=== PATIENT | male | born 1955 | race Caucasian/White ===

== ENCOUNTER 2019-06-16 05:52 | Outpatient (CLI) | payer MEDICAID, SELFPAY ==
[2019-06-16 07:20] LABS: Basophils % 0.8 %; Eosinophils # 0.2 10^3/uL (0.0-0.8); Eosinophils % 2.9 %; Hematocrit 40.1 % (42.0-52.0); Lymphocytes % 37.6 %; Mean Corpuscular HGB Conc 32.4 g/dL (30.0-36.0); Mean Corpuscular Hemoglobin 30.6 pg (28.0-34.0); Mean Corpuscular Volume 94.4 fL (80-94); Mean Platelet Volume 10.1 fL (7.4-10.4); Monocytes # 0.5 10^3/uL (0.2-0.9); Monocytes % 9.2 %; Neutrophils # 2.6 10^3/uL (1.8-7.7); Neutrophils % 49.3 %; Nucleated Red Blood Cells % 0 %; Platelet Count 234 10^3/cmm (130-400); Red Blood Count 4.25 10^6/uL (4.1-5.3); White Blood Count 5.2 10^3/uL (4.0-10.0)
[2019-06-16 07:23] LABS: Alanine Aminotransferase 11 U/L (0-41); Albumin Level 4.4 g/dL (3.5-5.2); Alkaline Phosphatase 75 IU/L (40-130); Anion Gap 14.9 (5-19); Aspartate Amino Transferase 13 U/L (0-40); Blood Urea Nitrogen 11 mg/dL (8-23); Calcium 9.8 mg/Dl (8.8-10.2); Carbon Dioxide 22 mmol/L (22-29); Chloride 108 mmol/L (98-107); Globulin 2.5 g/dL (1.3-4.6); Glomerular Filtration Rate 85.5 mL/min (90-130); Glucose 91 mg/dL (74-106); Potassium 3.9 mmol/L (3.5-5.1); Sodium 141 mmol/L (136-145); Total Bilirubin 0.2 mg/dL (0.15-1.2); Total Protein 6.9 g/dL (6.6-8.7)
[2019-06-16 07:39] LABS: Vitamin B12 384 pg/mL (232-1245)
== END 2019-06-16 05:53 | disposition home or self-care (01) ==
LOC: GILAB 05:56
PROVIDERS: Family Provider Nurse Practitioner Family; PCP Nurse Practitioner Family; Visit Provider Nurse Practitioner Family
DX: Z45.2 Encounter for adjustment and management of vascular access device (principal)
CPT/HCPCS: 36591; 80053; 82607; 85025; 96368; J1642

== ENCOUNTER 2019-07-21 06:42 | Outpatient (CLI) | payer MEDICAID, SELFPAY ==
[2019-07-21 06:50] VITALS: BP 123/79; PULSE 71; RESP 18; TEMP 37.1; O2SAT 99; BMI 21.7
[2019-07-21 07:17] LABS: Basophils % 0.7 %; Eosinophils # 0.2 10^3/uL (0.0-0.8); Hematocrit 39.5 % (42.0-52.0); Hemoglobin 13.1 g/dL (11.7-16.6); Mean Corpuscular HGB Conc 33.2 g/dL (30.0-36.0); Mean Corpuscular Hemoglobin 31.5 pg (28.0-34.0); Mean Platelet Volume 9.7 fL (7.4-10.4); Monocytes # 0.5 10^3/uL (0.2-0.9); Monocytes % 8.3 %; Neutrophils # 2.8 10^3/uL (1.8-7.7); Neutrophils % 50.8 %; Nucleated Red Blood Cells % 0 %; Platelet Count 218 10^3/cmm (130-400); Red Blood Count 4.16 10^6/uL (4.1-5.3); Red Cell Distribution Width 13.7 % (12.1-15.1); White Blood Count 5.4 10^3/uL (4.0-10.0)
[2019-07-21 07:34] LABS: Alanine Aminotransferase 11 U/L (0-41); Albumin Level 3.9 g/dL (3.5-5.2); Alkaline Phosphatase 64 IU/L (40-130); Anion Gap 15.4 (5-19); Aspartate Amino Transferase 13 U/L (0-40); Blood Urea Nitrogen 12 mg/dL (8-23); Calcium 9.8 mg/dL (8.5-10.5); Carbon Dioxide 21 mmol/L (22-29); Chloride 107 mmol/L (98-107); Globulin 3.7 g/dL (1.3-4.6); Glucose 108 mg/dL (65-115); Potassium 3.4 mmol/L (3.5-5.1); Sodium 140 mmol/L (136-145); Total Bilirubin 0.3 mg/dL (0.15-1.2); Total Protein 7.6 g/dL (6.6-8.7)
== END 2019-07-21 06:43 | disposition home or self-care (01) ==
PROVIDERS: Family Provider Nurse Practitioner Family; PCP Nurse Practitioner Family; Visit Provider Nurse Practitioner Family
DX: Z45.2 Encounter for adjustment and management of vascular access device (principal); Z79.899 Other long term (current) drug therapy; D64.9 Anemia, unspecified; F41.9 Anxiety disorder, unspecified; G40.909 Epilepsy, unspecified, not intractable, without status epilepticus
CPT/HCPCS: 36591; 80053; 85025

== ENCOUNTER 2019-11-17 06:54 | Outpatient (CLI) | payer MEDICAID, SELFPAY ==
--- NOTE | 2019-11-17 07:05 | MR_ITS ---
WS: [id number] MRI LUMBAR SPINE NONCONTRAST TECHNIQUE: Sagittal T1, T2 and STIR imaging. Axial T1 and T2 imaging. CLINICAL INFORMATION: LOW BACK PAIN COMPARISON: MRI FINDINGS: Mild lumbar curve. No acute compression. Multilevel disc bulging worse at L2-L3, L3-L4 and L4-L5. Dis c space narrowing has progressed at these levels since the prior examination . Spinal canal stenosis has progressed. Small disc protrusion lower thoracic spine at T10-11. Mild bilateral foramin al narrowing at this level. L1-L2: Mild annular bulging. Narrowing of subarticular recess bilaterally. Mild facet arthropathy. Mi ld bilateral foraminal narrowing. L2-L3: Mild disc bulging in combination with facet arthropathy results in moderate central canal sten osis. Impingement on the left subarticular recess. Mild right foraminal narrowing. L3-L4: Disc osteophyte complex with moderate central canal stenosis. Impingement on the left subartic ular recess and traversing left L4 nerve root. Moderate facet arthropathy. Moderate to severe left fo raminal narrowing. Right foramen is patent. L4-L5: Mild disc bulging with mild central canal stenosis. Slight impingement traversing L5 nerve ricci ts. Moderate facet arthropathy. Moderate bilateral foraminal narrowing right greater than left. L5-S1: Mild annular bulging. Spinal canal is patent. Mild facet arthropathy. Mild right greater than left foraminal narrowing. Slight encroachment traversing right greater than left S1 nerve roots in th e subarticular recess. Small disc protrusions at C5-C6 and C6-C7 cervical spine seen on the mechanical engineering specialist imaging. Small bilateral renal cysts. MR/MR lumbar spine wo con* [id number] IMPRESSION: 1. Mild lumbar curve with progressed degenerative disc disease L2-L3, L3-L4, L 4-L5 with progressed central canal stenosis. 2. Moderate central canal stenosis L2-L3 and L3-4 worse at L3-4. 3. Impingement on the subarticular recess L2-3, bilateral L3-4 worse the left, and right L4-5. 4. Moderate foraminal narrowing left L3-4 and right L4-5. 5. Moderate facet arthropathy L3-L5. 6. Small disc protrusions in the cervical spine seen on the mechanical engineering specialist imaging at C 5-C6 and C6-C7.
== END 2019-11-17 06:55 | disposition home or self-care (01) ==
LOC: RADSHAW 06:58
PROVIDERS: PCP Family Medicine; Visit Provider Family Medicine
DX: M54.5 Low back pain (principal); M51.36 Other intervertebral disc degeneration, lumbar region; M48.061 Spinal stenosis, lumbar region without neurogenic claudication; M25.80 Other specified joint disorders, unspecified joint; M47.816 Spondylosis without myelopathy or radiculopathy, lumbar region; M50.220 Other cervical disc displacement, mid-cervical region, unspecified level
CPT/HCPCS: 72148

== ENCOUNTER → 2020-05-30 11:35 | Outpatient (BNVA) | payer MEDICAID, SELFPAY | PROVIDERS: PCP Family Medicine; Visit Provider Internal Medicine | DX: Z20.828 Contact with and (suspected) exposure to other viral communicable diseases (principal) | CPT/HCPCS: 87635 ==

== ENCOUNTER 2020-06-05 08:13 | Day surgery (SDC) | payer MEDICAID, SELFPAY ==
[2020-05-31 13:10] VITALS: BMI 22.6
[2020-06-05 09:00] VITALS: BP 127/82; PULSE 83; RESP 18; TEMP 36.3; O2SAT 99
--- NOTE | 2020-06-05 09:24 | ANES.PREANE2 ---
Pre-Anesthetic Assessment Pre-Anesthetic Assessment: Height/Weight: Height 1.83 m Weight 75.75 kg Temp Pulse Resp BP Pulse Ox 97.4 F L 83 18 127/82 99 06/05/20 09:00 06/05/20 09:00 06/05/20 09:00 06/05/20 09:00 06/05/20 09:00 Preop Diagnosis: Hx colon polyps Proposed Procedure: Operation Date: 06/05/20 09:45 Proposed Procedures p EGD [id number] Z86.010 R10.11(Not Applicable) - Nura Diaz MD s Colonoscopy(Not Applicable) - Nura Diaz MD Familial anesthetic complications: None Was Beta Emani taken within 24 hours: N/A Last intake: Intake Last Liquid Date 06/04/19 Last Liquid Time 23:55 Last Solid Date 06/04/19 Last Solid Time 12:00 Social: Social History: Tobacco Exam: Pre-Anes Outpt Exam: alert, oriented x 3, clear to auscultation bilaterally and regular rate & rhythm Airway: Cervical ROM: WNL MP: 3 Dentition: Other (no teeth) Pulmonary: Pulmonary: COPD and Sleep apnea GI: GI: GERD Comments: pancreatic stent s/p cholecystectomy Metabolic: Comments: Lyme's disease - receives antibiotics throught port Neuropsych: Neuropsych: Seizure Anesthetic Plan: ASA status: 3 Anesthesia: MAC Risk of > 500 ml blood loss (7ml/kg in children): No PFSH Anesthesia PFSH: Social History (Updated 05/18/20 @ 14:03 by JACKIE Oreilly) Smoking and tobacco status: current every day smoker Adopted: Yes Marital status: Number of children: 2 service: No History of recent travel: No Data Anesthesia Cardiac Studies: No Data to Display
[2020-06-05] MEDS: sodium chloride 0.9% 1,000 ML 30 ML IV (09:29)
--- NOTE | 2020-06-05 09:35 | W.PM.OPSUD ---
Surgery/Procedure H&P Update DATE OF PROCEDURE: June 05, 2020 DATE H&P PERFORMED: 05/18/20 PREOP DIAGNOSIS: Hx colon polyps PLANNED PROCEDURE: Operation Date: 06/05/20 09:45 Proposed Procedures p EGD [id number] Z86.010 R10.11(Not Applicable) - Nura Diaz MD s Colonoscopy(Not Applicable) - Nura Diaz MD
[2020-06-05 11:02] VITALS: BP 113/81; PULSE 84; RESP 16; TEMP 36.1; O2SAT 95
[2020-06-05 11:16] VITALS: BP 123/89; PULSE 70; RESP 18; TEMP 36.3; O2SAT 100
--- NOTE | 2020-06-05 18:38 | ANE.PACU2 ---
Inpatient post-anesthesia follow up: Airway intact: Yes Vital signs: Temperature 97.4 F Pulse Rate 70 Respiratory Rate 18 Blood Pressure 123/89 Pulse Oximetry 100 Oxygen Delivery Me thod Room Air Oxygen Flow Rate 4 Fraction of Inspir ed Oxygen Hydration adequate: Yes Nausea and vomiting: No Pain level: 1 Mental status: Baseline
[2020-06-06 07:33] LABS: H. Pylori / CLO Test Negative
== END 2020-06-05 11:55 | disposition home or self-care (01) ==
PROVIDERS: PCP Family Medicine; Visit Provider Internal Medicine
PROC: 0DJ08ZZ Inspection of Upper Intestinal Tract, Via Natural or Artificial Opening Endoscopic (ICD-10-PCS; CPT 43235; principal; 2020-06-05 09:45)
PROC: 0DJD8ZZ Inspection of Lower Intestinal Tract, Via Natural or Artificial Opening Endoscopic (ICD-10-PCS; CPT 45378; 2020-06-05 09:45)
DX: K29.70 Gastritis, unspecified, without bleeding (principal); Z86.010 Personal history of colon polyps; R10.11 Right upper quadrant pain; F17.210 Nicotine dependence, cigarettes, uncomplicated; J44.9 Chronic obstructive pulmonary disease, unspecified; G47.30 Sleep apnea, unspecified; K21.9 Gastro-esophageal reflux disease without esophagitis; Z90.49 Acquired absence of other specified parts of digestive tract
CPT/HCPCS: 12345; 43239; 45378; 87077; J7030; T1015-U1

== ENCOUNTER → 2021-05-18 08:08 | Outpatient (BNVA) | payer MEDICAID, SELFPAY | PROVIDERS: PCP Family Medicine; Referring Provider Family Medicine; Visit Provider Urology | DX: N41.1 Chronic prostatitis (principal); N40.1 Benign prostatic hyperplasia with lower urinary tract symptoms; R10.31 Right lower quadrant pain | CPT/HCPCS: 81003 ==

== ENCOUNTER → 2021-09-19 09:34 | Outpatient (BNVA) | payer MEDICARE, MEDICAID, SELFPAY | PROVIDERS: PCP Family Medicine; Referring Provider Family Medicine; Visit Provider Specialist | DX: R10.31 Right lower quadrant pain (principal); R10.32 Left lower quadrant pain; Z87.891 Personal history of nicotine dependence | CPT/HCPCS: 73502; 99203; 99204 ==

== ENCOUNTER → 2021-09-27 08:06 | Outpatient (BNVA) | payer MEDICARE, MEDICAID, SELFPAY | PROVIDERS: PCP Family Medicine; Visit Provider Physician Assistant | DX: M51.36 Other intervertebral disc degeneration, lumbar region (principal); R10.31 Right lower quadrant pain; R10.32 Left lower quadrant pain; M48.062 Spinal stenosis, lumbar region with neurogenic claudication; M41.80 Other forms of scoliosis, site unspecified; M14.80 Arthropathies in other specified diseases classified elsewhere, unspecified site; M16.0 Bilateral primary osteoarthritis of hip | CPT/HCPCS: 72110; 73523; 99204; 99999 ==

== ENCOUNTER → 2021-10-18 07:52 | Outpatient (BNVA) | payer MEDICARE, MEDICAID, SELFPAY | PROVIDERS: PCP Family Medicine; Visit Provider Orthopaedic Surgery | DX: M48.062 Spinal stenosis, lumbar region with neurogenic claudication (principal) | CPT/HCPCS: 99024; 99213 ==

== ENCOUNTER 2021-11-07 21:05 | Inpatient (IN) | payer MEDICARE, MEDICAID, SELFPAY ==
[2021-11-05 08:16] VITALS: BMI 20.9
--- NOTE | 2021-11-05 08:23 | ECG_ITS ---
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 Measurements Intervals [place] Rate: 76 P: 79 [place]: 164 QRS: 75 QRSD: 85 T: 64 QT: 349 QTc: 393 Interpretive Statements SINUS RHYTHM Compared to ECG 10/03/2016 20:42:55 No significant changes Electronically Signed On 11-05-2021 16:33:38 CDT by Mirza Cruz M.D. [email or web address] [email or web address] general [email or web address] Amigothe [email or web address].[employer]/store/OM/[id number]
--- NOTE | 2021-11-05 08:43 | P.ANESASSM_ITS ---
Pre-Anesthetic Assessment Height/Weight: Height 1.83 m Weight 70.307 kg Preop Diagnosis: Hx colon polyps Operation Date: 11/07/21 07:00 Proposed Procedures p Posterior Lumbar Interbody FusionL4/5 [id number] /[id number]/[id number]/71740/49480/M48.062/M51.36/M41.80(Not Applicable) - Bernabe Carbajal, DO Familial anesthetic complications: none Social Tobacco and No alcohol Exam alert, oriented x 3, clear to auscultation bilaterally and regular rate & rhythm Airway Mallampati: Class II Dentition: other (no teeth) Pulmonary Chronic Obstructive Pulmonary Disease and Sleep Apnea CV/HEM None reported None reported Hepatic None reported GI Gastroesophageal Reflux Disease Metabolic lyme's disease on doxy Musc/skel Lower Back Pain Neuropsych Seizure (last one 2-3 years ago, unknown etiology (hx of multiple concussions though)) Anesthetic Plan ASA status: 3 Anesthesia: General Risk of > 500 ml blood loss (7ml/kg in children): No Medications/Allergies Home Medications Medication Instructions Recorded Confirmed Last Taken Type gabapentin 600 mg tablet 600 mg PO QID 06/16/19 11/05/21 06/05/20 History topiramate 200 mg tablet (Topamax) 200 mg PO QID 06/16/19 11/05/21 06/05/20 History albuterol sulfate 90 mcg/actuation 2 puff INHALATION QID 05/08/20 11/05/21 1 Week Ago History aerosol inhaler (ProAir HFA) ~05/29/20 naloxone 4 mg/actuation nasal 1 spray INTRANASAL Q2M 05/08/20 11/05/21 Unknown History spray (Narcan) pantoprazole 20 mg tablet,delayed 40 mg PO DAILY tab 05/08/20 11/05/21 06/05/20 History release (Protonix) sucralfate 1 gram tablet (Carafate) 1 g PO Q6H tab 05/08/20 11/05/21 06/05/20 History doxycycline hyclate 100 mg capsule 100 mg PO BID 05/18/21 11/05/21 Unknown History tamsulosin 0.4 mg capsule 0.4 mg PO .at bedtime #30 cap 05/18/21 11/05/21 Unknown Rx cholecalciferol (vitamin D3) 1,250 1,250 unit PO DAILY 09/19/21 11/05/21 Unknown History mcg (50,000 unit) capsule ibuprofen 800 mg tablet 800 mg PO Q8H 09/19/21 11/05/21 Unknown History oxycodone-acetaminophen 10 mg-325 1 tab PO TID PRN 09/19/21 11/05/21 Unknown History mg tablet (Percocet) chlorzoxazone 500 mg tablet 500 mg PO TID 11/05/21 11/05/21 Unknown History Allergies Allergy/AdvReac Type Severity Reaction Status Date / Time ketorolac [From Toradol] Allergy Mild unknown Verified 10/18/21 08:03 carbamazepine [From Tegretol] Allergy Unknown Verified 10/18/21 08:03 Penicillins Allergy ALGY-Hives Verified 10/18/21 08:03 phenobarbital Allergy Unknown Verified 10/18/21 08:03 phenytoin [From Dilantin] Allergy Unknown Verified 10/18/21 08:03 prochlorperazine Allergy Unknown Verified 10/18/21 08:03 [From Compazine] ciprofloxacin AdvReac increase Verified 10/18/21 08:03 blood pressure with headache PFSH Anesthesia Medical History BPH loc w urin obs/LUTS History of broken leg Surgical History H/O shoulder surgery History of ankle surgery History of elbow surgery History of hernia surgery Family History Father , AT AGE 73 Murder Mother , AT AGE 42 Cancer COLON Social History Smoking and tobacco status: former smoker Alcohol intake: never Adopted: Yes Marital status: Number of children: 2 History of recent travel: No Data Anesthesia Cardiac Studies: No Data to Display
[2021-11-07] VITALS (33 sets, daily range): BP systolic 79–118; BP diastolic 53–81; PULSE 87–119; RESP 15–28; TEMP 36.4–36.6; O2SAT 74–100
--- NOTE | 2021-11-07 | SCC_ITS ---
Procedure done: 1. L5/S1 Interbody fusion with posterolateral fusion 2. Instrumentation T10-S1 3. Lumbopelvic fixation 4. Posterolateral fusion T10 pelvis 5. Cage at L5/S1 6. Laminectomy L1/2 with partial facetectomies 7. Laminectomy L2/3 with partial facetectomies 8. Laminectomy L3/4 with partial facetectomies 9. Laminectomy L4/5 with partial facetectomies 10. Laminectomy L5/S1 with partial facetectomies purpose of nerve decompression 11. use of autograft from same incision 12. allograft 13. Bone marrow aspirate from right iliac crest 14. computer navigation / stereotactic for spine 11 seconds of fluoroscopic guidance, for a cumulative dose of 28.2 mGy, was provided to Dr. Carbajal by the radiology department. C-arm images of the lumbar spine were saved for the patient's permanent record. [facility]
[2021-11-07] MEDS: sodium chloride 0.9% 1,000 ML 30 ML IV (09:26)
[2021-11-07] MEDS: fentaNYL 50 mcg/mL INJ 2mL IVP ×2 (10:00→10:20)
--- NOTE | 2021-11-07 10:01 | ANES.PREANE2 ---
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 Operation Date: 11/07/21 11:20 Proposed Procedures p Posterior Lumbar Interbody FusionL4/5 [id number]/15425/M48.062/M51.36/M41.80(Not Applicable) - Bernabe Carbajal DO Last intake: Intake Last Liquid Date 11/06/21 Last Liquid Time 22:00 Last Solid Date 11/06/21 Last Solid Time 22:00 Social Tobacco Airway Submandibular: within normal limits Mallampati: Class I Pulmonary Chronic Obstructive Pulmonary Disease GI GERD well controlled Musc/skel Lower Back Pain and Osteoarthritis/DJD Neuropsych Seizure Traumatic brain injury Anesthetic Plan ASA status: 3 Anesthesia: General Other: Avoid Propofol Medications/Allergies Home Medications Medication Instructions Recorded Confirmed Last Taken Type gabapentin 600 mg tablet 600 mg PO QID 06/16/19 11/07/21 11/07/21 07:00 History topiramate 200 mg tablet (Topamax) 200 mg PO QID 06/16/19 11/07/21 11/06/21 History albuterol sulfate 90 mcg/actuation 2 puff INHALATION QID 05/08/20 11/07/21 11/06/21 History aerosol inhaler (ProAir HFA) naloxone 4 mg/actuation nasal 1 spray INTRANASAL Q2M 05/08/20 11/07/21 Unknown History spray (Narcan) pantoprazole 20 mg tablet,delayed 40 mg PO DAILY tab 05/08/20 11/07/21 11/06/21 History release (Protonix) sucralfate 1 gram tablet (Carafate) 1 g PO Q6H tab 05/08/20 11/07/21 11/06/21 History doxycycline hyclate 100 mg capsule 100 mg PO BID 05/18/21 11/07/21 11/06/21 History tamsulosin 0.4 mg capsule 0.4 mg PO .at bedtime #30 cap 05/18/21 11/07/21 11/06/21 Rx cholecalciferol (vitamin D3) 1,250 1,250 unit PO DAILY 09/19/21 11/07/21 10/23/21 History mcg (50,000 unit) capsule ibuprofen 800 mg tablet 800 mg PO Q8H 09/19/21 11/07/21 11/06/21 History oxycodone-acetaminophen 10 mg-325 1 tab PO TID PRN 09/19/21 11/07/21 11/06/21 History mg tablet (Percocet) chlorzoxazone 500 mg tablet 500 mg PO TID 11/05/21 11/07/21 11/06/21 History Allergies Allergy/AdvReac Type Severity Reaction Status Date / Time ketorolac [From Toradol] Allergy Mild unknown Verified 10/18/21 08:03 carbamazepine [From Tegretol] Allergy Unknown Verified 10/18/21 08:03 morphine Allergy ALGY-Swell Verified 11/07/21 09:14 Lip/Tongue/Throat Penicillins Allergy ALGY-Hives Verified 10/18/21 08:03 phenobarbital Allergy Unknown Verified 10/18/21 08:03 phenytoin [From Dilantin] Allergy Unknown Verified 10/18/21 08:03 prochlorperazine Allergy Unknown Verified 10/18/21 08:03 [From Compazine] propofol Allergy ADR-Headach Verified 11/07/21 09:13 e ciprofloxacin AdvReac increase Verified 10/18/21 08:03 blood pressure with headache Current Medications Generic Name Dose Route Start Last Admin Trade Name Freq PRN Reason Stop Dose Admin Sodium Chloride 1,000 mls @ 30 mls/hr 11/07/21 08:15 11/07/21 09:26 Sodium Chloride 0.9% IV 11/08/21 08:14 30 mls/hr .Q24H SABAS Administration PFSH Anesthesia Medical History BPH loc w urin obs/LUTS History of broken leg Surgical History H/O shoulder surgery History of ankle surgery History of elbow surgery History of hernia surgery Family History Father , AT AGE 73 Murder Mother , AT AGE 42 Cancer COLON Social History Smoking and tobacco status: former smoker Alcohol intake: never Adopted: Yes Marital status: Number of children: 2 History of recent travel: No Data Anesthesia Cardiac Studies: No Data to Display
[2021-11-07] MEDS: HYDROmorphone 1 mg/mL INJ 1 mL 0.5 MG IVP ×3 (11:15→13:35)
--- NOTE | 2021-11-07 13:28 | W.PM.OPSUD ---
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
[2021-11-07 13:44] LABS: Hematocrit 36.7 % (42.0-52.0); Hemoglobin 12.1 g/dL (11.7-16.6)
[2021-11-07] MEDS: clindamycin 900 MG/50 ML PREMIX 100 MG IV (14:12)
[2021-11-07 14:44] LABS: Alanine Aminotransferase < 5 U/L (0-41); Albumin Level 4.2 g/dL (3.5-5.2); Alkaline Phosphatase 52 IU/L (40-130); Aspartate Amino Transferase 17 U/L (0-40); Blood Urea Nitrogen 22 mg/dL (8-23); Calcium 9.3 mg/dL (8.5-10.5); Carbon Dioxide 26 mmol/L (22-29); Chloride 105 mmol/L (98-107); Globulin 3.1 g/dL (1.3-4.6); Glomerular Filtration Rate 135.2 mL/min (90-130); Glucose 83 mg/dL (65-115); Osmolality Calculated 290 mOsm/kg (285-295); Sodium 139 mmol/L (136-145); Total Bilirubin 0.2 mg/dL (0.15-1.2); Total Protein 7.3 g/dL (6.6-8.7)
[2021-11-07 14:46] LABS: Anion Gap 12.3 (5-19); Creatinine Clr Calc Pharmacy 97.2432; Potassium 4.3 mmol/L (3.5-5.1)
[2021-11-07] MEDS: heparin, porcine 1,000 unit/mL INJ 10 mL 10000 UNIT IRRIGATION (17:04)
[2021-11-07] MEDS: vancomycin 1,000 MG SDV 1000 MG XX (17:04)
[2021-11-07 18:09] LABS: ABG PCO2 46.7 mmHg (35-45); ABG PH Result 7.23 (7.35-7.45); Arterial Blood Gas Hematocrit 27.7 % (42-52); Base Excess ABG -7.8 mmol/L (-2.0-2.0); Blood Gas Sample Type Arterial; HCO3 ABG 19.4 mmol/L (22-26); HGB O2 Sat 97.3 % (95-100); Ionized Calcium Level - ABG 1.2 mmol/L (1.1-1.4); Methemoglobin 0.6 % (0.4-1.5); Oxygen Saturation ABG 99.9; Potassium Level - ABG 3.6 mmol/L (3.5-5.0)
[2021-11-07 18:10] LABS: Hemoglobin 9.5 g/dL (11.7-16.6)
[2021-11-07 18:11] LABS: Blood Gas Operator Identificat ED; Blood Gas Sample Site Not specified
[2021-11-07 19:19] LABS: ABG PCO2 41.1 mmHg (35-45); ABG PH Result 7.25 (7.35-7.45); Arterial Blood Gas Hematocrit 26.8 % (42-52); Base Excess ABG -8.7 mmol/L (-2.0-2.0); Blood Gas Allen Test Pos; Blood Gas Operator Identificat ED; Blood Gas Sample Type Arterial; Carboxyhemoglobin 1.6 %THgb (0.4-20.1); HGB O2 Sat 97.3 % (95-100); Ionized Calcium Level - ABG 1.2 mmol/L (1.1-1.4); Methemoglobin 1.1 % (0.4-1.5); Potassium Level - ABG 3.7 mmol/L (3.5-5.0); Total Hemoglobin 8.8 g/dL (14-18)
--- NOTE | 2021-11-07 19:32 | XR_ITS ---
WS: [id number] Exam: XR lumbar spine 1V port [id number] Date/Time of Exam: 11/07/2021 7:32 PM Reason For Exam: OR PICS Intraoperative limited AP and lateral images of the lower lumbar and upper sacral spine are submitted for evaluation. Pedicle screws are positioned in L4, L5 and S1. Screws bridge the bilateral sacroiliac joints. A disc spacer is noted at L5-S1. No other significant finding on this limited series.
--- NOTE | 2021-11-07 19:44 | P.OP_ITS ---
Operative Report Date of procedure: November 07, 2021 Pre-op diagnosis: Preop Diagnosis DDD L spine with Stenosis and Neurogenic Claudication Post-op diagnosis: same Procedure done: 1. L5/S1 Interbody fusion with posterolateral fusion 2. Instrumentation T10-S1 3. Lumbopelvic fixation 4. Posterolateral fusion T10 pelvis 5. Cage at L5/S1 6. Laminectomy L1/2 with partial facetectomies 7. Laminectomy L2/3 with partial facetectomies 8. Laminectomy L3/4 with partial facetectomies 9. Laminectomy L4/5 with partial facetectomies 10. Laminectomy L5/S1 with partial facetectomies purpose of nerve decompression 11. use of autograft from same incision 12. allograft 13. Bone marrow aspirate from right iliac crest 14. computer navigation / stereotactic for spine Surgeon: Bernabe Carbajal Almond Blancher Operator: Cas Reardon Almond Blancher Operator: The rn neurosurgical, Cas Reardon, PAC was needed for his expertise under the microscope. He was important and necessary throughout the procedure to complete in a safe and timely manner. He assisted with patient positioning prepping and draping tissue retraction suctioning of the operative field protection of the dural sac and tissue closure Estimated blood loss (mL): 2,000 Procedure: 1. L5/S1 Interbody fusion with posterolateral fusion 2. Instrumentation T10-S1 3. Lumbopelvic fixation 4. Posterolateral fusion T10 pelvis 5. Cage at L5/S1 6. Laminectomy L1/2 with partial facetectomies 7. Laminectomy L2/3 with partial facetectomies 8. Laminectomy L3/4 with partial facetectomies 9. Laminectomy L4/5 with partial facetectomies 10. Laminectomy L5/S1 with partial facetectomies purpose of nerve decompression 11. use of autograft from same incision 12. allograft 13. Bone marrow aspirate from right iliac crest 14. computer navigation / stereotactic for spine Patient is brought to the operative suite. After undergoing anesthesia, the patient had neuro monitoring attached. Patient was then placed in the prone position on the Scotty table. All areas of impingement were well-padded. Patient was then prepped and draped in the normal sterile fashion. Skin incision was then made over the T10 down to the pelvis. Subperiosteal dissection was made out to the transverse processes of T 10 down to L5. The sacral ala was exposed as well as part of the sacrum where the iliac screws are going to be inserted. Once the exposure was complete attention was then brought to obtaining bone marrow aspirate. The [employer] bone marrow aspirate kit was used to aspirate bone marrow aspirate. This was done by using the sharp probe to open up the bone. Aspiration was performed and then the blunt probe was then used to dissect down to through the bone tunnel. An aspirating well drawn back a millimeter approximately 20 cc of bone marrow aspirate was used. Admixed with the allograft and autograft bone that will be used. Attention was brought to placing the 2 pins into the right iliac crest. These pins will be removed. These pins were placed for purposes of attaching the fiducial for computer navigation. The fiducial was attached and then the C-arm was brought in and spun around the patient. The information from the C-arm was then used in the computer and will later be used for placing the pedicle screws. 2 screws were required to get all screws. The first pin was from L3 to the pelvis. The second spin was from T10 down to L2. The technique for placing the pedicle screws was to use a drill followed by the gearshift probe using computer navigation. Followed by the ball probe to feel the superior inferior medial lateral hollis of the pedicles. Then placement of the screws with computer navigation Was done at each pedicle. Screws were placed at T10 bilaterally, T11 bilaterally, T12 bilaterally, L1 bilaterally, L2 bilaterally, L3 bilaterally, L4 bilaterally, L5 bilaterally and S 1. Is brought to placing the iliac screws. This was done again using computer navigation. Starting point was stable in all the awl was then placed through the sacral ala through the SI joint into the iliac crest. After this was completed a pedicle feeler was used to ensure that there was no breach. This was done using computer navigation as well. And then a tap was used followed by placing 100 mm 8.5 millimeter screws. this was done bilaterally. Next attention was brought to performing the laminectomy ofL1. This was done using the high-speed bur Kerrisons and curettes. Once the lamina was removed and then attention was brought to performing a partial facetectomy on the contralateral side. This was done again using the high-speed bur curettes and Kerrisons. The ligamentum flavum was taken down bilaterally from L1 to L2. Attention was then brought to the facet on the ipsilateral side. The facet was taken down. The L2 nerve was decompressed as it passed around the L2 pedicle bilaterally The laminectomy was done for purposes of decompressing the nerves. The L1-2 foramen were also opened up bilaterally in order to facilitate decompressing the L1 nerve bilaterally Next attention was brought to performing the laminectomy ofL2. This was done using the high-speed bur Kerrisons and curettes. Once the lamina was removed and then attention was brought to performing a partial facetectomy on the contralateral side. This was done again using the high-speed bur curettes and Kerrisons. The ligamentum flavum was taken down bilaterally from L2 to L3. Attention was then brought to the facet on the ipsilateral side. The facet was taken down. The L3 nerve was decompressed as it passed around the L3 pedicle bilaterally The laminectomy was done for purposes of decompressing the nerves. The L2-3 foramen were open bilaterally in order to facilitate decompressing the L2 nerves bilaterally as well. Next attention was brought to performing the laminectomy ofL3. This was done using the high-speed bur Kerrisons and curettes. Once the lamina was removed and then attention was brought to performing a partial facetectomy on the contralateral side. This was done again using the high-speed bur curettes and Kerrisons. The ligamentum flavum was taken down bilaterally from L3 to L4. Attention was then brought to the facet on the ipsilateral side. The facet was taken down. The L4 nerve was decompressed as it passed around the L4 pedicle bilaterally. The laminectomy was done for purposes of decompressing the nerves. The L3-4 was opened up bilaterally to facilitate decompressing the L3 nerve bilaterally. Next attention was brought to performing the laminectomy ofL4. This was done using the high-speed bur Kerrisons and curettes. Once the lamina was removed and then attention was brought to performing a partial facetectomy on the contralateral side. This was done again using the high-speed bur curettes and Kerrisons. The ligamentum flavum was taken down bilaterally from L4 to L5. Attention was then brought to the facet on the ipsilateral side. The facet was taken down. The L5 nerve was decompressed as it passed around the L5 pedicle bilaterally The laminectomy was done for purposes of decompressing the nerves. The L4-5 foramen were opened bilaterally in order to facilitate decompressing the L4 nerve bilaterally Next attention was brought to performing the laminectomy ofL5. This was done using the high-speed bur Kerrisons and curettes. Once the lamina was removed and then attention was brought to performing a partial facetectomy on the contralateral side. This was done again using the high-speed bur curettes and Kerrisons. The ligamentum flavum was taken down bilaterally from L5 to S1. Attention was then brought to the facet on the ipsilateral side. The facet was taken down. The S1 nerve was decompressed as it passed around the S1 pedicle. The laminectomy was done for purposes of decompressing the nerves. as well as placement of the cage. The L5 nerve was identified as it traversed through the L5/S1 foramen. The thecal sac was identified and retracted. The L5/S1 disc base was identified. Using a knife the disc base was opened. And then sequential joseph were placed. The first shaver was a 6 and the last shaver was a 12. Using a pituitary and down going curette the endplates were scraped and disc material was removed from the space. Once adequate decompression of the disc base was felt to be had. Osteoamp sponge was packed into the anterior aspect of the disc base. Then a size 12 cage from [employer] was placed after packing osteoamp into the cage. While placing the cage the thecal sac and S1 nerve was protected. C arm was used to ensure that the cages placed in the appropriate position. Attention was then brought to attaching the rods to the screws placed in the [id number], T11 bilaterally, T12 bilaterally, L1 bilaterally, L2 bilaterally, L3 bilaterally, L4 bilaterally, L5 bilaterally, and S1. This is also all attached to the iliac screws were Placed. caps were torqued into position. Locking the construct in place. Wound was copiously irrigated and then attention was brought to decorticating the facets and transverse processes laterally. Bone that was taken down from the lamina was used along with osteoamp fibers and sponges were packed into the lateral gutters along the facet joints. This was done bilaterally. Wound was then closed in a layered fashion starting with the thoracolumbar fascia. 0-vicryl was used the sub cutaneous tissue was closed with 2-0 vicryl and skin with 4-0 monocryl. Glue was then used to seal the skin and a steril dressing was applied. Patient was then placed in the supine position. The endotracheal tube was removed and patient was transferred to the PACU in stable condition.
--- NOTE | 2021-11-07 20:39 | PM.CONSULT ---
Providers/Reason For Consult Consulting Physician/Specialty*: Elías Messina Reason for Consult*: Medical management Requesting Physician: Bernabe Carbajal DO Attending Physician: Bernabe Carbajal DO Primary Care Provider: Hannah Ross MD History of Present Illness History of Present Illness Geoffrey Mcleod is a 66 year old male with PMH of severe back pain. 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 Medicine was consulted for co management of the patient. His vitals and labs have been reviewed. Review of Systems General: Reports: ROS unobtainable due to endotracheal tube Medications/Allergies Home Medications Medication Instructions Recorded Confirmed Last Taken Type gabapentin 600 mg tablet 600 mg PO QID 06/16/19 11/07/21 11/07/21 07:00 History topiramate 200 mg tablet (Topamax) 200 mg PO QID 06/16/19 11/07/21 11/06/21 History albuterol sulfate 90 mcg/actuation 2 puff INHALATION QID 05/08/20 11/07/21 11/06/21 History aerosol inhaler (ProAir HFA) naloxone 4 mg/actuation nasal 1 spray INTRANASAL Q2M 05/08/20 11/07/21 Unknown History spray (Narcan) pantoprazole 20 mg tablet,delayed 40 mg PO DAILY tab 05/08/20 11/07/21 11/06/21 History release (Protonix) sucralfate 1 gram tablet (Carafate) 1 g PO Q6H tab 05/08/20 11/07/21 11/06/21 History doxycycline hyclate 100 mg capsule 100 mg PO BID 05/18/21 11/07/21 11/06/21 History tamsulosin 0.4 mg capsule 0.4 mg PO .at bedtime #30 cap 05/18/21 11/07/21 11/06/21 Rx cholecalciferol (vitamin D3) 1,250 1,250 unit PO DAILY 09/19/21 11/07/21 10/23/21 History mcg (50,000 unit) capsule ibuprofen 800 mg tablet 800 mg PO Q8H 09/19/21 11/07/21 11/06/21 History oxycodone-acetaminophen 10 mg-325 1 tab PO TID PRN 09/19/21 11/07/21 11/06/21 History mg tablet (Percocet) chlorzoxazone 500 mg tablet 500 mg PO TID 11/05/21 11/07/21 11/06/21 History Allergies Allergy/AdvReac Type Severity Reaction Status Date / Time ketorolac [From Toradol] Allergy Mild unknown Verified 10/18/21 08:03 carbamazepine [From Tegretol] Allergy Unknown Verified 10/18/21 08:03 morphine Allergy ALGY-Swell Verified 11/07/21 09:14 Lip/Tongue/Throat Penicillins Allergy ALGY-Hives Verified 10/18/21 08:03 phenobarbital Allergy Unknown Verified 10/18/21 08:03 phenytoin [From Dilantin] Allergy Unknown Verified 10/18/21 08:03 prochlorperazine Allergy Unknown Verified 10/18/21 08:03 [From Compazine] propofol Allergy ADR-Headach Verified 11/07/21 09:13 e ciprofloxacin AdvReac increase Verified 10/18/21 08:03 blood pressure with headache Current Medications Generic Name Dose Route Start Last Admin Trade Name Freq PRN Reason Stop Dose Admin Fentanyl 50 mcg 11/07/21 08:06 11/07/21 10:20 Fentanyl 50 Mcg/Ml Inj 2ml IVP 50 mcg Q10M PRN Administration Preop Pain PFSH Acute PFSH: Medical History BPH loc w urin obs/LUTS History of broken leg Surgical History H/O shoulder surgery History of ankle surgery History of elbow surgery History of hernia surgery Family History Father , AT AGE 73 Murder Mother , AT AGE 42 Cancer COLON Social History Smoking and tobacco status: former smoker Alcohol intake: never Adopted: Yes Marital status: Number of children: 2 History of recent travel: No Vitals/I&O/Wt Last Vital Signs Temp 97.5 F L 11/07/21 20:05 Pulse 107 H 11/07/21 20:30 Resp 15 11/07/21 20:30 BP 93/72 11/07/21 20:30 Pulse Ox 100 11/07/21 20:30 11/07/21 11/07/21 11/07/21 06:59 14:59 22:59 Intake Total 50 / 50 3700 / 3750 Output Total 3175 / 3175 Balance 50 / 50 525 / 575 Physical Exam HENMT: COMMON NORMALS: normocephalic and atraumatic HEAD & SCALP: normocephalic and atraumatic Eye: GENERAL EYE: appearance normal, both eyes and all related structures Chest: COMMONS NORMALS: normal inspection of the chest and normal palpation of entire chest wall CHEST: Yes Symmetrical chest wall rise Resp: COMMON NORMALS: normal respiratory effort, No retractions, No use of accessory muscles and clear to auscultation bilaterally EFFORT & INSPECTION: Yes symmetric chest movement AUSCULTATION: clear to auscultation bilaterally Cardio: COMMON NORMALS: regular rate, regular rhythm, S1 normal heart sound present, S2 normal heart sound present, No gallops present (Cardio), No murmurs present (Cardio), No rub (Cardio) and Peripheral pulses 2+ throughout RATE: regular rate RHYTHM: regular rhythm HEART SOUNDS: S1 normal heart sound present and S2 normal heart sound present PERIPHERAL PULSES: Peripheral pulses 2+ throughout GI: COMMON NORMALS: Normal to inspection, nondistended, normoactive bowel sounds present, Soft to palpation, non-tender, No hepatosplenomegaly present and no masses AUSCULTATION: Yes normoactive bowel sounds PALPATION: Yes Soft to palpation and Yes No hepatosplenomegaly present RECTAL EXAM: Yes deferred Extremity: COMMON NORMALS: no clubbing, cyanosis or edema and no pedal edema Urinary Catheter Management: Young: Cath Placed During This Visit: yes Urinary Catheter Date of Insertion: 11/07/21 Urinary Catheter Time of Insertion: 14:35 Data : 11/08/21 08:31 11/08/21 08:31 A&P Assessment and plan (1) Degenerative scoliosis in adult patient: Status: Acute (2) BPH loc w urin obs/LUTS: Status: Acute (3) Anemia: Status: Acute Plan 66 year old male with PMH of severe back pain. 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 Anemia: Secondary to postop blood loss Shock: Likely hypovolemic shock secondary to acute blood loss Plan: Currently patient is intubated and on mechanical ventilation. Status post 2 unit PRBC Continue Levophed Current plan is to continue with LR increased to 125 cc an hour 1 L normal saline bolus Monitor H&H Consult Attestations Medical Necessity Statement: Per primary team. Time Spent in Patient Care: Greater than 35 minutes (>than 50% of time spent in counselling and/or direct pt care on unit). Critical Care Time: The high probability of a clinically significant, sudden or life threatening deterioration of the patient's [] system(s) required my full and direct attention, intervention and personal management. The critical care time is as shown. 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
[2021-11-07] MEDS: dexmedeTOMIDine 0.9 % NaCL 400 MCG/100 ML PREMIX IV (21:27)
[2021-11-07] MEDS: ipratropium-albuterol 3 mL Neb INHALATION (21:45)
[2021-11-07] MEDS: lactated ringers 1,000 ML 90 ML IV (21:47)
--- NOTE | 2021-11-07 22:00 | PC.NURSE ---
Versed Patient restless and agitated, banging wrists against the bed and trying to pull at ET tube. Precedex running per JUL. Dr. Ghosh contacted and order received for a versed drip. Medication administered per JUL.
[2021-11-07] MEDS: ondansetron 2 mg/ML SDV 2 mL 4 MG IVP (22:06)
--- NOTE | 2021-11-07 22:10 | XRR_ITS ---
PROCEDURE INFORMATION: Exam: XR Chest Exam date and time: 11/07/2021 10:44 PM Age: 66 years old Clinical indication: Device placement; Ett placement (vent status); Prior surgery; Surgery date: Post-operative (0-2 days); Surgery type: Lumbar; Additional info: Tube placement TECHNIQUE: Imaging protocol: XR of the chest. Views: 1 view. COMPARISON: CR Chest 1 [place] [id number] 10/03/2016 8:57 PM FINDINGS: Tubes, catheters and devices: Endotracheal tube tip in place 4.3 cm above the monae. Right-sided Port-A-Cath. Lungs: Right hilar to lower lobe atelectasis versus minimal infiltrate. Pleural spaces: Unremarkable. No pleural effusion. No pneumothorax. Heart/Mediastinum: Unremarkable. No cardiomegaly. Bones/joints: Unremarkable. XR/XR chest 1V portable [id number] IMPRESSION: 1. Endotracheal tube tip in place 4.3 cm above the monae. 2. Right-sided Port-A-Cath. 3. Right hilar to lower lobe atelectasis versus minimal infiltrate.
[2021-11-07 22:41] LABS: ABG PCO2 30.3 mmHg (35-45); ABG PH Result 7.32 (7.35-7.45); Base Excess ABG -9.7 mmol/L (-2.0-2.0); Blood Gas Allen Test Pos; Blood Gas Sample Type Arterial; Carboxyhemoglobin 0.3 %THgb (0.4-20.1); HCO3 ABG 15.5 mmol/L (22-26); HGB O2 Sat 98.6 % (95-100); Ionized Calcium Level - ABG 1.1 mmol/L (1.1-1.4); Methemoglobin 1.2 % (0.4-1.5); Oxygen Saturation ABG > 100.0; Potassium Level - ABG 3.4 mmol/L (3.5-5.0); Total Hemoglobin 9.1 g/dL (14-18)
[2021-11-07 22:42] LABS: Blood Gas Operator Identificat MONRO; Blood Gas Sample Site ART LINE; Oxygen Device VENT
[2021-11-07] MEDS: ceFAZolin 2,000 MG in sodium chloride 0.9% (plus) 50 ML 100 MG IV (22:55)
[2021-11-08] VITALS (100 sets, daily range): BP systolic 82–137; BP diastolic 45–84; PULSE 61–130; RESP 4–26; TEMP 36.7–37.3; O2SAT 75–100; BMI 22.0
--- NOTE | 2021-11-08 00:50 | PC.NURSE ---
NS/PO meds Patient's blood pressures still soft, Levophed running per MAR. Dr. Ghosh contacted and order received for a 1 L bolus of NS. Additionally, PO medications ordered for patient with no OG/NG tube present; verbal order received to not administer PO medications.
[2021-11-08] MEDS: sodium chloride 0.9% 1,000 ML 999 ML IV (01:06)
[2021-11-08] MEDS: ipratropium-albuterol 3 mL Neb INHALATION ×4 (03:40→21:41)
[2021-11-08] MEDS: dexmedeTOMIDine 0.9 % NaCL 400 MCG/100 ML PREMIX 14.06 MCG IV (03:53)
[2021-11-08] MEDS: ceFAZolin 2,000 MG in sodium chloride 0.9% (plus) 50 ML 100 MG IV (06:08)
[2021-11-08] MEDS: ondansetron 2 mg/ML SDV 2 mL 4 MG IVP ×2 (06:26→19:57)
--- NOTE | 2021-11-08 07:15 | P.PN_ITS ---
Subjective Subjective: Patient is extremely agitated this morning he is intubated we will plan to take the tube out this morning. Vitals/I&O/Wt Last Vital Signs Temp 98.1 F 11/08/21 00:00 Pulse 100 11/08/21 03:40 Resp 24 H 11/08/21 03:44 BP 103/68 11/08/21 00:15 Pulse Ox 100 11/08/21 03:44 11/07/21 11/08/21 11/08/21 22:59 06:59 14:59 Intake Total 3953.160 / 4003.160 682.154 / 4685.314 Output Total 3175 / 3175 Balance 778.160 / 828.160 682.154 / 1510.314 Physical Exam Narrative: Moving all extremities Urinary Catheter Management: Young: Cath Placed During This Visit: yes Urinary Catheter Date of Insertion: 11/07/21 Urinary Catheter Time of Insertion: 14:35 Data : 11/07/21 17:47 11/07/21 13:19 A&P Assessment and plan (1) Encounter for postoperative care: Patient is status post T10 to pelvis spinal fusion postop day 1 Plan to extubate this morning. 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
--- NOTE | 2021-11-08 07:45 | PC.NURSE ---
Addendum entered by Tiff Wheat RN 11/08/21 07:48: Admission around 2114 on 11/07/21. Original Note: Admission Upon assessment of patient when transferrred from PACU, patient intubated with 6 mcg/min of Levophed administering. Patient agitated and restless, precedex turned on at this time. See MAR for administration.
[2021-11-08] MEDS: meperidine 50 mg/mL INJ IVP (08:00)
--- NOTE | 2021-11-08 08:11 | P.PN_ITS ---
Subjective Subjective: Patient seen this morning intubated. He is starting to get agitated and is awake. Requiring minimal vent settings. He is indicating to us with his hands that he would like for us to take the tube out. He is still on Levophed 6. Blood pressure is stable, saturating well on ventilator. Vitals/I&O/Wt Last Vital Signs Temp 98.1 F 11/08/21 04:00 Pulse 100 11/08/21 14:06 Resp 18 11/08/21 15:03 BP 82/58 11/08/21 12:00 Pulse Ox 98 11/08/21 15:03 11/08/21 11/08/21 11/08/21 06:59 14:59 22:59 Intake Total 1435.154 / 5438.314 624.101 / 624.101 793.75 / 1417.851 Output Total 900 / 4075 Balance 535.154 / 1363.314 624.101 / 624.101 793.75 / 1417.851 Weight last 48 hrs Weight 73.709 kg Physical Exam Narrative: General: Alert , intubated and indicating for us to take the tube out. HEENT: Normocephalic, atraumatic, EOMI, breathing on vent Cardio: Regular rate rhythm, normal S1-S2, no murmurs rubs gallops Respiratory: Good bilateral air entry, no wheezes no rhonchi appreciated, transmitted breath sounds on the ventilator heard, mainly clear to auscultation. GI: Abdomen soft, nontender, nondistended, bowel sounds + Extremities: no edema, no cyanosis, scd present Urinary Catheter Management: Young: Cath Placed During This Visit: yes Reason for Continuing Indwelling Catheter: Accurate Measurement of Urinary Output in Critically Ill Patients Urinary Catheter Date of Insertion: 11/07/21 Urinary Catheter Time of Insertion: 14:35 Data : 11/08/21 08:31 11/08/21 08:31 Micro: Microbiology 11/07/21 21:52 Gram Stain - Final Sputum - Endotracheal Tube Aspirate A&P Assessment and plan (1) Encounter for postoperative care: Status: Acute (2) Anemia: Status: Acute (3) Degenerative scoliosis in adult patient: Status: Acute (4) Spinal stenosis, lumbar region, with neurogenic claudication: Status: Acute (5) DDD (degenerative disc disease), lumbar: Status: Acute Plan #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 #Anemia: Secondary to postop blood loss #Shock: Likely hypovolemic shock secondary to acute blood loss - resolved Plan: Plan to do weaning trial and extubate patient today. Continue to wean off Levophed Remove art line after Levophed is off Patient is status post 2 unit packed RBC. Repeat hemoglobin 7.4. Continue IV fluids Continue pain control after patient is extubated Work with physical therapy today after extubation If continues to stay stable will transfer out of ICU to the floor. I will continue to monitor H&H every 12 hours for now. RN updated at bedside Attestations Medical Necessity Statement*: Patient currently intubated. Plan for extubation today. Will need physical therapy and continued monitoring of his hemoglobin hematocrit for his blood loss anemia. Will require to be in the hospital at least 48 hours for continued monitoring and management. 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
[2021-11-08 09:12] LABS: Basophils % 0.1 %; Hematocrit 21.3 % (42.0-52.0); Hemoglobin 7.4 g/dL (11.7-16.6); Lymphocytes # 0.8 10^3/uL (0.8-4.8); Lymphocytes % 8.8 %; Mean Corpuscular HGB Conc 34.7 g/dL (30.0-36.0); Mean Corpuscular Volume 89.1 fl (80-94); Mean Platelet Volume 10.2 fL (7.4-10.4); Monocytes # 0.8 10^3/uL (0.2-0.9); Monocytes % 8.4 %; Neutrophils # 7.53 10^3/uL (1.8-7.7); Neutrophils % 82.3 %; Nucleated Red Blood Cells % 0 %; Platelet Count 157 10^3/cmm (130-400); Red Blood Count 2.39 10^6/uL (4.1-5.3); Red Cell Distribution Width 15.1 % (12.1-15.1); White Blood Count 9.2 10^3/uL (4.0-10.0)
[2021-11-08 09:35] LABS: Anion Gap 12.9 (5-19); Blood Urea Nitrogen 14 mg/dL (8-23); Calcium 7.2 mg/dL (8.5-10.5); Carbon Dioxide 16 mmol/L (22-29); Chloride 116 mmol/L (98-107); Glomerular Filtration Rate 135.2 mL/min (90-130); Glucose 147 mg/dL (65-115); Osmolality Calculated 295 mOsm/kg (285-295); Potassium 3.9 mmol/L (3.5-5.1); Sodium 141 mmol/L (136-145)
[2021-11-08] MEDS: pantoprazole DR 40 mg Tablet PO (10:17)
[2021-11-08] MEDS: topiramate 100 mg Tablet 200 MG PO ×4 (10:18→20:01)
[2021-11-08] MEDS: HYDROcodone-acetaminophen 5-325 mg Tablet PO ×2 (10:18→20:26)
[2021-11-08] MEDS: cholecalciferol (vitamin D3) 1,000 unit Tablet 1000 UNIT PO (10:18)
[2021-11-08] MEDS: sucralfate 1 gm Tablet PO ×3 (10:19→20:01)
[2021-11-08] MEDS: gabapentin 300 mg Capsule 600 MG PO ×4 (10:19→20:01)
[2021-11-08] MEDS: doxycycline 100 mg Tablet PO ×2 (10:19→17:13)
[2021-11-08] MEDS: lactated ringers 1,000 ML 125 ML IV ×3 (10:22→22:23)
--- NOTE | 2021-11-08 10:53 | PC.NURSE ---
Entered patients room for rounding. Patient visibly and verbally upset. Sat with patient and listened to his concerns. Patient reports extreme pain that has not been controlled since his surgery. Patient states That mikey doctor knows what I take at home and now I can't have it. This is bullshit. After spending approx 20 minutes speaking with patient and utilizing therapeutic communication, patient appeared more calm and his breathing slowed. Portable phone brought in per patients request and dialed Tanesha . Tanesha answered and patient requested Tanesha to bring his home medications to him when she arrives. I have informed the primary nurse Sandrine of this to ensure that home medications are checked in. Patient is frustrated with his pain control but after a back rub, multiple repositions, fresh ice water, a warm blanket, and holding his hand he states he is still pissed off but better I guess. Primary nurse Sandrine contacted physician and obtained an order for additional pain medication. Physician also gave an order for ativan. Primary nurse Sandrine is in with patient now. I left my card at bedside should patient have any further needs.
[2021-11-08] MEDS: oxyCODONE-APAP 10-325 mg Tablet PO ×4 (10:55→23:04)
[2021-11-08] MEDS: LORazepam 2 mg/mL INJ 1 mL 0.5 MG IVP (10:56)
[2021-11-08] MEDS: docusate sodium 100 mg Capsule PO (17:13)
--- NOTE | 2021-11-08 18:45 | PC.NURSE ---
[Patient had run of 8 beat run V-Tach, Dr. Vargas notified. No response at this time
--- NOTE | 2021-11-08 18:47 | PC.NURSE ---
Patient refused evening lab draw. This nurse educated the importance of getting is labs draw. Dr. Vargas notified, will attempt again later.
[2021-11-08] MEDS: tamsulosin 0.4 mg Capsule PO (20:01)
[2021-11-08] MEDS: ibuprofen 800 mg tablet PO (21:14)
--- NOTE | 2021-11-08 21:58 | PC.NURSE ---
Transfer Patient transferred to [facility] bed 272 via bed. All belongings with patient upon transfer. Receiving nurse aware and in room.
[2021-11-09] VITALS (26 sets, daily range): BP systolic 100–138; BP diastolic 53–94; PULSE 75–110; RESP 14–20; TEMP 36.5–37.3; O2SAT 91–100; BMI 20.5
[2021-11-09] MEDS: HYDROcodone-acetaminophen 5-325 mg Tablet PO ×2 (00:41→04:40)
--- NOTE | 2021-11-09 01:30 | PC.NURSE ---
Versed Waste 72 ml of versed wasted with witness XIAO Best.
[2021-11-09] MEDS: sucralfate 1 gm Tablet PO ×5 (03:05→20:26)
[2021-11-09] MEDS: oxyCODONE-APAP 10-325 mg Tablet PO ×4 (03:05→20:26)
[2021-11-09 03:43] LABS: Basophils % 0.1 %; Eosinophils % 0.1 %; Lymphocytes % 13.5 %; Mean Corpuscular HGB Conc 33.5 g/dL (30.0-36.0); Mean Corpuscular Volume 92.5 fl (80-94); Mean Platelet Volume 10.4 fL (7.4-10.4); Monocytes # 0.8 10^3/uL (0.2-0.9); Monocytes % 10.2 %; Neutrophils # 5.79 10^3/uL (1.8-7.7); Neutrophils % 75.8 %; Nucleated Red Blood Cells % 0 %; Platelet Count 124 10^3/cmm (130-400); Red Blood Count 1.87 10^6/uL (4.1-5.3); Red Cell Distribution Width 15.7 % (12.1-15.1); White Blood Count 7.6 10^3/uL (4.0-10.0)
[2021-11-09 03:54] LABS: Anion Gap 10.1 (5-19); Blood Urea Nitrogen 12 mg/dL (8-23); Carbon Dioxide 22 mmol/L (22-29); Chloride 111 mmol/L (98-107); Glomerular Filtration Rate 113.2 mL/min (90-130); Glucose 107 mg/dL (65-115); Osmolality Calculated 288 mOsm/kg (285-295); Potassium 4.1 mmol/L (3.5-5.1); Sodium 139 mmol/L (136-145)
[2021-11-09 04:16] LABS: Hemoglobin 5.8 g/dL (11.7-16.6)
[2021-11-09 04:17] LABS: Hematocrit 17.3 % (42.0-52.0)
[2021-11-09] MEDS: ibuprofen 800 mg tablet PO ×3 (04:40→20:25)
[2021-11-09] MEDS: lactated ringers 1,000 ML 125 ML IV ×2 (04:40→20:25)
[2021-11-09] MEDS: sodium chloride 0.9% (100 ml) 100 ML 50 ML (06:14)
--- NOTE | 2021-11-09 06:46 | P.PN_ITS ---
Subjective Subjective: Cannot pain is controlled at this time. Plan on transfusing blood this morning his hemoglobin was 5.8. Otherwise patient is sitting in bed comfortably. Vitals/I&O/Wt Last Vital Signs Temp 98.4 F 11/09/21 06:20 Pulse 98 11/09/21 06:20 Resp 18 11/09/21 06:20 BP 100/60 11/09/21 06:20 Pulse Ox 98 11/09/21 06:20 11/08/21 11/08/21 11/09/21 14:59 22:59 06:59 Intake Total 624.101 / 638.230 5188.083 / 3136.184 785.417 / 3921.601 Output Total 780 / 780 2620 / 3400 Balance 624.101 / 014.724 7165.083 / 2356.184 -1834.583 / 521.601 Weight last 48 hrs Weight 164 lb 11.2 oz Weight 162 lb 8 oz Physical Exam Narrative: Patient has 5 out of strength in bilateral lower extremities sensation is intact. Urinary Catheter Management: Young: Cath Placed During This Visit: yes Reason for Continuing Indwelling Catheter: Required Immobilization for Trauma or Surgery or Anesthesia Urinary Catheter Date of Insertion: 11/07/21 Urinary Catheter Time of Insertion: 14:35 Data : 11/09/21 03:08 11/09/21 03:08 Micro: Microbiology 11/07/21 21:52 Gram Stain - Final Sputum - Endotracheal Tube Aspirate A&P Assessment and plan (1) Encounter for postoperative care: Postop day #2 for spinal fusion. Transfused blood. Up with therapy. Consults Case services for home health. 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
[2021-11-09] MEDS: oxyCODONE 10 mg ER (12 HR) Tablet PO ×2 (08:12→17:36)
[2021-11-09] MEDS: cholecalciferol (vitamin D3) 1,000 unit Tablet 1000 UNIT PO (08:13)
[2021-11-09] MEDS: topiramate 100 mg Tablet 200 MG PO ×2 (08:13→20:26)
[2021-11-09] MEDS: gabapentin 300 mg Capsule 600 MG PO ×4 (08:14→20:35)
[2021-11-09] MEDS: pantoprazole DR 40 mg Tablet PO (08:14)
[2021-11-09] MEDS: doxycycline 100 mg Tablet PO ×2 (08:14→17:36)
[2021-11-09] MEDS: docusate sodium 100 mg Capsule PO ×2 (08:14→17:36)
--- NOTE | 2021-11-09 11:59 | PM.PN ---
Subjective Subjective: Seen this AM. States pain is uncontrolled on current regimen. I will switch to OxyContin long-acting and hydrocodone for breakthrough pain. I discussed with patient that pain will be managed to get him to a comfortable point but we cannot take away the pain completely as he had recent surgery so some pain is expected at this point. Patient demonstrates understanding. He also states that he has not refused any blood draws and he has a port and they have been drawing blood off of it. Hemoglobin 5.8 this AM. 1 unit transfused. Vitals/I&O/Wt Last Vital Signs Temp 98.2 F 11/09/21 11:30 Pulse 93 11/09/21 11:30 Resp 16 11/09/21 11:30 BP 115/71 11/09/21 11:30 Pulse Ox 100 11/09/21 11:30 11/08/21 11/09/21 11/09/21 22:59 06:59 14:59 Intake Total 2512.083 / 3136.184 785.417 / 3921.601 350 / 350 Output Total 780 / 780 2620 / 3400 1400 / 1400 Balance 1732.083 / 2356.184 -1834.583 / 521.601 -1050 / -1050 Weight last 48 hrs Weight 74.707 kg Weight 73.709 kg Physical Exam Narrative: General: Alert oriented x3. Off of nasal cannula now on room air. Appears comfortable at this time. Resting in bed comfortably. HEENT: Normocephalic, atraumatic, EOMI, Cardio: Regular rate rhythm, normal S1-S2, no murmurs rubs gallops Respiratory: Good bilateral air entry, no wheezes no rhonchi appreciated, clear to auscultation bilaterally. GI: Abdomen soft, nontender, nondistended, bowel sounds + Extremities: no edema, no cyanosis, scd present Urinary Catheter Management: Young: Cath Placed During This Visit: yes Reason for Continuing Indwelling Catheter: Required Immobilization for Trauma or Surgery or Anesthesia Urinary Catheter Date of Insertion: 11/07/21 Urinary Catheter Time of Insertion: 14:35 Data : 11/09/21 03:08 11/09/21 03:08 Micro: Microbiology 11/07/21 21:52 Gram Stain - Final Sputum - Endotracheal Tube Aspirate A&P Assessment and plan (1) Encounter for postoperative care: Status: Acute (2) Anemia: Status: Acute (3) Degenerative scoliosis in adult patient: Status: Acute (4) Spinal stenosis, lumbar region, with neurogenic claudication: Status: Acute (5) DDD (degenerative disc disease), lumbar: Status: Acute Plan #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 #Anemia: Secondary to postop blood loss #Shock: Likely hypovolemic shock secondary to acute blood loss - resolved Plan: Patient is extubated already. Off nasal cannula and on room air. OxyContin 10 twice daily, hydrocodone 5 every 4 hours as needed. Discussed with patient it is will take a little bit of time for pain medication to work. Continue ibuprofen 3 times daily. Status post 2 units packed RBC repeat hemoglobin 7.4. Yesterday evening patient refused to have blood drawn. Later on another CBC was ordered. That was apparently canceled somehow. Not sure what happened there. Morning CBC showed hemoglobin 5.8. 1 more unit ordered this AM. I have added an additional unit to equal 2 units in total to be transfused today. We will recheck posttransfusion CBC 2 hours after second transfusion today. Continue IV fluids Continue to work with physical therapy Continue to monitor H&H every 12 hours for now. RN updated at bedside Attestations Medical Necessity Statement*: From medicine standpoint patient requires inpatient stay for management of acute blood loss anemia secondary to postop blood loss. Hemoglobin is not stable and patient will need to stay in the hospital for 24 to 48 hours. From surgical standpoint patient is undergoing physical therapy. Defer to surgical team regarding discharge planning from that aspect. 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
[2021-11-09] MEDS: ipratropium-albuterol 3 mL Neb INHALATION (14:11)
[2021-11-09 18:34] LABS: Hematocrit 22.6 % (42.0-52.0); Hemoglobin 7.9 g/dL (11.7-16.6)
[2021-11-09] MEDS: tamsulosin 0.4 mg Capsule PO (20:35)
[2021-11-10] VITALS (21 sets, daily range): BP systolic 111–153; BP diastolic 66–87; PULSE 83–101; RESP 16–18; TEMP 36.4–37.1; O2SAT 95–100
[2021-11-10] MEDS: oxyCODONE-APAP 10-325 mg Tablet PO ×5 (00:23→20:11)
[2021-11-10] MEDS: ibuprofen 800 mg tablet PO ×3 (04:24→20:01)
[2021-11-10] MEDS: lactated ringers 1,000 ML 125 ML IV ×2 (04:25→20:00)
[2021-11-10 07:01] LABS: Basophils % 0.3 %; Eosinophils # 0.2 10^3/uL (0.0-0.8); Eosinophils % 2.4 %; Hemoglobin 6.8 g/dL (11.7-16.6); Lymphocytes # 1.4 10^3/uL (0.8-4.8); Lymphocytes % 19.2 %; Mean Corpuscular HGB Conc 34.9 g/dL (30.0-36.0); Mean Corpuscular Hemoglobin 31.3 pg (28.0-34.0); Mean Corpuscular Volume 89.9 fl (80-94); Mean Platelet Volume 10.4 fL (7.4-10.4); Monocytes # 0.6 10^3/uL (0.2-0.9); Monocytes % 8.3 %; Neutrophils # 5.18 10^3/uL (1.8-7.7); Neutrophils % 69.5 %; Nucleated Red Blood Cells % 0 %; Platelet Count 129 10^3/cmm (130-400); Red Blood Count 2.17 10^6/uL (4.1-5.3); Red Cell Distribution Width 15.5 % (12.1-15.1); White Blood Count 7.5 10^3/uL (4.0-10.0)
[2021-11-10 07:20] LABS: Anion Gap 12.7 (5-19); Blood Urea Nitrogen 12 mg/dL (8-23); Calcium 8.1 mg/dL (8.5-10.5); Carbon Dioxide 20 mmol/L (22-29); Chloride 111 mmol/L (98-107); Glomerular Filtration Rate 113.2 mL/min (90-130); Glucose 98 mg/dL (65-115); Magnesium 1.9 mg/dL (1.7-2.3); Osmolality Calculated 290 mOsm/kg (285-295); Potassium 3.7 mmol/L (3.5-5.1); Sodium 140 mmol/L (136-145)
[2021-11-10 07:30] LABS: Hematocrit 19.5 % (42.0-52.0)
[2021-11-10] MEDS: oxyCODONE 10 mg ER (12 HR) Tablet PO ×2 (08:52→17:46)
[2021-11-10] MEDS: topiramate 100 mg Tablet 200 MG PO (08:53)
[2021-11-10] MEDS: gabapentin 300 mg Capsule 600 MG PO ×4 (08:53→20:01)
[2021-11-10] MEDS: doxycycline 100 mg Tablet PO ×2 (08:54→17:47)
[2021-11-10] MEDS: docusate sodium 100 mg Capsule PO ×2 (08:54→17:47)
[2021-11-10] MEDS: pantoprazole DR 40 mg Tablet PO (08:55)
[2021-11-10] MEDS: sucralfate 1 gm Tablet PO ×4 (08:58→20:01)
[2021-11-10] MEDS: cholecalciferol (vitamin D3) 1,000 unit Tablet 1000 UNIT PO (09:00)
--- NOTE | 2021-11-10 09:00 | PC.SOCIAL ---
IMM update IMM updated with patient. Verbalized an understanding. Copy Pg 2 provided. Initialled, dated, timed and placed in chart.
[2021-11-10] MEDS: ipratropium-albuterol 3 mL Neb INHALATION (09:04)
--- NOTE | 2021-11-10 12:03 | P.PN_ITS ---
Subjective Subjective: Patient pain regimen with OxyContin and oxycodone seems to be working better. At this point patient is frustrated because he was not getting his pain meds he stated. I took his binder off from he does not need to wear this. We will also plan on taking out his drain and Young. Continue to get him up walking. Vitals/I&O/Wt Last Vital Signs Temp 97.9 F 11/10/21 11:40 Pulse 98 11/10/21 11:40 Resp 16 11/10/21 11:40 BP 126/77 11/10/21 11:40 Pulse Ox 100 11/10/21 11:40 11/09/21 11/10/21 11/10/21 22:59 06:59 14:59 Intake Total 948.333 / 2340.000 2440 / 4780.000 240 / 240 Output Total 1925 / 3325 1200 / 4525 1100 / 1100 Balance -976.667 / -219.436 4840 / 255.000 -860 / -860 Weight last 48 hrs Weight 164 lb 11.2 oz Physical Exam Narrative: Patient is 5 5 strength bilateral lower extremities dressing is clean dry and intact. No evidence of any drainage. No is of any swelling. Urinary Catheter Management: Young: Cath Placed During This Visit: yes Reason for Continuing Indwelling Catheter: Required Immobilization for Trauma or Surgery or Anesthesia Urinary Catheter Date of Insertion: 11/07/21 Urinary Catheter Time of Insertion: 14:35 Data : 11/10/21 06:08 11/10/21 06:08 Micro: Microbiology 11/07/21 21:52 Gram Stain - Final Sputum - Endotracheal Tube Aspirate Sputum Culture - Preliminary A&P Assessment and plan (1) Encounter for postoperative care: Plan this point patient is getting 1 unit of blood and possibly some platelets. Continue pain meds with OxyContin and oxycodone. He can take Ativan for sleep. Continue to get up with physical therapy. DC drain DC Young today. 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
[2021-11-10] MEDS: sodium chloride 0.9% (100 ml) 100 ML 300 ML (12:35)
--- NOTE | 2021-11-10 13:35 | PM.PN ---
Subjective Subjective: Seen this AM. Hemoglobin 6.8 today. Platelets 129. Pain is better controlled however still complaining of pain. Discussed with nursing staff and adjusted medications. Has a drain in place. I believe orthopedics is planning to remove drain today. Continue to work with physical therapy Vitals/I&O/Wt Last Vital Signs Temp 97.9 F 11/10/21 12:35 Pulse 101 H 11/10/21 12:35 Resp 18 11/10/21 12:35 BP 116/66 11/10/21 12:35 Pulse Ox 100 11/10/21 12:35 11/09/21 11/10/21 11/10/21 22:59 06:59 14:59 Intake Total 948.333 / 2340.000 2440 / 4780.000 240 / 240 Output Total 1925 / 3325 1200 / 4525 1100 / 1100 Balance -976.667 / -053.353 2274 / 255.000 -860 / -860 Weight last 48 hrs Weight 74.707 kg Physical Exam Narrative: General: Alert oriented x3.? Appears comfortable HEENT: Normocephalic, atraumatic, EOMI, Cardio: Regular rate rhythm, normal S1-S2, no murmurs rubs gallops Respiratory: Good bilateral air entry, no wheezes no rhonchi appreciated, clear to auscultation bilaterally. GI: Abdomen soft, nontender, nondistended, bowel sounds + Extremities: no edema, no cyanosis, scd present, strength 5 out of 5 in bilateral lower extremities Urinary Catheter Management: Young: Cath Placed During This Visit: yes, but has since been removed by the nurse Reason for Continuing Indwelling Catheter: Decision to DC Catheter Urinary Catheter Date of Insertion: 11/07/21 Urinary Catheter Time of Insertion: 14:35 Date Urinary Catheter Removed: 11/10/21 Time Urinary Catheter Discontinued: 12:30 Data : 11/10/21 06:08 11/10/21 06:08 Micro: Microbiology 11/07/21 21:52 Gram Stain - Final Sputum - Endotracheal Tube Aspirate Sputum Culture - Preliminary A&P Assessment and plan (1) Encounter for postoperative care: Status: Acute (2) Anemia: Status: Acute (3) Degenerative scoliosis in adult patient: Status: Acute (4) Spinal stenosis, lumbar region, with neurogenic claudication: Status: Acute (5) DDD (degenerative disc disease), lumbar: Status: Acute Plan #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 #Anemia: Secondary to postop blood loss #Shock: Likely hypovolemic shock secondary to acute blood loss - resolved Plan: Patient is extubated already.? Off nasal cannula and on room air. continue current pain regimen. It seems to working better for the patient. Status post 3 units packed RBC hemoglobin 6.8 today. Order 1 more unit packed RBC, 1 unit platelet, 1 unit FFP. Continue IV fluids Continue to work with physical therapy Continue to monitor H&H every 12 hours for now. Continue pain managed RN updated at bedside Attestations Medical Necessity Statement*: From medicine standpoint patient requires inpatient stay for management of acute blood loss anemia secondary to postop blood loss.? Hemoglobin is not stable and patient will need to stay in the hospital for 24 to 48 hours.? From surgical standpoint patient is undergoing physical therapy.? Defer to surgical team regarding discharge planning from that aspect. Coding Level of Care Code Acute Community Health Education Coordinator for [place] [facility] Diagnoses Encounter for postoperative care Z48.89 Anemia D64.9 Degenerative scoliosis in adult patient M41.80 Spinal stenosis, lumbar region, with neurogenic claudication M48.062 DDD (degenerative disc disease), lumbar M51.36
--- NOTE | 2021-11-10 16:00 | PC.NURSE ---
Pulled hemavac drain at 1600 had 400ml in drain when d/c. when inspected the drain tubing all was intact. pt tolerated well, covered with coverderm.
[2021-11-10 18:08] LABS: Hematocrit 22.1 % (42.0-52.0); Hemoglobin 7.9 g/dL (11.7-16.6)
[2021-11-10] MEDS: tamsulosin 0.4 mg Capsule PO (20:01)
[2021-11-10] MEDS: sodium chloride 0.9% (100 ml) 100 ML (22:55)
[2021-11-11] VITALS (12 sets, daily range): BP systolic 103–138; BP diastolic 57–83; PULSE 89–101; RESP 15–19; TEMP 36.3–37.2; O2SAT 97–100
[2021-11-11] MEDS: oxyCODONE-APAP 10-325 mg Tablet PO ×5 (01:20→20:15)
[2021-11-11] MEDS: ibuprofen 800 mg tablet PO ×3 (05:34→20:14)
[2021-11-11] MEDS: sucralfate 1 gm Tablet PO ×4 (05:34→20:15)
[2021-11-11] MEDS: lactated ringers 1,000 ML 125 ML IV (05:43)
[2021-11-11] MEDS: oxyCODONE 10 mg ER (12 HR) Tablet PO ×2 (08:02→17:31)
[2021-11-11] MEDS: docusate sodium 100 mg Capsule PO ×2 (08:02→17:31)
[2021-11-11] MEDS: pantoprazole DR 40 mg Tablet PO (08:02)
[2021-11-11] MEDS: cholecalciferol (vitamin D3) 1,000 unit Tablet 1000 UNIT PO (08:02)
[2021-11-11] MEDS: gabapentin 300 mg Capsule 600 MG PO ×4 (08:02→20:14)
[2021-11-11] MEDS: doxycycline 100 mg Tablet PO ×2 (08:02→17:31)
[2021-11-11 08:07] LABS: Basophils % 0.3 %; Eosinophils # 0.2 10^3/uL (0.0-0.8); Eosinophils % 3.5 %; Hematocrit 22.4 % (42.0-52.0); Hemoglobin 7.7 g/dL (11.7-16.6); Lymphocytes # 1.2 10^3/uL (0.8-4.8); Lymphocytes % 16.7 %; Mean Corpuscular HGB Conc 34.4 g/dL (30.0-36.0); Mean Corpuscular Hemoglobin 30.9 pg (28.0-34.0); Mean Platelet Volume 9.5 fL (7.4-10.4); Monocytes # 0.6 10^3/uL (0.2-0.9); Monocytes % 8.1 %; Neutrophils % 71.1 %; Nucleated Red Blood Cells % 0 %; Platelet Count 180 10^3/cmm (130-400); Red Blood Count 2.49 10^6/uL (4.1-5.3); Red Cell Distribution Width 15.9 % (12.1-15.1); White Blood Count 6.9 10^3/uL (4.0-10.0)
[2021-11-11 08:29] LABS: Anion Gap 11.5 (5-19); Blood Urea Nitrogen 11 mg/dL (8-23); Calcium 8.3 mg/dL (8.5-10.5); Carbon Dioxide 22 mmol/L (22-29); Chloride 109 mmol/L (98-107); Glomerular Filtration Rate 113.2 mL/min (90-130); Glucose 83 mg/dL (65-115); Magnesium 1.8 mg/dL (1.7-2.3); Osmolality Calculated 287 mOsm/kg (285-295); Potassium 3.5 mmol/L (3.5-5.1); Sodium 139 mmol/L (136-145)
[2021-11-11] MEDS: ipratropium-albuterol 3 mL Neb INHALATION (08:49)
--- NOTE | 2021-11-11 12:05 | XRR_ITS ---
PROCEDURE INFORMATION: Exam: XR Lumbosacral Spine Exam date and time: 11/11/2021 9:10 AM Age: 66 years old Clinical indication: Low back pain; Prior surgery; Surgery date: Post-operative (0-2 days); Additional info: Post surgery, ap and lateral x-ray to get above t10 (2 views) TECHNIQUE: Imaging protocol: XR of the lumbosacral spine. Views: 2 or 3 views. COMPARISON: CR XR lumbar spine min 4V [id number] 09/27/2021 8:41 AM FINDINGS: Bones/joints: Posterior spinal fixation hardware extending from T10 to the sacrum. Trans sacroiliac screws noted. Fixation hardware appears intact. Intervertebral disc spacer at L5-S1. The lumbar spine demonstrates a mildly straightened lordotic curvature. Correction of the previously noted lateral spondylolisthesis/rightward curvature of the lumbar spine. No spondylolisthesis identified. The vertebral bodies maintain normal height. Multilevel loss of intervertebral disc height with endplate degenerative changes in the lumbar spine. Soft tissues: Unremarkable. Surgical clips in the right upper quadrant. XR/XR lumbar spine 2-3V* [id number] IMPRESSION: 1. Posterior spinal fixation hardware appears intact. 2. No vertebral body height loss or traumatic malalignment identified. 3. Multilevel degenerative disc disease.
--- NOTE | 2021-11-11 14:50 | PM.PN ---
Subjective Subjective: pain controlled patient walking better than pre surgery Vitals/I&O/Wt Last Vital Signs Temp 97.3 F L 11/11/21 13:00 Pulse 101 H 11/11/21 13:00 Resp 19 H 11/11/21 13:00 BP 133/79 11/11/21 13:00 Pulse Ox 100 11/11/21 13:00 11/10/21 11/11/21 11/11/21 22:59 06:59 14:59 Intake Total 2256 / 2496 1338 / 3834 1461 / 1461 Output Total 800 / 800 Balance 2256 / 1396 1338 / 2734 661 / 661 Physical Exam Narrative: drainage from hemovac site rest of incision CDI Urinary Catheter Management: Young: Cath Placed During This Visit: yes, but has since been removed by the nurse Reason for Continuing Indwelling Catheter: Other Urinary Catheter Date of Insertion: 11/07/21 Urinary Catheter Time of Insertion: 14:35 Date Urinary Catheter Removed: 11/10/21 Time Urinary Catheter Discontinued: 12:30 Data : 11/11/21 07:58 11/11/21 07:58 Micro: Microbiology 11/07/21 21:52 Gram Stain - Final Sputum - Endotracheal Tube Aspirate Sputum Culture - Final A&P Assessment and plan (1) Encounter for postoperative care: d/c planning for tomorrow make sure hb stabalizes and drainage decreases Status: Acute Attestations Medical Necessity Statement*: anticipate tomorrow if hb stabalizes and drainage decrease Coding Level of Care Code Acute Practice Consultant for [place] [facility] Diagnoses Encounter for postoperative care Z48.89
--- NOTE | 2021-11-11 15:07 | P.PN_ITS ---
Subjective Subjective: Seen this morning. Platelets better. Hemoglobin better. 7.7. Has a lot of drainage at surgical site. Pain well controlled today. Happy with pain regimen at this time. Drain was removed yesterday. Vitals/I&O/Wt Last Vital Signs Temp 97.3 F L 11/11/21 13:00 Pulse 91 11/11/21 14:59 Resp 16 11/11/21 14:59 BP 133/79 11/11/21 13:00 Pulse Ox 100 11/11/21 14:59 11/11/21 11/11/21 11/11/21 06:59 14:59 22:59 Intake Total 1338 / 3834 1461 / 1461 Output Total 800 / 800 Balance 1338 / 2734 661 / 661 Physical Exam Narrative: General: Alert oriented x3.? Appears comfortable HEENT: Normocephalic, atraumatic, EOMI, Cardio: Regular rate rhythm, normal S1-S2, no murmurs rubs gallops Respiratory: Good bilateral air entry, no wheezes no rhonchi appreciated, clear to auscultation bilaterally. GI: Abdomen soft, nontender, nondistended, bowel sounds + Extremities: no edema, no cyanosis, scd present, strength 5 out of 5 in bilateral lower extremities Back: At surgical site. Significant drainage present. Dressing soaked, serosanguineous fluid draining. Urinary Catheter Management: Young: Cath Placed During This Visit: yes, but has since been removed by the nurse Reason for Continuing Indwelling Catheter: Other Urinary Catheter Date of Insertion: 11/07/21 Urinary Catheter Time of Insertion: 14:35 Date Urinary Catheter Removed: 11/10/21 Time Urinary Catheter Discontinued: 12:30 Data : 11/11/21 07:58 11/11/21 07:58 Micro: Microbiology 11/07/21 21:52 Gram Stain - Final Sputum - Endotracheal Tube Aspirate Sputum Culture - Final A&P Assessment and plan (1) Encounter for postoperative care: Status: Acute (2) Anemia: Status: Acute (3) Degenerative scoliosis in adult patient: Status: Acute (4) Spinal stenosis, lumbar region, with neurogenic claudication: Status: Acute (5) DDD (degenerative disc disease), lumbar: Status: Acute Plan #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 #Anemia: Secondary to postop blood loss #Shock: Likely hypovolemic shock secondary to acute blood loss - resolved Plan: Patient is extubated already.? Off nasal cannula and on room air. continue current pain regimen.? It seems to working better for the patient. Status post 4 units packed RBC, 1 unit platelet, 1 unit FFP. Continue IV fluids Continue to work with physical therapy Continue to monitor H&H every 12 hours for now. Continue pain managed Having significant drainage from surgical site will start abx empirically for potential site infection: james + camilla RN updated at bedside Attestations Medical Necessity Statement*: Has drainage from surgical site. needs continued monitoring . Coding Level of Care Code Acute Senior Software Engineering Manager for [place] [facility] Diagnoses Encounter for postoperative care Z48.89 Anemia D64.9 Degenerative scoliosis in adult patient M41.80 Spinal stenosis, lumbar region, with neurogenic claudication M48.062 DDD (degenerative disc disease), lumbar M51.36
[2021-11-11] MEDS: vancomycin 1,000 MG in sodium chloride 0.9% 250 ML 250 MG IV ×2 (16:10→23:29)
[2021-11-11] MEDS: aztreonam 1,000 MG in sodium chloride 0.9% (plus) 50 ML 100 MG IV (17:30)
[2021-11-11] MEDS: tamsulosin 0.4 mg Capsule PO (20:14)
[2021-11-12] VITALS (7 sets, daily range): BP systolic 122–138; BP diastolic 73–78; PULSE 78–100; RESP 16–19; TEMP 36.4–36.8; O2SAT 96–100
[2021-11-12] MEDS: oxyCODONE-APAP 10-325 mg Tablet PO ×3 (00:26→09:28)
[2021-11-12] MEDS: ibuprofen 800 mg tablet PO (04:20)
[2021-11-12] MEDS: aztreonam 1,000 MG in sodium chloride 0.9% (plus) 50 ML 100 MG IV (04:20)
[2021-11-12 04:31] LABS: Basophils % 0.3 %; Eosinophils # 0.3 10^3/uL (0.0-0.8); Eosinophils % 4.4 %; Hematocrit 22.3 % (42.0-52.0); Hemoglobin 7.7 g/dL (11.7-16.6); Lymphocytes # 1.2 10^3/uL (0.8-4.8); Lymphocytes % 17.3 %; Mean Corpuscular HGB Conc 34.5 g/dL (30.0-36.0); Mean Corpuscular Hemoglobin 31.6 pg (28.0-34.0); Mean Corpuscular Volume 91.4 fl (80-94); Mean Platelet Volume 9.4 fL (7.4-10.4); Monocytes # 0.8 10^3/uL (0.2-0.9); Monocytes % 11.3 %; Neutrophils # 4.63 10^3/uL (1.8-7.7); Neutrophils % 66.3 %; Nucleated Red Blood Cells % 0.3 %; Platelet Count 216 10^3/cmm (130-400); Red Blood Count 2.44 10^6/uL (4.1-5.3); Red Cell Distribution Width 15.5 % (12.1-15.1)
[2021-11-12 04:49] LABS: Anion Gap 12.5 (5-19); Blood Urea Nitrogen 11 mg/dL (8-23); Calcium 8.2 mg/dL (8.5-10.5); Carbon Dioxide 22 mmol/L (22-29); Chloride 112 mmol/L (98-107); Glomerular Filtration Rate 135.2 mL/min (90-130); Glucose 95 mg/dL (65-115); Magnesium 1.8 mg/dL (1.7-2.3); Osmolality Calculated 295 mOsm/kg (285-295); Potassium 3.5 mmol/L (3.5-5.1); Sodium 143 mmol/L (136-145)
--- NOTE | 2021-11-12 06:52 | P.PN_ITS ---
Subjective Subjective: POD 5 Patient resting comfortably. Reports his leg pain has completely resolved. He has back pain. He has been walking the halls. Denies any lightheadedness dizziness. He states he is finished smoking. Denies any shortness of breath or chest pain. Patient states he is ready to go home. Vitals/I&O/Wt Last Vital Signs Temp 97.8 F 11/12/21 04:00 Pulse 100 11/12/21 04:00 Resp 18 11/12/21 04:21 BP 138/73 11/12/21 04:00 Pulse Ox 98 11/12/21 04:00 11/11/21 11/11/21 11/12/21 14:59 22:59 06:59 Intake Total 1461 / 1461 540 / 2001 1740 / 3741 Output Total 800 / 800 Balance 661 / 661 540 / 1201 1740 / 2941 Physical Exam Narrative: Patient presents alert and oriented x3 with a good general appearance normal mood and affect. Normal coordination normal stability. Mild tenderness around the incisional site with the incision appear to be healing yamile abner. No signs of erythema or drainage. No signs of infection. Patient denies any fevers or chills. 5/5 motor strength both lower extremities with negative straight leg raise bilaterally. Calves are supple no medial thigh tenderness. Pulses are 2+ at the dorsalis pedis and posterior tibial region. Good capillary refill throughout normal sensation light touch both lower extremities. Urinary Catheter Management: Young: Cath Placed During This Visit: yes, but has since been removed by the nurse Reason for Continuing Indwelling Catheter: Other Urinary Catheter Date of Insertion: 11/07/21 Urinary Catheter Time of Insertion: 14:35 Date Urinary Catheter Removed: 11/10/21 Time Urinary Catheter Discontinued: 12:30 Data : 11/12/21 04:13 11/12/21 04:13 A&P Assessment and plan (1) Anemia: Dressing was changed Silverlon applied. Dressing was clean and dry. Appears to be healing nicely. Encouraged him to continue smoking cessation. Begin a walking program with no bending lifting or twisting activities. We will see him back in the office in 1 week's time. Status: Acute (2) Encounter for postoperative care: Status: Acute Attestations Medical Necessity Statement*: Discharge home today Coding Level of Care Code Acute Motion Picture Set Worker for [place] [facility] Diagnoses Anemia D64.9 Encounter for postoperative care Z48.89
--- NOTE | 2021-11-12 07:01 | P.DS_ITS ---
Discharge Providers Date of Admission: 11/07/21 21:05 Date of Discharge: November 12, 2021 Attending Provider at Admission: Bernabe Carbajal DO Attending Provider at Discharge: Bernabe Carbajal DO Primary Care Provider: Hannah Ross MD Diagnoses at Discharge Discharge Diagnosis (1) Anemia: Status: Acute (2) Encounter for postoperative care: Status: Acute Reason for Visit Reason for Visit: PLIF L4/5 [id number] Hospital Course Hospital Course Patient had to get blood he had postoperative anemia. Physical Exam Urinary Catheter Management: Young: Cath Placed During This Visit: yes, but has since been removed by the nurse Reason for Continuing Indwelling Catheter: Other Urinary Catheter Date of Insertion: 11/07/21 Urinary Catheter Time of Insertion: 14:35 Date Urinary Catheter Removed: 11/10/21 Time Urinary Catheter Discontinued: 12:30 Discharge Data Studies Completed and Pending Completed Studies During Hospitalization Category Date Time Status XR chest 1V portable [id number] NOW Exams 11/07/21 22:10 Completed XR lumbar spine 1V port [id number] Routine Exams 11/07/21 19:32 Completed XR lumbar spine 2-3V* [id number] Routine Exams 11/11/21 12:05 Completed Pending at discharge Category Date Time Status Fecal Occult Blood [Immunochemical Fecal OCB] Stat Lab 11/10/21 07:51 Uncollected Radiology Impressions Chest X-Ray 11/07/21 22:10 IMPRESSION: 1. Endotracheal tube tip in place 4.3 cm above the monae. 2. Right-sided Port-A-Cath. 3. Right hilar to lower lobe atelectasis versus minimal infiltrate. Lumbar Spine X-Ray 11/11/21 12:05 IMPRESSION: 1. Posterior spinal fixation hardware appears intact. 2. No vertebral body height loss or traumatic malalignment identified. 3. Multilevel degenerative disc disease. Laboratory Results WBC 7.0 10^3/uL (4.0-10.0) 11/12/21 04:13 Corrected WBC Cancelled 11/08/21 22:08 RBC 2.44 10^6/uL (4.1-5.3) L 11/12/21 04:13 Hgb 7.7 g/dL (11.7-16.6) L 11/12/21 04:13 Hct 22.3 % (42.0-52.0) L 11/12/21 04:13 MCV 91.4 fl (80-94) 11/12/21 04:13 MCH 31.6 pg (28.0-34.0) 11/12/21 04:13 MCHC 34.5 g/dL (30.0-36.0) 11/12/21 04:13 RDW 15.5 % (12.1-15.1) H 11/12/21 04:13 Plt Count 216 10^3/cmm (130-400) 11/12/21 04:13 MPV 9.4 fL (7.4-10.4) 11/12/21 04:13 Gran % Cancelled 11/08/21 22:08 Neut % (Auto) 66.3 % 11/12/21 04:13 Lymph % (Auto) 17.3 % 11/12/21 04:13 [place] % (Auto) 11.3 % 11/12/21 04:13 Eos % (Auto) 4.4 % 11/12/21 04:13 Baso % (Auto) 0.3 % 11/12/21 04:13 Neut # (Auto) 4.63 10^3/uL (1.8-7.7) 11/12/21 04:13 Lymph # (Auto) 1.2 10^3/uL (0.8-4.8) 11/12/21 04:13 [place] # (Auto) 0.8 10^3/uL (0.2-0.9) 11/12/21 04:13 Eos # (Auto) 0.3 10^3/uL (0.0-0.8) 11/12/21 04:13 Baso # (Auto) 0.0 10^3/uL (0.0-0.1) 11/12/21 04:13 Absolute Gran (auto) Cancelled 11/08/21 22:08 Nucleated RBC % (auto) 0.3 % 11/12/21 04:13 Nucleated RBCs # 0.0 /100WBC 11/12/21 04:13 Specimen Type Arterial 11/07/21 22:31 Sample Site Art line 11/07/21 22:31 ABG pH 7.32 (7.35-7.45) L 11/07/21 22:31 ABG pCO2 30.3 mmHg (35-45) L 11/07/21 22:31 ABG pO2 468.0 mmHg (80.0-100.0) H 11/07/21 22: ABG HCO3 15.5 mmol/L (22-26) L 11/07/21 22: ABG O2 Saturation > 100.0 11/07/21 22: ABG Base Excess -9.7 mmol/L (-2.0-2.0) L 11/07/21 22: Andre Test Pos 11/07/21 22: A-a O2 Gradient 25.0 mmHg (5-10) H 11/07/21 22:31 Hematocrit 28.0 % (42-52) L 11/07/21: Hgb O2 Saturation 98.6 % (95-100) 11/07/21 22: Carboxyhemoglobin 0.3 %THgb (0.4-20.1) L 11/07/21 22: Methemoglobin 1.2 % (0.4-1.5) 11/07/21 22: Total Hemoglobin 9.1 g/dL (14-18) L 11/07/21 22:31 Sodium 143.0 mmol/L (131-143) 11/07/21 22: Potassium 3.4 mmol/L (3.5-5.0) L 11/07/21 22: Glucose 227.0 mg/dL (70-115) H 11/07/21 22:31 Ionized Calcium 1.1 mmol/L (1.1-1.4) 11/07/21 22: O2 Delivery Device Vent 11/07/21 22:31 FiO2 100.0 % 11/07/21 22:31 Tidal Volume 0.50 11/07/21 22:31 PEEP 5.0 cmH20 11/07/21 22:31 Cover Cutter Machine ID [place] 11/07/21 22:31 Sodium 143 mmol/L (136-145) 11/12/21 04:13 Potassium 3.5 mmol/L (3.5-5.1) 11/12/21 04:13 Chloride 112 mmol/L (98-107) H 11/12/21 04:13 Carbon Dioxide 22 mmol/L (22-29) 11/12/21 04:13 Anion Gap 12.5 (5-19) 11/12/21 04:13 BUN 11 mg/dL (8-23) 11/12/21 04:13 Creatinine 0.6 mg/dL (0.7-1.2) L 11/12/21 04:13 GFR Calculation 135.2 mL/min (90-130) H 11/12/21 04:13 Glucose 95 mg/dL (65-115) 11/12/21 04:13 Calculated Osmolality 295 mOsm/kg (285-295) 11/12/21 04:13 Calcium 8.2 mg/dL (8.5-10.5) L 11/12/21 04:13 Magnesium 1.8 mg/dL (1.7-2.3) 11/12/21 04:13 Total Bilirubin 0.2 mg/dL (0.15-1.2) 11/07/21 13:19 AST 17 U/L (0-40) 11/07/21 13:19 ALT < 5 U/L (0-41) 11/07/21 13:19 Alkaline Phosphatase 52 IU/L (40-130) 11/07/21 13:19 Total Protein 7.3 g/dL (6.6-8.7) 11/07/21 13:19 Albumin 4.2 g/dL (3.5-5.2) 11/07/21 13:19 Globulin 3.1 g/dL (1.3-4.6) 11/07/21 13:19 Blood Type O Positive 11/07/21 13:19 Rho(D) Type Positive 11/07/21 13:19 Antibody Screen Negative 11/07/21 13:19 Crossmatch See Detail 11/07/21 13:19 Vitals Last Vital Signs Temp 97.8 F 11/12/21 04:00 Pulse 100 11/12/21 04:00 Resp 18 11/12/21 04:21 BP 138/73 11/12/21 04:00 Pulse Ox 98 11/12/21 04:00 Discharge Plan Discharge Patient Disposition: Home Condition: Stable Prescriptions: New OxyContin 10 mg tablet,oral only,ext.rel.12 hr 10 mg PO BID 7 Days Qty: 14 0RF oxycodone-acetaminophen 10-325 mg tablet 1 tab PO Q6H PRN (Reason: pain) 7 Days Qty: 30 0RF Continued doxycycline hyclate 100 mg capsule 100 mg PO BID 0RF tamsulosin 0.4 mg capsule 0.4 mg PO .at bedtime Qty: 30 6RF Narcan 4 mg/actuation spray,non-aerosol 1 spray intranasal Q2M 0RF Rx Instructions: spray 1 dose into ONE nostril; alternate nostrils w each dose until help arrives albuterol sulfate [ProAir HFA] 90 mcg/actuation HFA aerosol inhaler 2 puff inhalation QID 0RF cholecalciferol (vitamin D3) 1,250 mcg (50,000 unit) capsule 1,250 unit PO DAILY 0RF ibuprofen 800 mg tablet 800 mg PO Q8H 0RF gabapentin 600 mg Tablet 600 mg PO QID 0RF topiramate [Topamax] 200 mg Tablet 200 mg PO QID 0RF Protonix 20 mg tablet,delayed release (DR/EC) 40 mg PO DAILY 0RF Carafate 1 gram tablet 1 g PO Q6H 0RF chlorzoxazone 500 mg tablet 500 mg PO TID 0RF Discontinued oxycodone-acetaminophen [Percocet] 10-325 mg tablet 1 tab PO TID PRN (Reason: Pain) 0RF Discharge Orders: Discharge Order (Routine); Ordered 11/12/21 Ordered By: Cas Reardon Other Ambulatory Orders: DME: Walker (Order) Location: None Selected Ordered By: Bernabe Carbajal Discharge Diet: Advance as tolerated Discharge Activity: Resume usual activity Patient Instructions: Opioid Safety Activity Restrictions/Additional Instructions: Thank you for choosing [facility] for your care! The following is a list of instructions, from your provider, to follow upon your discharge to ensure you have the optimal recovery from your recent injury or surgery. Follow-up care is a caraballo part of your treatment and safety. Be sure to make and go to all appointments and call your doctor if you are having problems. If you do not already have a follow-up appointment made, call Dr. Carbajal's] office in the next 1-3 days to make follow up appointment for 1 weeks at [phone]. It is also a good idea to know your test results and keep a list of the medicines you take. Medications will be prescribed for you at your provider's discretion. These medications are to be used as instructed; if they are taken more often that prescribed they will not be refilled early and in most cases will not be refilled at all. > When a refill is needed, you should contact misty garcia 2-3 business days before your prescription runs out. Medications will NOT be refilled by independent marketing consultant providers after hours! > Many pain medications contain Tylenol (Acetaminophen). Do not consume more than 4,000 mg of Tylenol per day in total with any combination of medications. > Pain medications can cause constipation. Please use an over the counter stool softener as directed, while taking pain medications. Consult your local pharmacist with questions or recommendations on stool softeners. If constipation persists, contact our office or your primary care provider. > While under our care, you are not to receive pain medications or other controlled substances from any other provider unless our office is notified and approves. Any attempts to do so will result in refusal to prescribe any further pain medications and possible dismissal from our practice. ? Walking is essential for the healing process after surgery. We would like you to slowly advance your walking. This should be done on relatively flat clear ground (inside or out) or can be done on a treadmill. Remember this goal does not have to happen all at once, slowly increase your distance and duration. This can be broken into more more than one walk per day as tolerated. Patients who walk as directed after surgery rarely require Physical Therapy. In the unlikely event this issue arises your provider will direct hospital staff to make the appropriate arrangements. ? No lifting over 5 pounds {a gallon of milk) or bending/twisting until further notice. Each of these activities places an unnecessary amount of stress onto the body and can impede the delicate healing process. > Instead of bending at the waist, keep your back straight and bend at the knees. > Instead of twisting your torso, keep your back straight and turn your entire body with your feet. ? You may sleep in any position which makes you comfortable. Many patients find comfort sleeping in a reclining chair. It is not abnormal to have difficulty sleeping for the first several weeks following your surgery. We recommend trying Benadry! or Tylenol PM as directed to help with your sleeping difficulties. Both medications are over the counter and available without presc ription. ? NO SMOKING!!! Smoking dramatically increases the probability of developing postoperative wound infections. ? Common complaints after lumbar and/or thoracic spine surgery include, but are not limited to: numbness and/or tingling in the legs, pain around the incision and surrounding tissues, muscle spasms, or stiffness of the middle to low back. Contact our office if these symptoms persist or if an acute change occurs. ? No driving for the first 3-5days, and not while taking narcotics until seen at your follow-up appointment and cleared. There are no restrictions for riding on short trips, however if you take a longer trip, arrangements should be made to make regular stops to get out of the vehicle and stretch . ? Swelling is an unfortunate event that will take place with any surgery and is the primary source of your postoperative discomfort. While walking and regular approved activities helps control inflammation, there are additional steps you can take to minimize swelling. > Place ice over the surgical site and surrounding tissue for twenty minutes, followed by applying a low/medium heat (heating pad) for an additional twenty minutes every 1-2 hours as needed for painrelief. > You may use of over the counter anti-inflammatory medications (Ibuprofen, Motrin, Aleve, Advil, etc) as directed on the package label. These types of medicines will significantly reduce the amount of discomfort you experience after surgery from swelling. It should be noted that if you have and allergy to any of these medications, or a history of ulcers or kidney disease you should consult you primary care provider prior to starting these medications. Discharge Attestations Time Spent in Discharge Care*: less than 30 min Quality Metrics Clinical Quality Measures [ No reported AMI, CVA or VTE this stay] Coding Level of Care Code Acute Chg FW DC note Diagnoses Anemia D64.9 Encounter for postoperative care Z48.89
[2021-11-12] MEDS: docusate sodium 100 mg Capsule PO (08:08)
[2021-11-12] MEDS: oxyCODONE 10 mg ER (12 HR) Tablet PO (08:08)
[2021-11-12] MEDS: cholecalciferol (vitamin D3) 1,000 unit Tablet 1000 UNIT PO (08:08)
[2021-11-12] MEDS: sucralfate 1 gm Tablet PO (08:08)
[2021-11-12] MEDS: gabapentin 300 mg Capsule 600 MG PO (08:08)
[2021-11-12] MEDS: doxycycline 100 mg Tablet PO (08:08)
[2021-11-12] MEDS: pantoprazole DR 40 mg Tablet PO (08:08)
[2021-11-12] MEDS: vancomycin 1,000 MG in sodium chloride 0.9% 250 ML 250 MG IV (08:11)
--- NOTE | 2021-11-12 09:11 | PC.SOCIAL ---
IMM update IMM updated with patient. Copy Pg 2 provided. Verbalized an understanding. Initialled, dated, timed, and placed in chart.
--- NOTE | 2021-11-12 10:48 | PC.NURSE ---
patient verbalized understanding of discharge instructions, home medications, and follow up appointments. port needle removed and transparent dressing applied. walker delivered to patient yesterday from HOME.
== END 2021-11-12 11:17 | disposition home or self-care (01) | DRG 453 ==
LOC: ICU 21:10 → MEDSURG 11-08 21:53
PROVIDERS: Anesthesiology; Internal Medicine; Admitting Provider Orthopaedic Surgery; PCP Family Medicine; Visit Provider Orthopaedic Surgery
PROC: 0SG30AJ Fusion of Lumbosacral Joint with Interbody Fusion Device, Posterior Approach, Anterior Column, Open Approach (ICD-10-PCS; CPT 22612; principal; 2021-11-07 11:20)
DX: M48.062 Spinal stenosis, lumbar region with neurogenic claudication (principal); R57.1 Hypovolemic shock; N13.8 Other obstructive and reflux uropathy; D62 Acute posthemorrhagic anemia; N40.1 Benign prostatic hyperplasia with lower urinary tract symptoms; M51.36 Other intervertebral disc degeneration, lumbar region; Z87.891 Personal history of nicotine dependence
CPT/HCPCS: 36415; 36430; 36591; 36600; 51702; 71045; 72020; 72100; 76000; 80048; 80051; 80053; 82330; 82805; 83735; 85014; 85018; 85025; 86850; 86900; 86920; 86927; 87070; 87205; 93005; 94002; 94003; 94640; 94799; 97161; 97530; C1713; J0171; J0690; J1100; J1170; J1644; J1885; J2060; J2175; J2250; J2370; J2405; J2704; J3010; J3370; J3490; J7030; J7050; P9016; P9017; P9035; P9041

== ENCOUNTER → 2021-11-27 09:50 | Outpatient (BNVA) | payer MEDICARE, MEDICAID, SELFPAY | PROVIDERS: PCP Family Medicine; Visit Provider Orthopaedic Surgery | DX: Z48.89 Encounter for other specified surgical aftercare (principal) | CPT/HCPCS: 72100 ==

== ENCOUNTER → 2021-12-06 14:41 | Outpatient (BNVA) | payer MEDICARE, MEDICAID, SELFPAY | PROVIDERS: PCP Family Medicine; Visit Provider Orthopaedic Surgery | DX: Z47.89 Encounter for other orthopedic aftercare (principal); Z98.890 Other specified postprocedural states; Z98.1 Arthrodesis status | CPT/HCPCS: 72100; 99024 ==

== ENCOUNTER → 2022-01-03 08:41 | Outpatient (BNVA) | payer MEDICARE, MEDICAID, SELFPAY | PROVIDERS: PCP Family Medicine; Visit Provider Orthopaedic Surgery | DX: Z47.89 Encounter for other orthopedic aftercare (principal); Z98.1 Arthrodesis status | CPT/HCPCS: 72100; 99024 ==

== ENCOUNTER → 2022-01-22 08:42 | Outpatient (BNVA) | payer MEDICARE, MEDICAID, SELFPAY | PROVIDERS: PCP Family Medicine; Visit Provider Orthopaedic Surgery | DX: Z47.89 Encounter for other orthopedic aftercare (principal); Z98.1 Arthrodesis status | CPT/HCPCS: 72100; 99024 ==

== ENCOUNTER 2022-01-29 09:43 | Outpatient (CLI) | payer MEDICARE, MEDICAID, SELFPAY ==
--- NOTE | 2022-01-29 10:00 | CT_ITS ---
WS: [id number] CT LUMBAR SPINE TECHNIQUE: Noncontrast CT of the lumbar spine with coronal and sagittal reformatted images. CLINICAL INFORMATION: increased post op pain COMPARISON: MRI August 21, 2021 DLP: 1806.[address] scans at [facility] use at least one of these dose optimization techniques: automated e xposure control; mA and/or kV adjustment per patient size (includes targeted exams where dose is matc hed to clinical indication); or iterative reconstruction. FINDINGS: Mild thoracolumbar curve. Postoperative changes pedicle screw fixation T10-S1. Bilateral sacroiliac f ixation screws. Immature interbody fusion L5-S1. No evidence of bony bridging beyond the confines of the graft. Dorsal interconnecting rods appear intact. Pedicle screws appear intact. Mild lucency michael g the bilateral S1 and sacroiliac fixation screws. Diffuse osteopenia. Lung bases are well aerated. Small noncalcified nodule RIGHT lower lobe measuring 3 mm. Wide decompressive laminectomy defects at L1-L5. Disc space narrowing with vacuum disc phenome non L2-L3, L3-L4, and L4-L5 with endplate degenerative changes. Postoperative changes are new since t he MRI August 21, 2021 L1-L2: Decompressive laminectomy defects. Pedicle screw fixation. Spinal canal and foramen are patent . L2-L3: Disc space narrowing with vacuum disc phenomenon. Spinal canal and foramen are patent. Decompr essive laminectomy defects with pedicle screw fixation. L3-L4: Disc space narrowing with vacuum disc phenomenon. Laminectomy defects. Pedicle screw fixation. Mild bilateral foraminal narrowing. Spinal canal is patent. L4-L5: Pedicle screw fixation with laminectomy defects. Shallow central disc bulging. Slight effaceme nt of ventral thecal sac. Eccentric disc bulging with mild LEFT greater than RIGHT foraminal narrowin g. L5-S1: Laminectomy defects. Spinal canal and foramen are patent. Pedicle screw fixation. Adrenal glands are normal. Cholecystectomy clips. Small amount of partially visualized pneumobilia un changed since CT abdomen pelvis May 04, 2021. Visualized pelvic bony structures: Normal. Paravertebral soft tissues: Normal. CT/CT lumbar spine wo con* [id number] IMPRESSION: 1. Pedicle screw fixation with interconnecting rods T10-S1. Bilateral sacroili ac fixation screws. Hardware appears intact. Mild lucency along the S1 and sacr oiliac fixation screws. 2. Advanced osteopenia. 3. Dorsal interconnecting rods are intact. Immature interbody fusion graft L5- S1. 4. Advanced disc space narrowing L2-L3, L3-L4, L4-L5 with vacuum disc phenomen on and endplate degenerative changes. 5. No high-grade central canal stenosis. 6. Central disc protrusion L4-L5 with slight effacement of ventral thecal sac. 7. Mild bony foraminal narrowing bilateral L3-L4 and bilateral L4-L5 LEFT grea ter than RIGHT.
== END 2022-01-29 09:44 | disposition home or self-care (01) ==
PROVIDERS: PCP Family Medicine; Visit Provider Orthopaedic Surgery
DX: M51.36 Other intervertebral disc degeneration, lumbar region (principal); Z48.89 Encounter for other specified surgical aftercare; M85.88 Other specified disorders of bone density and structure, other site; M51.26 Other intervertebral disc displacement, lumbar region
CPT/HCPCS: 72131

== ENCOUNTER 2022-02-06 09:11 | Day surgery (SDC) | payer MEDICARE, MEDICAID, SELFPAY ==
[2022-02-05 12:46] VITALS: BMI 21.1
[2022-02-06] VITALS (18 sets, daily range): BP systolic 99–152; BP diastolic 56–91; PULSE 75–102; RESP 16–18; TEMP 36.8–37.3; O2SAT 93–100
--- NOTE | 2022-02-06 | SCC_ITS ---
Procedure done: Re position cage 30.5 seconds of fluoroscopic guidance, for a cumulative dose of 16.22 mGy, was provided to Dr. Carbajal by the radiology department. C-arm images of the lumbar spine were saved for the patient's permanent record. ALEJANDRO
--- NOTE | 2022-02-06 | XR_ITS ---
WS: [id number] Lumbar spine, C-arm fluoroscopy, 02/06/2022 Clinical Data: failed hardware lumbar spine Comparison: Lumbar spine, 01/22/2022. Findings: Dr. Carbajal adjusted an artificial disc at L5-S1. XR/XR lumbar spine 2-3V* [id number] Impression: Adjustment of artificial disc at L5-S1.
[2022-02-06] MEDS: sodium chloride 0.9% 1,000 ML 30 ML IV (09:35)
--- NOTE | 2022-02-06 10:41 | W.PM.OPSUD ---
Surgery/Procedure H&P Update DATE OF PROCEDURE: February 06, 2022 DATE H&P PERFORMED: 01/22/22 H&P UPDATE INFORMATION: I have reviewed H&P completed within last 30 days, I have examined patient prior to procedure and No changes to prior documentation PREOP DIAGNOSIS: Failed hardware lumbar spine PLANNED PROCEDURE: Operation Date: 02/06/22 11:10 Proposed Procedures p HARDWARE REVISION OF LUMBAR L5/S1 53160/53973/99199/M41.80(Not Applicable) - Bernabe Carbajal DO
[2022-02-06] MEDS: HYDROmorphone 1 mg/mL INJ 1 mL 0.5 MG IVP ×4 (10:56→13:54)
[2022-02-06] MEDS: clindamycin 900 MG/50 ML PREMIX 100 MG IV (11:21)
--- NOTE | 2022-02-06 12:20 | ANES.PREANE2 ---
Pre-Anesthetic Assessment Height/Weight: Height 1.85 m Weight 72.575 kg Temp Pulse Resp BP Pulse Ox O2 Del Method 98.2 F 75 17 152/88 97 02/06/22 09:21 02/06/22 09:21 02/06/22 10:56 02/06/22 09:21 02/06/22 10:56 02/06/22 09:25 Preop Diagnosis: Failed hardware lumbar spine Operation Date: 02/06/22 11:10 Proposed Procedures p HARDWARE REVISION OF LUMBAR L5/S1 07436/27067/31759/M41.80(Not Applicable) - Bernabe Carbajal DO Familial anesthetic complications: none Was Beta Emani taken within 24 hours: N/A Was Clonidine taken within 24 hours: N/A Last intake: Intake Last Liquid Date 02/05/22 Last Liquid Time 23:00 Last Solid Date 02/05/22 Last Solid Time 21:00 Social Tobacco and No alcohol Exam alert, oriented x 3 and regular rate & rhythm Airway Submandibular: within normal limits Cervical ROM: within normal limits Mallampati: Class I Dentition: false Pulmonary Chronic Obstructive Pulmonary Disease CV/HEM Anemia GI Gastroesophageal Reflux [place] [facility] [place] Lower Back Pain and Osteoarthritis/DJD Anesthetic Plan ASA status: 3 Anesthesia: General Medications/Allergies Home Medications Medication Instructions Recorded Confirmed Last Taken Type gabapentin 600 mg tablet 600 mg PO QID 06/16/19 02/06/22 02/06/22 07:00 History albuterol sulfate 90 mcg/actuation 2 puff inhalation QID 05/08/20 02/06/22 02/06/22 07:00 History aerosol inhaler (ProAir HFA) naloxone 4 mg/actuation nasal 1 spray intranasal Q2M PRN Opioid 05/08/20 02/05/22 Unknown History spray (Narcan) Reversal pantoprazole 20 mg tablet,delayed 40 mg PO DAILY 05/08/20 02/06/22 02/06/22 07:00 History release (Protonix) sucralfate 1 gram tablet (Carafate) 1 g PO Q6H 05/08/20 02/06/22 02/06/22 07:00 History doxycycline hyclate 100 mg capsule 100 mg PO BID 05/18/21 02/06/22 02/06/22 07:00 History tamsulosin 0.4 mg capsule 0.4 mg PO .at bedtime #30 caps 05/18/21 02/06/22 02/05/22 19:30 Rx cholecalciferol (vitamin D3) 1,250 1,250 unit PO DAILY 09/19/21 02/06/22 02/05/22 19:30 History mcg (50,000 unit) capsule ibuprofen 800 mg tablet 800 mg PO Q8H 09/19/21 02/06/22 01/23/22 History chlorzoxazone 500 mg tablet 500 mg PO TID 11/05/21 02/06/22 02/05/22 22:00 History cyclobenzaprine 5 mg tablet 5 mg PO TID PRN muscle spasm #90 12/06/21 02/06/22 01/31/22 Rx tabs hydrocodone 10 mg-acetaminophen 1 tab PO Q4H PRN pain 5 days #30 02/05/22 02/06/22 02/06/22 07:00 Rx 325 mg tablet tabs ferrous sulfate 325 mg (65 mg 325 mg PO BID 02/06/22 02/06/22 02/05/22 19:30 History iron) tablet (FeroSul) Allergies Allergy/AdvReac Type Severity Reaction Status Date / Time ketorolac [From Toradol] Allergy Mild unknown Verified 02/06/22 09:31 carbamazepine [From Tegretol] Allergy Unknown Verified 02/06/22 09:31 morphine Allergy ALGY-Swell Verified 02/06/22 09:31 Lip/Tongue/Throat Penicillins Allergy ALGY-Hives Verified 02/06/22 09:31 phenobarbital Allergy Unknown Verified 02/06/22 09:31 phenytoin [From Dilantin] Allergy Unknown Verified 02/06/22 09:31 prochlorperazine Allergy Unknown Verified 02/06/22 09:31 [From Compazine] propofol Allergy ADR-Headach Verified 02/06/22 09:31 e ciprofloxacin AdvReac increase Verified 02/06/22 09:31 blood pressure with headache Current Medications Generic Name Dose Route Start Last Admin Trade Name Freq PRN Reason Stop Dose Admin Hydromorphone HCl 0.5 mg 02/06/22 10:49 02/06/22 10:56 Hydromorphone 1 Mg/Ml Inj 1 Ml IVP 0.5 mg Q4H PRN Administration PAIN Sodium Chloride 1,000 mls @ 30 mls/hr 02/06/22 09:30 02/06/22 09:35 Sodium Chloride 0.9% IV 02/07/22 09:29 30 mls/hr .Q24H SABAS Administration PFSH Anesthesia Medical History BPH loc w urin obs/LUTS History of broken leg Surgical History H/O shoulder surgery History of ankle surgery History of elbow surgery History of hernia surgery Family History Father , AT AGE 73 Murder Mother , AT AGE 42 Cancer COLON Social History Smoking and tobacco status: former smoker Alcohol intake: never Adopted: Yes Marital status: Number of children: 2 History of recent travel: No Data Anesthesia Cardiac Studies: No Data to Display
[2022-02-06] MEDS: vancomycin 1,000 MG SDV 1000 MG XX (12:32)
--- NOTE | 2022-02-06 13:11 | PM.OP ---
Operative Report Date of procedure: February 06, 2022 Pre-op diagnosis: Preop Diagnosis Failed hardware lumbar spine Post-op diagnosis: same Procedure done: Re position cage Surgeon: Bernabe Carbajal Cast Shell Grinder: Cas Reardon Cast Shell Grinder: The surgical services director, Cas Reardon, CELSO was needed for his expertise under the microscope. He was important and necessary throughout the procedure to complete in a safe and timely manner. He assisted with patient positioning prepping and draping tissue retraction suctioning of the operative field protection of the dural sac and tissue closure Estimated blood loss (mL): 10 Procedure: Re position cage Patient was brought to operative suite after undergoing anesthesia was placed in the prone position all areas impingement well-padded. Patient was then prepped and draped no sterile fashion. Skin incision was made using the bottom half of the previous incision. Blunt dissection was made out to the screws. Retractors were placed. The microscope was then brought in in order to facilitate dissecting around the nerve roots. And. The edge of the pedicle was identified and with a curved curette the scar tissue was elevated medially until the cage was found. There was a small rent in the lateral aspect of the dura which produced a small dural leak. Retractors were placed the cage was felt to be better to insert packing rather than the plate out because of the size the cage and the metal scar tissue was concerned that we would tear the dura further and possibly cause damage to nerve root. Once the tape was brought and C-arm was brought in and the cage was tamped anteriorly. Next attention was brought to the screws on the left side. The 2 distal screws the S1 and iliac screws were loosened and then the L5 and S1 screws were compressed together in order to decrease the risk of the cage backing up. Once this was completed then these were torqued down wounds were irrigated DuraGen and DuraSeal were used to seal off the dural leak and the wound was closed in layered fashion with 0 Vicryl 2-0 Vicryl and an nylon suture. Sterile dressings were applied patient was transferred to the PACU in stable condition.
--- NOTE | 2022-02-06 13:41 | SUR.PHASEI ---
1307 PT TO PACU AWAKE ALERT ON BED HOB AT 30 DEGREES, IV TO RT SUBCLAVIAN PORT , PATENT AT KVO RATE PER GRAVITY PT ORIENTED X 3 C/O OF BURNING PAIN OF 9-10 TO LOWER BACK, SEE MEDS GIVEN EARLIER. LOW BACK DRESSING D/I WITH ABD BINDER IN PLACE, ID BAND TO RT WRIST PT ID'D WITH 2 IDENTIFIERS, PT GIVEN WARM BLANKETS X 4 BILAT SCDS ON , PT MOVE BILAT FEET STRONGLY AND EQUAL TO COMMAND DORSAL FLEX AND EXTENSIONS. 1319 PT AWAKE ALERT RATES PAIN AT 9 SEE MED GIVEN PT REPOSTITIONED TO COMFORT, DRESSING TO BACK D/I 1338 PT C/O OF PAIN OF 9 STILL SEE PAIN MED GIVEN PT ROLLED TO RT SIDE, DRESSING STILL D/I
--- NOTE | 2022-02-06 13:59 | SUR.PHASEI ---
PT REPOSITIONED SELF BACK ON HIS BACK, PT MOVES LOWER EXTREMITY EQUALLY AND STRONGLY, MONITOR SR NO ECTOPY NOTED DRESSING TO BACK SILVALON D/I ABD BINDER IN PLACE. SEE PAIN MED GIVEN
--- NOTE | 2022-02-06 14:24 | SUR.PHASEI ---
1409 PT TO OPS ROOM 1 PER BED PT AWAKE ALERT PT ROLLED TO LT SIDE, SOME DRAINAGE NOTED TO DRESSING, APPROX QUARTER SIZE PINK, BUT DRESSING REMAINS D/I ABD BINDER IN PLACE. HANDOFF AT BEDSIDE TO NANO HAGEN. NURSE INFORMED OF PATIENTS PAIN MEDS GIVEN IN PACU
[2022-02-06] MEDS: HYDROcodone-acetaminophen 10-325 mg Tablet 1 TAB PO (14:52)
--- NOTE | 2022-02-06 15:02 | SUR.PHASEII ---
1503-Discharge information was discussed with patient, packet was given to him and all questions answered. Port access was discontinued.
--- NOTE | 2022-02-06 15:56 | ANE.PACU2 ---
Inpatient post-anesthesia follow up: Airway intact: Yes Vital signs: Temperature 99.1 F Pulse Rate 95 Respiratory Rate 18 Blood Pressure 131/91 Pulse Oximetry 94 Oxygen Delivery Me thod Room Air Oxygen Flow Rate Fraction of Inspir ed Oxygen Hydration adequate: Yes Nausea and vomiting: No Pain level: 3 Mental status: Baseline
== END 2022-02-06 15:06 | disposition home or self-care (01) ==
PROVIDERS: PCP Family Medicine; Visit Provider Orthopaedic Surgery
PROC: (CPT 22612; principal; 2022-02-06 11:00)
DX: T85.698A Other mechanical complication of other specified internal prosthetic devices, implants and grafts, initial encounter (principal); T84.498A Other mechanical complication of other internal orthopedic devices, implants and grafts, initial encounter; J44.9 Chronic obstructive pulmonary disease, unspecified; D64.9 Anemia, unspecified; Z87.891 Personal history of nicotine dependence; Z88.0 Allergy status to penicillin; Z88.5 Allergy status to narcotic agent; Z88.1 Allergy status to other antibiotic agents; Y83.8 Other surgical procedures as the cause of abnormal reaction of the patient, or of later complication, without mention of misadventure at the time of the procedure
CPT/HCPCS: 22849; 61783; 51702; 72100; 76000; J1100; J1170; J2250; J2370; J2405; J2704; J2710; J3010; J3370; J3490; J7030; P9047

== ENCOUNTER → 2022-02-14 08:20 | Outpatient (BNVA) | payer MEDICARE, MEDICAID, SELFPAY | PROVIDERS: PCP Family Medicine; Visit Provider Orthopaedic Surgery | DX: Z47.89 Encounter for other orthopedic aftercare (principal); Z98.1 Arthrodesis status | CPT/HCPCS: 99024 ==

== ENCOUNTER → 2022-02-19 08:05 | Outpatient (BNVA) | payer MEDICARE, MEDICAID, SELFPAY | PROVIDERS: PCP Family Medicine; Visit Provider Physician Assistant | DX: Z47.89 Encounter for other orthopedic aftercare (principal); Z98.1 Arthrodesis status | CPT/HCPCS: 72100; 99024 ==

== ENCOUNTER → 2022-02-28 08:15 | Outpatient (BNVA) | payer MEDICARE, MEDICAID, SELFPAY | PROVIDERS: PCP Family Medicine; Visit Provider Physician Assistant | DX: T84.296A Other mechanical complication of internal fixation device of vertebrae, initial encounter (principal); Z47.89 Encounter for other orthopedic aftercare; Z98.1 Arthrodesis status | CPT/HCPCS: 72100; 99024; 99213 ==

== ENCOUNTER → 2022-03-14 09:41 | Outpatient (BNVA) | payer MEDICARE, MEDICAID, SELFPAY | PROVIDERS: PCP Family Medicine; Visit Provider Orthopaedic Surgery | DX: Z47.89 Encounter for other orthopedic aftercare (principal); Z98.1 Arthrodesis status; T84.296A Other mechanical complication of internal fixation device of vertebrae, initial encounter | CPT/HCPCS: 72100; 99024 ==

== ENCOUNTER → 2022-03-26 07:51 | Outpatient (BNVA) | payer MEDICARE, MEDICAID, SELFPAY | PROVIDERS: PCP Family Medicine; Visit Provider Surgery | DX: R20.2 Paresthesia of skin (principal); Z98.1 Arthrodesis status; K40.91 Unilateral inguinal hernia, without obstruction or gangrene, recurrent; Z47.89 Encounter for other orthopedic aftercare | CPT/HCPCS: 72100; 99024; 99203 ==

== ENCOUNTER → 2022-04-09 08:28 | Outpatient (BNVA) | payer MEDICARE, MEDICAID, SELFPAY | PROVIDERS: PCP Family Medicine; Visit Provider Orthopaedic Surgery | DX: Z47.89 Encounter for other orthopedic aftercare (principal); Z98.1 Arthrodesis status | CPT/HCPCS: 72100; 99024 ==

== ENCOUNTER → 2022-04-15 09:47 | Outpatient (BNVA) | payer MEDICARE, MEDICAID, SELFPAY | PROVIDERS: PCP Family Medicine; Referring Provider Orthopaedic Surgery; Visit Provider Podiatrist Foot & Ankle Surgery | DX: M21.722 Unequal limb length (acquired), left humerus (principal); T84.84XA Pain due to internal orthopedic prosthetic devices, implants and grafts, initial encounter; Y79.2 Prosthetic and other implants, materials and accessory orthopedic devices associated with adverse incidents; M19.172 Post-traumatic osteoarthritis, left ankle and foot | CPT/HCPCS: 73630; 99204 ==

== ENCOUNTER → 2022-04-16 09:57 | Outpatient (BNVA) | payer MEDICARE, MEDICAID, SELFPAY | PROVIDERS: PCP Family Medicine; Visit Provider Orthopaedic Surgery | DX: Z47.89 Encounter for other orthopedic aftercare (principal); Z98.1 Arthrodesis status | CPT/HCPCS: 72100; 99024 ==

== ENCOUNTER → 2022-05-02 09:54 | Outpatient (BNVA) | payer MEDICARE, MEDICAID, SELFPAY | PROVIDERS: PCP Family Medicine; Visit Provider Orthopaedic Surgery | DX: Z47.89 Encounter for other orthopedic aftercare (principal); Z98.1 Arthrodesis status | CPT/HCPCS: 72100; 99024 ==

== ENCOUNTER → 2022-05-09 12:45 | Outpatient (BNVA) | payer MEDICARE, MEDICAID, SELFPAY | PROVIDERS: PCP Family Medicine; Visit Provider Orthopaedic Surgery | DX: Z47.89 Encounter for other orthopedic aftercare (principal); Z98.1 Arthrodesis status | CPT/HCPCS: 72100; 99214 ==

== ENCOUNTER → 2022-05-16 10:36 | Outpatient (BNVA) | payer MEDICARE, MEDICAID, SELFPAY | PROVIDERS: PCP Family Medicine; Visit Provider Orthopaedic Surgery | DX: Z47.89 Encounter for other orthopedic aftercare (principal); Z98.1 Arthrodesis status | CPT/HCPCS: 99024 ==

== ENCOUNTER → 2022-05-20 07:54 | Outpatient (BNVA) | payer MEDICARE, MEDICAID, SELFPAY | PROVIDERS: PCP Family Medicine; Visit Provider Podiatrist Foot & Ankle Surgery | DX: M21.722 Unequal limb length (acquired), left humerus (principal); Y79.2 Prosthetic and other implants, materials and accessory orthopedic devices associated with adverse incidents; T84.84XA Pain due to internal orthopedic prosthetic devices, implants and grafts, initial encounter; M19.172 Post-traumatic osteoarthritis, left ankle and foot | CPT/HCPCS: 99214 ==

== ENCOUNTER → 2022-05-21 09:25 | Outpatient (BNVA) | payer MEDICARE, MEDICAID, SELFPAY | PROVIDERS: PCP Family Medicine; Visit Provider Orthopaedic Surgery | DX: Z98.1 Arthrodesis status (principal); Z47.89 Encounter for other orthopedic aftercare | CPT/HCPCS: 99024 ==

== ENCOUNTER 2022-05-23 07:27 | Outpatient (CLI) | payer MEDICARE, MEDICAID, SELFPAY ==
--- NOTE | 2022-05-23 07:31 | CT_ITS ---
WS: [id number] CT LUMBAR SPINE TECHNIQUE: Noncontrast CT of the lumbar spine with coronal and sagittal reformatted images. CLINICAL INFORMATION: M54.9 - Dorsalgia, unspecified COMPARISON: MRI August 21, [address] January 29, 2022 DLP: 1609.[address] scans at [facility] use at least one of these dose optimization techniques: automated e xposure control; mA and/or kV adjustment per patient size (includes targeted exams where dose is matc hed to clinical indication); or iterative reconstruction. FINDINGS: Mild thoracolumbar curve. Postoperative changes are new since the MRI August 21, 2021 and appears stab le since January 29, 2022 CT. Postoperative changes pedicle screw fixation T10-S1 unchanged. Stable bi lateral sacroiliac fixation screws. Immature interbody fusion L5-S1 with mild subsidence. No evidence of bony bridging beyond the confines of the graft. Dorsal interconnecting rods appear intact. Pedicle screws appear intact. Similar-appearing lucency al claudia the bilateral S1 and sacroiliac fixation screws. Diffuse osteopenia. Wide decompressive laminectomy defects at L1-L5. No recurrent central canal stenosis. Disc space narr owing with vacuum disc phenomenon throughout the lumbar spine with endplate degenerative changes. L1-L2: Decompressive laminectomy defects. Pedicle screw fixation. Spinal canal and foramen are patent . L2-L3: Disc space narrowing with vacuum disc phenomenon. Spinal canal and foramen are patent. Decompr essive laminectomy defects with pedicle screw fixation. L3-L4: Disc space narrowing with vacuum disc phenomenon. Laminectomy defects. Pedicle screw fixation. Mild bilateral foraminal narrowing. Spinal canal is patent. L4-L5: Pedicle screw fixation with laminectomy defects. Shallow central disc bulging. Slight effaceme nt of ventral thecal sac. Eccentric disc bulging with mild LEFT greater than RIGHT foraminal narrowin g unchanged. L5-S1: Laminectomy defects. Spinal canal and foramen are patent. Pedicle screw fixation. Adrenal glands are normal. Cholecystectomy clips. Stable pneumobilia. Lung bases are well aerated. Ti ny noncalcified pulmonary nodule RIGHT lower lobe measuring 3.[address]/CT lumbar spine wo con* [id number] IMPRESSION: 1. Overall no significant changes compared to the prior CT January 29, 2022 2. Thoracolumbar curve with pedicle screw fixation T10-S1. Bilateral sacroilia c fixation screws. 3. Stable immature interbody fusion L5-S1 with mild subsidence. No evidence of bony bridging beyond the confines of the graft. 4. Similar-appearing lucency along the bilateral S1 and sacroiliac fixation sc rews. Diffuse osteopenia. 5. Dorsal interconnecting rods and hardware appears intact. 6. No significant central canal stenosis with a wide decompressive laminectomy defects L1-L5.
== END 2022-05-23 07:28 | disposition home or self-care (01) ==
LOC: RAD 07:28
PROVIDERS: PCP Family Medicine; Visit Provider Orthopaedic Surgery
DX: M54.50 Low back pain, unspecified (principal); Z98.1 Arthrodesis status; M96.1 Postlaminectomy syndrome, not elsewhere classified
CPT/HCPCS: 72131; 99024

== ENCOUNTER 2022-06-13 12:15 | Outpatient (CLI) | payer MEDICARE, MEDICAID, SELFPAY | END 2022-06-13 12:16 | disposition home or self-care (01) | LOC: RT 06-17 12:16 | PROVIDERS: PCP Family Medicine; Visit Provider Orthopaedic Surgery | DX: Z13.6 Encounter for screening for cardiovascular disorders (principal) | CPT/HCPCS: 93005 ==

== ENCOUNTER → 2022-06-19 08:06 | Day surgery (SDC) | payer MEDICARE, MEDICAID, SELFPAY ==
[2022-06-13 08:15] VITALS: BMI 21.9
--- NOTE | 2022-06-13 08:21 | ECG_ITS ---
[facility] Test Date: 2022-06-13 Pat Name: Geoffrey Mcleod Department: Room: Gender: Male [employer] M[employer] Installer: : [id number] Requested By: Laurie Barr Order Number: [id number] Deanne MD: Ross Brush M.D. Measurements Intervals [place] Rate: 75 P: 79 MI: 172 QRS: 77 QRSD: 90 T: 69 QT: 380 QTc: 426 Interpretive Statements SINUS RHYTHM Compared to ECG 11/05/2021 08:35:52 No significant changes Electronically Signed On 06-13-2022 20:48:07 [employer] by Ross Brush M.D. [id number]
--- NOTE | 2022-06-13 08:43 | P.ANESASSM_ITS ---
Pre-Anesthetic Assessment Height/Weight: Height 1.83 m Weight 73.482 kg Preop Diagnosis: Failed hardware lumbar spine Operation Date: 06/19/22 12:15 Proposed Procedures p Hardware Removal Lumbar 06494/T84.84XA(Not Applicable) - Bernabe Carbajal, DO Familial anesthetic complications: NOne Social Tobacco and No alcohol Exam alert, oriented x 3, clear to auscultation bilaterally and regular rate & rhythm Airway Mallampati: Class I Dentition: full Pulmonary Chronic Obstructive Pulmonary Disease CV/HEM None reported None reported Hepatic None reported GI Gastroesophageal Reflux Disease gastritis Metabolic None reported Musc/skel Lower Back Pain Neuropsych Seizure (last one greater than 1 year ago) Anesthetic Plan ASA status: 3 Anesthesia: General Risk of > 500 ml blood loss (7ml/kg in children): No Medications/Allergies Home Medications Medication Instructions Recorded Confirmed Last Taken Type albuterol sulfate 90 mcg/actuation 2 puff inhalation PRN PRN Wheezing 05/08/20 06/13/22 06/11/22 History aerosol inhaler (ProAir HFA) naloxone 4 mg/actuation nasal 1 spray intranasal Q2M PRN Opioid 05/08/20 06/13/22 Unknown History spray (Narcan) Reversal pantoprazole 20 mg tablet,delayed 40 mg PO DAILY 05/08/20 06/13/22 06/13/22 History release (Protonix) tamsulosin 0.4 mg capsule 0.4 mg PO .at bedtime #30 caps 05/18/21 06/13/22 06/12/22 Rx ibuprofen 800 mg tablet 800 mg PO Q8H 09/19/21 06/13/22 06/12/22 History Accommodative orthotics #1 ea 04/15/22 05/23/22 Unknown Rx gauntlet AFO to the left #1 ea 05/20/22 05/23/22 Unknown Rx doxepin 10 mg capsule 20 mg PO .qhs PRN sleep #60 caps 05/31/22 06/13/22 06/12/22 Rx gabapentin 800 mg tablet 800 mg PO QID 05/31/22 06/13/22 06/12/22 History sucralfate 1 gram tablet (Carafate) 1 g PO Q6H #120 tabs 05/31/22 06/13/22 06/13/22 Rx carisoprodol 350 mg tablet (Soma) 350 mg PO TID PRN muscle spasm 7 06/10/22 06/13/22 06/12/22 Rx days #14 tabs oxycodone-acetaminophen 10 mg-325 1 tab PO Q4H PRN pain 7 days #40 06/10/22 06/13/22 06/13/22 Rx mg tablet (Percocet) tabs B12 1 tab PO DAILY 06/13/22 06/13/22 06/13/22 History Allergies Allergy/AdvReac Type Severity Reaction Status Date / Time ketorolac [From Toradol] Allergy Mild unknown Verified 06/13/22 08:09 carbamazepine [From Tegretol] Allergy Unknown Verified 06/13/22 08:09 morphine Allergy ALGY-Swell Verified 06/13/22 08:09 Lip/Tongue/Throat Penicillins Allergy ALGY-Hives Verified 06/13/22 08:09 phenobarbital Allergy Unknown Verified 06/13/22 08:09 phenytoin [From Dilantin] Allergy Unknown Verified 06/13/22 08:09 prochlorperazine Allergy Unknown Verified 06/13/22 08:09 [From Compazine] propofol Allergy ADR-Headach Verified 06/13/22 08:09 e ciprofloxacin AdvReac increase Verified 06/13/22 08:09 blood pressure with headache PFSH Anesthesia Medical History BPH loc w urin obs/LUTS Chronic prostatitis History of broken leg Surgical History H/O shoulder surgery History of ankle surgery History of bilateral inguinal hernia repair History of cholecystectomy History of elbow surgery History of hernia surgery Family History Father , AT AGE 73 Murder Mother , AT AGE 42 Cancer COLON Social History (Updated 05/31/22 @ 09:48 by Nancy Weaver LPN, RT) Smoking and tobacco status: current every day smoker cigarettes Packs smoked per day: 0.25 Years cigarettes smoked: 35 Second hand smoke exposure: No Alcohol intake: never Adopted: Yes Lives independently: Yes Household members: none Marital status: Number of children: 2 service: No Current occupational status: retired History of recent travel: No Current gender identity: Male Special alejandro needs: No Agree to transfusion: Yes Data Anesthesia Cardiac Studies: 2 No Data to Display
[2022-06-13 08:56] LABS: Basophils % 0.6 %; Eosinophils # 0.2 10^3/uL (0.0-0.8); Eosinophils % 4.6 %; Hematocrit 38.2 % (42.0-52.0); Hemoglobin 12.3 g/dL (11.7-16.6); Lymphocytes # 1.4 10^3/uL (0.8-4.8); Lymphocytes % 29.2 %; Mean Corpuscular HGB Conc 32.2 g/dL (30.0-36.0); Mean Corpuscular Hemoglobin 30.6 pg (28.0-34.0); Mean Platelet Volume 9.1 fL (7.4-10.4); Monocytes # 0.5 10^3/uL (0.2-0.9); Monocytes % 10.5 %; Neutrophils # 2.61 10^3/uL (1.8-7.7); Neutrophils % 54.9 %; Nucleated Red Blood Cells % 0 %; Platelet Count 267 10^3/cmm (130-400); Red Blood Count 4.02 10^6/uL (4.1-5.3); Red Cell Distribution Width 14.5 % (12.1-15.1); White Blood Count 4.8 10^3/uL (4.0-10.0)
[2022-06-13 09:10] LABS: Anion Gap 14.1 (5-19); Blood Urea Nitrogen 9 mg/dL (8-23); Calcium 8.9 mg/dL (8.5-10.5); Carbon Dioxide 25 mmol/L (22-29); Chloride 105 mmol/L (98-107); Glomerular Filtration Rate 135.2 mL/min (90-130); Glucose 75 mg/dL (65-115); Osmolality Calculated 287 mOsm/kg (285-295); Potassium 4.1 mmol/L (3.5-5.1); Sodium 140 mmol/L (136-145)
[2022-06-19] VITALS (10 sets, daily range): BP systolic 103–167; BP diastolic 60–94; PULSE 78–123; RESP 16–24; TEMP 36.2–37.2; O2SAT 95–98
[2022-06-19] MEDS: sodium chloride 0.9% 1,000 ML 30 ML IV (08:49)
--- NOTE | 2022-06-19 09:52 | W.PM.OPSUD ---
Surgery/Procedure H&P Update DATE OF PROCEDURE: June 19, 2022 DATE H&P PERFORMED: 05/23/22 H&P UPDATE INFORMATION: I have reviewed H&P completed within last 30 days, I have examined patient prior to procedure and No changes to prior documentation PREOP DIAGNOSIS: Painful Hardware Lumbar spine PLANNED PROCEDURE: Operation Date: 06/19/22 09:55 Proposed Procedures p Hardware Removal Lumbar 18171/T84.84XA(Not Applicable) - Bernabe Carbajal DO
--- NOTE | 2022-06-19 09:53 | W.PM.OPSUD ---
Surgery/Procedure H&P Update DATE OF PROCEDURE: June 19, 2022 DATE H&P PERFORMED: 05/23/22 H&P UPDATE INFORMATION: I have reviewed H&P completed within last 30 days, I have examined patient prior to procedure and No changes to prior documentation PREOP DIAGNOSIS: Painful Hardware Lumbar spine PLANNED PROCEDURE: Operation Date: 06/19/22 09:55 Proposed Procedures p Hardware Removal Lumbar 25410/T84.84XA(Not Applicable) - Bernabe Carbajal DO
--- NOTE | 2022-06-19 10:03 | P.ANESUD_ITS ---
Pre-Anesthetic Update Pre-Anesthetic Assessment: Date of Surgery/Procedure: 06/19/22 Preop Jenni gnosis: Painful Hardware Lumbar spine Proposed Procedure: Operation Date: 06/19/22 09:55 Proposed Procedures p Hardware Removal Lumbar 20512/T84.84XA(Not Applicable) - Bernabe Carbajal, DO Any changes to Pre-Anesthetic Assessment?: No Last Intake: Intake Last Liquid Date 06/18/22 Last Liquid Time 22:00 Last Solid Date 06/18/22 Last Solid Time 19:30 Vitals: Temperature 98.9 F 06/19/22 08:47 Temperature Source Temporal Artery S can 06/19/22 08:47 Pulse Rate 78 06/19/22 08:47 Respiratory Rate 18 06/19/22 08:47 Blood Pressure 167/94 06/19/22 08:47 Blood Pressure Mildred n 118 06/19/22 08:47 Pulse Oximetry 98 06/19/22 08:47 Oxygen Delivery Me thod 06/19/22 08:47 Exam: Pre-Anes Outpt Exam: alert, oriented x 3, clear to auscultation bilaterally and regular rate & rhythm Cardiac Studies: No Data to Display
[2022-06-19] MEDS: fentaNYL 50 mcg/mL INJ 2mL IVP ×2 (10:22→11:53)
[2022-06-19] MEDS: clindamycin 900 MG/50 ML PREMIX 100 MG IV (10:41)
--- NOTE | 2022-06-19 12:02 | P.OP_ITS ---
Operative Report Date of procedure: June 19, 2022 Pre-op diagnosis: Preop Diagnosis Painful Hardware Lumbar spine Post-op diagnosis: same Procedure done: 1. Removal of hardware deep from spine ( Left Iliac screw) Surgeon: Bernabe Carbajal Clinical Psychologist Private Practice: Cas Reardon Clinical Psychologist Private Practice: The acute care assistant, Cas Reardon, CELSO was needed for his expertise with spine. He was important and necessary throughout the procedure to complete in a safe and timely manner. He assisted with patient positioning prepping and draping tissue retraction suctioning of the operative field protection of the dural sac and tissue closure Estimated blood loss (mL): 25 Procedure: 1. Removal of hardware deep from spine ( Left Iliac screw) Patient is brought to the operative suite after undergoing his use was in the prone position was in his well-padded. Patient was prepped and draped in usual fashion. Skin incision made over the previous incision at the distal end of the exposure. The scar tissue was identified and subperiosteal dissection was made out to the vincent distally in the iliac screw. The iliac screw was identified. Retractors were placed the vincent from S1 down to the iliac screw and distally was identified. The vincent was then cut with a metal cutting bur. Once the vincent was cut then the end cap was removed and the vincent was removed. The screw was then backed out from the iliac crest on the left side. Wounds were then irrigated and closed with Vicryl and Monocryl suture. Sterile dressings were applied patient was transferred to the PACU in stable condition.
[2022-06-19] MEDS: oxyCODONE-APAP 10-325 mg Tablet 1 TAB PO (12:24)
--- NOTE | 2022-06-19 13:51 | ANE.PACU2 ---
Inpatient post-anesthesia follow up: Airway intact: Yes Vital signs: Temperature 97.3 F Pulse Rate 92 Respiratory Rate 18 Blood Pressure 144/85 Pulse Oximetry 97 Oxygen Delivery Me thod Room Air Oxygen Flow Rate 6 Fraction of Inspir ed Oxygen Hydration adequate: Yes Nausea and vomiting: No Pain level: 4 Mental status: Baseline
== END | disposition home or self-care (01) ==
PROVIDERS: Anesthesiology; PCP Family Medicine; Visit Provider Orthopaedic Surgery
PROC: (CPT 22850; principal; 2022-06-19 09:55)
DX: T84.84XA Pain due to internal orthopedic prosthetic devices, implants and grafts, initial encounter (principal); J44.9 Chronic obstructive pulmonary disease, unspecified; K21.9 Gastro-esophageal reflux disease without esophagitis; N40.1 Benign prostatic hyperplasia with lower urinary tract symptoms; N13.8 Other obstructive and reflux uropathy; Y83.8 Other surgical procedures as the cause of abnormal reaction of the patient, or of later complication, without mention of misadventure at the time of the procedure
CPT/HCPCS: 22850; 80048; 85025; J1100; J2250; J2405; J2704; J2710; J3010; J3490; J7030

== ENCOUNTER → 2022-06-25 08:05 | Outpatient (BNVA) | payer MEDICARE, MEDICAID, SELFPAY | PROVIDERS: PCP Family Medicine; Visit Provider Orthopaedic Surgery | DX: Z47.89 Encounter for other orthopedic aftercare (principal) | CPT/HCPCS: 99024 ==

== ENCOUNTER → 2022-07-09 08:10 | Outpatient (BNVA) | payer MEDICARE, MEDICAID, SELFPAY | PROVIDERS: PCP Family Medicine; Visit Provider Orthopaedic Surgery | DX: Z47.89 Encounter for other orthopedic aftercare (principal); Z98.1 Arthrodesis status; M54.6 Pain in thoracic spine; W19.XXXA Unspecified fall, initial encounter | CPT/HCPCS: 72100; 99024 ==

== ENCOUNTER → 2022-07-18 08:01 | Outpatient (BNVA) | payer MEDICARE, MEDICAID, SELFPAY | PROVIDERS: PCP Family Medicine; Visit Provider Physician Assistant | DX: Z48.89 Encounter for other specified surgical aftercare (principal) | CPT/HCPCS: 72100 ==

== ENCOUNTER → 2022-07-18 08:20 | Day surgery (SDC) | payer MEDICARE, MEDICAID, SELFPAY ==
[2022-07-18 08:30] VITALS: BP 157/94; PULSE 92; RESP 18; TEMP 37.2; O2SAT 95
== END ==
PROVIDERS: PCP Family Medicine; Visit Provider Family Medicine
DX: Z98.890 Other specified postprocedural states (principal)
CPT/HCPCS: 96523; 99024

== ENCOUNTER → 2022-07-23 08:33 | Outpatient (BNVA) | payer MEDICARE, MEDICAID, SELFPAY | PROVIDERS: PCP Family Medicine; Visit Provider Orthopaedic Surgery | DX: M53.3 Sacrococcygeal disorders, not elsewhere classified (principal); Z98.1 Arthrodesis status | CPT/HCPCS: 72100; 72220; 99024; 99213 ==

== ENCOUNTER 2022-08-04 21:21 | Inpatient (IN) | payer MEDICARE, MEDICAID, SELFPAY ==
--- NOTE | 2022-08-04 21:39 | CTR_ITS ---
PROCEDURE INFORMATION: Exam: CT Head Without Contrast Exam date and time: 08/04/2022 10:21 PM Age: 66 years old Clinical indication: Condition or disease; Other: AMS TECHNIQUE: Imaging protocol: Computed tomography of the head without contrast. Radiation optimization: All CT scans at this facility use at least one of these dose optimization techniques: automated exposure control; mA and/or kV adjustment per patient size (includes targeted exams where dose is matched to clinical indication); or iterative reconstruction. REPORTING DATA: Count of CT and Cardiac NM exams in prior 12 months: This patient has received 2 known CTs and 0 known cardiac nuclear medicine studies in the 12 months prior to the current study. COMPARISON: CT head wo con* [id number] 10/03/2016 10:01 PM RADIATION DOSE METRICS: Total DLP (mGy-cm): 1219.88 FINDINGS: Brain: [id number] diffuse white matter disease likely reflecting chronic microvascular ischemic changes. Cerebral ventricles: No ventriculomegaly. Paranasal sinuses: Visualized sinuses are unremarkable. No fluid levels. Mastoid air cells: Visualized mastoid air cells are well aerated. Bones/joints: Unremarkable. No acute fracture. Soft tissues: Unremarkable. CT/CT head wo con* [id number] IMPRESSION: 1. Negative for intracranial hemorrhage or mass effect 2. [id number]-[id number] diffuse white matter disease likely reflecting chronic microvascular ischemic changes.
--- NOTE | 2022-08-04 21:39 | XRR_ITS ---
PROCEDURE INFORMATION: Exam: XR Chest Exam date and time: 08/04/2022 9:52 PM Age: 66 years old Clinical indication: Other: AMS TECHNIQUE: Imaging protocol: Radiologic exam of the chest. Views: 1 view. COMPARISON: CR XR chest 1V portable [id number] 11/07/2021 10:44 PM FINDINGS: Tubes, catheters and devices: Right-sided Port-A-Cath. Lungs: Bibasilar atelectasis versus minimal infiltrate. Pleural spaces: Unremarkable. No pleural effusion. No pneumothorax. Heart/Mediastinum: Unremarkable. No cardiomegaly. Bones/joints: Unremarkable. XR/XR chest 1V portable [id number] IMPRESSION: Bibasilar atelectasis versus minimal infiltrate.
[2022-08-04 21:40] VITALS: BP 126/95; PULSE 113; RESP 12; TEMP 37.2; O2SAT 95; BMI 23.7
--- NOTE | 2022-08-04 21:58 | ECG_ITS ---
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 Measurements Intervals [place] Rate: 114 P: 73 IN: 136 QRS: 64 QRSD: 86 T: 48 QT: 301 QTc: 415 Interpretive Statements SINUS TACHYCARDIA Compared to ECG 06/13/2022 08:34:47 Sinus rhythm no longer present Electronically Signed On 08-05-2022 11:19:11 CASINO ENFORCEMENT AGENT by Shon Ny M.D. [id number]
[2022-08-04 21:59] LABS: Basophils % 0.1 %; Hematocrit 44.2 % (42.0-52.0); Hemoglobin 14.1 g/dL (11.7-16.6); Lymphocytes # 0.4 10^3/uL (0.8-4.8); Lymphocytes % 3.9 %; Mean Corpuscular HGB Conc 31.9 g/dL (30.0-36.0); Mean Corpuscular Hemoglobin 30.4 pg (28.0-34.0); Mean Corpuscular Volume 95.3 fl (80-94); Mean Platelet Volume 9.4 fL (7.4-10.4); Monocytes # 0.9 10^3/uL (0.2-0.9); Monocytes % 7.9 %; Neutrophils # 9.62 10^3/uL (1.8-7.7); Neutrophils % 87.7 %; Nucleated Red Blood Cells % 0 %; Platelet Count 255 10^3/cmm (130-400); Red Blood Count 4.64 10^6/uL (4.1-5.3); Red Cell Distribution Width 14.6 % (12.1-15.1)
[2022-08-04] MEDS: sodium chloride 0.9% 1,000 ML 999 ML IV (21:59)
[2022-08-04 22:00] VITALS: BP 140/90; PULSE 112; RESP 12; O2SAT 100
[2022-08-04 22:09] LABS: ABG PH Result 7.37 (7.35-7.45); Base Excess ABG 0.4 mmol/L (-2.0-2.0); Blood Gas Sample Site Brachial, right; Blood Gas Sample Type Arterial; HCO3 ABG 26.3 mmol/L (22-26); Oxygen Device NC; PO2 ABG 80.7 mmHg (80.0-100.0)
[2022-08-04 22:16] LABS: Alanine Aminotransferase 128 U/L (0-41); Albumin Level 3.6 g/dL (3.5-5.2); Alkaline Phosphatase 93 U/L (40-130); Anion Gap 19.9 (5-19); Aspartate Amino Transferase 284 U/L (0-40); Blood Urea Nitrogen 34 mg/dL (8-23); Calcium 8.7 mg/dL (8.5-10.5); Carbon Dioxide 24 mmol/L (22-29); Chloride 101 mmol/L (98-107); Globulin 3.4 g/dL (1.3-4.6); Glomerular Filtration Rate 28.7 mL/min (90-130); Glucose 108 mg/dL (65-115); Osmolality Calculated 298 mOsm/kg (285-295); Potassium 4.9 mmol/L (3.5-5.1); Sodium 140 mmol/L (136-145); Total Bilirubin 0.2 mg/dL (0.15-1.2)
[2022-08-04 22:22] LABS: INR 0.99 (0.8-1.2)
[2022-08-04 22:26] LABS: Amphetamines Screen Urine Negative (Negative); Barbiturates Screen Urine Negative (Negative); Benzodiazepines Screen Urine Positive (Negative); Cocaine Screen Urine Negative (Negative); Opiate Screen Urine Negative (Negative); PCP Screen Urine Negative (Negative); THC Screen Urine Positive (Negative)
[2022-08-04 22:30] LABS: Add Urine Microscopic? YES; Bilirubin Urine Neg (Negative); Blood Urine 3+ (Negative); Glucose Urine UA Norm (Normal); Ketones Urine Negative (Negative); Leukocyte Esterase Urine Negative (Negative); Nitrate Urine Negative (Negative); Protein Urine 1+ (Negative); Specific Gravity, Urine 1.015 (1.005-1.030); Urine Appearance SL Hazy (CLEAR); Urine Color Yellow (Yellow); Urobilinogen Urine Neg (Negative); pH Urine 5 (5-7)
[2022-08-04 22:32] LABS: Add Urine Culture? No; Amorphous Sediment Urine 2+ /hpf; Bacteria Urine 1+ /hpf; Mucus Urine TRACE /hpf; Squamous Epithelial Cell Urine 0-4 /hpf (0-5); WBC Urine 0-4 /hpf (0-5)
[2022-08-04 22:36] LABS: Acetaminophen < 5.0 ug/mL (10-30); Alcohol Level < 10 mg/dL (0-10); Salicylate < 0.3 mg/dL (3-10)
[2022-08-04 22:39] LABS: Troponin(5th) Baseline 771 ng/L (0-15)
[2022-08-04 22:45] VITALS: BP 120/80; PULSE 114; RESP 18; O2SAT 99
--- NOTE | 2022-08-04 22:50 | W.ED.AMS ---
HPI - Altered Mental Status General: Chief Complaint: Altered Mental Status Stated Complaint: AMS Time Seen by Provider: 08/04/22 21:24 Source: patient History of Present Illness: [id number] male by EMS from home. Law enforcement was evidently on scene, due to a at the household. They had found this gentleman in the floor at home, barely responding. On EMS arrival, he would respond to noxious stimuli. He walked out of the home evidently. He has decreased responsiveness here with sounds to verbal stimuli, and attempting to open eyes by verbal stimuli. Evidently he has a known substance abuser. MD complaint: altered mental status and decreased responsiveness Timing confirmed by: other Severity: moderate Consistency of symptoms: Waxing and Waning Context: drug abuse Associated symptoms: Reports other Treatments prior to arrival: oxygen Review of Systems General: Reports: ROS unobtainable due to mental status PFS ED PFSH: Medical History BPH loc w urin obs/LUTS Chronic prostatitis History of broken leg Surgical History H/O shoulder surgery History of ankle surgery History of bilateral inguinal hernia repair History of cholecystectomy History of elbow surgery History of hernia surgery Family History Father , AT AGE 73 Murder Mother , AT AGE 42 Cancer COLON Social History Smoking and tobacco status: current every day smoker cigarettes Packs smoked per day: 0.25 Years cigarettes smoked: 35 Second hand smoke exposure: No Alcohol intake: never Adopted: Yes Lives independently: Yes Household members: none Marital status: Number of children: 2 service: No Current occupational status: retired Current gender identity: Male Special alejandro needs: No Agree to transfusion: Yes Physical Exam Const: GENERAL APPEARANCE: disheveled, lethargic and ill appearing ORIENTATION/CONSCIOUSNESS: Yes lethargic OTHER: soiled pants HENMT: COMMON NORMALS: normocephalic, atraumatic and Normal external nose present HEAD & SCALP: normocephalic and atraumatic FACE & SINUS: normal facial exam and face symmetric NOSE: Normal external nose present and Normal nares present Eye: COMMON NORMALS: Equal, round and reactive pupils present and EOMs intact bilaterally PUPIL: Yes Equal, round and reactive pupils present and Yes Pinpoint pupils Neck/C-Spine: GENERAL: Yes trachea midline Chest: CHEST: Yes Symmetrical chest wall rise Resp: COMMON NORMALS: normal respiratory effort, No use of accessory muscles and clear to auscultation bilaterally AUSCULTATION: clear to auscultation bilaterally Cardio: COMMON NORMALS: regular rhythm RATE: tachycardic RHYTHM: regular rhythm GI: COMMON NORMALS: Normal to inspection, nondistended, normoactive bowel sounds present and Soft to palpation PALPATION: Yes Soft to palpation OTHER: Large stool present in rectum unrolling the patient. Removed Extremity: COMMON NORMALS: no pedal edema Neuro: ANABELLE COMA SCALE: document GCS findings [place] coma scale eye opening: To sound [place] coma scale verbal response: Words [place] coma scale motor response: Localising Anabelle coma scale total score: 11 SENSORIUM/ORIENTATION: Yes lethargic Skin: NARRATIVE SKIN EXAM: Multiple bilateral scars to forearms Course Vital Signs: Vital signs: Vital Signs Temperature 98.2 F 08/05/22 21:45 Pulse Rate 92 08/05/22 21:45 Respiratory Rate 20 H 08/05/22 19:44 Blood Pressure 126/79 08/05/22 21:45 Pulse Oximetry 96 08/05/22 21:45 Oxygen Delivery Me thod 08/05/22 19:44 Oxygen Flow Rate 4 08/05/22 19:44 MDM - Altered Mental Status Medical Decision Making 66 year old male with likely substance related mental status changes. Head CT is negative for acute change. chest X-ray shows bibasilar atelectasis versus infiltrate. Troponin is elevated significantly. He has an acute kidney injury that is significant as well. He'll be admitted. Lab Data 08/04/22 21:35 08/04/22 21:35 Radiology Impressions Chest X-Ray 08/04/22 21:39 IMPRESSION: Bibasilar atelectasis versus minimal infiltrate. Head CT 08/04/22 21:39 IMPRESSION: 1. Negative for intracranial hemorrhage or mass effect 2. Lxhi-qa-tyqiwrmt diffuse white matter disease likely reflecting chronic microvascular ischemic changes. Chest/Abdomen/Pelvis CT 08/04/22 23:03 IMPRESSION: 1. Cardiomegaly. 2. Coronary artery atherosclerotic calcifications. 3. Patchy bilateral atelectasis versus minimal infiltrate in the basilar lung garcia. 4. Surgical hardware in the spine. 5. Right-sided Port-A-Cath. IMPRESSION: 1. Diffuse portal venous air along the periphery of the liver and is also suspected in the main portal vein which can be a finding of bowel ischemia, however, no pneumatosis intestinalis or bowel wall thickening is seen to support this, please correlate clinically. 2. Cholecystectomy. 3. Mildly prominent fluid in the small bowel without dilation or wall thickening, may reflect an enteritis, please correlate clinically. 4. Surgical hardware in the spine and bridging the right sacroiliac joint. 5. Constipation. 6. Diverticulosis without diverticulitis. Laboratory Results WBC 11.0 10^3/uL (4.0-10.0) H 08/04/22 21:35 RBC 4.64 10^6/uL (4.1-5.3) 08/04/22 21:35 Hgb 14.1 g/dL (11.7-16.6) 08/04/22 21:35 Hct 44.2 % (42.0-52.0) 08/04/22 21:35 MCV 95.3 fl (80-94) H 08/04/22 21:35 MCH 30.4 pg (28.0-34.0) 08/04/22 21:35 MCHC 31.9 g/dL (30.0-36.0) 08/04/22 21:35 RDW 14.6 % (12.1-15.1) 08/04/22 21:35 Plt Count 255 10^3/cmm (130-400) 08/04/22 21:35 MPV 9.4 fL (7.4-10.4) 08/04/22 21:35 Neut % (Auto) 87.7 % 08/04/22 21:35 Lymph % (Auto) 3.9 % 08/04/22 21:35 [place] % (Auto) 7.9 % 08/04/22 21:35 Eos % (Auto) 0.0 % 08/04/22 21:35 Baso % (Auto) 0.1 % 08/04/22 21:35 Neut # (Auto) 9.62 10^3/uL (1.8-7.7) H 08/04/22 21:35 Lymph # (Auto) 0.4 10^3/uL (0.8-4.8) L 08/04/22 21:35 [place] # (Auto) 0.9 10^3/uL (0.2-0.9) 08/04/22 21:35 Eos # (Auto) 0.0 10^3/uL (0.0-0.8) 08/04/22 21:35 Baso # (Auto) 0.0 10^3/uL (0.0-0.1) 08/04/22 21:35 Nucleated RBC % (auto) 0 % 08/04/22 21: Nucleated RBCs # 0.0 /100WBC 08/04/22 21: PT 13.40 SECONDS (12.1-14.9) 08/04/22 21:35 INR 0.99 (0.8-1.2) 08/04/22 21:35 Specimen Type Arterial 08/04/22 22:03 Sample Site Brachial, right 08/04/22 22:03 ABG pH 7.37 (7.35-7.45) 08/04/22 22:03 ABG pCO2 46.0 mmHg (35-45) H 08/04/22 22:03 ABG pO2 80.7 mmHg (80.0-100.0) 08/04/22 22:03 ABG HCO3 26.3 mmol/L (22-26) H 08/04/22 22:03 ABG Base Excess 0.4 mmol/L (-2.0-2.0) 08/04/22 22:03 Andre Test N/a 08/04/22 22:03 Hematocrit 45.0 % (42-52) 08/04/22 22:03 O2 Delivery Device Nc 08/04/22 22:03 O2 Liters/Min 4.0 % 08/04/22 22:03 FiO2 36.0 % 08/04/22 22:03 Cytopathologist ID Jolenechristian 08/04/22 22:03 Sodium 140 mmol/L (136-145) 08/04/22 21: Potassium 4.9 mmol/L (3.5-5.1) 08/04/22 21: Chloride 101 mmol/L (98-107) 08/04/22 21:35 Carbon Dioxide 24 mmol/L (22-29) 08/04/22 21:35 Anion Gap 19.9 (5-19) H 08/04/22 21:35 BUN 34 mg/dL (8-23) H 08/04/22 21:35 Creatinine 2.3 mg/dL (0.7-1.2) H 08/04/22 21:35 GFR Calculation 28.7 mL/min (90-130) L 08/04/22 21:35 Glucose 108 mg/dL (65-115) 08/04/22 21:35 Calculated Osmolality 298 mOsm/kg (285-295) H 08/04/22 21:35 Calcium 8.7 mg/dL (8.5-10.5) 08/04/22 21:35 Total Bilirubin 0.2 mg/dL (0.15-1.2) 08/04/22 21:35 AST 284 U/L (0-40) H 08/04/22 21:35 ALT 128 U/L (0-41) H 08/04/22 21:35 Alkaline Phosphatase 93 U/L (40-130) 08/04/22 21:35 Creatine Kinase 3348 U/L (39-308) H* 08/04/22 21:35 Troponin T Baseline 771 ng/L (0-15) H* 08/04/22 21:35 Total Protein 7.0 g/dL (6.6-8.7) 08/04/22 21:35 Albumin 3.6 g/dL (3.5-5.2) 08/04/22 21:35 Globulin 3.4 g/dL (1.3-4.6) 08/04/22 21:35 Folate 4.9 ng/mL (4.5-32.2) 08/04/22 21:35 Urine Color Yellow (Yellow) 08/04/22 22:10 Urine Appearance Sl hazy (CLEAR) A 08/04/22 22:10 Urine pH 5 (5-7) 08/04/22 22:10 Ur Specific [place] 1.015 (1.005-1.030) 08/04/22 22:10 Urine Protein 1+ (Negative) H 08/04/22 22:10 Urine Glucose (UA) Norm (Normal) 08/04/22 22:10 Urine Ketones Negative (Negative) 08/04/22 22:10 Urine Blood 3+ (Negative) H 08/04/22 22:10 Urine Nitrate Negative (Negative) 08/04/22 22:10 Urine Bilirubin Neg (Negative) 08/04/22 22:10 Urine Urobilinogen Neg mg/dL (Negative) 08/04/22 22:10 Ur Leukocyte Esterase Negative (Negative) 08/04/22 22:10 Urine RBC 5-10 /hpf (0-2) H 08/04/22 22:10 Urine WBC 0-4 /hpf (0-5) H 08/04/22 22:10 Ur Eosinophil Smear 0 (0-0) 08/04/22 22:10 Ur Squamous Epith Cells 0-4 /hpf (0-5) H 08/04/22 22:10 Amorphous Sediment 2+ /hpf 08/04/22 22:10 Urine Bacteria 1+ /hpf (NONE) H 08/04/22 22:10 Urine Mucus Trace /hpf 08/04/22 22:10 Urine Eosinophils No eosinophils seen 08/04/22 22:10 Ur Random Sodium 50 mmol/L 08/04/22 22:10 Ur Random Potassium 51 mmol/L 08/04/22 22:10 Ur Random Chloride 48 mmol/L 08/04/22 22:10 Urine Creatinine 88 mg/dL (39-259) 08/04/22 22:10 Salicylates < 0.3 mg/dL (3-10) L 08/04/22 21:35 Urine Opiates Screen Negative ng/mL (Negative) 08/04/22 22:10 Acetaminophen < 5.0 ug/mL (10-30) L 08/04/22 21:35 Ur Barbiturates Screen Negative ng/mL (Negative) 08/04/22 22:10 Ur Phencyclidine Scrn Negative ng/mL (Negative) 08/04/22 22:10 Ur Amphetamines Screen Negative ng/mL (Negative) 08/04/22 22:10 U Benzodiazepines Scrn Positive ng/mL (Negative) H 08/04/22 22:10 Urine Cocaine Screen Negative ng/mL (Negative) 08/04/22 22:10 U Marijuana (THC) Screen Positive ng/mL (Negative) H 08/04/22 22:10 Ethyl Alcohol < 10 mg/dL (0-10) 08/04/22 21:35 Discharge Plan Discharge Patient Disposition: Admitted As Inpatient Admit Provider: Norman Julio Clinical Impression: Elevated troponin, ALFIE (acute kidney injury), Pneumonia Condition: Stable Coding Level of Care Code ED [employer]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
--- NOTE | 2022-08-04 23:03 | CTR_ITS ---
PROCEDURE INFORMATION: Exam: CT Chest Without Contrast; Diagnostic Exam date and time: 08/04/2022 11:15 PM Age: 66 years old Clinical indication: Other: Unresponsiveness; Other: Hypoxia; Patient HX: PT has port and hardware in his R shoulder and spine. Unable to answer questions and no HX in pt's chart; Additional info: Decreased responsiveness, hypoxia, hospitalist request TECHNIQUE: Imaging protocol: Diagnostic computed tomography of the chest without contrast. Radiation optimization: All CT scans at this facility use at least one of these dose optimization techniques: automated exposure control; mA and/or kV adjustment per patient size (includes targeted exams where dose is matched to clinical indication); or iterative reconstruction. REPORTING DATA: Count of CT and Cardiac NM exams in prior 12 months: This patient has received 3 known CTs and 0 known cardiac nuclear medicine studies in the 12 months prior to the current study. COMPARISON: CR (CHEST, ) 08/04/2022 9:52 PM RADIATION DOSE METRICS: Total DLP (mGy-cm): 525.7 FINDINGS: Tubes, catheters and devices: Right-sided Port-A-Cath. Lungs: Patchy bilateral atelectasis versus minimal infiltrate in the basilar lung garcia. Pleural spaces: Unremarkable. No pneumothorax. No pleural effusion. Heart: Cardiomegaly. Coronary arteries: Coronary artery atherosclerotic calcifications. Lymph nodes: Unremarkable. No enlarged lymph nodes. Vasculature: Unremarkable. No aortic aneurysm. Bones/joints: Surgical hardware in the spine. Soft tissues: Unremarkable. PROCEDURE INFORMATION: Exam: CT Abdomen And Pelvis Without Contrast Exam date and time: 08/04/2022 11:15 PM Age: 66 years old Clinical indication: Other: Unresponsiveness; Other: Hypoxia; Patient HX: PT has port and hardware in his R shoulder and spine. Unable to answer questions and no HX in pt's chart; Additional info: Decreased responsiveness, hypoxia, hospitalist request TECHNIQUE: Imaging protocol: Computed tomography of the abdomen and pelvis without contrast. Radiation optimization: All CT scans at this facility use at least one of these dose optimization techniques: automated exposure control; mA and/or kV adjustment per patient size (includes targeted exams where dose is matched to clinical indication); or iterative reconstruction. REPORTING DATA: Count of CT and Cardiac NM exams in prior 12 months: This patient has received 3 known CTs and 0 known cardiac nuclear medicine studies in the 12 months prior to the current study. COMPARISON: MR pelvis wo con* [id number] 08/21/2021 9:38 AM RADIATION DOSE METRICS: Total DLP (mGy-cm): 638.3 FINDINGS: Liver: Normal. No mass. Gallbladder and bile ducts: Cholecystectomy. Pancreas: Normal. No ductal dilation. Spleen: Normal. No splenomegaly. Adrenal glands: Normal. No mass. Kidneys and ureters: Normal. No hydronephrosis. Stomach and bowel: Mildly prominent fluid in the small bowel without dilation or wall thickening, may reflect an enteritis, please correlate clinically. Constipation. Diverticulosis without diverticulitis. Appendix: No evidence of appendicitis. Intraperitoneal space: Unremarkable. No free air. No significant fluid collection. Vasculature: Diffuse portal venous air along the periphery of the liver and is also suspected in the main portal vein which can be a finding of bowel ischemia, however, no pneumatosis intestinalis or bowel wall thickening is seen to support this, please correlate clinically. Lymph nodes: Unremarkable. No enlarged lymph nodes. Urinary bladder: Unremarkable as visualized. Reproductive: Unremarkable as visualized. Bones/joints: Surgical hardware in the spine and bridging the right sacroiliac joint. Soft tissues: Unremarkable. CT/[place] [id number] IMPRESSION: 1. Cardiomegaly. 2. Coronary artery atherosclerotic calcifications. 3. Patchy bilateral atelectasis versus minimal infiltrate in the basilar lung garcia. 4. Surgical hardware in the spine. 5. Right-sided Port-A-Cath. IMPRESSION: 1. Diffuse portal venous air along the periphery of the liver and is also suspected in the main portal vein which can be a finding of bowel ischemia, however, no pneumatosis intestinalis or bowel wall thickening is seen to support this, please correlate clinically. 2. Cholecystectomy. 3. Mildly prominent fluid in the small bowel without dilation or wall thickening, may reflect an enteritis, please correlate clinically. 4. Surgical hardware in the spine and bridging the right sacroiliac joint. 5. Constipation. 6. Diverticulosis without diverticulitis.
[2022-08-04 23:12] VITALS: BP 124/82; PULSE 116; RESP 18; O2SAT 100
[2022-08-04 23:30] VITALS: BP 144/94; PULSE 113; RESP 18; O2SAT 98
[2022-08-04 23:58] LABS: Creatine Phosphokinase 3348 U/L (39-308)
[2022-08-05] VITALS (160 sets, daily range): BP systolic 97–176; BP diastolic 59–135; PULSE 87–120; RESP 9–29; TEMP 36.7–36.8; O2SAT 80–100; BMI 20.9
--- NOTE | 2022-08-05 | PM.HP ---
Providers/Chief Complaint Admitting Physician: Norman Julio MD Primary Care Provider: Talita Winn MD Chief Complaint: AMS History of Present Illness History gathered through chart review and communication with ER physician. Geoffrey Mcleod is a 66 year old male with past medical history of BPH, seizure disorder, substance abuse with multiple elbow and back and ankle surgeries who was brought into the ER via EMS as he was found down for unknown amount of time at his home where reliant for cement were allegedly responding to at the household. Apparently on arrival EMS to the scene patient was responding to noxious stimuli and he evidently walked out of the house. On presentation to the ER patient was barely responsive to verbal stimulus and attempting to open his eyes and was maintaining his airways. Blood work in the ER showed a white count of 11,000, hemoglobin of 14, platelet of 255, INR 0.99, ABG showing pH of 7.37, PCO2 46, PO2 of 80.7 on 4 L oxygen supplementation with chemistry showing sodium 140, potassium of 4.9, creatinine of 2.3 with BUN of 34, baseline troponin of 771, CPK of 3348, AST/ALT of 284/128 with UA negative for nitrite and drug screen positive for benzos and marijuana. In the ER patient was given 1 L bolus of IV fluids and hospitalist service was consulted for further management and admission. CTA chest abdomen pelvis without contrast was requested which was concerning for possible bowel ischemia with further results as below. Lactate was ordered and patient was started on heparin drip with normal saline at 75 cc/h. Patient during this has remained hemodynamically stable with tachycardia up to 115 bpm, blood pressure of 144 over 90 mmHg saturating well over 95% on 4 L nasal cannula and continues to have decreased responsiveness. Review of Systems General: Reports: ROS unobtainable due to mental status Medications/Allergies Home Medications Medication Instructions Recorded Confirmed Last Taken Type albuterol sulfate 90 mcg/actuation 2 puff inhalation PRN PRN Wheezing 05/08/20 08/05/22 07/18/22 History aerosol inhaler (ProAir HFA) naloxone 4 mg/actuation nasal 1 spray intranasal Q2M PRN Opioid 05/08/20 08/05/22 07/18/22 History spray (Narcan) Reversal ibuprofen 800 mg tablet 800 mg PO Q8H 09/19/21 08/05/22 07/18/22 History Accommodative orthotics #1 ea 11/14/22 03/06/23 02/16/23 Rx gauntlet AFO to the left #1 ea 05/20/22 08/05/22 07/18/22 Rx gabapentin 800 mg tablet 800 mg PO QID 05/31/22 08/05/22 07/18/22 History TENS unit #1 ea 07/09/22 08/05/22 07/18/22 Rx pantoprazole 40 mg tablet,delayed 40 mg PO DAILY 30 days #30 tabs 07/26/22 08/05/22 Unknown Rx release (Protonix) sucralfate 1 gram tablet (Carafate) 1 g PO Q6H #120 tabs 07/26/22 08/05/22 Unknown Rx temazepam 30 mg capsule (Restoril) 30 mg PO .qhs #30 caps 07/26/22 08/05/22 Unknown Rx carisoprodol 350 mg tablet (Soma) 350 mg PO TID PRN muscle spasm 7 07/30/22 08/05/22 Unknown Rx days #14 tabs oxycodone-acetaminophen 10 mg-325 1 tab PO Q4H PRN pain 7 days #40 07/30/22 08/05/22 Unknown Rx mg tablet (Percocet) tabs Allergies Allergy/AdvReac Type Severity Reaction Status Date / Time ketorolac [From Toradol] Allergy Mild unknown Verified 07/26/22 09:35 carbamazepine [From Tegretol] Allergy Unknown Verified 07/26/22 09:35 morphine Allergy ALGY-Swell Verified 07/26/22 09:35 Lip/Tongue/Throat Penicillins Allergy ALGY-Hives Verified 07/26/22 09:35 phenobarbital Allergy Unknown Verified 07/26/22 09:35 phenytoin [From Dilantin] Allergy Unknown Verified 07/26/22 09:35 prochlorperazine Allergy Unknown Verified 07/26/22 09:35 [From Compazine] propofol Allergy ADR-Headach Verified 07/26/22 09:35 e ciprofloxacin AdvReac increase Verified 07/26/22 09:35 blood pressure with headache PFSH Acute PFSH: Medical History BPH loc w urin obs/LUTS Chronic prostatitis History of broken leg Surgical History H/O shoulder surgery History of ankle surgery History of bilateral inguinal hernia repair History of cholecystectomy History of elbow surgery History of hernia surgery Family History Father , AT AGE 73 Murder Mother , AT AGE 42 Cancer COLON Social History Smoking and tobacco status: current every day smoker cigarettes Packs smoked per day: 0.25 Years cigarettes smoked: 35 Second hand smoke exposure: No Alcohol intake: never Adopted: Yes Lives independently: Yes Household members: none Marital status: Number of children: 2 service: No Current occupational status: retired Current gender identity: Male Special alejandro needs: No Agree to transfusion: Yes Vitals/I&O/Wt Last Vital Signs Temp 98.9 F 08/04/22 21:40 Pulse 113 H 08/04/22 23:30 Resp 18 08/04/22 23:30 BP 144/94 08/04/22 23:30 Pulse Ox 98 08/04/22 23:30 O2 Del Method 08/04/22 23:12 O2 Flow Rate 4 08/04/22 23:12 Weight last 48 hrs Weight 79.379 kg Physical Exam Narrative: General: No acute distress, arousable to verbal stimulus, not following commands HEENT: PERRLA, pupils bilaterally equal and reactive Chest: Bilateral bronchial breath sounds with conductive airway sounds all over the lung garcia with rhonchi in right mid and lower zone CVS: S1-S2 regular, no murmurs, tachycardia, no gallops, no rubs Abdomen: Soft, nontender, no organomegaly, bowel sounds present Neuro: Moving all limbs incoherently, no facial deformity noted Data 08/04/22 21:35 08/04/22 21:35 Other Labs: Radiology Impressions Chest X-Ray 08/04/22 21:39 IMPRESSION: Bibasilar atelectasis versus minimal infiltrate. Head CT 08/04/22 21:39 IMPRESSION: 1. Negative for intracranial hemorrhage or mass effect 2. Gdhf-[id number] diffuse white matter disease likely reflecting chronic microvascular ischemic changes. Chest/Abdomen/Pelvis CT 08/04/22 23:03 IMPRESSION: 1. Cardiomegaly. 2. Coronary artery atherosclerotic calcifications. 3. Patchy bilateral atelectasis versus minimal infiltrate in the basilar lung garcia. 4. Surgical hardware in the spine. 5. Right-sided Port-A-Cath. IMPRESSION: 1. Diffuse portal venous air along the periphery of the liver and is also suspected in the main portal vein which can be a finding of bowel ischemia, however, no pneumatosis intestinalis or bowel wall thickening is seen to support this, please correlate clinically. 2. Cholecystectomy. 3. Mildly prominent fluid in the small bowel without dilation or wall thickening, may reflect an enteritis, please correlate clinically. 4. Surgical hardware in the spine and bridging the right sacroiliac joint. 5. Constipation. 6. Diverticulosis without diverticulitis. A&P Assessment and plan (1) Unresponsiveness: (2) AMS (altered mental status): (3) ALFIE (acute kidney injury): (4) Elevated troponin: (5) Positive urine drug screen: (6) Pneumonia: (7) Ischemia, bowel: (8) NSTEMI (non-ST elevated myocardial infarction): Plan 66-year-old gentleman with past medical history of drug abuse found down at home in questionable circumstances found to have positive urine drug screen for benzos and elevated troponin more than [address] abdomen pelvis concerning for possible bowel ischemia. Altered mental status/unresponsiveness: Most likely in setting of drug abuse. Cannot rule out seizure as patient does have a remote history of seizures in the past. CT head without any acute abnormality. Urine drug screen appreciated. Telemetry, fall precaution, aspiration precaution, frequent reorientation. N.p.o. for now. CT chest abdomen pelvis concerning for possible bilateral pneumonia along with possibility of bowel ischemia secondary to portal venous air along the periphery of the liver, possible enteritis and constipation. Normal saline at 75 cc/h. Hold off on any sedating medications including pain medications for now. Acute kidney injury: Baseline creatinine normal. Currently creatinine more than 2. Most likely in setting of dehydration from poor oral intake versus secondary to drug abuse. CT abdomen pelvis negative for obstructive nephropathy. Young catheter. Check urine lites, urine creatinine, urine lites. Strict input output charting. Fluid as above. Elevated troponin: Most likely secondary to non-ST elevation [place]. Cannot rule out bowel ischemia given the CT abdomen pelvis. Check lactate. If lactate is positive will try for CT abdomen pelvis with angio. Avoiding for now given ALFIE. Start on heparin drip. If lactate is negative will plan for stress test once patient is more awake. Hypoxia: Most likely secondary to pneumonia. Cannot rule aspiration pneumonia. Check urine Legionella, bacterial antigen, sputum culture, MRSA swab, respiratory viral panel. Start on vancomycin and meropenem for now. Patient allergic to penicillin. Oxygen supplementation keeping saturation over 90%. Maintain mean over pressure 65, saturation over 92%. Analgesia: Tylenol as needed Glycemic control: Not needed. Hypoglycemia protocol. Nutrition: NPO. CODE STATUS: Full code PUD prophylaxis: Protonix twice daily DVT prophylaxis: Heparin drip will suffice for DVT prophylaxis Discharge planning: Home versus SNF as per clinical picture going forward. Admit to ICU for evaluation and monitoring. This documentation was created by [employer] quality coordinator software. Every effort was made to ensure accuracy of quality coordinator. Any obvious errors or omissions should be clarified with the author of the document. Attestations Medical Necessity Statement*: Admit for more than 2 midnights drug abuse, acute kidney injury with elevated troponin most likely non-ST elevation [place] and High Time for a total of 90 minutes, includes reviewing past or interval history, examining/interviewing patient, placing orders, counseling patient/family/other support, updating patient/family/other support, discussing plan of care with staff, communicating with other healthcare providers, documenting encounter and coordinating care Diagnoses Unresponsiveness R41.89 AMS (altered mental status) R41.82 ALFIE (acute kidney injury) N17.9 Elevated troponin R77.8 Positive urine drug screen R82.5 Pneumonia J18.9 Ischemia, bowel K55.9 NSTEMI (non-ST elevated myocardial infarction) I21.4
[2022-08-05] MEDS: pantoprazole 40 mg SDV IVP ×3 (01:32→23:28)
[2022-08-05] MEDS: heparin drip 25,000 UNIT/500 ML PREMIX 20 UNIT IV (01:36)
[2022-08-05] MEDS: heparin 5,000 unit/mL INJ 1 mL IV ×2 (01:40→16:50)
[2022-08-05] MEDS: sodium chloride 0.9% 1,000 ML 75 ML IV ×2 (01:58→13:59)
[2022-08-05 02:20] LABS: Potassium, Radom Urine 51 mmol/L; Urine Creatinine 88 mg/dL (39-259); Urine Random Chloride 48 mmol/L; Urine Random Sodium 50 mmol/L
[2022-08-05 02:25] LABS: Basophils % 0.1 %; Hematocrit 40.9 % (42.0-52.0); Hemoglobin 13.4 g/dL (11.7-16.6); Lymphocytes # 0.5 10^3/uL (0.8-4.8); Lymphocytes % 4.3 %; Mean Corpuscular HGB Conc 32.8 g/dL (30.0-36.0); Mean Corpuscular Hemoglobin 31.1 pg (28.0-34.0); Mean Corpuscular Volume 94.9 fl (80-94); Mean Platelet Volume 9.6 fL (7.4-10.4); Monocytes # 0.8 10^3/uL (0.2-0.9); Monocytes % 7.5 %; Neutrophils # 9.22 10^3/uL (1.8-7.7); Neutrophils % 87.9 %; Nucleated Red Blood Cells % 0 %; Platelet Count 236 10^3/cmm (130-400); Red Blood Count 4.31 10^6/uL (4.1-5.3); Red Cell Distribution Width 14.7 % (12.1-15.1); White Blood Count 10.5 10^3/uL (4.0-10.0)
[2022-08-05 02:44] LABS: Eosinophil Urine No Eosinophils Seen; Urine Eosinophil Count 0 (0-0)
[2022-08-05 02:52] LABS: Lactate (Lactic Acid level) 1.2 mmol/L (0.5-2.2)
[2022-08-05 02:58] LABS: Estmated Average Glucose 103; Hemoglobin A1C 5.2 % (4.0-6.0)
[2022-08-05 03:02] LABS: Alanine Aminotransferase 125 U/L (0-41); Albumin Level 3.4 g/dL (3.5-5.2); Alkaline Phosphatase 96 U/L (40-130); Anion Gap 18.4 (5-19); Aspartate Amino Transferase 282 U/L (0-40); Blood Urea Nitrogen 38 mg/dL (8-23); Calcium 8.6 mg/dL (8.5-10.5); Carbon Dioxide 25 mmol/L (22-29); Chloride 104 mmol/L (98-107); Chol HDL Ratio 1.88 mg/dL (1.0-5.00); Cholesterol 175 mg/dL (0-200); Globulin 3.3 g/dL (1.3-4.6); Glucose 113 mg/dL (65-115); HDL Cholesterol 93 mg/dL (60-100); LDL Cholesterol Calculated 67 mg/dL (50-129); Osmolality Calculated 304 mOsm/kg (285-295); Potassium 5.4 mmol/L (3.5-5.1); Sodium 142 mmol/L (136-145); Total Bilirubin 0.2 mg/dL (0.15-1.2); Total Protein 6.7 g/dL (6.6-8.7); Triglycerides 76 mg/dL (0-150); VLDL Cholestrol Calculation 15 mg/dL (0-30)
[2022-08-05 03:06] LABS: Troponin 5 2HR 767.5 ng/L (0-15); Troponin 5 2HR Delta -3.5 ABS# (0-10)
[2022-08-05] MEDS: meropenem 1,000 MG in sodium chloride 0.9% (plus) 50 ML 100 MG IV ×3 (03:43→21:27)
[2022-08-05 04:00] LABS: D Dimer 4.44 ug/mIFEU (0-0.59)
[2022-08-05 04:59] LABS: Folate Level 4.9 ng/mL (4.5-32.2)
--- NOTE | 2022-08-05 05:07 | PC.NURSE ---
Dr Rivera notified of critical troponin level, no new orders. Per MD orders, CT placed on hold due to lack of power port access, vanc placed on hold due to lack of access and incompatibilty with heparin gtt.
[2022-08-05 05:44] LABS: Troponin 5 6HR 703.2 ng/L (0-15)
[2022-08-05] MEDS: linezolid premix 600 MG/300 ML PREMIX 300 MG IV (06:24)
[2022-08-05 08:13] LABS: Partial Thromboplastin Time 76.5 SECONDS (23.9-36.7)
[2022-08-05 10:24] LABS: Procalcitonin 2.65 ng/mL (0-0.5)
[2022-08-05] MEDS: magnesium hydroxide 30 mL UDC PO (10:37)
[2022-08-05 10:58] LABS: Lactic Sepsis W/Reflex 1.3 mmol/L (0.5-2.2)
[2022-08-05] MEDS: sennosides-docusate Tablet 1 TAB PO ×2 (11:32→17:09)
[2022-08-05] MEDS: sucralfate 1 gm Tablet PO ×3 (11:33→23:27)
[2022-08-05] MEDS: metoprolol tartrate 25 mg Tablet PO ×2 (11:38→21:06)
[2022-08-05] MEDS: gabapentin 100 mg Capsule 200 MG PO ×2 (11:38→21:06)
[2022-08-05 11:56] LABS: Adenovirus Not Detected (NOT DETECT); Chlamydia Pneumoniae Not Detected (NOT DETECT); Coronavirus 229E,HKU1,NL63,OC4 Not Detected (NOT DETECT); Human Metapneumovirus Not Detected (NOT DETECT); Human Rhinovirus/Enterovirus Not Detected (NOT DETECT); Influenza A Not Detected (NOT DETECT); Influenza A H1 Not Detected (NOT DETECT); Influenza A H1-2009 Not Detected (NOT DETECT); Influenza A H3 Not Detected (NOT DETECT); Influenza B Not Detected (NOT DETECT); Mycoplasma Pneumoniae Not Detected (NOT DETECT); Parainfluenza Virus Type 1 Not Detected (NOT DETECT); Parainfluenza Virus Type 2 Not Detected (NOT DETECT); Parainfluenza Virus Type 3 Not Detected (NOT DETECT); Parainfluenza Virus Type 4 Not Detected (NOT DETECT); Respiratory Syncytial Virus A Not Detected (NOT DETECT); Respiratory Syncytial Virus B Not Detected (NOT DETECT); SARS-COV-2 Not Detected (NOT DETECT)
--- NOTE | 2022-08-05 15:04 | ECG_ITS ---
[facility] Test Date: 2022-08-06 Pat Name: Geoffrey Mcleod Department: Room: ICU03 Gender: Male Communications Senior Associate: : 1955 Requested By: Norman Julio Order Number: [id number] Deanne MD: oRss Brush M.D. Interpretive Statements NAME OF STUDY: LEXISCAN SESTAMIBI STRESS TEST INDICATION: nstemi, PROCEDURE: At the baseline, the EKG revealed normal sinus rhythm with a poor R wave progression.. The baseline heart was 79 bpm with a blood pressue of 156/87 mm of Hg Lexiscan was infused over a period of 20 seconds. A total of 0.4 milligrams of Lexiscan was infused. The stress phase was continued for a total of 5 minutes. Heart rate at the end of the stress phase was 97 bpm with a blood pressure 161/85 mm of Hg. The EKG at the peak infusion revealed no significant changes. Sestamibi was injected 20 seconds after the Lexiscan infusion. Heart rate at the end of the recovery phase was 97 bpm with a blood pressure of 176/82 mm of Hg. CONCLUSION: 1. No significant EKG changes with the LexiScan infusion 2. No LexiScan induced chest pain or cardiac arrhythmia 3. Normal blood pressure and heart rate response 4. Sestamibi/sestamibi perfusion scan pending; see separate report. Electronically Signed On 08-07-2022 0:29:07 BOOT MAKER by Ross Brush M.D. [email or web address]
[2022-08-05] MEDS: isosorbide mononitrate ER 30 mg Tablet PO (15:29)
[2022-08-05 16:36] LABS: Partial Thromboplastin Time 49.4 SECONDS (23.9-36.7)
--- NOTE | 2022-08-05 18:12 | PC.NURSE ---
Patient resting in room. Orientated at times, with intermittent confusion. Heparin gtt running per protocol. Stress test in the morning, NPO after midnight.
[2022-08-05] MEDS: temazepam 15 mg Capsule PO (21:06)
[2022-08-05] MEDS: acetaminophen 325 mg Tablet 650 MG PO (21:31)
[2022-08-05 22:42] LABS: Partial Thromboplastin Time 61.7 SECONDS (23.9-36.7)
[2022-08-06] VITALS (88 sets, daily range): BP systolic 94–176; BP diastolic 58–114; PULSE 76–101; RESP 11–31; TEMP 36.8; O2SAT 85–98
[2022-08-06] MEDS: heparin drip 25,000 UNIT/500 ML PREMIX 20 UNIT IV (00:54)
[2022-08-06] MEDS: meropenem 1,000 MG in sodium chloride 0.9% (plus) 50 ML 100 MG IV ×2 (03:02→15:12)
[2022-08-06 05:11] LABS: Basophils % 0.2 %; Eosinophils % 0.4 %; Hematocrit 33.1 % (42.0-52.0); Hemoglobin 10.9 g/dL (11.7-16.6); Lymphocytes % 11.4 %; Mean Corpuscular HGB Conc 32.9 g/dL (30.0-36.0); Mean Platelet Volume 9.8 fL (7.4-10.4); Monocytes # 0.7 10^3/uL (0.2-0.9); Monocytes % 8.2 %; Neutrophils # 7.08 10^3/uL (1.8-7.7); Neutrophils % 79.2 %; Nucleated Red Blood Cells % 0 %; Platelet Count 173 10^3/cmm (130-400); Red Blood Count 3.52 10^6/uL (4.1-5.3); Red Cell Distribution Width 14.8 % (12.1-15.1); White Blood Count 8.9 10^3/uL (4.0-10.0)
[2022-08-06 05:25] LABS: Partial Thromboplastin Time 50.1 SECONDS (23.9-36.7)
[2022-08-06] MEDS: sucralfate 1 gm Tablet PO ×3 (05:31→17:01)
[2022-08-06] MEDS: heparin 5,000 unit/mL INJ 1 mL IV ×2 (05:31→23:45)
[2022-08-06 05:32] LABS: Alanine Aminotransferase 118 U/L (0-41); Albumin Level 2.9 g/dL (3.5-5.2); Alkaline Phosphatase 74 U/L (40-130); Anion Gap 18.1 (5-19); Aspartate Amino Transferase 245 U/L (0-40); Blood Urea Nitrogen 49 mg/dL (8-23); Calcium 8.2 mg/dL (8.5-10.5); Carbon Dioxide 22 mmol/L (22-29); Chloride 99 mmol/L (98-107); Globulin 2.7 g/dL (1.3-4.6); Glomerular Filtration Rate 14.7 mL/min (90-130); Glucose 82 mg/dL (65-115); Magnesium 2.2 mg/dL (1.7-2.3); Osmolality Calculated 290 mOsm/kg (285-295); Phosphorus 3.6 mg/dL (2.5-4.5); Potassium 5.1 mmol/L (3.5-5.1); Sodium 134 mmol/L (136-145); Total Bilirubin 0.4 mg/dL (0.15-1.2); Total Protein 5.6 g/dL (6.6-8.7)
[2022-08-06 05:45] LABS: Troponin T (5th) Once 735 ng/L (0-15)
--- NOTE | 2022-08-06 06:11 | PC.NURSE ---
Nuc Med notified nurse that they will be unable to complete Kirsten scan stress test w/out peripheral IV access. Pt has a R. Chest port. Other access has been attempted multiple times and was unsuccessful.
[2022-08-06 06:26] LABS: Creatine Phosphokinase 18013 U/L (39-308)
[2022-08-06] MEDS: sodium chloride 0.9% 1,000 ML 75 ML IV (07:26)
[2022-08-06] MEDS: sennosides-docusate Tablet 1 TAB PO ×2 (08:08→17:01)
[2022-08-06] MEDS: magnesium hydroxide 30 mL UDC PO (08:08)
[2022-08-06] MEDS: gabapentin 100 mg Capsule 200 MG PO ×3 (08:08→21:24)
[2022-08-06] MEDS: isosorbide mononitrate ER 30 mg Tablet PO (08:08)
[2022-08-06] MEDS: metoprolol tartrate 25 mg Tablet PO ×2 (08:08→21:24)
--- NOTE | 2022-08-06 09:56 | PC.PHAR ---
Addendum entered by Tala Villegas 08/06/22 10:19: TALKED TO PTS HOME HEALTH NURSE LUIS AND SHE STS PT DOES NOT ALLOW HER TO SEE ALL HIS MEDICATIONS ONLY IBUPROFEN, PRO AIR INHALER, DOXEPIN, AND SUCRALFATE- MEDICATIONS VERIFIED BY EXTERNAL MED LIST LAST FILLED AND HOME HEALTH NURSE FROM [facility] IN [place] Original Note: WAITING ON JUL FROM FACILITY
[2022-08-06] MEDS: regadenoson 0.4 Mg/5 ml Syringe IVP (11:58)
[2022-08-06] MEDS: pantoprazole 40 mg SDV IVP (13:11)
[2022-08-06 14:07] LABS: Partial Thromboplastin Time 56.3 SECONDS (23.9-36.7)
[2022-08-06] MEDS: dextrose 5%-sod chloride 0.9% 1,000 ML 150 ML IV ×2 (14:19→22:36)
--- NOTE | 2022-08-06 15:05 | NMCV_ITS ---
NM raymundo perf SPECT r/s* [id number] Geoffrey Mcleod Age: 66 Gender: M : 1955 Exam Date: 08/06/2022 10:57 Ordering Phys: Norman Julio MD Technologist: ELI Arthur Exam Location: [facility] Indications: CHEST PAIN STRESS TEST Please see separate stress test report in [facility] for full findings IMAGE PROTOCOL Rest/Stress 1 Lexiscan Day Radiopharmaceutical Dose (mCi) Administration Site Administered by Rest: Tc-99m 10.9 IV Deborah Moscoso, WATER CONSERVATION SPECIALIST Sestamibi Stress:Tc-99m 32.6 IV Deborah Moscoso, WATER CONSERVATION SPECIALIST Sestamibi Rest: 06-Aug-2022 60 Discovery 630 Stress: 06-Aug-2022 30 Discovery 630 0.4mg Lexiscan. Supine position only as patient was unable to lay prone. SPECT RESULTS Technical Quality: Excellent Raw Data Analysis: Normal Image Corrections: No attenuation or motion correction applied Summed Stress Score: 4 Summed Rest Score: 2 Summed Difference Score: 3 PERFUSION FINDINGS Has not area of minimal to moderately decreased tracer uptake was noted in the mid and apical inferior wall region with some reversibility FUNCTIONAL RESULTS (calculated via Gated SPECT) Stress Image LV EF (%): 65 Stress EDV (mL):107 TID: 1.1 Stress ESV (mL):37 FUNCTIONAL FINDINGS: Mental wall motion analysis revealing mild diffuse hypokinesia of the septum IMPRESSIONS 1. Myocardial perfusion imaging revealing small area of decreased eccentric in the mid and apical inferior region with some reversibility suggesting myocardial scarring with ischemia in the distribution of the right coronary artery. 2. Normal LV ejection fraction of 65%. 3. LV wall motion analysis revealing mild diffuse hypokinesia of the septum. 4. Normal LV volume No similar previous studies are available for comparison Dr Ross Bruhs MD [facility] (Electronically Signed) Final Date: 06 August 2022 18:39 S
[2022-08-06] MEDS: acetaminophen 325 mg Tablet 650 MG PO (15:55)
--- NOTE | 2022-08-06 15:58 | P.PN_ITS ---
Subjective Subjective: No acute events overnight. Patient seen in ICU. Today morning had difficulty in IV line placement hence stress test was delayed. Finally received a midline placement because of poor IV access. Documented urine output is improving. Patient has threatened to leave AMA and 2 times. But has agreed to stay every time and is agreeable for treatment for now. Denies any nausea, vomiting, headache. States no more chest pain. Complaining of feeling hungry. Vitals/I&O/Wt Last Vital Signs Temp 98.3 F 08/06/22 04:45 Pulse 89 08/06/22 14:15 Resp 20 H 08/06/22 14:15 BP 141/77 08/06/22 14:15 Pulse Ox 93 08/06/22 14:15 O2 Del Method 08/06/22 08:00 O2 Flow Rate 4 08/05/22 19:44 08/06/22 08/06/22 08/06/22 06:59 14:59 22:59 Intake Total 181.667 / 3380.417 3678.4 / 3678.4 Output Total 450 / 1650 Balance -268.333 / 3874.277 5498.4 / 3678.4 Weight last 48 hrs Weight 72.03 kg Weight 79.379 kg Physical Exam Narrative: General: No acute distress, arousable to verbal stimulus, not following commands HEENT: PERRLA, pupils bilaterally equal and reactive Chest: Bilateral bronchial breath sounds with conductive airway sounds all over the lung garcia with rhonchi in right mid and lower zone CVS: S1-S2 regular, no murmurs, tachycardia, no gallops, no rubs Abdomen: Soft, nontender, no organomegaly, bowel sounds present Neuro: Moving all limbs incoherently, no facial deformity noted Urinary Catheter Management: Young: Cath Placed During This Visit: yes Reason for Continuing Indwelling Catheter: Accurate Measurement of Urinary Output in Critically Ill Patients Urinary Catheter Date of Insertion: 08/05/22 Urinary Catheter Time of Insertion: 03:46 Data 08/06/22 04:46 08/06/22 04:46 Micro: Microbiology 08/05/22 09:45 Blood Culture - Preliminary Blood NEGATIVE TO DATE 08/05/22 15:40 Blood Culture - Preliminary Blood SPECIMEN COLLECTED 08/05/22 09:33 MRSA Culture - Final Nose A&P Assessment and plan (1) Unresponsiveness: (2) AMS (altered mental status): (3) ALFIE (acute kidney injury): (4) Elevated troponin: (5) Positive urine drug screen: (6) Pneumonia: (7) Ischemia, bowel: (8) NSTEMI (non-ST elevated myocardial infarction): Plan 66-year-old gentleman with past medical history of drug abuse found down at home in questionable circumstances found to have positive urine drug screen for benzos and elevated troponin more than [address] abdomen pelvis concerning for possible bowel ischemia. Altered mental status/unresponsiveness: Most likely in setting of drug abuse. Cannot rule out seizure as patient does have a remote history of seizures in the past. CT head without any acute abnormality. Urine drug screen appreciated. Telemetry, fall precaution, aspiration precaution, frequent reorientation. N.p.o. for now. CT chest abdomen pelvis concerning for possible bilateral pneumonia along with possibility of bowel ischemia secondary to portal venous air along the periphery of the liver, possible enteritis and constipation. Normal saline at 75 cc/h. Hold off on any sedating medications including pain medications for now. Acute kidney injury: Baseline creatinine normal. Currently creatinine more than 2. Most likely in setting of dehydration from poor oral intake versus secondary to drug abuse. CT abdomen pelvis negative for obstructive nephropathy. Young catheter. Check urine lites, urine creatinine, urine lites. Strict input output charting. Fluid as above. Elevated troponin: Most likely secondary to non-ST elevation [place]. Cannot rule out bowel ischemia given the CT abdomen pelvis. Check lactate. If lactate is positive will try for CT abdomen pelvis with angio. Avoiding for now given ALFIE. Start on heparin drip. If lactate is negative will plan for stress test once patient is more awake. Hypoxia: Most likely secondary to pneumonia. Cannot rule aspiration pneumonia. Check urine Legionella, bacterial antigen, sputum culture, MRSA swab, respiratory viral panel. Start on vancomycin and meropenem for now. Patient allergic to penicillin. Oxygen supplementation keeping saturation over 90%. Maintain mean over pressure 65, saturation over 92%. Analgesia: Tylenol as needed Glycemic control: Not needed. Hypoglycemia protocol. Nutrition: NPO. CODE STATUS: Full code PUD prophylaxis: Protonix twice daily DVT prophylaxis: Heparin drip will suffice for DVT prophylaxis Discharge planning: Home versus SNF as per clinical picture going forward. Can transfer to C[facility]. Plan for the day: Stress test. We will follow-up results. Continue with heparin drip. Rhabdomyolysis and kidney functions worsening. Strict input output charting. Fluid bolus within next 2 hours followed by D5 NS at 150 cc/h. Monitor CPK and renal functions daily for now. Stop IV antibiotics. Monitor for fevers, hemodynamic instability or leukocytosis. Restart home medications including restoral. Increase gabapentin to 200 mg 3 times daily. Goal blood pressure less than 140/90 mmHg. Continue with new dose of metoprolol and Imdur. Blood pressure is better controlled. This documentation was created by [employer] inspector packager software. Every effort was made to ensure accuracy of inspector packager. Any obvious errors or omissions should be clarified with the author of the document. Attestations Medical Necessity Statement*: Requires further hospitalization for further evaluation of elevated troponins, worsening ALFIE and rhabdomyolysis as patient requires high IV hydration to prevent renal failure Diagnoses Unresponsiveness R41.89 AMS (altered mental status) R41.82 ALFIE (acute kidney injury) N17.9 Elevated troponin R77.8 Positive urine drug screen R82.5 Pneumonia J18.9 Ischemia, bowel K55.9 NSTEMI (non-ST elevated myocardial infarction) I21.4
--- NOTE | 2022-08-06 16:04 | US_ITS ---
WS: [id number] RENAL ULTRASOUND HISTORY: Worsening efraín COMPARISON: 10/23/2018 RIGHT kidney. TECHNIQUE: 2-D and color Doppler imaging of the kidney submitted. Right kidney: 11.2 cm x 5.1 cm x 6.0 cm. Kidney is normal length. No hydronephrosis or mass. Increase in echogenicity since the prior study fr om 2019. Normal cortical thickening about 1.4 cm. Left kidney: 11.5 cm x 6.3 cm x 5.7 cm. Normal echogenicity with no hydronephrosis or mass. Normal cortical thickening at 1.5 cm. Aorta: Normal. Urinary Bladder: Nondistended. Patient has a Young catheter present. US/US renal BI* [id number] IMPRESSION: 1. Mild increased echogenicity in the RIGHT kidney since 10/23/2018. May repres ent early medical renal disease. 2. The overall length of the kidneys is stable. No renal atrophy or cortical t hinning.
[2022-08-06 17:34] LABS: Potassium, Radom Urine 34 mmol/L; Urine Random Sodium 24 mmol/L
[2022-08-06 17:42] LABS: Urine Random Chloride 18 mmol/L
[2022-08-06] MEDS: doxepin 10 mg Capsule 20 MG PO (21:24)
[2022-08-06] MEDS: temazepam 15 mg Capsule PO (21:24)
[2022-08-06] MEDS: oxyCODONE-APAP 10-325 mg Tablet 1 TAB PO (21:30)
[2022-08-06 21:47] LABS: Partial Thromboplastin Time 191.5 SECONDS (23.9-36.7)
[2022-08-06 22:19] LABS: Partial Thromboplastin Time 48.7 SECONDS (23.9-36.7)
[2022-08-07] VITALS (98 sets, daily range): BP systolic 103–162; BP diastolic 59–107; PULSE 64–92; RESP 7–26; TEMP 36.6–36.8; O2SAT 91–98
[2022-08-07] MEDS: pantoprazole 40 mg SDV IVP ×3 (00:01→23:36)
[2022-08-07] MEDS: sucralfate 1 gm Tablet PO ×5 (00:04→23:36)
[2022-08-07] MEDS: acetaminophen 325 mg Tablet 650 MG PO (01:43)
[2022-08-07] MEDS: heparin drip 25,000 UNIT/500 ML PREMIX 22 UNIT IV (01:49)
[2022-08-07] MEDS: oxyCODONE-APAP 10-325 mg Tablet 1 TAB PO ×3 (05:12→20:15)
[2022-08-07 06:03] LABS: Partial Thromboplastin Time 43.9 SECONDS (23.9-36.7)
[2022-08-07 06:10] LABS: Alanine Aminotransferase 102 U/L (0-41); Albumin Level 2.8 g/dL (3.5-5.2); Alkaline Phosphatase 98 U/L (40-130); Aspartate Amino Transferase 176 U/L (0-40); Blood Urea Nitrogen 49 mg/dL (8-23); Calcium 8.1 mg/dL (8.5-10.5); Carbon Dioxide 19 mmol/L (22-29); Chloride 106 mmol/L (98-107); Glomerular Filtration Rate 14.7 mL/min (90-130); Glucose 96 mg/dL (65-115); Osmolality Calculated 299 mOsm/kg (285-295); Sodium 138 mmol/L (136-145); Total Bilirubin 0.3 mg/dL (0.15-1.2); Total Protein 5.8 g/dL (6.6-8.7)
[2022-08-07 06:18] LABS: Anion Gap 17.6 (5-19); Potassium 4.6 mmol/L (3.5-5.1)
[2022-08-07 06:30] LABS: Creatine Phosphokinase 10138 U/L (39-308)
[2022-08-07] MEDS: heparin 5,000 unit/mL INJ 1 mL IV (06:51)
[2022-08-07] MEDS: dextrose 5%-sod chloride 0.9% 1,000 ML 150 ML IV ×2 (07:24→13:18)
[2022-08-07] MEDS: isosorbide mononitrate ER 30 mg Tablet PO (08:14)
[2022-08-07] MEDS: metoprolol tartrate 25 mg Tablet PO ×2 (08:14→20:06)
[2022-08-07] MEDS: gabapentin 100 mg Capsule 200 MG PO ×3 (08:14→20:06)
[2022-08-07] MEDS: sennosides-docusate Tablet 1 TAB PO ×2 (08:14→17:10)
[2022-08-07 12:40] LABS: Partial Thromboplastin Time 92.4 SECONDS (23.9-36.7)
--- NOTE | 2022-08-07 13:23 | P.PN_ITS ---
Subjective Subjective: No acute events overnight. Urine output seems to be improving. Overnight around 1200 cc of urine output. Patient is a lot more calm today. Agreeable to stay. Denies any nausea, vomiting, headache. Has been hemodynamically stable and afebrile. Vitals/I&O/Wt Last Vital Signs Temp 98.1 F 08/07/22 08:00 Pulse 82 08/07/22 13:15 Resp 24 H 08/07/22 13:15 BP 133/67 08/07/22 13:15 Pulse Ox 97 08/07/22 13:15 O2 Del Method 08/07/22 08:00 O2 Flow Rate 4 08/05/22 19:44 08/06/22 08/07/22 08/07/22 22:59 06:59 14:59 Intake Total 1527 / 5205.4 1778.166 / 6983.566 1265 / 1265 Output Total 550 / 550 1250 / 1250 Balance 977 / 4655.4 1778.166 / 6433.566 15 15 Physical Exam Narrative: General: No acute distress, arousable to verbal stimulus, not foll owing commands HEENT: PERRLA, pupils bilaterally equal and reactive Chest: Bilateral bronchial breath sounds with conductive airway sounds all over the lung garcia with rhonchi in right mid and lower zone CVS: S1-S2 regular, no murmurs, tachycardia, no gallops, no rubs Abdomen: Soft, nontender, no organomegaly, bowel sounds present Neuro: Moving all limbs incoherently, no facial deformity noted Urinary Catheter Management: Young: Cath Placed During This Visit: yes Reason for Continuing Indwelling Catheter: Accurate Measurement of Urinary Output in Critically Ill Patients Urinary Catheter Date of Insertion: 08/05/22 Urinary Catheter Time of Insertion: 03:46 Data 08/06/22 04:46 08/07/22 03:53 Micro: Microbiology 08/05/22 15:40 Blood Culture - Preliminary Blood NEGATIVE TO DATE 08/05/22 09:45 Blood Culture - Preliminary Blood NEGATIVE TO DATE A&P Assessment and plan (1) Unresponsiveness: (2) AMS (altered mental status): (3) ALFIE (acute kidney injury): (4) Elevated troponin: (5) Positive urine drug screen: (6) Pneumonia: (7) Ischemia, bowel: (8) NSTEMI (non-ST elevated myocardial infarction): Plan 66-year-old gentleman with past medical history of drug abuse found down at home in questionable circumstances found to have positive urine drug screen for benzos and elevated troponin more than [address] abdomen pelvis concerning for possible bowel ischemia. Altered mental status/unresponsiveness: Resolved. Most likely in setting of drug abuse. Cannot rule out seizure as patient does have a remote history of seizures in the past. CT head without any acute abnormality. Urine drug screen appreciated. Telemetry, fall precaution, aspiration precaution, frequent reorientation. CT chest abdomen pelvis concerning for possible bilateral pneumonia along with possibility of bowel ischemia secondary to portal venous air along the periphery of the liver, possible enteritis and constipation. Bowel ischemia ruled out with negative lactate. Continue with IV fluid at 150 cc/h. Acute kidney injury: Baseline creatinine normal. Worsening to stable. Urine output improving. Most likely in setting of dehydration along with drug abuse and severe rhabdomyolysis. CT abdomen pelvis negative for obstructive nephropathy. Young catheter. Repeat check of urine lites, urine creatinine, urine lites. Strict input output charting. Fluid as above. Check renal ultrasound. If does not improve can plan to consult nephrology for further recommendations. Elevated troponin: Mildly positive cardiac stress test. No active chest pain currently. Most likely patient will need to follow-up with cardiology as an outpatient for further evaluation with cardiac angiogram given ongoing ALFIE. Appreciate A1c and lipid panel results. Start on aspirin 81 mg daily. Hold off on statin given severe rhabdomyolysis. Hypoxia: Most likely secondary to pneumonia. Cannot rule aspiration pneumonia. Urine Legionella bacterial antigen, respiratory viral panel negative. MRSA positive. Infectious pneumonia less likely. Hold off on further antibiotics. Last dose on 08/06. Monitor for worsening respiratory status, fever or leukocytosis. Maintain mean over pressure 65, saturation over 92%. Analgesia: Tylenol as needed Glycemic control: Not needed. Hypoglycemia protocol. Nutrition: NPO. CODE STATUS: Full code PUD prophylaxis: Protonix twice daily DVT prophylaxis: Heparin drip will suffice for DVT prophylaxis Discharge planning: Home versus SNF as per clinical picture going forward. Can transfer to CSU. This documentation was created by [employer] hand candle dipper software. Every effort was made to ensure accuracy of hand candle dipper. Any obvious errors or omissions s hould be clarified with the author of the document. Attestations Medical Necessity Statement*: Requires further hospitalization for management of severe rhabdomyolysis leading to acute kidney injury and elevated troponins most likely in setting of non-ST elevation [place] in a patient who was found down and unresponsive secondary to possible benzos abuse Diagnoses Unresponsiveness R41.89 AMS (altered mental status) R41.82 ALFIE (acute kidney injury) N17.9 Elevated troponin R77.8 Positive urine drug screen R82.5 Pneumonia J18.9 Ischemia, bowel K55.9 NSTEMI (non-ST elevated myocardial infarction) I21.4
[2022-08-07] MEDS: aspirin 325 mg EC Tablet PO (13:37)
[2022-08-07] MEDS: FUROsemide 10 mg/mL SDV 4mL 40 MG IVP (14:50)
[2022-08-07] MEDS: doxepin 10 mg Capsule 20 MG PO (20:05)
[2022-08-07] MEDS: temazepam 15 mg Capsule PO (20:06)
[2022-08-07 22:36] LABS: Partial Thromboplastin Time > 250.0 SECONDS (23.9-36.7)
[2022-08-07] MEDS: dextrose 5%-sod chloride 0.9% 1,000 ML 125 ML IV (22:38)
[2022-08-07 23:16] LABS: Partial Thromboplastin Time 65.3 SECONDS (23.9-36.7)
[2022-08-08] VITALS (74 sets, daily range): BP systolic 103–176; BP diastolic 68–101; PULSE 68–84; RESP 10–24; TEMP 36.6–37.2; O2SAT 92–98; BMI 24.3
[2022-08-08] MEDS: heparin drip 25,000 UNIT/500 ML PREMIX 22 UNIT IV (00:36)
[2022-08-08] MEDS: oxyCODONE-APAP 10-325 mg Tablet 1 TAB PO ×3 (04:17→20:49)
[2022-08-08 05:21] LABS: Basophils % 0.3 %; Eosinophils # 0.1 10^3/uL (0.0-0.8); Eosinophils % 1.7 %; Hematocrit 30.3 % (42.0-52.0); Hemoglobin 9.7 g/dL (11.7-16.6); Lymphocytes # 1.1 10^3/uL (0.8-4.8); Lymphocytes % 16.7 %; Mean Corpuscular Hemoglobin 30.3 pg (28.0-34.0); Mean Corpuscular Volume 94.7 fl (80-94); Mean Platelet Volume 9.4 fL (7.4-10.4); Monocytes # 0.6 10^3/uL (0.2-0.9); Monocytes % 8.8 %; Neutrophils # 4.67 10^3/uL (1.8-7.7); Nucleated Red Blood Cells % 0 %; Platelet Count 175 10^3/cmm (130-400); Red Cell Distribution Width 14.5 % (12.1-15.1); White Blood Count 6.5 10^3/uL (4.0-10.0)
[2022-08-08] MEDS: sucralfate 1 gm Tablet PO ×4 (05:21→23:16)
[2022-08-08 05:47] LABS: Alanine Aminotransferase 73 U/L (0-41); Albumin Level 2.6 g/dL (3.5-5.2); Alkaline Phosphatase 66 U/L (40-130); Anion Gap 16.8 (5-19); Aspartate Amino Transferase 117 U/L (0-40); Blood Urea Nitrogen 43 mg/dL (8-23); Calcium 7.8 mg/dL (8.5-10.5); Carbon Dioxide 18 mmol/L (22-29); Chloride 109 mmol/L (98-107); Globulin 2.5 g/dL (1.3-4.6); Glomerular Filtration Rate 15.1 mL/min (90-130); Glucose 113 mg/dL (65-115); Osmolality Calculated 302 mOsm/kg (285-295); Potassium 3.8 mmol/L (3.5-5.1); Sodium 140 mmol/L (136-145); Total Bilirubin 0.2 mg/dL (0.15-1.2); Total Protein 5.1 g/dL (6.6-8.7)
[2022-08-08 06:31] LABS: Creatine Phosphokinase 6668 U/L (39-308)
[2022-08-08] MEDS: heparin 5,000 unit/mL INJ 1 mL IV (06:32)
[2022-08-08] MEDS: dextrose 5%-sod chloride 0.9% 1,000 ML 125 ML IV ×3 (07:06→17:50)
[2022-08-08] MEDS: sennosides-docusate Tablet 1 TAB PO ×2 (08:19→17:49)
[2022-08-08] MEDS: gabapentin 100 mg Capsule 200 MG PO ×3 (08:19→20:49)
[2022-08-08] MEDS: aspirin 81 mg EC Tablet PO (08:19)
[2022-08-08] MEDS: isosorbide mononitrate ER 30 mg Tablet PO ×2 (08:19→11:28)
[2022-08-08] MEDS: metoprolol tartrate 25 mg Tablet PO ×2 (08:22→21:08)
--- NOTE | 2022-08-08 08:44 | PC.SOCIAL ---
IMM Update Pg. 2 of IMM updated and reviewed with patient, who verbalized understanding. Copy provided to patient, and copy placed in chart.
--- NOTE | 2022-08-08 11:13 | PC.NURSE ---
Clarified with Dr. Julio to give 30mg Imdr. 30mg order given this morning and 60mg dose ordered after. Will start 60mg dose of Imdr tomorrow.
[2022-08-08] MEDS: pantoprazole 40 mg SDV IVP ×2 (11:28→23:16)
[2022-08-08 11:47] LABS: Partial Thromboplastin Time 71.6 SECONDS (23.9-36.7)
--- NOTE | 2022-08-08 13:46 | P.PN_ITS ---
Subjective Subjective: No acute events overnight. Patient denies any nausea, vomiting, headache. Laying comfortably in bed. Denies any chest pain. Documented urine output of over 2 L in last 24 hours. Vitals/I&O/Wt Last Vital Signs Temp 98.7 F 08/08/22 08:15 Pulse 73 08/08/22 13:00 Resp 17 08/08/22 13:13 BP 119/101 08/08/22 13:00 Pulse Ox 97 08/08/22 13:13 O2 Del Method 08/08/22 13:00 O2 Flow Rate 4 08/05/22 19:44 08/07/22 08/08/22 08/08/22 22:59 06:59 14:59 Intake Total 1285 / 2927.5 1475.667 / 4403.167 240 / 240 Output Total 850 / 2625 1100 / 3725 1000 / 1000 Balance 435 / 302.5 375.667 / 678.167 -760 / -760 Weight last 48 hrs Weight 83.659 kg Physical Exam Narrative: General: No acute distress, arousable to verbal stimulus, not following commands HEENT: PERRLA, pupils bilaterally equal and reactive Chest: Bilateral bronchial breath sounds with conductive airway sounds all over the lung garcia with rhonchi in right mid and lower zone CVS: S1-S2 regular, no murmurs, tachycardia, no gallops, no rubs Abdomen: Soft, nontender, no organomegaly, bowel sounds present Neuro: Moving all limbs incoherently, no facial deformity noted Urinary Catheter Management: Young: Cath Placed During This Visit: yes Reason for Continuing Indwelling Catheter: Accurate Measurement of Urinary Outpu t in Critically Ill Patients Urinary Catheter Date of Insertion: 08/05/22 Urinary Catheter Time of Insertion: 03:46 Data 08/08/22 05:08 08/08/22 05:08 A&P Assessment and plan (1) Unresponsiveness: (2) AMS (altered mental status): (3) ALFIE (acute kidney injury): (4) Elevated troponin: (5) Positive urine drug screen: (6) Pneumonia: (7) Ischemia, bowel: (8) NSTEMI (non-ST elevated myocardial infarction): Plan 66-year-old gentleman with past medical history of drug abuse found down at home in questionable circumstances found to have positive urine drug screen for be nzos and elevated troponin more than [address] abdomen pelvis concerning for possible bowel ischemia. Altered mental status/unresponsiveness: Resolved. Most likely in setting of drug abuse. Cannot rule out seizure as patient does have a remote history of seizures in the past. CT head without any acute abnormality. Urine drug screen appreciated. Telemetry, fall precaution, aspiration precaution, frequent reorientation. CT chest abdomen pelvis concerning for possible bilateral pneumonia along with possibility of bowel ischemia secondary to portal venous air along the periphery of the liver, possible enteritis and constipation. Bowel ischemia ruled out with negative lactate. Rhabdomyolysis: Resolving. CPK down to 6000 today. Continue with IV fluids at 125 cc/h. Monitor CPK daily. Acute kidney injury: Baseline creatinine normal. Creatinine stable. Around 4. Urine output improving. Most likely in setting of dehydration along with drug abuse, home use of ibuprofen and severe rhabdomyolysis. CT abdomen pelvis negative for obstructive nephropathy. Young catheter. Continue to monitor BMP daily. Continue with fluid as above. Elevated troponin: Mildly positive cardiac stress test. No active chest pain currently. Most likely patient will need to follow-up with cardiology as an outpatient for further evaluation with cardiac angiogram given ongoing ALFIE. Appreciate A1c and lipid panel results. Continue with aspirin. Holding off on statin given rhabdomyolysis. Continue on home dose of beta-lali. Stop heparin drip. Hypoxia: Resolved. Most likely secondary to pneumonitis from aspiration and altered mental status. Monitor off antibiotics. Patient has remained hemodynamically stable and afebrile. Urine Legionella bacterial antigen, respiratory viral panel negative. MRSA positive. Hold off on further antibiotics. Last dose on 08/06. Monitor for worsening respiratory status, fever or leukocytosis. Maintain mean over pressure 65, saturation over 92%. Hypertension: Goal blood pressure less than 140/90 mmHg. Continue with metoprolol 25 mg twice daily. Blood pressure is elevated today morning. Increase dose of Imdur to 60 mg oral daily. Uptitrate as for goal blood pressures. Continue to monitor. Analgesia: Tylenol as needed Glycemic control: Not needed. Hypoglycemia protocol. Nutrition: NPO. CODE STATUS: Full code PUD prophylaxis: Protonix twice daily DVT prophylaxis: Heparin drip will suffice for DVT prophylaxis Discharge planning: Home versus SNF as per clinical picture going forward. Transfer out of ICU to regular floor This documentation was created by [employer] media buyer software. Every effort was made to ensure accuracy of media buyer. Any obvious errors or omissions should be clarified with the author of the document. Attestations Medical Necessity Statement*: Requires further hospitalization for management of severe rhabdomyolysis leading to acute kidney injury/patient requires high amount of IV fluids, non-ST relation [place]. Diagnoses Unresponsiveness R41.89 AMS (altered mental status) R41.82 ALFIE (acute kidney injury) N17.9 Elevated troponin R77.8 Positive urine drug screen R82.5 Pneumonia J18.9 Ischemia, bowel K55.9 NSTEMI (non-ST elevated myocardial infarction) I21.4
[2022-08-08] MEDS: acetaminophen 325 mg Tablet 650 MG PO ×2 (15:30→19:36)
--- NOTE | 2022-08-08 16:05 | PC.NURSE ---
Transfer: 1557 Patient transferred to second floor room 273. Patient resting in bed with MACHINE INSTALLER at bedside. Patient had no complaints at time of transfer. Patients only question was, Do I get to go home tomorrow. Patient told, his provider would be the one to determine discharge, but he is not requiring ICU or CSU care at this time, however his needs are still requiring him to be in the hospital. Patient belongings at bedside which included his shoes and some papers. Patient chart and meds from [facility] were given to charge nurse at desk.
[2022-08-08 16:14] LABS: Partial Thromboplastin Time 38.2 SECONDS (23.9-36.7)
[2022-08-08] MEDS: temazepam 15 mg Capsule PO (20:49)
[2022-08-08] MEDS: heparin 5,000 unit/mL INJ 1 mL 5000 UNIT SUBCUT (20:51)
[2022-08-08] MEDS: doxepin 10 mg Capsule 20 MG PO (21:08)
[2022-08-09] VITALS (13 sets, daily range): BP systolic 125–154; BP diastolic 68–85; PULSE 68–73; RESP 15–20; TEMP 36.4–36.9; O2SAT 94–98
[2022-08-09] MEDS: dextrose 5%-sod chloride 0.9% 1,000 ML 125 ML IV ×3 (03:12→16:38)
[2022-08-09] MEDS: oxyCODONE-APAP 10-325 mg Tablet 1 TAB PO ×4 (04:37→21:22)
[2022-08-09] MEDS: sucralfate 1 gm Tablet PO ×4 (05:51→23:49)
[2022-08-09 06:11] LABS: Alanine Aminotransferase 49 U/L (0-41); Albumin Level 2.5 g/dL (3.5-5.2); Alkaline Phosphatase 61 U/L (40-130); Anion Gap 14.6 (5-19); Aspartate Amino Transferase 73 U/L (0-40); Blood Urea Nitrogen 34 mg/dL (8-23); Calcium 7.7 mg/dL (8.5-10.5); Carbon Dioxide 18 mmol/L (22-29); Chloride 112 mmol/L (98-107); Globulin 2.3 g/dL (1.3-4.6); Glomerular Filtration Rate 17.1 mL/min (90-130); Glucose 172 mg/dL (65-115); Osmolality Calculated 304 mOsm/kg (285-295); Potassium 3.6 mmol/L (3.5-5.1); Sodium 141 mmol/L (136-145); Total Bilirubin 0.2 mg/dL (0.15-1.2); Total Protein 4.8 g/dL (6.6-8.7)
[2022-08-09 06:40] LABS: Creatine Phosphokinase 4132 U/L (39-308)
[2022-08-09] MEDS: aspirin 81 mg EC Tablet PO (08:16)
[2022-08-09] MEDS: gabapentin 100 mg Capsule 200 MG PO ×3 (08:16→21:21)
[2022-08-09] MEDS: sennosides-docusate Tablet 1 TAB PO (08:16)
[2022-08-09] MEDS: isosorbide mononitrate ER 30 mg Tablet 60 MG PO (08:16)
[2022-08-09] MEDS: heparin 5,000 unit/mL INJ 1 mL 5000 UNIT SUBCUT ×2 (08:16→21:23)
[2022-08-09] MEDS: metoprolol tartrate 25 mg Tablet PO ×2 (08:22→21:21)
[2022-08-09] MEDS: acetaminophen 325 mg Tablet 650 MG PO ×2 (10:32→17:16)
[2022-08-09] MEDS: pantoprazole 40 mg SDV IVP ×2 (11:49→23:49)
--- NOTE | 2022-08-09 16:37 | PM.PN ---
Subjective Subjective: No acute events overnight. Patient has remained hemodynamically stable and afebrile. Urine output improving. Seen with family at bedside on [facility] floor today. Patient is jovial. Output of around 1800 cc in last 24 hours. Vitals/I&O/Wt Last Vital Signs Temp 98.1 F 08/09/22 15:54 Pulse 68 08/09/22 15:54 Resp 16 08/09/22 15:54 BP 136/77 08/09/22 15:54 Pulse Ox 96 08/09/22 15:54 O2 Del Method 08/09/22 15:54 O2 Flow Rate 4 08/05/22 19:44 08/09/22 08/09/22 08/09/22 06:59 14:59 22:59 Intake Total 1600 / 3841.234 1367.917 / 1367.917 Output Total 500 / 1500 1375 / 1375 Balance 1100 / 2341.234 -7.083 / -7.083 Weight last 48 hrs Weight 89.086 kg Weight 83.461 kg Weight 83.659 kg Physical Exam Narrative: General: No acute distress, arousable to verbal stimulus, not following commands HEENT: PERRLA, pupils bilaterally equal and reactive Chest: Bilateral bronchial breath sounds with conductive airway sounds all over the lung garcia with rhonchi in right mid and lower zone CVS: S1-S2 regular, no murmurs, tachycardia, no gallops, no rubs Abdomen: Soft, nontender, no organomegaly, bowel sounds present Neuro: Moving all limbs incoherently, no facial deformity noted Urinary Catheter Management: Young: Cath Placed During This Visit: yes Reason for Continuing Indwelling Catheter: Accurate Measurement of Urinary Output in Critically Ill Patients Urinary Catheter Date of Insertion: 08/05/22 Urinary Catheter Time of Insertion: 03:46 Data 08/08/22 05:08 08/09/22 04:58 A&P Assessment and plan (1) Unresponsiveness: (2) AMS (altered mental status): (3) ALFIE (acute kidney injury): (4) Elevated troponin: (5) Positive urine drug screen: (6) Pneumonia: (7) Ischemia, bowel: (8) NSTEMI (non-ST elevated myocardial infarction): Plan 66-year-old gentleman with past medical history of drug abuse found down at home in questionable circumstances found to have positive urine drug screen for benzos and elevated troponin more than [address] abdomen pelvis concerning for possible bowel ischemia. Altered mental status/unresponsiveness: Resolved. Most likely in setting of drug abuse. Cannot rule out seizure as patient does have a remote history of seizures in the past. CT head without any acute abnormality. Urine drug screen appreciated. Telemetry, fall precaution, aspiration precaution, frequent reorientation. CT chest abdomen pelvis concerning for possible bilateral pneumonia along with possibility of bowel ischemia secondary to portal venous air along the periphery of the liver, possible enteritis and constipation. Bowel ischemia ruled out with negative lactate. Rhabdomyolysis: Resolving. CPK down to 6000 today. Continue with IV fluids at 125 cc/h. Monitor CPK daily. Acute kidney injury: Baseline creatinine normal. Creatinine stable. Around 4. Urine output improving. Most likely in setting of dehydration along with drug abuse, home use of ibuprofen and severe rhabdomyolysis. CT abdomen pelvis negative for obstructive nephropathy. Young catheter. Continue to monitor BMP daily. Continue with fluid as above. Elevated troponin: Mildly positive cardiac stress test. No active chest pain currently. Most likely patient will need to follow-up with cardiology as an outpatient for further evaluation with cardiac angiogram given ongoing ALFIE. Appreciate A1c and lipid panel results. Continue with aspirin. Holding off on statin given rhabdomyolysis. Continue on home dose of beta-lali. Stop heparin drip. Hypoxia: Resolved. Most likely secondary to pneumonitis from aspiration and altered mental status. Monitor off antibiotics. Patient has remained hemodynamically stable and afebrile. Urine Legionella bacterial antigen, respiratory viral panel negative. MRSA positive. Hold off on further antibiotics. Last dose on 08/06. Monitor for worsening respiratory status, fever or leukocytosis. Maintain mean over pressure 65, saturation over 92%. Hypertension: Goal blood pressure less than 140/90 mmHg. Continue with metoprolol 25 mg twice daily. Blood pressure is elevated today morning. Increase dose of Imdur to 60 mg oral daily. Uptitrate as for goal blood pressures. Continue to monitor. Analgesia: Tylenol as needed Glycemic control: Not needed. Hypoglycemia protocol. Nutrition: NPO. CODE STATUS: Full code PUD prophylaxis: Protonix twice daily DVT prophylaxis: Heparin drip will suffice for DVT prophylaxis Discharge planning: Home versus SNF as per clinical picture going forward. Plan for the day: Urine output improving. Rhabdomyolysis resolving. Monitor BMP and CPK daily. Continue with current fluid at 125 cc/h. Plan for discharge in next 24 hours. Blood pressure is better controlled. Continue with Imdur 60 mg and metoprolol 25 mg twice daily. Continue care at [facility] floor. This documentation was created by [employer] podiatry professor software. Every effort was made to ensure accuracy of podiatry professor. Any obvious errors or omissions should be clarified with the author of the document. Attestations Medical Necessity Statement*: Requires further hospitalization for management of resolving rhabdomyolysis leading to acute kidney injury with mildly positive cardiac stress test Diagnoses Unresponsiveness R41.89 AMS (altered mental status) R41.82 ALFIE (acute kidney injury) N17.9 Elevated troponin R77.8 Positive urine drug screen R82.5 Pneumonia J18.9 Ischemia, bowel K55.9 NSTEMI (non-ST elevated myocardial infarction) I21.4
[2022-08-09] MEDS: doxepin 10 mg Capsule 20 MG PO (21:21)
[2022-08-09] MEDS: temazepam 15 mg Capsule PO (21:21)
[2022-08-10] VITALS: BP 135/68; PULSE 71; RESP 17; TEMP 36.7
[2022-08-10 03:28] VITALS: BP 153/89; PULSE 76; RESP 19; TEMP 36.9; O2SAT 95
[2022-08-10] MEDS: acetaminophen 325 mg Tablet 650 MG PO (03:36)
[2022-08-10 04:00] VITALS: RESP 16
[2022-08-10 05:16] VITALS: RESP 16
[2022-08-10] MEDS: sucralfate 1 gm Tablet PO (05:16)
[2022-08-10] MEDS: oxyCODONE-APAP 10-325 mg Tablet 1 TAB PO (05:16)
[2022-08-10 06:26] LABS: Alanine Aminotransferase 35 U/L (0-41); Albumin Level 2.5 g/dL (3.5-5.2); Alkaline Phosphatase 72 U/L (40-130); Anion Gap 15.9 (5-19); Aspartate Amino Transferase 53 U/L (0-40); Blood Urea Nitrogen 30 mg/dL (8-23); Calcium 8.1 mg/dL (8.5-10.5); Carbon Dioxide 18 mmol/L (22-29); Chloride 115 mmol/L (98-107); Globulin 2.5 g/dL (1.3-4.6); Glomerular Filtration Rate 21.9 mL/min (90-130); Glucose 86 mg/dL (65-115); Osmolality Calculated 305 mOsm/kg (285-295); Potassium 3.9 mmol/L (3.5-5.1); Sodium 145 mmol/L (136-145); Total Bilirubin 0.3 mg/dL (0.15-1.2)
[2022-08-10 06:46] LABS: Creatine Phosphokinase 2354 U/L (39-308)
[2022-08-10 08:03] VITALS: BP 144/88; PULSE 72; RESP 15; TEMP 36.8; O2SAT 96
[2022-08-10 08:45] VITALS: PULSE 77; RESP 16; O2SAT 96
--- NOTE | 2022-08-10 08:59 | PC.SOCIAL ---
IMM update IMM updated with patient. Verbalized an understanding. Copy pg 2 provided. Initialled, dated, timed, and placed in chart.
[2022-08-10] MEDS: gabapentin 100 mg Capsule 200 MG PO (09:43)
[2022-08-10] MEDS: magnesium hydroxide 30 mL UDC PO (09:44)
[2022-08-10] MEDS: isosorbide mononitrate ER 30 mg Tablet 60 MG PO (09:44)
[2022-08-10] MEDS: aspirin 81 mg EC Tablet PO (09:44)
[2022-08-10] MEDS: heparin 5,000 unit/mL INJ 1 mL 5000 UNIT SUBCUT (09:44)
[2022-08-10] MEDS: sennosides-docusate Tablet 1 TAB PO (09:44)
--- NOTE | 2022-08-10 10:13 | P.DS_ITS ---
Discharge Providers Date of Admission: 08/05/22 00:52 Date of Discharge: August 10, 2022 Attending Provider at Admission: Norman Julio MD Attending Provider at Discharge: Norman Julio MD Primary Care Provider: Talita Winn MD Diagnoses at Discharge Discharge Diagnosis (1) Unresponsiveness: Status: Acute (2) AMS (altered mental status): Status: Acute (3) ALFIE (acute kidney injury): Status: Acute (4) Elevated troponin: Status: Acute (5) Positive urine drug screen: Status: Acute (6) Pneumonia: Status: Acute (7) Ischemia, bowel: Status: Suspected (8) NSTEMI (non-ST elevated myocardial infarction): Status: Suspected Reason for Visit Reason for Visit: AMS Brief History: History gathered through chart review and communication with ER physician. Geoffrey Mcleod is a 66 year old male with past medical history of BPH, seizure disorder, substance abuse with multiple elbow and back and ankle surgeries who was brought into the ER via EMS as he was found down for unknown amount of time at his home where reliant for cement were allegedly responding to at the household.? Apparently on arrival EMS to the scene patient was responding to noxious stimuli and he evidently walked out of the house.? On presentation to the ER patient was barely responsive to verbal stimulus and attempting to open his eyes and was maintaining his airways. Blood work in the ER showed a white count of 11,000, hemoglobin of 14, platelet of 255, INR 0.99, ABG showing pH of 7.37, PCO2 46, PO2 of 80.7 on 4 L oxygen supplementation with chemistry showing sodium 140, potassium of 4.9, creatinine of 2.3 with BUN of 34, baseline troponin of 771, CPK of 3348, AST/ALT of 284/128 with UA negative for nitrite and drug screen positive for benzos and marijuana. In the ER patient was given 1 L bolus of IV fluids and hospitalist service was consulted for further management and admission. CTA chest abdomen pelvis without contrast was requested which was concerning for possible bowel ischemia with further results as below.? Lactate was ordered and patient was started on heparin drip with normal saline at 75 cc/h. Patient during this has remained hemodynamically stable with tachycardia up to 1 15 bpm, blood pressure of 144 over 90 mmHg saturating well over 95% on 4 L nasal cannula and continues to have decreased responsiveness. Hospital Course Hospital Course Patient was admitted to the hospital further evaluation and management of altered mental status which was thought to be secondary to drug abuse along with rhabdomyolysis and acute kidney injury, non-ST elevation IN in setting of elevated troponins. Patient was also hypoxic on admission. On admission CT head was done which was negative for any acute abnormality. Urine drug screen was positive for benzos. He was treated conservatively with IV hydration. Given the circumstances of his admission he underwent CT abdomen pelvis with chest on which there were concerns for possible bowel ischemia given portal venous air trapping along the periphery of the liver. Lactate was checked which was within normal limits. CTA could not be done given acute kidney injury on admission. He was started on anticoagulation with heparin drip for possible bowel ischemia versus non-ST ovation IN. He was also started on empiric antibiotics at start which were rapidly discontinued. During hospitalization his blood culture, urine culture remain negative and he remained hemodynamically stable and afebrile off antibiotics. Overall patient responded well to the treatment and with IV hydration and his mentation gradually improved and has been at his baseline mentation for last 2 to 3 days. At first even with aggressive IV hydration his rhabdomyolysis wor sened along with worsening of his acute kidney injury but with continued IV hydration his rhabdomyolysis is resolving and creatinine is trending down. Patient is making good amount of urine. Eventually patient underwent Lexiscan stress test on 08/05 which showed small area of decreased eccentric uptake in mid and apical inferior region with some reversibility suggesting myocardial scarring with ischemia in the distribution of RCA territory. Patient was continued on IV anticoagulation for overall 4 days. He remained chest pain-free during hospitalization. Eventually his kidney functions and rhabdomyolysis started improving and he started making good amount of urine. He has been discharged hemodynamically stable condition with advised to drink up to 3 L of liquid daily on daily aspirin. He is to start atorvastatin 20 mg daily in 2 weeks from now. He is to follow-up with his primary care provider within next 1 week for repeat BMP. Chlorzoxazone and Motrin has been discontinued. Dose of gabapentin has been changed to 200 mg 4 times daily for now until your kidney functions improved. Physical Exam Narrative: General: No acute distress, arousable to verbal stimulus, not following commands HEENT: PERRLA, pupils bilaterally equal and reactive Chest: Bilateral bronchial breath sounds with conductive airway sounds all over the lung garcia with rhonchi in right mid and lower zone CVS: S1-S2 regular, no murmurs, tachycardia, no gallops, no rubs Abdomen: Soft, nontender, no organomegaly, bowel sounds present Neuro: Moving all limbs incoherently, no facial deformity noted Urinary Catheter Management: Young: Cath Placed During This Visit: yes Reason for Continuing Indwelling Catheter: Accurate Measurement of Urinary Output in Critically Ill Patients Urinary Catheter Date of Insertion: 08/05/22 Urinary Catheter Time of Insertion: 03:46 Discharge Data Studies Completed and Pending Completed Studies During Hospitalization Category Date Time Status CT chest abdomen pelvis [[place] [id number] Cat Scan 08/04/22 23:03 Completed ] Stat CT head wo con* [id number] Stat Cat Scan 08/04/22 21:39 Completed Sestamibi Stress Test Request Routine Exams 08/05/22 15:04 Completed XR chest 1V portable [id number] Stat Exams 08/04/22 21:39 Completed NM raymundo perf SPECT r/s* [id number] Routine Nuc Med 08/06/22 15:05 Completed US renal BI* [id number] Routine Ultrasound 08/06/22 16:04 Completed Pending at discharge Category Date Time Status Blood Culture Stat Lab 08/05/22 09:45 Results Radiology Impressions Chest X-Ray 08/04/22 21:39 IMPRESSION: Bibasilar atelectasis versus minimal infiltrate. Head CT 08/04/22 21:39 IMPRESSION: 1. Negative for intracranial hemorrhage or mass effect 2. Mygm-oe-mqyxdioc diffuse white matter disease likely reflecting chronic microvascular ischemic changes. Chest/Abdomen/Pelvis CT 08/04/22 23:03 IMPRESSION: 1. Cardiomegaly. 2. Coronary artery atherosclerotic calcifications. 3. Patchy bilateral atelectasis versus minimal infiltrate in the basilar lung garcia. 4. Surgical hardware in the spine. 5. Right-sided Port-A-Cath. IMPRESSION: 1. Diffuse portal venous air along the periphery of the liver and is also suspected in the main portal vein which can be a finding of bowel ischemia, however, no pneumatosis intestinalis or bowel wall thickening is seen to support this, please correlate clinically. 2. Cholecystectomy. 3. Mildly prominent fluid in the small bowel without dilation or wall thickening, may reflect an enteritis, please correlate clinically. 4. Surgical hardware in the spine and bridging the right sacroiliac joint. 5. Constipation. 6. Diverticulosis without diverticulitis. Renal Ultrasound 08/06/22 16:04 IMPRESSION: 1. Mild increased echogenicity in the RIGHT kidney since 10/23/2018. May represent early medical renal disease. 2. The overall length of the kidneys is stable. No renal atrophy or cortical thinning. Echocardiogram: Laboratory Results WBC 6.5 10^3/uL (4.0-10.0) 08/08/22 05:08 RBC 3.20 10^6/uL (4.1-5.3) L 08/08/22 05:08 Hgb 9.7 g/dL (11.7-16.6) L 08/08/22 05:08 Hct 30.3 % (42.0-52.0) L 08/08/22 05:08 MCV 94.7 fl (80-94) H 08/08/22 05:08 MCH 30.3 pg (28.0-34.0) 08/08/22 05:08 MCHC 32.0 g/dL (30.0-36.0) 08/08/22 05:08 RDW 14.5 % (12.1-15.1) 08/08/22 05:08 Plt Count 175 10^3/cmm (130-400) 08/08/22 05:08 MPV 9.4 fL (7.4-10.4) 08/08/22 05:08 Neut % (Auto) 72.0 % 08/08/22 05:08 Lymph % (Auto) 16.7 % 08/08/22 05:08 [place] % (Auto) 8.8 % 08/08/22 05:08 Eos % (Auto) 1.7 % 08/08/22 05:08 Baso % (Auto) 0.3 % 08/08/22 05:08 Neut # (Auto) 4.67 10^3/uL (1.8-7.7) 08/08/22 05:08 Lymph # (Auto) 1.1 10^3/uL (0.8-4.8) 08/08/22 05:08 [place] # (Auto) 0.6 10^3/uL (0.2-0.9) 08/08/22 05:08 Eos # (Auto) 0.1 10^3/uL (0.0-0.8) 08/08/22 05:08 Baso # (Auto) 0.0 10^3/uL (0.0-0.1) 08/08/22 05:08 Nucleated RBC % (auto) 0 % 08/08/22 05:08 Nucleated RBCs # 0.0 /100WBC 08/08/22 05:08 PT 13.40 SECONDS (12.1-14.9) 08/04/22 21:35 INR 0.99 (0.8-1.2) 08/04/22 21:35 APTT 38.2 SECONDS (23.9-36.7) H 08/08/22 15:40 D-Dimer 4.44 ug/mIFEU (0-0.59) H 08/05/22 01:29 Specimen Type Arterial 08/04/22 22:03 Sample Site Brachial, right 08/04/22 22:03 ABG pH 7.37 (7.35-7.45) 08/04/22 22:03 ABG pCO2 46.0 mmHg (35-45) H 08/04/22 22:03 ABG pO2 80.7 mmHg (80.0-100.0) 08/04/22 22:03 ABG HCO3 26.3 mmol/L (22-26) H 08/04/22 22:03 ABG Base Excess 0.4 mmol/L (-2.0-2.0) 08/04/22 22:03 Andre Test N/a 08/04/22 22:03 Hematocrit 45.0 % (42-52) 08/04/22 22:03 O2 Delivery Device Nc 08/04/22 22:03 O2 Liters/Min 4.0 % 08/04/22 22:03 FiO2 36.0 % 08/04/22 22:03 Body Artist ID Wilberto 08/04/22 22:03 Sodium 145 mmol/L (136-145) 08/10/22 05:15 Potassium 3.9 mmol/L (3.5-5.1) 08/10/22 05:15 Chloride 115 mmol/L (98-107) H 08/10/22 05:15 Carbon Dioxide 18 mmol/L (22-29) L 08/10/22 05:15 Anion Gap 15.9 (5-19) 08/10/22 05:15 BUN 30 mg/dL (8-23) H 08/10/22 05:15 Creatinine 2.9 mg/dL (0.7-1.2) H 08/10/22 05:15 GFR Calculation 21.9 mL/min (90-130) L 08/10/22 05:15 Glucose 86 mg/dL (65-115) 08/10/22 05:15 Estimat Average Glucose 103 08/05/22 01:29 Hemoglobin A1c 5.2 % (4.0-6.0) 08/05/22 01:29 Calculated Osmolality 305 mOsm/kg (285-295) H 08/10/22 05:15 Lactic Acid 1.3 mmol/L (0.5-2.2) 08/05/22 10:19 Lactate 1.2 mmol/L (0.5-2.2) 08/05/22 01:29 Calcium 8.1 mg/dL (8.5-10.5) L 08/10/22 05:15 Phosphorus 3.6 mg/dL (2.5-4.5) 08/06/22 04:46 Magnesium 2.2 mg/dL (1.7-2.3) 08/06/22 04:46 Total Bilirubin 0.3 mg/dL (0.15-1.2) 08/10/22 05:15 AST 53 U/L (0-40) H 08/10/22 05:15 ALT 35 U/L (0-41) 08/10/22 05:15 Alkaline Phosphatase 72 U/L (40-130) 08/10/22 05:15 Creatine Kinase 2354 U/L (39-308) H* 08/10/22 05:15 Troponin T Gen 5 ng/L 735 ng/L (0-15) H* 08/06/22 04:46 Troponin T Baseline 771 ng/L (0-15) H* 08/04/22 21:35 Troponin T 120 Minute 767.5 ng/L (0-15) H 08/05/22 01:29 Delta Troponin T -3.5 ABS# (0-10) L 08/05/22 01:29 Troponin T Hi Sens 6Hr 703.2 ng/L (0-15) H 08/05/22 04:48 Troponin T Hi Sens 6Hr Delta -67.8 ng/L (0-12) L 08/05/22 04:48 Total Protein 5.0 g/dL (6.6-8.7) L 08/10/22 05:15 Albumin 2.5 g/dL (3.5-5.2) L 08/10/22 05:15 Globulin 2.5 g/dL (1.3-4.6) 08/10/22 05:15 Triglycerides 76 mg/dL (0-150) 08/05/22 01:29 Cholesterol 175 mg/dL (0-200) 08/05/22 01:29 LDL Cholesterol, Calc 67 mg/dL (50-129) 08/05/22 01:29 Total VLDL Cholesterol 15 mg/dL (0-30) 08/05/22 01:29 HDL Cholesterol 93 mg/dL (60-100) 08/05/22 01:29 Cholesterol/HDL Ratio 1.88 mg/dL (1.0-5.00) 08/05/22 01:29 Folate 4.9 ng/mL (4.5-32.2) 08/04/22 21:35 Procalcitonin 2.65 ng/mL (0-0.5) H 08/05/22 01:29 TSH 0.40 uIU/mL (0.27-4.20) 08/05/22 01:29 Urine Color Yellow (Yellow) 08/04/22 22:10 Urine Appearance Sl hazy (CLEAR) A 08/04/22 22:10 Urine pH 5 (5-7) 08/04/22 22:10 Ur Specific [place] 1.015 (1.005-1.030) 08/04/22 22:10 Urine Protein 1+ (Negative) H 08/04/22 22:10 Urine Glucose (UA) Norm (Normal) 08/04/22 22:10 Urine Ketones Negative (Negative) 08/04/22 22:10 Urine Blood 3+ (Negative) H 08/04/22 22:10 Urine Nitrate Negative (Negative) 08/04/22 22:10 Urine Bilirubin Neg (Negative) 08/04/22 22:10 Urine Urobilinogen Neg mg/dL (Negative) 08/04/22 22:10 Ur Leukocyte Esterase Negative (Negative) 08/04/22 22:10 Urine RBC 5-10 /hpf (0-2) H 08/04/22 22:10 Urine WBC 0-4 /hpf (0-5) H 08/04/22 22:10 Ur Eosinophil Smear 0 (0-0) 08/04/22 22:10 Ur Squamous Epith Cells 0-4 /hpf (0-5) H 08/04/22 22:10 Amorphous Sediment 2+ /hpf 08/04/22 22:10 Urine Bacteria 1+ /hpf (NONE) H 08/04/22 22:10 Urine Mucus Trace /hpf 08/04/22 22:10 Urine Eosinophils No eosinophils seen 08/04/22 22:10 Ur Random Sodium 24 mmol/L 08/06/22 16:37 Ur Random Potassium 34 mmol/L 08/06/22 16:37 Ur Random Chloride 18 mmol/L 08/06/22 16:37 Urine Creatinine 88 mg/dL (39-259) 08/04/22 22:10 Nasal Influ A H1 2008 PCR Not detected (NOT DETECT) 08/05/22 09:33 Salicylates < 0.3 mg/dL (3-10) L 08/04/22 21:35 Urine Opiates Screen Negative ng/mL (Negative) 08/04/22 22:10 Acetaminophen < 5.0 ug/mL (10-30) L 08/04/22 21:35 Ur Barbiturates Screen Negative ng/mL (Negative) 08/04/22 22:10 Ur Phencyclidine Scrn Negative ng/mL (Negative) 08/04/22 22:10 Ur Amphetamines Screen Negative ng/mL (Negative) 08/04/22 22:10 U Benzodiazepines Scrn Positive ng/mL (Negative) H 08/04/22 22:10 Urine Cocaine Screen Negative ng/mL (Negative) 08/04/22 22:10 U Marijuana (THC) Screen Positive ng/mL (Negative) H 08/04/22 22:10 Ethyl Alcohol < 10 mg/dL (0-10) 08/04/22 21:35 Adenovirus (PCR) Not detected (NOT DETECT) 08/05/22 09:33 C. pneumoniae DNA (PCR) Not detected (NOT DETECT) 08/05/22 09:33 Coronavirus 229E (PCR) Not detected (NOT DETECT) 08/05/22 09:33 Human Metapneumovir PCR Not detected (NOT DETECT) 08/05/22 09:33 Influenza A (H1) PCR Not detected (NOT DETECT) 08/05/22 09:33 Influenza A (H3) PCR Not detected (NOT DETECT) 08/05/22 09:33 Influenza Type A (PCR) Not detected (NOT DETECT) 08/05/22 09:33 Influenza Type B (PCR) Not detected (NOT DETECT) 08/05/22 09:33 M. pneumoniae (PCR) Not detected (NOT DETECT) 08/05/22 09:33 Parainfluenza 1 (PCR) Not detected (NOT DETECT) 08/05/22 09:33 Parainfluenza 2 (PCR) Not detected (NOT DETECT) 08/05/22 09:33 Parainfluenza 3 (PCR) Not detected (NOT DETECT) 08/05/22 09:33 Parainfluenza 4 (PCR) Not detected (NOT DETECT) 08/05/22 09:33 RSV Type A (PCR) Not detected (NOT DETECT) 08/05/22 09:33 RSV Type B (PCR) Not detected (NOT DETECT) 08/05/22 09:33 Entero/Rhino (PCR) Not detected (NOT DETECT) 08/05/22 09:33 SARS-CoV-2 (PCR) Not detected (NOT DETECT) 08/05/22 09:33 Procedures Performed Lexiscan stress test: PERFUSION FINDINGS ?Has not area of minimal to moderately decreased tracer uptake was noted in the ?mid and apical inferior wall region with some reversibility ?FUNCTIONAL RESULTS ? ? (calculated via Gated SPECT) ? Stress Image LV EF (%):? ? 65 ? Stress EDV (mL):107? TID:? 1.1 ? Stress ESV (mL):37 ?FUNCTIONAL FINDINGS: ?Mental wall motion analysis revealing mild diffuse hypokinesia of the septum ?IMPRESSIONS ?1.? Myocardial perfusion imaging revealing small area of decreased eccentric in ?the mid and apical inferior region with some reversibility suggesting ?myocardial scarring with ischemia in the distribution of the right coronary ?artery. ?2.? Normal LV ejection fraction of 65%. ?3.? LV wall motion analysis revealing mild diffuse hypokinesia of the septum. ?4.? Normal LV volume ?No similar previous studies are available for comparison ?Dr Ross Brush MD [facility] ?(Electronically Signed) ?Final Date:? ? ? 06 August 2022 ? 18:39 Vitals Last Vital Signs Temp 98.2 F 08/10/22 08:03 Pulse 77 08/10/22 08:45 Resp 16 08/10/22 08:45 BP 144/88 08/10/22 08:03 Pulse Ox 96 08/10/22 08:45 O2 Del Method 08/10/22 08:45 O2 Flow Rate 4 08/09/22 20:00 Discharge Plan Discharge Patient Disposition: Home Condition: Stable Prescriptions: New gabapentin 100 mg Capsule 200 mg PO QID 14 Days Qty: 112 0RF aspirin 81 mg capsule 81 mg PO DAILY Qty: 30 0RF atorvastatin 20 mg tablet 20 mg PO DAILY Qty: 30 0RF Rx Instructions: Start on 08/24. Continued Narcan 4 mg/actuation spray,non-aerosol 1 spray intranasal Q2M PRN (Reason: Opioid Reversal) Rx Instructions: spray 1 dose into ONE nostril; alternate nostrils w each dose until help arrives albuterol sulfate [ProAir HFA] 90 mcg/actuation HFA aerosol inhaler 2 puff inhalation PRN PRN (Reason: Wheezing) (DME) gauntlet AFO to the left See Rx Instructions .Route .MEDSUPPLY Qty: 1 0RF Rx Instructions: As directed by [facility] (DME) TENS unit See Rx Instructions .Route .MEDSUPPLY Qty: 1 0RF Rx Instructions: As directed temazepam [Restoril] 30 mg capsule 30 mg PO .qhs Qty: 30 2RF pantoprazole [Protonix] 40 mg tablet,delayed release (DR/EC) 40 mg PO DAILY 30 Days Qty: 30 5RF sucralfate [Carafate] 1 gram tablet 1 g PO Q6H Qty: 120 3RF (DME) Accommodative orthotics See Rx Instructions .Route .MEDSUPPLY Qty: 1 0RF Rx Instructions: As directed by [facility] oxycodone-acetaminophen [Percocet] 10-325 mg tablet 1 tab PO Q4H PRN (Reason: pain) 7 Days Qty: 40 0RF carisoprodol [Soma] 350 mg tablet 350 mg PO TID PRN (Reason: muscle spasm) 7 Days Qty: 14 0RF doxepin 10 mg capsule 20 mg PO BEDTIME Discontinued ibuprofen 800 mg tablet 800 mg PO BID gabapentin 800 mg tablet 800 mg PO QID chlorzoxazone 500 mg tablet 500 mg PO TID Discharge Orders: Discharge Order (Routine); Ordered 08/10/22 Ordered By: Norman Julio Referrals: Talita Winn MD [Primary Care Provider] - 7-10 days (Sent message to Clinic ) Discharge Diet: Cardiac Discharge Activity: Resume usual activity and Increase activity as tolerated Patient Instructions: Gabapentin (By mouth), Viral Pneumonia (DC), Acute Kidney Injury (DC), Methamphetamine Use Disorder (DC), Opioid Safety Activity Restrictions/Additional Instructions: Please follow-up with a primary care provider within next 1 week for repeat BMP. For now do not take Motrin, chlorzoxazone. Dose of gabapentin has been changed to 200 mg 4 times daily given your kidney dysfunction. Please drink up to 3 L of liquid daily. Discharge Attestations Time Spent in Discharge Care*: greater than 30 min Specific Discharge Activities: educating patient, educating and/or supporting family/caregiver, discussing with pcp/other providers, discussing with behavioral health case manager/social workers/dc planners, documenting/other paperwork and evaluating patient/reviewing data Status at Discharge: Cognitive status at discharge: cognitively intact , Behavioral status at discharge: cooperative , Functional status at discharge: independent ambulation , Overall status at discharge: patient is back to baseline Quality Metrics Clinical Quality Measures [ No reported AMI, CVA or VTE this stay] Coding Level of Care Code 46395 Total time (in minutes) for Discharge: 60 Diagnoses Unresponsiveness R41.89 AMS (altered mental status) R41.82 ALFIE (acute kidney injury) N17.9 Elevated troponin R77.8 Positive urine drug screen R82.5 Pneumonia J18.9 Ischemia, bowel K55.9 NSTEMI (non-ST elevated myocardial infarction) I21.4
== END 2022-08-10 11:35 | disposition home or self-care (01) | DRG 682 ==
LOC: ER 22:51 → ICU 23:30 → MEDSURG 08-08 16:05
PROVIDERS: Student in an Organized Health Care Education/Training Program; Admitting Provider Student in an Organized Health Care Education/Training Program; Emergency Provider Emergency Medicine; PCP Family Medicine; Visit Provider Student in an Organized Health Care Education/Training Program
DX: N17.9 Acute kidney failure, unspecified (principal); J69.0 Pneumonitis due to inhalation of food and vomit; M62.82 Rhabdomyolysis; F19.10 Other psychoactive substance abuse, uncomplicated; N40.1 Benign prostatic hyperplasia with lower urinary tract symptoms; R77.8 Other specified abnormalities of plasma proteins; E86.0 Dehydration; Z79.51 Long term (current) use of inhaled steroids; Z79.891 Long term (current) use of opiate analgesic; B95.62 Methicillin resistant Staphylococcus aureus infection as the cause of diseases classified elsewhere; F17.210 Nicotine dependence, cigarettes, uncomplicated; R94.39 Abnormal result of other cardiovascular function study
CPT/HCPCS: 36415; 36569; 36591; 36592; 36600; 51702; 70450; 71045; 71250; 74176; 76770; 78452; 80053; 80061; 80306; 80307; 81001; 82436; 82550; 82570; 82746; 82803; 83036; 83605; 83735; 84100; 84133; 84145; 84300; 84443; 84484; 85025; 85378; 85610; 85730; 85999; 86403; 87040; 87449; 87486; 87581; 87633; 87641; 93005; 93017; 94664; 96372; 96374; 96375; 97110; 97116; 97161; 97530; 99285; A9500; C1751; C9113; J1644; J1940; J2020; J2185; J2785; J7030; J7042

== ENCOUNTER → 2022-08-30 10:01 | Day surgery (SDC) | payer MEDICARE, MEDICAID, SELFPAY ==
[2022-08-30 10:05] VITALS: BP 160/86; PULSE 88; RESP 18; TEMP 36.6; O2SAT 97
--- NOTE | 2022-08-30 10:34 | PC.NURSE ---
Pt to GI infusions for lab draw via port. Dr. Winn notified that results are available for her review.
[2022-08-30 10:46] LABS: Anion Gap 13.8 (5-19); Blood Urea Nitrogen 7 mg/dL (8-23); Calcium 9.2 mg/dL (8.5-10.5); Carbon Dioxide 27 mmol/L (22-29); Chloride 104 mmol/L (98-107); Glomerular Filtration Rate 113.2 mL/min (90-130); Glucose 91 mg/dL (65-115); Osmolality Calculated 290 mOsm/kg (285-295); Potassium 3.8 mmol/L (3.5-5.1); Sodium 141 mmol/L (136-145)
== END ==
LOC: GILAB 10:02
PROVIDERS: PCP Family Medicine; Visit Provider Family Medicine
DX: M47.814 Spondylosis without myelopathy or radiculopathy, thoracic region (principal); Z98.1 Arthrodesis status; N17.9 Acute kidney failure, unspecified
CPT/HCPCS: 36591; 72072; 80048; 99213

== ENCOUNTER → 2022-09-12 08:46 | Day surgery (SDC) | payer MEDICARE, MEDICAID, SELFPAY ==
[2022-09-12 08:50] VITALS: BP 148/91; PULSE 80; RESP 18; TEMP 37.1; O2SAT 94
[2022-09-12 09:14] LABS: Basophils % 0.5 %; Eosinophils # 0.2 10^3/uL (0.0-0.8); Eosinophils % 3.2 %; Hemoglobin 10.9 g/dL (11.7-16.6); Lymphocytes # 1.4 10^3/uL (0.8-4.8); Lymphocytes % 22.7 %; Mean Corpuscular HGB Conc 32.1 g/dL (30.0-36.0); Mean Corpuscular Hemoglobin 29.9 pg (28.0-34.0); Mean Corpuscular Volume 93.2 fl (80-94); Mean Platelet Volume 9.2 fL (7.4-10.4); Monocytes # 0.5 10^3/uL (0.2-0.9); Monocytes % 8.4 %; Neutrophils # 4.11 10^3/uL (1.8-7.7); Nucleated Red Blood Cells % 0 %; Platelet Count 232 10^3/cmm (130-400); Red Blood Count 3.65 10^6/uL (4.1-5.3); Red Cell Distribution Width 13.3 % (12.1-15.1); White Blood Count 6.3 10^3/uL (4.0-10.0)
[2022-09-12 10:04] LABS: Iron 30 ug/dL (59-158)
== END ==
LOC: GILAB 08:47
PROVIDERS: PCP Family Medicine; Visit Provider Family Medicine
DX: D64.9 Anemia, unspecified (principal); Z47.89 Encounter for other orthopedic aftercare; Z98.1 Arthrodesis status
CPT/HCPCS: 36591; 72100; 72220; 83540; 85025; 99024; 99214

== ENCOUNTER → 2022-09-24 07:57 | Outpatient (BNVA) | payer MEDICARE, MEDICAID, SELFPAY | PROVIDERS: PCP Family Medicine; Visit Provider Orthopaedic Surgery | DX: Z47.89 Encounter for other orthopedic aftercare (principal); Z98.1 Arthrodesis status | CPT/HCPCS: 72100; 99213 ==

== ENCOUNTER 2022-10-12 21:16 | Emergency (ER) | payer MEDICARE, MEDICAID, SELFPAY ==
--- NOTE | 2022-10-12 21:18 | XRR_ITS ---
PROCEDURE INFORMATION: Exam: XR Chest Exam date and time: 10/12/2022 10:05 PM Age: 67 years old Clinical indication: Other: AMS; Additional info: Altered mental status TECHNIQUE: Imaging protocol: Radiologic exam of the chest. Views: 1 view. COMPARISON: [place] [id number] 08/04/2022 11:15 PM FINDINGS: Tubes, catheters and devices: Right-sided Port-A-Cath with tip at the atrial caval junction. Lungs: Emphysematous changes. Pleural spaces: Unremarkable. No pleural effusion. No pneumothorax. Heart/Mediastinum: Unremarkable. No cardiomegaly. Bones/joints: Right shoulder arthroplasty changes and spinal surgical hardware. XR/XR chest 1V portable [id number] IMPRESSION: 1. Negative for infiltrate. 2. Emphysematous changes.
[2022-10-12 21:19] VITALS: BP 106/74; PULSE 102; RESP 13; O2SAT 92; BMI 18.7
--- NOTE | 2022-10-12 21:27 | ECG_ITS ---
[facility] Test Date: 2022-10-12 Pat Name: Geoffrey Mcleod Department: Room: Gender: Male Composition [employer] Applier: : [id number] Requested By: Dakotah Mata Order Number: [id number] Deanne MD: Ross Brush M.D. Measurements Intervals [place] Rate: 93 P: 85 SC: 179 QRS: 80 QRSD: 80 T: 74 QT: 330 QTc: 411 Interpretive Statements SINUS RHYTHM Compared to ECG 08/04/2022 21:58:45 Sinus tachycardia no longer present Electronically Signed On 10-13-2022 21:05:39 CDT by Ross Brush M.D. [id number]
--- NOTE | 2022-10-12 21:48 | ED_ITS ---
Documented by User: Dakotah Mata 10/12/22 23:12 HPI - Chest Pain General: Chief Complaint: Chest Pain Stated Complaint: AMS/CP Time Seen by Provider: 10/12/22 21:17 History of Present Illness: 67-year-old male presents emergency department chief complaint of having chest pain. Patient apparently presented to the [facility] in which reported having intermittent chest pain. Upon EMS arrival to the ER was noted the patient and took a undisclosed amount of pain medications prior to arrival which she became progressively more unresponsive per EMS patient is guarding his airway patient does have a known history of cardiac issues he reports having no palpitations or shortness of breath however it is difficult for him to stay awake requiring painful stimuli to do so. Patient appears to be a very poor historian. Patient does not appear in any obvious acute distress at this time Associated symptoms: Deny abdominal pain, dyspnea, fever(s), nausea, palpitations or vomiting Review of Systems General: Reports: 10 or more systems reviewed and unremarkable except in HPI and below Const: Denies: fever(s), chills, fatigue or malaise Eyes: Denies: change in vision or blurry vision Card: Reports: chest pain; Denies: palpitations Resp: Denies: dyspnea or productive cough GI: Denies: abdominal pain, nausea or vomiting : Denies: flank pain Musc: Denies: extremity pain or extremity swelling Skin/Breast: Denies: rash or pruritus Neuro: Denies: headache(s) Psych: Denies: anxiety or depression Ranjit/Lymph: Denies: easy bleeding All/Imm: Denies: urticaria, throat swelling or facial swelling PFS ED PFSH: Medical History BPH loc w urin obs/LUTS Chronic prostatitis History of broken leg Surgical History H/O shoulder surgery History of ankle surgery History of bilateral inguinal hernia repair History of cholecystectomy History of elbow surgery History of hernia surgery Family History Father , AT AGE 73 Murder Mother , AT AGE 42 Cancer COLON Social History Smoking and tobacco status: current every day smoker cigarettes Packs smoked per day: 0.25 Years cigarettes smoked: 35 Second hand smoke exposure: No Alcohol intake: never Substance/Drug Use: never Adopted: Yes Lives independently: Yes Household members: none Marital status: Number of children: 2 service: No Current occupational status: retired Current gender identity: Male Special alejandro needs: No Agree to transfusion: Yes Physical Exam Narrative: EXAM NARRATIVE: Easily arousable to painful stimuli GCS is currently 9-10 no focal neurodeficit appreciated Const: COMMON NORMALS: no acute distress and healthy appearing HENMT: COMMON NORMALS: normocephalic and atraumatic HEAD & SCALP: normocephalic and atraumatic Eye: COMMON NORMALS: Equal, round and reactive pupils present and EOMs intact bilaterally PUPIL: Yes Equal, round and reactive pupils present Neck/C-Spine: COMMON NORMALS: full ROM, supple and no JVD Lymph: LYMPHATIC: no lymphadenopathy noted Chest: COMMONS NORMALS: normal inspection of the chest and normal palpation of entire chest wall Resp: COMMON NORMALS: normal respiratory effort, No retractions and clear to auscultation bilaterally EFFORT & INSPECTION: Yes able to speak in complete sentences and Yes symmetric chest movement AUSCULTATION: clear to au scultation bilaterally Cardio: COMMON NORMALS: no JVD, regular rate and regular rhythm RATE: regular rate RHYTHM: regular rhythm GI: COMMON NORMALS: Normal to inspection, nondistended, normoactive bowel sounds present, Soft to palpation and non-tender INSPECTION: Yes normal to inspection PALPATION: Yes Soft to palpation : COMMON NORMALS: Yes no CVA tenderness BLADDER/KIDNEY EXAM: Yes no CVA tenderness Back/Pelvis: COMMON NORMALS: no CVA tenderness Extremity: COMMON NORMALS: normal to inspection and full ROM Neuro: COMMON NORMALS: CN's II-XII intact bilaterally, moves all extremities and no focal motor deficits Psych: COMMON NORMALS: mental status grossly normal, Normal thought process present, cooperative and normal affect THOUGHT PROCESS: Normal thought process present Skin: COMMON NORMALS: no rashes or lesions noted GENERAL SKIN EXAM: no rashes or lesions noted Course Vital Signs: Vital signs: Vital Signs Pulse Rate 79 10/13/22 00:58 Respiratory Rate 13 10/13/22 00:58 Blood Pressure 121/70 10/13/22 00:58 Pulse Oximetry 100 10/13/22 00:58 Oxygen Delivery Me thod Nasal Cannula 10/12/22 21:19 Oxygen Flow Rate 2 10/12/22 21:19 MDM - Chest Pain Medical Decision Making Due to patient's symptoms and condition basic lab work and imaging will be obtained we will continue to follow. Still awaiting additional lab work to be obtained this patient was signed out to Dr. Parks at 2315 anticipate discharge home pending cardiac troponins and additional work-up. Lab Data 10/12/22 22:25 10/12/22 22: Radiology Impressions Chest X-Ray 10/12/22 21:18 IMPRESSION: 1. Negative for infiltrate. 2. Emphysematous changes. Laboratory Results WBC 7.8 10^3/uL (4.0-10.0) 10/12/22 22: RBC 4.37 10^6/uL (4.1-5.3) 10/12/22 22: Hgb 12.9 g/dL (11.7-16.6) 10/12/22: Hct 41.0 % (42.0-52.0) L 10/12/22 22: MCV 93.8 fl (80-94) 10/12/22 22: MCH 29.5 pg (28.0-34.0) 10/12/22: MCHC 31.5 g/dL (30.0-36.0) 10/12/22 22: RDW 14.0 % (12.1-15.1) 10/12/22: Plt Count 259 10^3/cmm (130-400) 10/12/22 22: MPV 9.1 fL (7.4-10.4) 10/12/22 22: Neut % (Auto) 66.1 % 10/12/22 22: Lymph % (Auto) 23.6 % 10/12/22: Glascock % (Auto) 6.4 % 10/12/22: Eos % (Auto) 3.1 % 10/12/22: Baso % (Auto) 0.5 % 10/12/22: Neut # (Auto) 5.14 10^3/uL (1.8-7.7) 10/12/22: Lymph # (Auto) 1.8 10^3/uL (0.8-4.8) 10/12/22 22:25 Glascock # (Auto) 0.5 10^3/uL (0.2-0.9) 10/12/22 22:25 Eos # (Auto) 0.2 10^3/uL (0.0-0.8) 10/12/22 22:25 Baso # (Auto) 0.0 10^3/uL (0.0-0.1) 10/12/22 22:25 Nucleated RBC % (auto) 0 % 10/12/22 22: Nucleated RBCs # 0.0 /100WBC 10/12/22 22: PT 13.80 SECONDS (12.1-14.9) 10/12/22 22: INR 1.03 (0.8-1.2) 10/12/22 22: APTT 32.3 SECONDS (23.9-36.7) 10/12/22 22:25 Sodium 141 mmol/L (136-145) 10/12/22 22:25 Potassium 3.7 mmol/L (3.5-5.1) 10/12/22 22:25 Chloride 102 mmol/L (98-107) 10/12/22 22: Carbon Dioxide 27 mmol/L (22-29) 10/12/22 22: Anion Gap 15.7 (5-19) 10/12/22 22:25 BUN 8 mg/dL (8-23) 10/12/22 22:25 Creatinine 0.8 mg/dL (0.7-1.2) 10/12/22 22:25 GFR Calculation 96.7 mL/min (90-130) 10/12/22 22:25 Glucose 79 mg/dL (65-115) 10/12/22 22:25 Calculated Osmolality 289 mOsm/kg (285-295) 10/12/22 22: Calcium 9.8 mg/dL (8.5-10.5) 10/12/22 22:25 Total Bilirubin 0.3 mg/dL (0.15-1.2) 10/12/22 22:25 AST 15 U/L (0-40) 10/12/22 22:25 ALT 8 U/L (0-41) 10/12/22 22:25 Alkaline Phosphatase 91 U/L (40-130) 10/12/22 22:25 Troponin T Baseline 21 ng/L (0-15) H 10/12/22 22:25 Troponin T 120 Minute 16.52 ng/L (0-15) H 10/12/22 23:45 Delta Troponin T -4.48 ABS# (0-10) L 10/12/22 23:45 NT-Pro-B Natriuret Pep 121 pg/mL (0-125) 10/12/22 22:25 Total Protein 8.4 g/dL (6.6-8.7) 10/12/22 22: Albumin 4.4 g/dL (3.5-5.2) 10/12/22 22: Globulin 4.0 g/dL (1.3-4.6) 10/12/22 22: Lipase 18 U/L (13-60) 10/12/22 22:25 Urine Color Dark yellow (Yellow) 10/12/22 22:44 Urine Appearance Clear (CLEAR) 10/12/22 22:44 Urine pH 5 (5-7) 10/12/22 22:44 Ur Specific Wren 1.010 (1.005-1.030) 10/12/22 22:44 Urine Protein Trace (Negative) 10/12/22 22:44 Urine Glucose (UA) Norm (Normal) 10/12/22 22:44 Urine Ketones Negative (Negative) 10/12/22 22:44 Urine Blood Neg (Negative) 10/12/22 22:44 Urine Nitrate Negative (Negative) 10/12/22 22:44 Urine Bilirubin Neg (Negative) 10/12/22 22:44 Urine Urobilinogen Norm mg/dL (Negative) 10/12/22 22:44 Ur Leukocyte Esterase Trace (Negative) H 10/12/22 22:44 Urine RBC 0-4 /hpf (0-2) H 10/12/22 22:44 Urine WBC 0-4 /hpf (0-5) H 10/12/22 22:44 Ur Squamous Epith Cells 0-4 /hpf (0-5) H 10/12/22 22:44 Amorphous Sediment Not Reportable 10/12/22 22:44 Urine Bacteria Trace /hpf (NONE) 10/12/22 22:44 Urine Mucus 1+ /hpf 10/12/22 22:44 Urine Opiates Screen Negative ng/mL (Negative) 10/12/22 22:44 Ur Barbiturates Screen Negative ng/mL (Negative) 10/12/22 22:44 Ur Phencyclidine Scrn Negative ng/mL (Negative) 10/12/22 22:44 Ur Amphetamines Screen Negative ng/mL (Negative) 10/12/22 22:44 U Benzodiazepines Scrn Positive ng/mL (Negative) H 10/12/22 22:44 Urine Cocaine Screen Negative ng/mL (Negative) 10/12/22 22:44 U Marijuana (THC) Screen Positive ng/mL (Negative) H 10/12/22 22:44 Ethyl Alcohol < 10 mg/dL (0-10) 10/12/22 22:25 Discharge Plan Discharge Patient Disposition: Home Clinical Impression: Chest pain Condition: Stable Prescriptions: No Action Narcan 4 mg/actuation spray,non-aerosol 1 spray intranasal Q2M PRN (Reason: Opioid Reversal) Rx Instructions: spray 1 dose into ONE nostril; alternate nostrils w each dose until help arrives (DME) gauntlet AFO to the left See Rx Instructions .Route .MEDSUPPLY Qty: 1 0RF Rx Instructions: As directed by [facility] (DME) TENS unit See Rx Instructions .Route .MEDSUPPLY Qty: 1 0RF Rx Instructions: As directed pantoprazole [Protonix] 40 mg tablet,delayed release (DR/EC) 40 mg PO DAILY 30 Days Qty: 30 5RF sucralfate [Carafate] 1 gram tablet 1 g PO Q6H Qty: 120 3RF (DME) Accommodative orthotics See Rx Instructions .Route .MEDSUPPLY Qty: 1 0RF Rx Instructions: As directed by [facility] oxycodone-acetaminophen 5-325 mg tablet 1 tab PO Q8H PRN (Reason: pain) 7 Days Qty: 21 0RF atorvastatin 20 mg tablet 20 mg PO DAILY Qty: 30 3RF tamsulosin [Flomax] 0.4 mg capsule 0.4 mg PO DAILY Qty: 30 4RF temazepam [Restoril] 30 mg capsule 30 mg PO .qhs Qty: 30 2RF albuterol sulfate [ProAir HFA] 90 mcg/actuation HFA aerosol inhaler 2 puff inhalation PRN PRN (Reason: Wheezing) Qty: 6.7 0RF aspirin 81 mg capsule 81 mg PO DAILY Qty: 30 0RF Discharge Orders: Discharge ED (Routine); Ordered 10/13/22 Ordered By: Mikey Parks Referrals: Talita Winn MD [Primary Care Provider] - 1-3 days Patient Instructions: Chest Pain (ED) Activity Restrictions/Additional Instructions: Return for repeated episodes of chest pain, shortness of breath, other conc erning symptoms. See your doctor early this week Coding Level of Care Code ED Subscription Crew Leader for Chg Fwd Documented by User: Mikey Parks, 10/13/22 01:16 HPI - Chest Pain General: Chief Complaint: Chest Pain Stated Complaint: AMS/CP Time Seen by Provider: 10/12/22 21:17 PFSH ED PFSH: Medical History BPH loc w urin obs/LUTS Chronic prostatitis History of broken leg Surgical History H/O shoulder surgery History of ankle surgery History of bilateral inguinal hernia repair History of cholecystectomy History of elbow surgery History of hernia surgery Family History Father , AT AGE 73 Murder Mother , AT AGE 42 Cancer COLON Social History Smoking and tobacco status: current every day smoker cigarettes Packs smoked per day: 0.25 Years cigarettes smoked: 35 Second hand smoke exposure: No Alcohol intake: never Substance/Drug Use: never Adopted: Yes Lives independently: Yes Household members: none Marital status: Number of children: 2 service: No Current occupational status: retired Current gender identity: Male Special alejandro needs: No Agree to transfusion: Yes Course Vital Signs: Vital signs: Vital Signs Pulse Rate 79 10/13/22 00:58 Respiratory Rate 13 10/13/22 00:58 Blood Pressure 121/70 10/13/22 00:58 Pulse Oximetry 100 10/13/22 00:58 Oxygen Delivery Ar thod Nasal Cannula 10/12/22 21:19 Oxygen Flow Rate 2 10/12/22 21:19 MDM - Chest Pain Medical Decision Making Due to patient's symptoms and condition basic lab work and imaging will be obtained we will continue to follow. Still awaiting additional lab work to be obtained this patient was signed out to Dr. Parks at 2315 anticipate discharge home pending cardiac troponins and additional work-up. 67-year-old male checked out to me at shift change by the previous physician. He is here with chest discomfort now resolved. CBC is normal. BMP is normal. Chest x-ray is negative. Troponin was slightly elevated, but did not elevated 2 hours. Urine drug screen is positive for benzodiazepines and marijuana. Alcohol is less than 10. Lab Data 10/12/22 22:25 10/12/22 22:25 Radiology Impressions Chest X-Ray 10/12/22 21:18 IMPRESSION: 1. Negative for infiltrate. 2. Emphysematous changes. Laboratory Results WBC 7.8 10^3/uL (4.0-10.0) 10/12/22 22: RBC 4.37 10^6/uL (4.1-5.3) 10/12/22 22:25 Hgb 12.9 g/dL (11.7-16.6) 10/12/22 22:25 Hct 41.0 % (42.0-52.0) L 10/12/22 22: MCV 93.8 fl (80-94) 10/12/22 22:25 MCH 29.5 pg (28.0-34.0) 10/12/22 22: MCHC 31.5 g/dL (30.0-36.0) 10/12/22 22: RDW 14.0 % (12.1-15.1) 10/12/22 22:25 Plt Count 259 10^3/cmm (130-400) 10/12/22 22:25 MPV 9.1 fL (7.4-10.4) 10/12/22 22:25 Neut % (Auto) 66.1 % 10/12/22 22:25 Lymph % (Auto) 23.6 % 10/12/22 22:25 Glascock % (Auto) 6.4 % 10/12/22 22:25 Eos % (Auto) 3.1 % 10/12/22 22: Baso % (Auto) 0.5 % 10/12/22 22: Neut # (Auto) 5.14 10^3/uL (1.8-7.7) 10/12/22 22: Lymph # (Auto) 1.8 10^3/uL (0.8-4.8) 10/12/22 22: Glascock # (Auto) 0.5 10^3/uL (0.2-0.9) 10/12/22 22: Eos # (Auto) 0.2 10^3/uL (0.0-0.8) 10/12/22: Baso # (Auto) 0.0 10^3/uL (0.0-0.1) 10/12/22 22: Nucleated RBC % (auto) 0 % 10/12/22: Nucleated RBCs # 0.0 /100WBC 10/12/22 22: PT 13.80 SECONDS (12.1-14.9) 10/12/22 22: INR 1.03 (0.8-1.2) 10/12/22: APTT 32.3 SECONDS (23.9-36.7) 10/12/22 22:25 Sodium 141 mmol/L (136-145) 10/12/22 22:25 Potassium 3.7 mmol/L (3.5-5.1) 10/12/22 22: Chloride 102 mmol/L (98-107) 10/12/22 22:25 Carbon Dioxide 27 mmol/L (22-29) 10/12/22 22:25 Anion Gap 15.7 (5-19) 10/12/22 22:25 BUN 8 mg/dL (8-23) 10/12/22 22: Creatinine 0.8 mg/dL (0.7-1.2) 10/12/22 22:25 GFR Calculation 96.7 mL/min (90-130) 10/12/22 22:25 Glucose 79 mg/dL (65-115) 10/12/22 22:25 Calculated Osmolality 289 mOsm/kg (285-295) 10/12/22 22:25 Calcium 9.8 mg/dL (8.5-10.5) 10/12/22 22:25 Total Bilirubin 0.3 mg/dL (0.15-1.2) 10/12/22 22:25 AST 15 U/L (0-40) 10/12/22 22:25 ALT 8 U/L (0-41) 10/12/22 22:25 Alkaline Phosphatase 91 U/L (40-130) 10/12/22 22:25 Troponin T Baseline 21 ng/L (0-15) H 10/12/22 22:25 Troponin T 120 Minute 16.52 ng/L (0-15) H 10/12/22 23:45 Delta Troponin T -4.48 ABS# (0-10) L 10/12/22 23:45 NT-Pro-B Natriuret Pep 121 pg/mL (0-125) 10/12/22 22:25 Total Protein 8.4 g/dL (6.6-8.7) 10/12/22 22:25 Albumin 4.4 g/dL (3.5-5.2) 10/12/22 22: Globulin 4.0 g/dL (1.3-4.6) 10/12/22 22: Lipase 18 U/L (13-60) 10/12/22 22:25 Urine Color Dark yellow (Yellow) 10/12/22 22:44 Urine Appearance Clear (CLEAR) 10/12/22 22:44 Urine pH 5 (5-7) 10/12/22 22:44 Ur Specific Wren 1.010 (1.005-1.030) 10/12/22 22:44 Urine Protein Trace (Negative) 10/12/22 22:44 Urine Glucose (UA) Norm (Normal) 10/12/22 22:44 Urine Ketones Negative (Negative) 10/12/22 22:44 Urine Blood Neg (Negative) 10/12/22 22:44 Urine Nitrate Negative (Negative) 10/12/22 22:44 Urine Bilirubin Neg (Negative) 10/12/22 22:44 Urine Urobilinogen Norm mg/dL (Negative) 10/12/22 22:44 Ur Leukocyte Esterase Trace (Negative) H 10/12/22 22:44 Urine RBC 0-4 /hpf (0-2) H 05/13/23 22:44 Urine WBC 0-4 /hpf (0-5) H 10/12/22 22:44 Ur Squamous Epith Cells 0-4 /hpf (0-5) H 10/12/22 22:44 Amorphous Sediment Not Reportable 10/12/22 22:44 Urine Bacteria Trace /hpf (NONE) 10/12/22 22:44 Urine Mucus 1+ /hpf 10/12/22 22:44 Urine Opiates Screen Negative ng/mL (Negative) 10/12/22 22:44 Ur Barbiturates Screen Negative ng/mL (Negative) 10/12/22 22:44 Ur Phencyclidine Scrn Negative ng/mL (Negative) 10/12/22 22:44 Ur Amphetamines Screen Negative ng/mL (Negative) 10/12/22 22:44 U Benzodiazepines Scrn Positive ng/mL (Negative) H 10/12/22 22:44 Urine Cocaine Screen Negative ng/mL (Negative) 10/12/22 22:44 U Marijuana (THC) Screen Positive ng/mL (Negative) H 10/12/22 22:44 Ethyl Alcohol < 10 mg/dL (0-10) 10/12/22 22:25 Discharge Plan Discharge Patient Disposition: Home Clinical Impression: Chest pain Condition: Stable Prescriptions: No Action Narcan 4 mg/actuation spray,non-aerosol 1 spray intranasal Q2M PRN (Reason: Opioid Reversal) Rx Instructions: spray 1 dose into ONE nostril; alternate nostrils w each dose until help arrives (DME) gauntlet AFO to the left See Rx Instructions .Route .MEDSUPPLY Qty: 1 0RF Rx Instructions: As directed by [facility] (DME) TENS unit See Rx Instructions .Route .MEDSUPPLY Qty: 1 0RF Rx Instructions: As directed pantoprazole [Protonix] 40 mg tablet,delayed release (DR/EC) 40 mg PO DAILY 30 Days Qty: 30 5RF sucralfate [Carafate] 1 gram tablet 1 g PO Q6H Qty: 120 3RF (DME) Accommodative orthotics See Rx Instructions .Route .MEDSUPPLY Qty: 1 0RF Rx Instructions: As directed by [facility] oxycodone-acetaminophen 5-325 mg tablet 1 tab PO Q8H PRN (Reason: pain) 7 Days Qty: 21 0RF atorvastatin 20 mg tablet 20 mg PO DAILY Qty: 30 3RF tamsulosin [Flomax] 0.4 mg capsule 0.4 mg PO DAILY Qty: 30 4RF temazepam [Restoril] 30 mg capsule 30 mg PO .qhs Qty: 30 2RF albuterol sulfate [ProAir HFA] 90 mcg/actuation HFA aerosol inhaler 2 puff inhalation PRN PRN (Reason: Wheezing) Qty: 6.7 0RF aspirin 81 mg capsule 81 mg PO DAILY Qty: 30 0RF Discharge Orders: Discharge ED (Routine); Ordered 10/13/22 Ordered By: Mikey Parks Referrals: Talita Winn MD [Primary Care Provider] - 1-3 days Patient Instructions: Chest Pain (ED) Activity Restrictions/Additional Instructions: Return for repeated episodes of chest pain, shortness of breath, other concerning symptoms. See your doctor early this week Coding Level of Care Code ED Subscription Crew Leader for [place] Wesley
[2022-10-12 22:15] VITALS: BP 114/73; PULSE 88; RESP 16; O2SAT 100
[2022-10-12] MEDS: sodium chloride 0.9% 1,000 ML 999 ML IV (22:30)
[2022-10-12] MEDS: ondansetron 2 mg/ML SDV 2 mL 4 MG IVP (22:31)
[2022-10-12 22:32] LABS: Basophils % 0.5 %; Eosinophils # 0.2 10^3/uL (0.0-0.8); Eosinophils % 3.1 %; Hemoglobin 12.9 g/dL (11.7-16.6); Lymphocytes # 1.8 10^3/uL (0.8-4.8); Lymphocytes % 23.6 %; Mean Corpuscular HGB Conc 31.5 g/dL (30.0-36.0); Mean Corpuscular Hemoglobin 29.5 pg (28.0-34.0); Mean Corpuscular Volume 93.8 fl (80-94); Mean Platelet Volume 9.1 fL (7.4-10.4); Monocytes # 0.5 10^3/uL (0.2-0.9); Monocytes % 6.4 %; Neutrophils # 5.14 10^3/uL (1.8-7.7); Neutrophils % 66.1 %; Nucleated Red Blood Cells % 0 %; Platelet Count 259 10^3/cmm (130-400); Red Blood Count 4.37 10^6/uL (4.1-5.3); White Blood Count 7.8 10^3/uL (4.0-10.0)
[2022-10-12 22:43] LABS: INR 1.03 (0.8-1.2)
[2022-10-12 22:44] LABS: Partial Thromboplastin Time 32.3 SECONDS (23.9-36.7)
[2022-10-12 22:50] LABS: Troponin(5th) Baseline 21 ng/L (0-15)
[2022-10-12 22:58] LABS: Alanine Aminotransferase 8 U/L (0-41); Albumin Level 4.4 g/dL (3.5-5.2); Alkaline Phosphatase 91 U/L (40-130); Anion Gap 15.7 (5-19); Aspartate Amino Transferase 15 U/L (0-40); Blood Urea Nitrogen 8 mg/dL (8-23); Calcium 9.8 mg/dL (8.5-10.5); Carbon Dioxide 27 mmol/L (22-29); Chloride 102 mmol/L (98-107); Glomerular Filtration Rate 96.7 mL/min (90-130); Glucose 79 mg/dL (65-115); Lipase 18 U/L (13-60); NT Pro B Type Natriuretic Pept 121 pg/mL (0-125); Osmolality Calculated 289 mOsm/kg (285-295); Potassium 3.7 mmol/L (3.5-5.1); Sodium 141 mmol/L (136-145); Total Bilirubin 0.3 mg/dL (0.15-1.2); Total Protein 8.4 g/dL (6.6-8.7)
[2022-10-12 23:01] LABS: Alcohol Level < 10 mg/dL (0-10)
[2022-10-12 23:05] LABS: Amphetamines Screen Urine Negative (Negative); Barbiturates Screen Urine Negative (Negative); Benzodiazepines Screen Urine Positive (Negative); Cocaine Screen Urine Negative (Negative); Opiate Screen Urine Negative (Negative); PCP Screen Urine Negative (Negative); THC Screen Urine Positive (Negative)
[2022-10-12 23:07] LABS: Bilirubin Urine Neg (Negative); Blood Urine Neg (Negative); Glucose Urine UA Norm (Normal); Ketones Urine Negative (Negative); Leukocyte Esterase Urine Trace (Negative); Nitrate Urine Negative (Negative); Protein Urine Trace (Negative); Urine Appearance Clear (CLEAR); Urine Color Dark yellow (Yellow); Urobilinogen Urine Norm (Negative); pH Urine 5 (5-7)
[2022-10-12 23:08] LABS: Add Urine Microscopic? YES
[2022-10-12 23:09] LABS: RBC Urine 0-4 /hpf (0-2); Squamous Epithelial Cell Urine 0-4 /hpf (0-5); WBC Urine 0-4 /hpf (0-5)
[2022-10-12 23:10] LABS: Bacteria Urine TRACE /hpf; Mucus Urine 1+ /hpf
--- NOTE | 2022-10-12 23:18 | ECG_ITS ---
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 Measurements Intervals Schuyler Rate: 80 P: 89 NC: 177 QRS: 86 QRSD: 94 T: 84 QT: 376 QTc: 434 Interpretive Statements SINUS RHYTHM WITH OCCASIONAL VENTRICULAR PREMATURE COMPLEXES MINIMAL VOLTAGE CRITERIA FOR LVH, CONSIDER NORMAL VARIANT [MEETS CRITERIA IN ONE OF: R(aVL), S(V1), R(V5), R(V5/V6)+S(V1)] Compared to ECG 10/12/2022 21:27:34 Ventricular premature complex(es) now present Electronically Signed On 10-13-2022 21:18:39 CDT by Ross Brush M.D. [id number]
[2022-10-12] MEDS: lidocaine 1% INJ 10 mL (per mL) INJECTION (23:20)
[2022-10-12 23:30] VITALS: BP 115/83; PULSE 82
[2022-10-13 00:19] LABS: Troponin 5 2HR 16.52 ng/L (0-15)
[2022-10-13 00:37] LABS: Troponin 5 2HR Delta -4.48 ABS# (0-10)
[2022-10-13 00:58] VITALS: BP 121/70; PULSE 79; RESP 13; O2SAT 100
== END 2022-10-13 01:16 | disposition home or self-care (01) ==
PROVIDERS: Emergency Medicine; Emergency Provider Emergency Medicine; PCP Family Medicine
DX: R07.9 Chest pain, unspecified (principal); Z79.82 Long term (current) use of aspirin; F17.210 Nicotine dependence, cigarettes, uncomplicated
CPT/HCPCS: 36415; 71045; 80053; 80306; 80307; 81001; 83690; 83880; 84484; 85025; 85610; 85730; 93005; 96374; 99285; J2310; J2405; J7030

== ENCOUNTER → 2022-10-16 07:59 | Day surgery (SDC) | payer MEDICARE, MEDICAID, SELFPAY ==
[2022-10-16 08:05] VITALS: BP 128/73; PULSE 84; RESP 18; TEMP 35.8; O2SAT 99
--- NOTE | 2022-10-16 08:18 | PC.NURSE ---
Pt to GI infusions for port flush. Right subclavian implanted port accessed without difficulty. Good blood return noted. Pt tolerated well.
== END ==
LOC: GILAB 08:00
PROVIDERS: PCP Family Medicine; Visit Provider Family Medicine
DX: Z45.2 Encounter for adjustment and management of vascular access device (principal)
CPT/HCPCS: 96523

== ENCOUNTER → 2022-11-06 08:05 | Day surgery (SDC) | payer MEDICARE, MEDICAID, SELFPAY ==
[2022-11-06 08:12] VITALS: BP 147/88; PULSE 81; RESP 18; TEMP 36.7; O2SAT 99
== END ==
LOC: GILAB 08:05
PROVIDERS: PCP Family Medicine; Visit Provider Family Medicine
DX: Z45.2 Encounter for adjustment and management of vascular access device (principal); Z98.890 Other specified postprocedural states
CPT/HCPCS: 96523

== ENCOUNTER 2023-01-01 06:32 | Outpatient (CLI) | payer MEDICARE, MEDICAID, SELFPAY ==
--- NOTE | 2023-01-01 06:38 | CT_ITS ---
WS: [id number] LDCT LUNG CANCER SCREENING HISTORY: SCREENING FOR MALIGNANT NEOPLASM OF RESPIRATORY TRACT TECHNIQUE: Axial imaging performed from the apices to 1 cm below the costophrenic angles. Coronal and sagittal reformats are submitted with axial MIP series. All CT scans at [facility] use at least one of these dose optimization techniques: automated exposure control; mA and/or kV adjustment per patient size (includes targeted exams where dose is matched to clinical indication); or iterativ e reconstruction. DLP: 52.68 mGy.cm DIvol: Mean CTDIvol: 0.70 (mGy) COMPARISON: 08/04/2022 Diagnostic quality: Satisfactory Lungs: Bilateral upper lobe pulmonary nodules are less than 3 mm. Additional less than 3 mm nodules L EFT lower lobe. No pneumonia. Chronic emphysema. Heart: Normal size heart with no pericardial effusion.. Moderate atherosclerosis coronary arteries. Other findings: Mild atherosclerosis aorta. Mildly prominent pulmonary artery. No adenopathy. RIGHT s ubclavian Mediport. Pneumobilia. Prior cholecystectomy. Prior thoracic lumbar fusion hardware. Remote bilateral rib fractures. CT/CT lung screening [id number] IMPRESSION: LUNG-RADS: 2-Benign Appearance or Behavior FOLLOW UP: 12 Month: Continue annual screening with LDCT OTHER FINDINGS (S MODIFIER): None.
== END 2023-01-01 06:33 | disposition home or self-care (01) ==
PROVIDERS: PCP Family Medicine; Visit Provider Nurse Practitioner Family
DX: Z12.2 Encounter for screening for malignant neoplasm of respiratory organs (principal); F17.210 Nicotine dependence, cigarettes, uncomplicated
CPT/HCPCS: 71271

== ENCOUNTER → 2023-01-14 08:25 | Outpatient (BNVA) | payer MEDICARE, MEDICAID, SELFPAY | PROVIDERS: PCP Family Medicine; Visit Provider Orthopaedic Surgery | DX: M54.50 Low back pain, unspecified (principal); M25.551 Pain in right hip; W17.2XXA Fall into hole, initial encounter; Z98.1 Arthrodesis status | CPT/HCPCS: 72100; 99214 ==

== ENCOUNTER → 2023-02-13 08:46 | Outpatient (BNVA) | payer MEDICARE, MEDICAID, SELFPAY | PROVIDERS: PCP Family Medicine; Visit Provider Orthopaedic Surgery | DX: Z98.1 Arthrodesis status (principal); T84.84XA Pain due to internal orthopedic prosthetic devices, implants and grafts, initial encounter; Y79.8 Miscellaneous orthopedic devices associated with adverse incidents, not elsewhere classified; M51.36 Other intervertebral disc degeneration, lumbar region; G89.29 Other chronic pain; Z79.891 Long term (current) use of opiate analgesic | CPT/HCPCS: 72100; 99214 ==

== ENCOUNTER 2023-02-24 06:47 | Outpatient (CLI) | payer MEDICARE, MEDICAID, SELFPAY ==
--- NOTE | 2023-02-24 07:30 | CT_ITS ---
WS: [id number] CT LUMBAR SPINE TECHNIQUE: Noncontrast CT of the lumbar spine with coronal and sagittal reformatted images. CLINICAL INFORMATION: Lumbar pain COMPARISON: CT 05/23/2022 DLP: 302.[address] scans at [facility] use at least one of these dose optimization techniques: automated e xposure control; mA and/or kV adjustment per patient size (includes targeted exams where dose is matc hed to clinical indication); or iterative reconstruction. FINDINGS: Mild thoracolumbar curve. Prior postoperative changes pedicle screw fixation T10-S1. Interval remova l of the LEFT sacroiliac fixation screw. Lucency involving the bilateral S1 and RIGHT sacroiliac fixa tion screws. Dorsal displacement of the L5-S1 interbody fusion graft appears progressed compared to previous. Mild subsidence at this level. No evidence of bony bridging beyond the confines of the graft. Fracture of the RIGHT fixation ivncent at the L5 level appears new from previous. Pedicle screws appear i ntact. Diffuse osteopenia. Wide decompressive laminectomy defects at L1-L5. Disc space narrowing with vacuum disc phenomenon throughout the lumbar spine similar to previous. L1-L2: Decompressive laminectomy defects. Pedicle screw fixation. Spinal canal and foramen are patent . L2-L3: Disc space narrowing with vacuum disc phenomenon. Spinal canal and foramen are patent. Decompr essive laminectomy defects with pedicle screw fixation. L3-L4: Disc space narrowing with vacuum disc phenomenon. Laminectomy defects. Pedicle screw fixation. Mild bilateral foraminal narrowing. Spinal canal is patent. L4-L5: Pedicle screw fixation with laminectomy defects. Minimal annular bulging. Slight effacement of ventral thecal sac. Eccentric disc bulging with mild LEFT greater than RIGHT foraminal narrowing unc hanged. L5-S1: Laminectomy defects. Dorsal displacement of the interbody fusion graft progressed compared to previous. Narrowing of the LEFT subarticular recess and encroachment on the LEFT S1 nerve root. Spina l canal has been decompressed. Moderate LEFT greater than RIGHT bony foraminal narrowing. Cholecystectomy clips. Stable pneumobilia. Lung bases are well aerated. IMPRESSION: 1. Fracture of the RIGHT fixation vincent at the L5 level appears new from previous. 2. Interval removal of the LEFT sacroiliac fixation screw. Lucency involving the bilateral S1 and RI GHT sacroiliac fixation screws 3. Dorsal displacement of the L5-S1 interbody fusion graft appears progressed compared to previous. Mild subsidence at this level. No evidence of bony bridging beyond the confines of the graft. 4. Narrowing of the LEFT L5-S1 subarticular recess with crowding of the LEFT S1 nerve root. Moderate bilateral bony foraminal narrowing at this level. 5. Mild LEFT greater than RIGHT L4-5 bony foraminal narrowing.
== END 2023-02-24 06:48 | disposition home or self-care (01) ==
LOC: RAD 06:48
PROVIDERS: PCP Family Medicine; Visit Provider Orthopaedic Surgery
DX: G89.29 Other chronic pain (principal); M51.36 Other intervertebral disc degeneration, lumbar region; M54.9 Dorsalgia, unspecified; S32.059A Unspecified fracture of fifth lumbar vertebra, initial encounter for closed fracture; X58.XXXA Exposure to other specified factors, initial encounter
CPT/HCPCS: 72131

== ENCOUNTER 2023-02-28 15:45 | Observation (INO) | payer MEDICARE, MEDICAID, SELFPAY ==
[2023-02-27 09:44] VITALS: BMI 19.6
[2023-02-28] VITALS (14 sets, daily range): BP systolic 91–147; BP diastolic 68–103; PULSE 77–102; RESP 16–18; TEMP 36.1–36.6; O2SAT 91–99
--- NOTE | 2023-02-28 | XR_ITS ---
WS: [id number] Lumbar spine, C ARM fluoroscopy views, 02/28/2023 Clinical Data: right sided hardware removal , or pic Comparison: Lumbar spine, 02/13/2023 Findings: Dr. Carbajal removed orthopedic hardware in the right lower lumbar spine. Impression: Removal of lumbar spine orthopedic hardware.
[2023-02-28] MEDS: vancomycin 1,000 MG in sodium chloride 0.9% 250 ML 250 MG IV (12:20)
[2023-02-28] MEDS: HYDROmorphone 1 mg/mL INJ 1 mL 0.5 MG IVP ×5 (12:20→14:55)
[2023-02-28] MEDS: sodium chloride 0.9% 1,000 ML 30 ML IV (12:22)
--- NOTE | 2023-02-28 12:48 | W.PM.OPSUD ---
Surgery/Procedure H&P Update DATE OF PROCEDURE: February 28, 2023 DATE H&P PERFORMED: 02/26/23 H&P UPDATE INFORMATION: I have reviewed H&P completed within last 30 days, I have examined patient prior to procedure and No changes to prior documentation PREOP DIAGNOSIS: Painful Hardware Lumbar spine PLANNED PROCEDURE: Operation Date: 02/28/23 13:10 Proposed Procedures p Hardware Removal Lumbar(Not Applicable) - Bernabe Carbajal, DO
--- NOTE | 2023-02-28 13:28 | ANES.PREANE2 ---
Pre-Anesthetic Assessment Height/Weight: Height 1.83 m Weight 65.771 kg Temp Pulse Resp BP Pulse Ox O2 Del Method 98 F 77 18 116/69 98 Room Air 02/28/23 11:39 02/28/23 11:39 02/28/23 11:39 02/28/23 11:39 02/28/23 11:39 02/28/23 11:57 Preop Diagnosis: Painful Hardware Lumbar spine Operation Date: 02/28/23 13:10 Proposed Procedures p Hardware Removal Lumbar(Not Applicable) - Bernabe Carbajal, DO Familial anesthetic complications: none Was Beta Emani taken within 24 hours: N/A Was Clonidine taken within 24 hours: N/A Last intake: Intake Last Liquid Date 02/28/23 Last Liquid Time 07:00 Last Solid Date 02/27/23 Last Solid Time 23:30 Social Tobacco and No alcohol Exam alert, oriented x 3 and regular rate & rhythm Airway Submandibular: within normal limits Cervical ROM: within normal limits Mallampati: Class II Dentition: full Pulmonary Chronic Obstructive Pulmonary Disease CV/HEM Anemia, Coronary Artery Disease and Myocardial Infarction GI Gastroesophageal Reflux Disease Metabolic Hyperlipidemia Musc/skel Lower Back Pain and Osteoarthritis/DJD Anesthetic Plan ASA status: 3 Anesthesia: General Medications/Allergies Home Medications Medication Instructions Recorded Confirmed Last Taken Type naloxone 4 mg/actuation nasal 1 spray intranasal Q2M PRN Opioid 05/08/20 02/27/23 11/06/22 History spray (Narcan) Reversal Accommodative orthotics #1 ea 04/15/22 02/13/23 11/06/22 Rx gauntlet AFO to the left #1 ea 05/20/22 02/13/23 11/06/22 Rx TENS unit #1 ea 07/09/22 02/13/23 11/06/22 Rx oxycodone-acetaminophen 5 mg-325 1 tab PO Q8H PRN pain 7 days #21 09/24/22 02/27/23 02/27/23 Rx mg tablet tabs tamsulosin 0.4 mg capsule (Flomax) 0.4 mg PO DAILY #30 caps 10/09/22 02/27/23 02/27/23 Rx albuterol sulfate 90 mcg/actuation 2 puff inhalation PRN PRN Wheezing 10/11/22 02/27/23 02/27/23 Rx aerosol inhaler (ProAir HFA) #6.7 grams atorvastatin 20 mg tablet 20 mg PO DAILY #30 tabs 02/20/23 02/27/23 02/28/23 Rx pantoprazole 40 mg tablet,delayed 40 mg PO DAILY 30 days #30 tabs 02/20/23 02/27/23 02/28/23 Rx release (Protonix) oxycodone-acetaminophen 10 mg-325 1 tab PO Q6H PRN pain 7 days #30 02/26/23 02/27/23 02/28/23 Rx mg tablet tabs sucralfate 1 gram tablet (Carafate) 1 g PO DAILY 02/27/23 02/27/23 02/28/23 History Allergies Allergy/AdvReac Type Severity Reaction Status Date / Time ketorolac [From Toradol] Allergy Mild unknown Verified 02/28/23 11:49 carbamazepine [From Tegretol] Allergy Unknown Verified 02/28/23 11:49 morphine Allergy ALGY-Swell Verified 02/28/23 11:49 Lip/Tongue/Throat Penicillins Allergy ALGY-Hives Verified 02/28/23 11:49 phenobarbital Allergy Unknown Verified 02/28/23 11:49 phenytoin [From Dilantin] Allergy Unknown Verified 02/28/23 11:49 prochlorperazine Allergy Unknown Verified 02/28/23 11:49 [From Compazine] propofol Allergy ADR-Headach Verified 02/28/23 11:49 e ciprofloxacin AdvReac increase Verified 02/28/23 11:49 blood pressure with headache Current Medications Generic Name Dose Route Start Last Admin Trade Name Freq PRN Reason Stop Dose Admin Hydromorphone HCl 0.5 mg 02/28/23 12:11 02/28/23 12:20 Hydromorphone 1 Mg/Ml Inj 1 Ml IVP 0.5 mg ONCE PRN Administration For preop pain/anxiety Sodium Chloride 1,000 mls @ 30 mls/hr 02/28/23 11:45 02/28/23 12:22 Sodium Chloride 0.9% IV 03/01/23 11:44 30 mls/hr .Q24H SABAS Administration PFSH Anesthesia Medical History BPH loc w urin obs/LUTS Chronic prostatitis History of broken leg Surgical History H/O shoulder surgery History of ankle surgery History of bilateral inguinal hernia repair History of cholecystectomy History of elbow surgery History of hernia surgery Family History Father , AT AGE 73 Murder Mother , AT AGE 42 Cancer COLON Social History Smoking and tobacco status: current every day smoker cigarettes Packs smoked per day: 0.25 Years cigarettes smoked: 35 Second hand smoke exposure: No Alcohol intake: never Substance/Drug Use: never Adopted: Yes Lives independently: Yes Household members: none Marital status: Number of children: 2 service: No Current occupational status: retired Current gender identity: Male Special alejandro needs: No Agree to transfusion: Yes Data Anesthesia Cardiac Studies: Sestamibi Stress Test (Cardiology) 08/05/22
[2023-02-28] MEDS: vancomycin 1,000 MG SDV 1000 MG XX (13:55)
[2023-02-28] MEDS: lidocaine-epi 1% 20 mL INJ INJECTION (13:56)
--- NOTE | 2023-02-28 14:27 | P.OP_ITS ---
Operative Report Date of procedure: February 28, 2023 Pre-op diagnosis: Painful hardware lumbar spine Post-op diagnosis: same Procedure done: Removal of deep hardware from spine Surgeon: Bernabe Carbajal DO Community Development Coordinator: Cas Reardon Community Development Coordinator: The therapeutic recreation assistant, Cas Reardon, CELSO was needed for his expertise with spine. He was important and necessary throughout the procedure to complete in a safe and timely manner. He assisted with patient positioning prepping and draping tissue retraction suctioning of the operative field protection of the dural sac and tissue closure Estimated blood loss (mL): 15 Procedure: Removal of deep hardware from spine Patient is brought to the OR suite after emergency was placed in the prone position. All areas appear well-padded. Patient's prepped draped also fashion. Skin incision made over the spine using previous skin incision the dissection was made down to the right side over the right sacral ala iliac screw in the right S1 screw. Screws were identified. The top caps were removed the vincent was removed was broken. And then the screw was removed from S1 and the iliac screw. Once this was removed wounds were irrigated and closed in layered fashion with Vicryl and nylon suture. Sterile dressings were applied and patient was transferred to the PACU in stable condition.
[2023-02-28] MEDS: meperidine 50 mg/mL INJ IVP (15:04)
--- NOTE | 2023-02-28 15:18 | ANE.PACU2 ---
Inpatient post-anesthesia follow up: Airway intact: Yes Vital signs: Temperature 97 F Pulse Rate 95 Respiratory Rate 16 Blood Pressure 112/76 Pulse Oximetry 98 Oxygen Delivery Me thod Simple Mask Oxygen Flow Rate 6 Fraction of Inspir ed Oxygen Hydration adequate: Yes Nausea and vomiting: No Pain level: 3 Mental status: Altered (sedated) Additional Comments: Difficult pain control--presume drug seeking behavior
[2023-02-28] MEDS: oxyCODONE-APAP 10-325 mg Tablet 2 TAB PO (15:59)
--- NOTE | 2023-02-28 16:38 | PC.NURSE ---
dc/d hemovac per dr vargas verbal request. no complications, no bleeding at site, dressing placed. abdominal binder replaced.
== END 2023-02-28 16:35 | disposition home or self-care (01) ==
LOC: MEDSURG 15:47
PROVIDERS: Admitting Provider Orthopaedic Surgery; PCP Family Medicine; Visit Provider Orthopaedic Surgery
PROC: (CPT 20680; principal; 2023-02-28 13:00)
DX: T84.84XA Pain due to internal orthopedic prosthetic devices, implants and grafts, initial encounter (principal); J44.9 Chronic obstructive pulmonary disease, unspecified; I25.10 Atherosclerotic heart disease of native coronary artery without angina pectoris; I25.2 Old myocardial infarction; K21.9 Gastro-esophageal reflux disease without esophagitis; E78.5 Hyperlipidemia, unspecified; N40.1 Benign prostatic hyperplasia with lower urinary tract symptoms; N13.8 Other obstructive and reflux uropathy; F17.210 Nicotine dependence, cigarettes, uncomplicated
CPT/HCPCS: 20680; 72020; 76000; G0378; J1100; J1170; J2175; J2405; J2704; J3370; J3490; J7030; J7050

== ENCOUNTER → 2023-03-13 14:38 | Outpatient (BNVA) | payer MEDICARE, MEDICAID, SELFPAY | PROVIDERS: PCP Family Medicine; Visit Provider Orthopaedic Surgery | DX: Z98.1 Arthrodesis status (principal); Z47.89 Encounter for other orthopedic aftercare | CPT/HCPCS: 99024 ==

== ENCOUNTER → 2023-04-03 15:25 | Outpatient (BNVA) | payer MEDICARE, MEDICAID, SELFPAY | PROVIDERS: PCP Family Medicine; Visit Provider Orthopaedic Surgery | DX: Z47.89 Encounter for other orthopedic aftercare (principal); G89.18 Other acute postprocedural pain | CPT/HCPCS: 72100; 99024 ==

== ENCOUNTER → 2023-04-10 13:58 | Outpatient (BNVA) | payer MEDICARE, MEDICAID, SELFPAY | PROVIDERS: PCP Family Medicine; Visit Provider Orthopaedic Surgery | DX: Z48.89 Encounter for other specified surgical aftercare (principal); Z47.89 Encounter for other orthopedic aftercare; G89.18 Other acute postprocedural pain | CPT/HCPCS: 99024 ==

== ENCOUNTER → 2023-04-22 07:52 | Outpatient (BNVA) | payer MEDICARE, MEDICAID, SELFPAY | PROVIDERS: PCP Family Medicine; Visit Provider Orthopaedic Surgery | DX: Z47.89 Encounter for other orthopedic aftercare (principal) | CPT/HCPCS: 99024 ==

== ENCOUNTER 2023-05-13 07:52 | Oncology outpatient (recurring) (ONCR) | payer MEDICARE, MEDICAID, SELFPAY ==
--- OUTSIDE RECORDS SUMMARY | 2023-05-02 11:24 | XMS_ITS | Patient Health Record ---
Author Name Unknown Organization [facility] Address [address] [place] [address] Care Team Providers Care Channel Lip Stiffener Insoles Name Role Phone Marvin Diaz Primary Care Provider [phone] ALLERGIES Allergen (clinical drug ingredient) Drug/Non Drug Allergy documented on EMR Reaction Allergy Type Onset Date Status carbamazepine Carbamazepine , Drug Allergy Active phenytoin Phenytoin , Drug Allergy Active prochlorperazine Prochlorperazine , Drug Allergy Active ketorolac Ketorolac , Drug Allergy Active REASON FOR REFERRAL Reason ABNORMAL FINDINGS DI AGNOSTIC IMAGING OF LIVER AND BILIARY TRACT Diagnosis 1 Abnormal findings on diagnostic imaging of liver and biliary tract (R93.2) Referring Provider First Name EDEN Referring Provider Last Name DENI Referring Provider Speciality Family Med icine Referred Organization [facility] Referred Provider Marvin Diaz Referred Address [address] [place] [phone], Referred Provider Specialty Internal Med icine General Notes Sis Lutz 023 11:45:33 AM >PHONE # IS TEMPORARILY UNAVAILABLE Referral Priority Routine MEDICATIONS Medication SIG (Take, Route, Frequency, Duration) Notes Start Date End Date Status Albuterol Sulfate HFA 108 (90 Base) MCG/ACT 1 puff as needed Inhalation every 4 hrs Active Temazepam 30 MG 1 capsule at bedtime as needed Orally Once a day Active gabapentin 600 MG Oral Tablet gabapentin 600 MG Oral Tablet 11/11/2018 Unknown Tamsulosin HCl 0.4 MG 1 capsule Orally Once a day Active Sucralfate 1000 MG Oral Tablet Sucralfate 1000 MG Oral Tablet 11/11/2018 Unknown Sucralfate 1 GM 1 tablet on an empty stomach Orally Twice a day Active topiramate 200 MG Oral Tablet topiramate 200 MG Oral Tablet 11/11/2018 Unknown Pantoprazole Sodium 40 MG 1 tablet Orally Once a day Active pantoprazole 40 MG Enteric Coated Tablet pantoprazole 40 MG Enteric Coated Tablet 11/11/2018 Unknown Normal Saline Flush 0.9 % as directed Injection Active tizanidine 6 MG Oral Capsule tizanidine 6 MG Oral Capsule 11/11/2018 Unknown Narcan 4 MG/0.1ML as directed Nasally Active doxycycline hyclate 100 MG Oral Capsule doxycycline hyclate 100 MG Oral Capsule 11/11/2018 Unknown Heparin Lock Flush 100 UNIT/ML as directed Intravenous Active Doxepin Hydrochloride 50 MG Oral Capsule Doxepin Hydrochloride 50 MG Oral Capsule 11/11/2018 Unknown Doxepin HCl 10 MG 1 capsule at bedtime Orally Once a day Active Buprenorphine HCl 8 MG 1 tablet under the tongue and allow to dissolve Sublingual Two times a Week Active Atorvastatin Calcium 20 MG 1 tablet Orally Once a day Active IMMUNIZATIONS Vaccine Route Administration Date Status Comme nts Influenza (whole), CPT 62785 Inactive Unknown 03/16/2018 Administered SOCIAL HISTORY Sex Assigned At : Social History Observation Description Sex Assigned At Unknown PROBLEMS Problem Type ICD Code Onset Dates Problem Status W/U Status Risk SNOMED Code Notes Problem Abnormal findings on diagnostic imaging of liver and biliary tract (R93.2) Active confirmed [id number] Encounters Encounter Location Date Provider Diagnosis [facility] [address] [place] [phone] 01/21/2023 [facility] [address] [place] [phone] 02/13/2023 [facility] [address] [place] [phone] 03/07/2023 [facility] [address] [place] [phone] 04/17/2023 [facility] [address] [place] [phone] 05/01/2023 Marvin Diaz PLAN OF TREATMENT Next Appt Details Provider Name:Marvin Diaz, 05/08/2023 08:20:00 AM, [address] [place] [address], [phone], Insurance Providers Payer Name Payer Address Payer Phone Subscriber Number Group Number Insured Name Patient Relationship to Insured Coverage Start Date Coverage End Date [facility] Medicare Advantage PPO [address] [address] [place] [address] [id number] Geoffrey Mcleod Self - patient is the insured [place] Medicaid [address] [place] [address] [id number] Geoffrey Mcleod Self - patient is the insured
--- OUTSIDE RECORDS SUMMARY | 2023-05-02 11:24 | XMS_ITS | Continuity of Care Document ---
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 Name Role Phone Tunde ARMIJOC/JOSÉ LUIS-Mague ZACARIAS Unavailable Un available Allergies, Adverse Reactions, Alerts Substance Reaction Status Criticality phenobarbital Aggressive behavior(moderate) Active No Information morphine Swelling Active No Information ciprofloxacin Itching of skin Active No Informat ion Penicillins Active No Information Medications Medication Instructions Dosage Effective Dates (start - stop) Status Comments gabapentin 600 mg tablet take 1 tablet by oral route 4 times every day for Agitation 600 MG - Active 2 weeks only tamsulosin 0.4 mg capsule take 1 capsule by oral route every day 1/2 hour following the same meal each day 0.4 MG - Active ibuprofen 800 mg tablet take 1 tablet by oral route 2 times every day with food 800 MG - Active pantoprazole 40 mg tablet,delayed release take 1 tablet by oral route every day 40 MG - Active sucralfate 1 gram tablet take 1 tablet by oral route 3 times every day on an empty stomach 1 hour before meals and at bedtime 1 G - Active topiramate 100 mg tablet take 1 tablet by oral route every day 100 MG - Active gabapentin 600 mg tablet take 1 tablet by oral route 4 times every day for Agitation 600 MG - No Longer Active As per patient privacy policy some of the clinical information may not be visible. 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 SBIRT - AUDIT/DAST, 15-30 MIN 3 SBIRT - AUDIT/DAST, 15-30 MIN 3 OFFICE/OUTPATIENT VISIT EST OFFICE/OUTPATIENT VISIT EST OFFICE/OUTPATIENT VISIT EST OFFICE/OUTPATIENT VISIT, EST OFFICE/OUTPATIENT VISIT, EST PSYCH DIAGNOSTIC EVALUATION OFFICE/OUTPATIENT VISIT, NEW Advance Directives Directive Yes / No Effective Date File Name No Information Encounters Encounter Description Practice Location Reason(s) For Visit Diagnoses Date Provider Providers Copied on Encounter SBIRT - AUDIT/DAST, 15-30 MIN [facility], [id number]- [facility] [place], [id number], [place] tel:[phone] Behavioral Medicine F2 Follow Up of Opioid Dependence (chief complaint)F ollow Up of Medication Refills (chief complaint) 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 [address], [id number] , [place]. [phone] Referring Provider: Mague Griffiths, [address] [facility] [place], [address] . tel:[phone] [facility], [id number]- [facility] [place], [id number], [place] tel:[phone] Behavioral Medicine F2 No Information 3 Yfn Bee. [address] [place], [id number] , [place]. [phone] Referring Provider: Rohit Coulter, [address] [place], [address] . tel:[phone] [facility], [id number]- [facility] [place], [id number], [place] tel:[phone] Behavioral Medicine F2 No Information 3 Yfn Bee. [address], [facility], [place], [id number] , [place]. tel:[phone] SBIRT - AUDIT/DAST, 15-30 MIN [facility], [id number]- [facility], [place], [place], [id number], [place] tel:[phone] Behavioral Medicine F2 No Information 3 [facility] . [address] [facility], [place], [place], [address] , [place]. tel:[phone] Referring Provider: [facility], [address] [facility], [place], [address] . tel:[phone] OFFICE/OUTPA TIENT VISIT EST [facility], [id number]- [place], [id number], [place] tel:[phone] Behavioral Medicine F2 MAT (chief complaint) Other specified counseling 3 Tal Roberson. [address] [place], [address], [place]. tel:[phone] Referring Provider: Da Parada, [address] [facility], [place], [address]. tel:[phone] [facility], [id number]- [place], [id number], [place] tel:[phone] Behavioral Medicine F2 No Information 3 Tal Roberson. [address] [place], [address], [place]. tel:[phone] Referring Provider: Da Parada, [address] [facility], [place], [address]. tel:[phone] [facility], [id number]- [place], [address], [place] tel:[phone] Behavioral Health Integration 2 Lavell Pratt. [address] , [place], [address], [place]. tel: [phone] OFFICE/OUTPA TIENT VISIT [facility], [id number] [place], [id number], [place] tel:[phone] Behavioral Medicine F2 MAT JULIAN F/U (chief complaint) 2 Yfn Bee. [address] [place], [id number] , [place]. tel: [phone] Referring Provider: Rohit Coulter, [place], [address] . tel:[phone] [facility], [id number] [place], [id number], [place] tel:[phone] Behavioral Health Integration 2 Nahomy Carpenter. [address] [facility], [place], [id number] , [place]. tel: [phone] OFFICE/OUTPA TIENT VISIT, [facility], [id number], [place], [id number], [place] tel:[phone] Behavioral Medicine F2 MAT JULIAN F/U (chief complaint) 2 Yfn Bee. [address] [place], [id number] , [place]. tel: [phone] Referring Provider: [place], [address] . tel:[phone] OFFICE/OUTPA TIENT VISIT, [facility], [id number], [place], [id number], [place] tel:[phone] Behavioral Medicine F2 MAT JULIAN F/U (chief complaint) 2 Yfn Rohit. [address] [place], [id number] , [place]. tel: [phone] Referring Provider: Rohit Coulter, [place], [address] . tel:[phone] PSYCH DIAGNOSTIC EVALUATION [facility], [id number] [id number]- [facility], [facility] [place], [address], [place] tel:[phone] Behavioral Health Integration 2 Kevin Atkins. [address] [place], [id number] , [place]. tel: [phone] Referring Provider: Milly Brown, [address] [place], [address] . tel:[phone] [facility], [id number]- [facility] [place], [id number], [place] tel:[phone] Behavioral Health Integration Other specified counseling 2 Angeles Polk. [address], [place] , [place], [id number] , [place]. tel: [phone] OFFICE/OUTPA TIENT VISIT, [facility], [id number]- [facility], [facility] [place], [id number], [place] tel:[phone] Behavioral Medicine F2 Establish Care (chief complaint) Gastroesophageal reflux disease without esophagitisSeizu re disorderHistory of fibromyalgiaNico luis antonio dependence with current useEncounter to establish careBPH associated with nocturiaNocturia Port-A-Cath in place 2 Yfn Bee. [address] [place], [id number] , [place]. tel: [phone] Referring Provider: Rohit Coulter, [place], [address] . tel:[phone] As per patient privacy policy some of the clinical information may not be visible. Family History Family Member Type Diagnosis Age At Onset No Information Payers Payer name Insurance type Covered democrat ID Imer Whitlock (s) [employer] CI [id number] [place] Medicaid [place] [id number] Social History Type Description Quantity Date Captured Comments Alcohol Use Details Unknown Caffeine Use Details Unknown Tobacco Use Status Light cigarette smok er (1-9 cigs/day) Smoking Status Light tobacco smoker Smoking Tobacco Use Details Cigarette: Age Started: 24, Years Used 41 Cigarette: 5 Cigarettes per day, Pack Year: 10 Sex Male Sexual Orientation Heterosexual Gender Identity Male Vital Signs Date / Time: Height Weight BMI Pulse Rate Blood Pressure Temperature Respiratory Rate Body Surface Area Head Circumference Head Circ. Percentile Wt./Telly. Percentile BMI percentile Pulse Ox Inhaled Ox 8:19 AM 73.00 in 66.633 kg (146.90 lbs) 19.3 8 kg/m eter (2) 92 /min 122/68 mm[Hg] 98.10 F 18 /min 1.85 meter(2) 95 % Chief Complaint And Reason For Visit From encounter dated '01/27/2023 08:19'. Follow Up of Opioid Dependence (chief complaint) Follow Up of Medication Refills (chief complaint). Description: Patient presents for medication refills.Patient states he usually sees Rohit Coulter for his psychiatric needs but no appt was scheduled today when patient came in.Patient reports the Suboxone has been giving him headaches and he would like to try the Subutex instead. Consulted Rohit Coulter and he agreed this was an acceptable change aslong as patient is consistent with appts and no problems with his drug screens. Patient verbalizes understanding. Patient denies any relapses but endorses cravings due to being out of Suboxone. Denies any use of alcohol, as well.States he has not been sleeping well. Reports this is not a new problem for him but he feels like it is worse because he cannot get comfortable anymore due to pain. Pain is in his right, lower posterior hip/back. He states he has a history of back problems that contribute to his pain.Reports his moods have been ok and he has no problems with that right now. Denies suicidal and homicidal ideations. Denies dysphoric and euphoric moods. Denies auditory and visual hallucinations.States his Gabapentin was helping a lot with his agitation but he ran out last week and has been more agitated since.PLAN:Subutex 2wk script and patient will return to see Rohit Coulter for next refill in 2 weeks.2wk script of gabapentin for agitationDenies any other concerns. Reason For Referral Reason For Referral No Information Plan Of Treatment Date Type Action Status Goal Tobacco cessation counseling ordered Goal Dietary manageme nt education, guidance, and counseling ordered Goal Dietary manageme nt education, guidance, and counseling ordered Goal Tobacco cessation counseling completed Future Order: Lab Order CBC With Differential/Platelet ([id number]), Sent on: Sent Future Order: Lab Order CMP ([id number]), Sen t on: Sent Future Order: Lab Order Lipid Pr ofile ([id number]), Sent on: Sent Future Order: Lab Order Vitamin D 25-OH ([id number]), Sent on: Sent Future Order: Lab Order Vit B12 ([id number]), Sent on: Sent Future Order: Lab Order TSH-InHo use ([id number]), Sent on: Sent Future Order: Lab Order Microalb umin, Urine ([id number]), Sent on: Sent Future Order: Lab Order UA, Macr o W/ Reflex Micro ([id number]), Sent on: Sent Future Order: Lab Order PSA (PRICE E AND TOTAL) ([id number]), Sent on: Sent History Of Present Illness Encounter Date Complaint History Of Prese nt Illness Follow Up of Opioid Dependence Follow Up of Medication Refills Patient presents for medication refills.Patient states he usually sees Rohit Coulter for his psychiatric needs but no appt was scheduled today when patient came in.Patient reports the Suboxone has been giving him headaches and he would like to try the Subutex instead. Consulted Rohit Coulter and he agreed this was an acceptable change as long as patient is consistent with appts and no problems with his drug screens. Patient verbalizes understanding. Patient denies any relapses but endorses cravings due to being out of Suboxone. Denies any use of alcohol, as well.States he has not been sleeping well. Reports this is not a new problem for him but he feels like it is worse because he cannot get comfortable anymore due to pain. Pain is in his right, lower posterior hip/back. He states he has a history of back problems that contribute to his pain.Reports his moods have been ok and he has no problems with that right now. Denies suicidal and homicidal ideations. Denies dysphoric and euphoric moods. Denies auditory and visual hallucinations.States his Gabapentin was helping a lot with his agitation but he ran out last week and has been more agitated since.PLAN:Subutex 2wk script and patient will return to see Rohit Coulter for next refill in 2 weeks.2wk script of gabapentin for agitationDenies any other concerns. MAT They come into t he office today for a follow up for Mami report they are doing wellConcerns: DeniesIssues: DeniesDrug use: DeniesOpiate relapse: DeniesCravings: PRESENT- MANAGEABLEStress: Nothing NewLiving situation: StableWorking: NUDT: DueMedication: NONEwas last seen in JAN- since then he has had 2 back surgeries and has been on oxycodone and hydrocone (most recent) last dose was 3 days ago- wants to start back on bupe MAT JULIAN F/U Pt states they a re taking their medication as prescribed and deny any medication side effects.Pt last used Hydrocodone last Friday, states he used the last of his prescribed medication last Friday.Cravings: has had, would like to restart Suboxone. Relapse: deniesSupport/Treatment: encouraged.Pt denies being involved in any criminal related activities.Pt denies further concerns today. MAT JULIAN F/U Pt states they a re taking their medication as prescribed and deny any medication side effects.Cravings: deniesRelapse: deniesSupport/Treatment: deniesPt denies being involved in any criminal related activities.Pt states he is getting some headaches with his medication. He states he was given suboxone by the pharmacy. MAT JULIAN F/U Pt states they a re taking their medication as prescribed and deny any medication side effects.Cravings: deniesRelapse: deniesSupport/Treatment: deniesPt denies being involved in any criminal related activities.Pt states he has colonoscopy a few days ago and recieved propofol. Establish Care Pt is a 65 YOM t hat presents to establish care.Concerns: Pt states he was in PM, is buying his pain medication off the street at this time and cannot afford this. He states he was not taking them as prescribed and knows he has an opioid problem and wants to try Suboxone. Last time pt used any opiate was 1 week ago. Pt states he used Heroine for approx 11 years, quit in 1994.Nicotine: smoked 1/2 ppd, chews nicotine gum. Alcohol: deniesRecreational Drugs: smokes marijuana occasionally. Exercise: deniesHealthy Eating: general.ScreeningColonoscopy (50-70): has one scheduled for next FridayTestosterone: denies.PSA (55+): Had done 6mo ago, normal Functional Status Date Functional Assessmen t Pain Score 0/10 Instructions Date Instruction Additional Infor mation UDSWent over UDSStar t Neurontin 600mg TIDStart Subutex 8mg TIDDiscussed with Rohit Coulter NPIncrease fluidscontinue coping mechanisms Labs goodphysical good Went over medications Already signed CDC and JAMES guidelines/pain protocol/ Discussed risk verse benefitsDiscussed taking own medications that are prescribed only and not sharing medications I reviewed the patient's chart including previous progress notes, lab data and nursing notes. We spoke about the risks and benefits of changes being made in medications, including possible drug/drug interactions and potential side effects. I explained the reason for the changes, i.e. better genetic match, different side effect profile and targeted symptoms. I explained other treatment options available. We also spoke about life style changes, including diet, exercise and substance abuse. Lastly, we spoke about continuing the treatment plan and what to do if conditions worsen.Follow up in 2 weeks, Call PRN with any issues. Related to Other chcf (current) drug therapy FDA is warning t hat dental problems such as tooth decay, cavities, oral infections, and loss of teeth have been reported with buprenorphine medicines that are dissolved in the mouth to treat opioid use disorder (OUD) or pain. These problems, some of which have been serious, have been reported even in patients with no history of dental issues. Despite this, the benefits of buprenorphine medicines clearly outweigh the risks. Schedule an appointment with your dentist soon after starting this medicine and inform your dentist that you are taking it. Your dentist can customize a tooth decay prevention plan for you. Visit the dentist for regular checkups while taking this medicine. Notify your health professional healthcare representative immediately and seek dental treatment if you experience any problems with your teeth or gums while taking buprenorphine medicines that are dissolved in the mouth. If you are starting this medicine, tell your health transitional care nurse if you have any tooth problems, including a history of cavities. When taking your buprenorphine medicine and after it is completely dissolved, take a large sip of water, swish it gently around your teeth and gums, and spit. Wait at least 1 hour before brushing your teeth. Coram teeth 1 hour after EACH dose. if a Dental referral is needed, please let us know so we can schedule Related to Other specified counseling Please consider quit ting using tobacco products and/or vaping. This causes numerous health problems and can worsen anxiety, depression, and mood problems. Please contact my office if you would like information or resources to help you quit. 1-874-WKCQBGK is also a good resource for you. Related to Nicotine dependence with current use As per patient privacy policy some of the clinical information may not be visible. 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 Mental Status Date Cognitive Assessment Orientation - [place] ed to time, place, person, situation.Normal Orientation Patient Care Teams Name Effective Dates (start - stop) Status Members No Information
--- OUTSIDE RECORDS SUMMARY | 2023-05-13 07:54 | XMS_ITS | Continuity of Care Document ---
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 [address], [place], [address] , [place]. [phone] Referring Provider: Mague Griffiths, [address] [place], [address] . tel:[phone] [facility], [address] [id number] 2973860US- [facility] [place], [id number], [place] tel:[phone] Behavioral Medicine F2 No Information 3 Yfn Bee. [address] [place], [id number] , [place]. [phone] Referring Provider: Rohit Coulter, [address] [place], [address] . tel:[phone] [facility], [address] [id number] 0168960QI- [facility] [place], [id number], [place] tel:[phone] Behavioral Medicine F2 No Information 3 Yfn Bee. [address], [facility], [place], [address] , [place]. tel:[phone] SBIRT - AUDIT/DAST, 15-30 MIN [facility], [address] [id number] 7645289NZ- [facility], [place], [place], [address], [place] tel:[phone] Behavioral Medicine F2 No Information 3 [facility] . [address] [facility], [place], [place], [address] , [place]. tel:[phone] Referring Provider: [facility], [address] [facility], [place], [address] . tel:[phone] OFFICE/OUTPA TIENT VISIT EST [facility], [address] [id number] 5654025SX- [place], [place], [address], [place] tel:[phone] Behavioral Medicine F2 MAT (chief complaint) Other specified counseling 3 Tal Roberson. [address] [place], [address], [place]. tel:[phone] Referring Provider: Da Parada, [address] [facility], [place], [address]. tel:[phone] [facility], [address] [id number] 9641905EO- [place], [address], [place] tel:[phone] Behavioral Medicine F2 No Information 3 Tal Roberson. [address] [place], [address], [place]. tel:[phone] Referring Provider: Da Parada, [address] [facility], [place], [address]. tel:[phone] [facility], [address] [id number] 5583247NJ- [place], [address], [place] tel:[phone] Behavioral Health Integration 2 Lavell Pratt. [address] , [place], [address], [place]. tel: [phone] OFFICE/OUTPA TIENT VISIT [facility], [address] Niacx429T1 [id number] Hills [facility], [place], [address], [place] tel:[phone] Behavioral Medicine F2 MAT JULIAN F/U (chief complaint) 2 Yfn Bee. [address] [place], [id number] , [place]. tel: [phone] Referring Provider: Rohit Coulter, [place], [address] . tel:[phone] [facility], [address] [id number] 0560589DWHiaw[facility], [place] [place], [id number], [place] tel:[phone] Behavioral Health Integration 2 Nahomy Carpenter. [address] [facility], [place], [id number] , [place]. tel: [phone] OFFICE/OUTPA TIENT VISIT, [facility], [address] [id number] 6101499RAFlint Hills [facility], [place], [id number], [place] tel:[phone] Behavioral Medicine F2 MAT JULIAN F/U (chief complaint) 2 Yfn Bee. [address] [place], [address] , [place]. tel: [phone] Referring Provider: [place], [address] . tel:[phone] OFFICE/OUTPA TIENT VISIT, [facility], [address] [id number] [id number] Hills Community [facility], [place], [address], [place] tel:[phone] Behavioral Medicine F2 MAT JULIAN F/U (chief complaint) 2 Yfn Rohit. [address] [place], [id number] , [place]. tel: [phone] Referring Provider: Rohit Coulter, [place], [address] . tel:[phone] PSYCH DIAGNOSTIC EVALUATION [facility], [address] Lwmuq302T1 [id number]- [facility], [facility] [place] [address], [place] tel:[phone] Behavioral Health Integration 2 Kevin Atkins. [address] [place], [address] , [place]. tel: [phone] Referring Provider: Milly Brown, [address] [place], [address] . tel:[phone] [facility], [address] [id number] 4941616XQ- [facility] [place], [id number], [place] tel:[phone] Behavioral Health Integration Other specified counseling 2 Angeles Polk. [address], [place] , [place], [place], [address] , [place]. tel: [phone] OFFICE/OUTPA TIENT VISIT, [facility], [address] [id number] [id number]- [facility], [facility] [place], [id number], [place] tel:[phone] Behavioral Medicine F2 Establish Care (chief complaint) Gastroesophageal reflux disease without esophagitisSeizu re disorderHistory of fibromyalgiaNico luis antonio dependence with current useEncounter to establish careBPH associated with nocturiaNocturia Port-A-Cath in place 2 Yfn Bee. [address] [place], [address] , [place]. tel: [phone] Referring Provider: Rohit Coulter, [place], [address] . tel:[phone] As per patient privacy policy some of the clinical information may not be visible. Family History Family Member Type Diagnosis Age At Onset No Information Payers Payer name Insurance type Covered constitution party ID Imer Whitlock (s) [employer] [place] [id number] [place] Medicaid [place] [id number] Social History Type Description Quantity Date Captured [...] Future Order: Lab Order CBC With Differential/Platelet ([id number]), Sent on: Sent Future Order: Lab Order CMP ([id number]), Sen t on: Sent Future Order: Lab Order Lipid Pr ofile ([id number]), Sent on: Sent Future Order: Lab Order Vitamin D 25-OH ([id number]), Sent on: Sent Future Order: Lab Order Vit B12 ([id number]), Sent on: Sent Future Order: Lab Order TSH-InHo use ([id number]), Sent on: Sent Future Order: Lab Order Microalb umin, Urine ([id number]), Sent on: Sent Future Order: Lab Order UA, Macr o W/ Reflex Micro ([id number]), Sent on: Sent Future Order: Lab Order PSA (PRICE E AND TOTAL) ([id number]), Sent on: Sent History Of Present Illness [...] PRN with any issues. Related to Other long term care phlebotomist (current) drug therapy FDA is warning t [...] while taking this medicine. Notify your health hospice home care coordinator immediately and seek dental treatment if you experience any problems with your teeth or gums while taking buprenorphine medicines that are dissolved in the mouth. If you are starting this medicine, tell your health child care attendant if you have any tooth problems, including a history of cavities. When taking your buprenorphine medicine and after it is completely dissolved, take a large sip of water, swish it gently around your teeth and gums, and spit. Wait at least 1 hour before brushing your teeth. [place] teeth 1 hour after EACH dose. if a Dental referral is needed, please let us know so we can schedule Related to Other specified counseling Please consider quit ting using tobacco products and/or vaping. This causes numerous health problems and can worsen anxiety, depression, and mood problems. Please contact my office if you would like information or resources to help you quit. 7-244-TYMOWMO is also a good resource for you. Related to Nicotine dependence with current use As per patient privacy policy some of the clinical information may not be visible. Assessments Type Assessment Date assessment Agitation assessment Other long term care phlebotomist (current) drug t herapy As per patient privacy policy some of the clinical information may not be visible. Mental Status Date Cognitive Assessment Orientation - [place] ed to time, place, person, situation.Normal Orientation Patient Care Teams Name Effective Dates (start - stop) Status Members No Information
[2023-05-13 08:06] VITALS: BP 160/86; PULSE 74; RESP 16; TEMP 36.7; O2SAT 99
== END 2023-06-01 23:59 | disposition home or self-care (01) ==
PROVIDERS: PCP Family Medicine; Visit Provider Family Medicine
DX: Z45.2 Encounter for adjustment and management of vascular access device (principal)
CPT/HCPCS: J1642

== ENCOUNTER 2023-06-19 07:58 | Oncology outpatient (recurring) (ONCR) | payer MEDICARE, MEDICAID, SELFPAY ==
--- OUTSIDE RECORDS SUMMARY | 2023-06-19 08:01 | XMS_ITS | Patient Health Record ---
Author Name Unknown Organization [facility] Address [address] [place] [address] Care Team Providers Care Golf Course Equipment Operator Name Role Phone Marvin Diaz Primary Care Provider ALLERGIES Allergen (clinical drug ingredient) Drug/Non Drug [...] Endoscopy Referred Provider Marvin Diaz Referred Address [address] [place] [address], Referred Provider Specialty Internal Med icine General [...] Date Status Comme nts Influenza (whole), CPT 95868 Inactive Unknown 03/16/2018 Administered SOCIAL HISTORY Sex Assigned At : Social History Observation Description Sex Assigned At Unknown PROBLEMS Problem Type ICD Code Onset Dates Problem Status W/U Status Risk SNOMED Code Notes Problem Abnormal findings on diagnostic imaging of liver and biliary tract (R93.2) Active confirmed [id number] Encounters Encounter Location Date Provider Diagnosis [facility] [address] [place] [id number] 01/21/2023 Marvin [facility] [address] [place] [address] 02/13/2023 Marvin Diaz [facility] [address] [place] [address] 03/07/2023 Marvin [facility] [address] [place] [address] 04/17/2023 Marvin Diaz [facility] [address] [place] [address] 05/01/2023 Marvin Diaz [facility] [address] [place] [address] 05/08/2023 Marvin Diaz PLAN OF TREATMENT No Information Insurance Providers Payer Name Payer Address Payer Phone Subscriber Number Group Number Insured Name Patient Relationship to Insured Coverage Start Date Coverage End Date [employer] Medicare Advantage PPO [address] [address] [place] [address] [id number] Geoffrey Mcleod Self - patient is the insured [place] Medicaid [address] [place] [address] [id number] Geoffrey Mcleod Self - patient is the insured
--- OUTSIDE RECORDS SUMMARY | 2023-06-19 08:01 | XMS_ITS | Continuity of Care Document ---
Author Name Unknown Organization [facility] Address [address] [id number][place] [address] Phone Care Team Providers Care Real Estate Lawyer Name Role Phone Tunde ARMIJOC/JOSÉ LUIS-Mague ZACARIAS [...] on Encounter SBIRT - AUDIT/DAST, 15-30 MIN [facility], [address] [id number] 9065205CS- [facility] [place], [id number], [place] tel:[phone] Behavioral Medicine F2 Follow Up of Opioid Dependence (chief complaint)F ollow Up of Medication Refills (chief complaint) AgitationOther superintendent marine oil terminal (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 [address] [place], [place], [address] , [place]. [phone] Referring Provider: Mague Griffiths, [address] [place], [address] . tel:[phone] [facility], [address] [id number] 4473901OF- [facility] [place], [id number], [place] tel:[phone] Behavioral Medicine F2 No Information 3 Yfn Bee. [address] [place], [id number] , [place]. [phone] Referring Provider: Rohit Coulter, [address] [place], [address] . tel:[phone] [facility], [address] [id number] 7840989XG- [facility] [place], [id number], [place] tel:[phone] Behavioral Medicine F2 No Information 3 Yfn Bee. [address], [facility], [place], [address] , [place]. tel:[phone] SBIRT - AUDIT/DAST, 15-30 MIN [facility], [address] [id number] 3294086UC- [facility], [place], [place], [address], [place] tel:[phone] Behavioral Medicine F2 No Information 3 [facility] . [address] [facility], [place], [place], [address] , [place]. tel:[phone] Referring Provider: [facility], [address] [facility], [place], [address] . tel:[phone] OFFICE/OUTPA TIENT VISIT EST [facility], [address] [id number] 945[address]OL- [place], [address], [place] tel:[phone] Behavioral Medicine F2 MAT (chief complaint) Other specified counseling 3 Tal Roberson. [address] [place], [address], [place]. tel:[phone] Referring Provider: Da Parada, [address] [facility], [place], [address]. tel:[phone] [facility], [address] [id number] 5212956OS- [place], [address], [place] tel:[phone] Behavioral Medicine F2 No Information 3 Tal Robreson. [address] [place], [address], [place]. tel:[phone] Referring Provider: Da Parada, [address] [facility], [place], [address]. tel:[phone] [facility], [address] [id number] 5125372TD- [place], [address], [place] tel:[phone] Behavioral Health Integration 2 Lavell Pratt. [address] , [place], [address], [place]. tel: [phone] OFFICE/OUTPA TIENT VISIT [facility], [address] [id number] [id number] [facility], [place], [id number], [place] tel:[phone] Behavioral Medicine F2 MAT JULIAN F/U (chief complaint) 2 Yfn Bee. [address] [place], [id number] , [place]. tel: [phone] Referring Provider: Rohit Coulter, [place], [address] . tel:[phone] [facility], [address] Xjtaq222O4 6735391QBLincoln [facility], [place], [id number], [place] tel:[phone] Behavioral Health Integration 2 Nahomy Carpenter. [address] [facility], [place], [id number] , [place]. tel: [phone] OFFICE/OUTPA TIENT VISIT, [facility], [address] Jyiax092O3 [id number] County Hospital, [place], [id number], [place] tel:[phone] Behavioral Medicine F2 MAT JULIAN F/U (chief complaint) 2 Yfn Bee. [address] [place], [address] , [place]. tel: [phone] Referring Provider: [place], [address] . tel:[phone] OFFICE/OUTPA TIENT VISIT, [facility], [address] [id number] 8689858XTSumner County Hospital, [place], [id number], [place] tel:[phone] Behavioral Medicine F2 MAT JULIAN F/U (chief complaint) 2 Yfn Rohit. [address] [place], [id number] , [place]. tel: [phone] Referring Provider: Rohit Coulter, [place], [address] . tel:[phone] PSYCH DIAGNOSTIC EVALUATION [facility], [address] Imlwc283E5 7493671QQ- [facility], [facility] [place], [id number], [place] tel:[phone] Behavioral Health Integration 2 Kevin Atkins. [address] [place], [id number] , [place]. tel: [phone] Referring Provider: Milly Brown, [address] [place], [address] . tel:[phone] [facility], [address] [id number] [id number]- [facility] [place], [id number], [place] tel:[phone] Behavioral Health Integration Other specified counseling 2 Angeles Polk. [address], [place] , [place], [place], [id number] , [place]. tel: [phone] OFFICE/OUTPA TIENT VISIT, [facility], [address] [id number] 3579104VS- [facility], [facility] [place], [id number], [place] tel:[phone] Behavioral Medicine F2 Establish Care (chief complaint) Gastroesophageal reflux disease without esophagitisSeizu re disorderHistory of fibromyalgiaNico luis antonio dependence with current useEncounter to establish careBPH associated with nocturiaNocturia Port-A-Cath in place 2 Yfn Bee. [address] [place], [address] , [place]. tel: [phone] Referring Provider: Rohit Coulter, [place], [address] . tel:[phone] As per patient privacy policy some of the clinical information may not be visible. Family History Family Member Type Diagnosis Age At Onset No Information Payers Payer name Insurance type Covered democrat ID Imer Whitlock (s) [employer] [place] [id number] [place] Medicaid MC [id number] Social History Type Description Quantity Date Captured [...] Future Order: Lab Order CBC With Differential/Platelet ([id number]), Sent on: Sent Future Order: Lab Order CMP ([id number]), Sen t on: Sent Future Order: Lab Order Lipid Pr ofile ([id number]), Sent on: Sent Future Order: Lab Order Vitamin D 25-OH ([id number]), Sent on: Sent Future Order: Lab Order Vit B12 ([id number]), Sent on: Sent Future Order: Lab Order TSH-InHo use ([id number]), Sent on: Sent Future Order: Lab Order Microalb umin, Urine ([id number]), Sent on: Sent Future Order: Lab Order UA, Macr o W/ Reflex Micro ([id number]), Sent on: Sent Future Order: Lab Order PSA (PRICE E AND TOTAL) ([id number]), Sent on: Sent History Of Present Illness [...] while taking this medicine. Notify your health hearing care practitioner immediately and seek dental treatment if you experience any problems with your teeth or gums while taking buprenorphine medicines that are dissolved in the mouth. If you are starting this medicine, tell your health child adolescent care if you have any tooth problems, including a history of cavities. When taking your buprenorphine medicine and after it is completely dissolved, take a large sip of water, swish it gently around your teeth and gums, and spit. Wait at least 1 hour before brushing your teeth. [place] teeth 1 hour after EACH dose. if a Dental referral is needed, please let us know so we can schedule Related to Other specified counseling Please consider quit ting using tobacco products and/or vaping. This causes numerous health problems and can worsen anxiety, depression, and mood problems. Please contact my office if you would like information or resources to help you quit. 2-730-PHNJBGQ is also a good resource for you. Related to Nicotine dependence with current use As per patient privacy policy some of the clinical information may not be visible. 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 Mental Status Date Cognitive Assessment Orientation - [place] ed to time, place, person, situation.Normal Orientation Patient Care Teams Name Effective Dates (start - stop) Status Members No Information
[2023-06-19 08:11] VITALS: BP 132/93; PULSE 103; RESP 18; TEMP 37.1
[2023-06-19 08:18] VITALS: BP 139/92; PULSE 103; RESP 18; TEMP 37.1; O2SAT 97
== END 2023-07-02 23:59 | disposition home or self-care (01) ==
PROVIDERS: PCP Family Medicine; Visit Provider Family Medicine
DX: Z45.2 Encounter for adjustment and management of vascular access device (principal)
CPT/HCPCS: 96523; J1642

== ENCOUNTER 2023-06-21 21:32 | Emergency (ER) | payer MEDICARE, MEDICAID, SELFPAY ==
[2023-06-21 21:36] VITALS: BP 116/75; PULSE 89; RESP 18; TEMP 36.7; O2SAT 99; BMI 20.8
[2023-06-21] MEDS: dexamethasone 10 mg/mL INJ IM (22:38)
--- NOTE | 2023-06-21 22:53 | ED_ITS ---
HPI - Back Pain/Injury 2 General: Chief Complaint: Back Pain/Injury Stated Complaint: HIP PAIN Time Seen by Provider: 06/21/23 21:48 Source: patient Mode of arrival: EMS Limitations: no limitations History of Present Illness: Patient presents emergency department today brought by EMS for evaluation treatment of acute on chronic low back pain. Patient denies any new injuries or falls prior to onset of his acute worsening of pain. Patient reports he typically takes oxycodone 10 mg several times throughout the day for management of his pain. I did look in the patient's chart and he is regularly followed by Dr. Cruz. It appears patient has had multiple surgeries on his back and currently has multiple levels of screws and rods in his lower back. Patient had removal of the sacral screw back in January. Patient has chronically had issues in his low back with radiating pain to the right side. Patient again complains today of back pain radiating down to the right hip region. He has not had any difficulty with bowel or bladder function. He reports taking Tylenol prior to arrival but has not taken his nightly oxycodone yet. Chart review indicates patient is not regularly seen here in the emergency department for acute on chronic back pain. Review of Systems 2 General: Reports: 10 or more systems reviewed and unremarkable except in HPI and below PFSH ED 2 PFSH: Medical History Chronic prostatitis History of broken leg BPH loc w urin obs/LUTS Surgical History History of cholecystectomy History of bilateral inguinal hernia repair H/O shoulder surgery History of ankle surgery History of elbow surgery History of hernia surgery Family History Father , AT AGE 73 Murder Mother , AT AGE 42 Cancer COLON Social History Smoking and tobacco/nicotine status: current every day tobacco/nicotine user cigarettes Packs smoked per day: 0.25 Years cigarettes smoked: 35 Second hand smoke exposure: No Alcohol intake: never Substance/Drug Use: never Adopted: Yes Lives independently: Yes Household members: none Marital status: Number of children: 2 service: No Current occupational status: retired Current gender identity: Male Special alejandro needs: No Agree to transfusion: Yes Physical Exam 2 Const: COMMON NORMALS: no acute distress (Obviously uncomfortable when moving), patient oriented x3 and alert HENMT: COMMON NORMALS: normocephalic, atraumatic and hearing grossly normal bilaterally HEAD & SCALP: normocephalic and atraumatic Eye: COMMON NORMALS: Equal, round and reactive pupils present, EOMs intact bilaterally and conjunctivae normal CONJUNCTIVA: Yes conjunctivae normal P UPIL: Yes Equal, round and reactive pupils present Neck/C-Spine: COMMON NORMALS: full ROM and no JVD Lymph: LYMPHATIC: no lymphadenopathy noted Resp: COMMON NORMALS: normal respiratory effort, No retractions and No use of accessory muscles Cardio: COMMON NORMALS: no JVD and regular rate RATE: regular rate Back/Pelvis: OTHER: Patient with reproducible tenderness on palpation in the lumbar and right SI region. BACK IMAGE (MALE): 1. pain from low back to right hip Extremity: NARRATIVE EXTREMITY EXAM: Patient demonstrates ability to flex and extend the right hip and right knee. Nontender on palpation to these joints. No groin tenderness. Patient able to place heels into the bed and push up to readjust himself in the bed-indicates discomfort with this movement though. Neuro: COMMON NORMALS: patient oriented x3 SENSORIUM/ORIENTATION: Yes alert Psych: COMMON NORMALS: mental status grossly normal, Normal thought process present, cooperative and normal affect THOUGHT PROCESS: Normal thought process present Skin: COMMON NORMALS: no rashes or lesions noted and turgor normal GENERAL SKIN EXAM: no rashes or lesions noted and turgor normal Course 2 Vital Signs: Vital signs: Vital Signs Temperature 98.1 F 06/21/23 21:36 Pulse Rate 89 06/21/23 21:36 Respiratory Rate 18 06/21/23 21:36 Blood Pressure 116/75 06/21/23 21:36 Pulse Oximetry 99 06/21/23 21:36 Oxygen Delivery Me thod Room Air 06/21/23 21:36 MDM - Back Pain/Injury Medical Decision Making Patient presents emergency department today for acute worsening of chronic low back and right hip pain. Patient typically takes oxycodone tens. I did speak with Dr. Puga regarding treatment of this patient's acute pain. We had originally discussed morphine however, patient has a morphine allergy indicative of airway swelling. I went back and looked through the patient's previous medications and it appears he has tolerated Dilaudid as an intraprocedural medication in the past. Patient was given Dilaudid and a steroid here in the emergency department. I also provided a Medrol Dosepak sent to the pharmacy for him to pick up driver and continue starting in the morning. He reports he has an appointment with his spine doctor on Friday and can have follow-up at that time as needed. However any difficulty with bowel or bladder control, lower extremity temperature change or color change only to be seen and reevaluated here in the ER. Patient verbalizes understanding and agreement to treatment plan. Differential Diagnosis Likely lumbar radiculopathy, sciatica and strain of lumbar region; Unlikely pyelonephritis, thoracic back pain or AAA No radiology studies performed this visit Discharge Plan Discharge Patient Disposition: Home Clinical Impression: Chronic low back pain Condition: Stable Prescriptions: New Medrol (Ewrin) 4 mg tablets,dose pack See Rx Instructions .ROUTE .COMPLEX Qty: 21 0RF Rx Instructions: orally per package directions No Action Narcan 4 mg/actuation spray,non-aerosol 1 spray intranasal Q2M PRN (Reason: Opioid Reversal) Rx Instructions: spray 1 dose into ONE nostril; alternate nostrils w each dose until help arrives (DME) gauntlet AFO to the left See Rx Instructions .Route .MEDSUPPLY Qty: 1 0RF Rx Instructions: As directed by NIMESH&O (DME) TENS unit See Rx Instructions .Route .MEDSUPPLY Qty: 1 0RF Rx Instructions: As directed prednisone 20 mg tablet 20 mg PO DAILY Qty: 15 0RF Rx Instructions: 60MG Day 1,2,3. 40MG Day 4,5. 20MG Day 6,7. gabapentin [Neurontin] 300 mg capsule 300 mg PO BID 7 Days Qty: 14 0RF prednisone 20 mg tablet 20 mg PO DAILY Qty: 15 0RF Rx Instructions: 60MG X 3 Days 40MG X 2 Days 20MG X 2 Days (DME) Accommodative orthotics See Rx Instructions .Route .MEDSUPPLY Qty: 1 0RF Rx Instructions: As directed by NIMESH[facility]O tamsulosin [Flomax] 0.4 mg capsule 0.4 mg PO DAILY Qty: 30 4RF sucralfate [Carafate] 1 gram tablet 1 g PO Q6H Qty: 120 2RF Rx Instructions: TAKE ONE TABLET BY MOUTH EVERY 6 HOURS albuterol sulfate [ProAir HFA] 90 mcg/actuation HFA aerosol inhaler 2 puff inhalation PRN PRN (Reason: Wheezing) Qty: 6.7 0RF atorvastatin 20 mg tablet 20 mg PO DAILY Qty: 30 3RF Rx Instructions: Needs appointment and labs pantoprazole [Protonix] 40 mg tablet,delayed release (DR/EC) 40 mg PO DAILY 30 Days Qty: 30 3RF oxycodone 10 mg tablet 10 mg PO Q8H PRN (Reason: pain) 7 Days Qty: 21 0RF Discharge Orders: Discharge ED (Routine); Ordered 06/21/23 Ordered By: Lynne Jessica Referrals: Talita Winn MD [Primary Care Provider] - Discharge Diet: Usual diet Discharge Activity: Increase activity as tolerated Patient Instructions: Opioid Safety, Pain Management Activity Restrictions/Additional Instructions: Given that this pain is similar to that of your chronic back pain and you have not recently had any falls or new injuries, I do not think imaging of your back will provide us any new information today. You appear neurologically intact in your pelvic and lower extremity regions. We have provided you a single dose of some acute narcotic pain medication here in the emergency department as well as steroids for inflammation. This pain medication will peak in its effectiveness in approximately 2-3 hours. After that, you can return back to using your chronic pain medication. Keep your upcoming appointment with your spinal surgeon to discuss your continued pain and issues with your low back. Coding Level of Care Code ED Terminologist for Georgia Wesley
== END 2023-06-22 02:06 | disposition home or self-care (01) ==
PROVIDERS: Emergency Provider Physician Assistant; PCP Family Medicine
DX: M54.59 Other low back pain (principal); M25.551 Pain in right hip
CPT/HCPCS: 96372; 99284; J1100

== ENCOUNTER → 2023-06-26 08:05 | Outpatient (BNVA) | payer MEDICARE, MEDICAID, SELFPAY | PROVIDERS: PCP Family Medicine; Visit Provider Orthopaedic Surgery | DX: M54.50 Low back pain, unspecified (principal); Z98.1 Arthrodesis status | CPT/HCPCS: 99214 ==

== ENCOUNTER → 2023-07-18 08:26 | Outpatient (BNVA) | payer MEDICARE, MEDICAID, SELFPAY | PROVIDERS: PCP Family Medicine; Referring Provider Family Medicine; Visit Provider Orthopaedic Surgery | DX: Z98.1 Arthrodesis status (principal); T84.84XA Pain due to internal orthopedic prosthetic devices, implants and grafts, initial encounter; T84.216A Breakdown (mechanical) of internal fixation device of vertebrae, initial encounter; Y79.2 Prosthetic and other implants, materials and accessory orthopedic devices associated with adverse incidents | CPT/HCPCS: 72100; 99214 ==

== ENCOUNTER 2023-07-30 12:38 | Inpatient (IN) | payer MEDICARE, MEDICAID, SELFPAY ==
--- OUTSIDE RECORDS SUMMARY | 2023-07-18 13:53 | XMS_ITS | Continuity of Care Document ---
Author Name Unknown Organization [facility] Address [address] [id number] [address] Phone Care Team Providers Care Senior Nuclear Medicine Technologist Name Role Phone Tunde ARMIJOC/JOSÉ LUIS-Mague ZACARIAS [...] on Encounter SBIRT - AUDIT/DAST, 15-30 MIN [facility], [id number]- [facility] [place], [id number], [place] tel:[phone] Behavioral Medicine F2 Follow Up of Opioid Dependence (chief complaint)F ollow Up of Medication Refills (chief complaint) AgitationOther rehab technician (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 [address] [place], [address] , [place]. [phone] Referring Provider: Mague Griffiths, [address] [place] [facility] [place], [address] . tel:[phone] [facility], [address] [id number]- [facility] [place], [id number], [place] tel:[phone] Behavioral Medicine F2 No Information 3 fYn Bee. [address] [place], [id number] , [place]. [phone] Referring Provider: Rohit Coulter, [address] [place], [address] . tel:[phone] [facility], [address] [id number]- [facility] [place], [id number], [place] tel:[phone] Behavioral Medicine F2 No Information 3 Yfn Bee. [address], [facility], [place], [address] , [place]. tel:[phone] SBIRT - AUDIT/DAST, 15-30 MIN [facility], [address] [id number]- [facility], [place], [place], [address], [place] tel:[phone] Behavioral Medicine F2 No Information 3 [facility] . [address] [facility], [place], [place], [address] , [place]. tel:[phone] Referring Provider: [facility], [address] [facility], [place], [address] . tel:[phone] OFFICE/OUTPA TIENT VISIT EST [facility], [address] [id number]- [place], [address], [place] tel:[phone] Behavioral Medicine F2 MAT (chief complaint) Other specified counseling 3 Tal Roberson. [address] [place], [address], [place]. tel:[phone] Referring Provider: Da Parada, [address] [facility], [place], [address]. tel:[phone] [facility], [address] [id number]- [place], [address], [place] tel:[phone] Behavioral Medicine F2 No Information 3 Tal Roberson. [address] [place], [address], [place]. tel:[phone] Referring Provider: Da Parada, [address] [facility], [place], [address]. tel:[phone] [facility], [address] [id number]- [place], [address], [place] tel:[phone] Behavioral Health Integration 2 Lavell Pratt. [address] , [place], [address], [place]. tel: [phone] OFFICE/OUTPA TIENT VISIT [facility], [id number], [place], [id number], [place] tel:[phone] Behavioral Medicine F2 MAT JULIAN F/U (chief complaint) 2 Yfn Bee. [address] [place], [id number] , [place]. tel: [phone] Referring Provider: Rohit Coulter, [place], [address] . tel:[phone] [facility], [address] [id number], [place], [id number], [place] tel:[phone] Behavioral Health Integration 2 Nahomy Carpenter. [address] [facility], [place], [id number] , [place]. tel: [phone] OFFICE/OUTPA TIENT VISIT, [facility], [address] [id number], [place], [id number], [place] tel:[phone] Behavioral Medicine F2 MAT JULIAN F/U (chief complaint) 2 Yfn Bee. [address] [place], [id number] , [place]. tel: [phone] Referring Provider: [place], [address] . tel:[phone] OFFICE/OUTPA TIENT VISIT, [facility], [address] [id number], CAR[place] Robbins, [id number], [place] tel:[phone] Behavioral Medicine F2 MAT JULIAN F/U (chief complaint) 2 Yfn Rohit. [address] [place], [id number] , [place]. tel: [phone] Referring Provider: Rohit Coulter, [place], [address] . tel:[phone] PSYCH DIAGNOSTIC EVALUATION [facility], [address] [id number]- [facility], [facility] [place] [id number], [place] tel:[phone] Behavioral Health Integration 2 Kevin Atkins. [address] [place], [id number] , [place]. tel: [phone] Referring Provider: Milly Brown, [address] [place], [address] . tel:[phone] [facility], [address] [id number]- [facility] [place], [id number], [place] tel:[phone] Behavioral Health Integration Other specified counseling 2 Angeles Polk. [address], [place] , [place], [place], [address] , [place]. tel: [phone] OFFICE/OUTPA TIENT VISIT, [facility], [address] [id number]- [facility], [facility] [place], [address], [place] tel:[phone] Behavioral Medicine F2 Establish Care (chief complaint) Gastroesophageal reflux disease without esophagitisSeizu re disorderHistory of fibromyalgiaNico luis antonio dependence with current useEncounter to establish careBPH associated with nocturiaNocturia Port-A-Cath in place 2 Yfn Bee. [address] [place], [address] , [place]. tel: [phone] Referring Provider: Rohit Coulter, [place], [address] . tel:[phone] As per patient privacy policy some of the clinical information may not be visible. Family History Family Member Type Diagnosis Age At Onset No Information Payers Payer name Insurance type Covered constitution party ID Imer Whitlock (s) [employer] CI [id number] [place] Medicaid [place] [id number] Social History Type Description Quantity Date Captured [...] Of Treatment Date Type Action Status Goal Dietary manageme nt education, guidance, and counseling ordered Goal Dietary manageme nt education, guidance, and counseling ordered Goal Tobacco cessation counseling ordered Goal Tobacco cessation counseling completed Future Order: Lab Order CBC With Differential/Platelet ([id number]), Sent on: Sent Future Order: Lab Order CMP ([id number]), Sen t on: Sent Future Order: Lab Order Lipid Pr ofile ([id number]), Sent on: Sent Future Order: Lab Order Vitamin D 25-OH ([id number]), Sent on: Sent Future Order: Lab Order Vit B12 ([id number]), Sent on: Sent Future Order: Lab Order TSH-InHo use ([id number]), Sent on: Sent Future Order: Lab Order Microalb umin, Urine ([id number]), Sent on: Sent Future Order: Lab Order UA, Macr o W/ Reflex Micro ([id number]), Sent on: Sent Future Order: Lab Order PSA (PRICE E AND TOTAL) ([id number]), Sent on: Sent History Of Present Illness [...] PRN with any issues. Related to Other rehab technician (current) drug therapy FDA is warning t [...] while taking this medicine. Notify your health home visit field care manager immediately and seek dental treatment if you experience any problems with your teeth or gums while taking buprenorphine medicines that are dissolved in the mouth. If you are starting this medicine, tell your health urgent care physician assistant if you have any tooth problems, including a history of cavities. When taking your buprenorphine medicine and after it is completely dissolved, take a large sip of water, swish it gently around your teeth and gums, and spit. Wait at least 1 hour before brushing your teeth. [place] teeth 1 hour after EACH dose. if a Dental referral is needed, please let us know so we can schedule Related to Other specified counseling Please consider quit ting using tobacco products and/or vaping. This causes numerous health problems and can worsen anxiety, depression, and mood problems. Please contact my office if you would like information or resources to help you quit. 1-511-LHVVONG is also a good resource for you. Related to Nicotine dependence with current use As per patient privacy policy some of the clinical information may not be visible. Assessments Type Assessment Date assessment Agitation assessment Other rehab technician (current) drug t herapy As per patient privacy policy some of the clinical information may not be visible. Mental Status Date Cognitive Assessment Orientation - [place] ed to time, place, person, situation.Normal Orientation Patient Care Teams Name Effective Dates (start - stop) Status Members No Information
[2023-07-30] VITALS (33 sets, daily range): BP systolic 100–155; BP diastolic 61–95; PULSE 81–99; RESP 12–22; TEMP 36.3–36.9; O2SAT 95–100; BMI 19.7; BMI 19.1
--- NOTE | 2023-07-30 06:33 | ECG_ITS ---
[facility] Test Date: 2023-07-30 Pat Name: Geoffrey Mcleod Department: Room: Gender: Male Managing Consultant Clinical Professor: : 1955 Requested By: Gael Armas Order Number: [id number] Deanne MD: Shon Ny M.D. Measurements Intervals [place] Rate: 94 P: 78 MN: 167 QRS: 72 QRSD: 82 T: 63 QT: 360 QTc: 450 Interpretive Statements SINUS RHYTHM WITH OCCASIONAL VENTRICULAR PREMATURE COMPLEXES Compared to ECG 10/12/2022 23:52:28 No significant changes Electronically Signed On 07-30-2023 9:13:40 AUTOMATIC DISPENSER MECHANIC by Shon Ny M.D. [email or web address] hospitalRuiYi/[id number]
--- NOTE | 2023-07-30 06:39 | W.PM.OPSUD ---
Surgery/Procedure H&P Update DATE OF PROCEDURE: July 30, 2023 DATE H&P PERFORMED: 07/18/23 H&P UPDATE INFORMATION: I have reviewed H&P completed within last 30 days, I have examined patient prior to procedure and No changes to prior documentation PLANNED PROCEDURE: Operation Date: 07/30/23 07:00 Proposed Procedures p Hardware Removal Back(Not Applicable) - Bernabe Carbajal DO
[2023-07-30] MEDS: sodium chloride 0.9% 1,000 ML 30 ML IV (06:49)
--- NOTE | 2023-07-30 06:54 | P.ANESASSM_ITS ---
Pre-Anesthetic Assessment Height/Weight: Height 1.91 m Weight 71.668 kg Temp Pulse Resp BP Pulse Ox O2 Del Method 98.5 F 94 18 147/95 98 Room Air 07/30/23 05:59 07/30/23 05:59 07/30/23 05:59 07/30/23 05:59 07/30/23 05:59 07/30/23 06:05 Preop Diagnosis: painful hardware Operation Date: 07/30/23 07:00 Proposed Procedures p Hardware Removal Back(Not Applicable) - Bernabe Carbajal, DO Familial anesthetic complications: none Was Beta Emani taken within 24 hours: N/A Was Clonidine taken within 24 hours: N/A Last intake: Intake Last Liquid Date 07/29/23 Last Liquid Time 21:00 Last Solid Date 07/29/23 Last Solid Time 15:00 Social Tobacco and No alcohol Exam alert, oriented x 3 and regular rate & rhythm Airway Submandibular: within normal limits Cervical ROM: within normal limits Mallampati: Class II Comments: Comments: Edentulous Pulmonary Chronic Obstructive Pulmonary Disease CV/HEM Anemia, Coronary Artery Disease and Myocardial Infarction GI Gastroesophageal Reflux Disease Metabolic Hyperlipidemia [facility] Lower Back Pain and Osteoarthritis/DJD Anesthetic Plan ASA status: 3 Anesthesia: General Medications/Allergies Home Medications Medication Instructions Recorded Confirmed Last Taken Type naloxone 4 mg/actuation nasal 1 spray intranasal Q2M PRN Opioid 05/08/20 07/29/23 11/06/22 History spray (Narcan) Reversal Accommodative orthotics #1 ea 04/15/22 07/18/23 11/06/22 Rx gauntlet AFO to the left #1 ea 05/20/22 07/18/23 11/06/22 Rx TENS unit #1 ea 07/09/22 07/18/23 11/06/22 Rx albuterol sulfate 90 mcg/actuation 2 puff inhalation PRN PRN Wheezing 10/11/22 07/29/23 07/27/23 Rx aerosol inhaler (ProAir HFA) #6.7 grams sucralfate 1 gram tablet (Carafate) 1 g PO Q6H #120 tabs 03/26/23 07/29/23 07/29/23 Rx tamsulosin 0.4 mg capsule (Flomax) 0.4 mg PO DAILY #30 caps 03/26/23 07/29/23 07/29/23 Rx atorvastatin 20 mg tablet 20 mg PO DAILY #30 tabs 04/09/23 07/29/23 07/29/23 Rx pantoprazole 40 mg tablet,delayed 40 mg PO DAILY 30 days #30 tabs 04/09/23 07/29/23 07/29/23 Rx release (Protonix) prednisone 20 mg tablet 20 mg PO DAILY Low Back Pain #15 04/10/23 07/29/23 07/29/23 Rx tabs oxycodone 10 mg tablet 10 - 20 mg (1 - 2 x 10 mg) PO Q8H 07/25/23 07/29/23 07/30/23 Rx PRN pain 7 days #40 tabs Allergies Allergy/AdvReac Type Severity Reaction Status Date / Time carbamazepine [From Tegretol] Allergy Severe ALGY-Rash Verified 07/30/23 06:26 phenobarbital Allergy Severe ADR-Irritab Verified 07/30/23 06:26 le phenytoin [From Dilantin] Allergy Severe ALGY-Rash Verified 07/30/23 06:26 prochlorperazine Allergy Severe ADR-Migrain Verified 07/30/23 06:26 [From Compazine] e ketorolac [From Toradol] Allergy Intermediate ADR-Cramping Verified 07/30/23 06:26 of the Muscles morphine Allergy ALGY-Swell Verified 07/18/23 08:27 Lip/Tongue/Throat Penicillins Allergy ALGY-Hives Verified 07/18/23 08:27 propofol Allergy ADR-Headach Verified 07/18/23 08:27 e ciprofloxacin AdvReac increase Verified 07/18/23 08:27 blood pressure with headache [facility] Anesthesia Medical History Chronic prostatitis History of broken leg BPH loc w urin obs/LUTS Surgical History History of cholecystectomy History of bilateral inguinal hernia repair H/O shoulder surgery History of ankle surgery History of elbow surgery History of hernia surgery Family History Father , AT AGE 73 Murder Mother , AT AGE 42 Cancer COLON Social History Smoking and tobacco/nicotine status: current every day tobacco/nicotine user cigarettes Packs smoked per day: 0.25 Years cigarettes smoked: 35 Second hand smoke exposure: No Alcohol intake: never Substance/Drug Use: never Adopted: Yes Lives independently: Yes Household members: none Marital status: Number of children: 2 service: No Current occupational status: retired Current gender identity: Male Special alejandro needs: No Agree to transfusion: Yes Data Anesthesia Cardiac Studies: Sestamibi Stress Test (Cardiology) 08/05
[2023-07-30] MEDS: midazolam 1 mg/mL INJ 2 mL 2 MG IVP (06:59)
[2023-07-30] MEDS: ceFAZolin 2,000 MG in sodium chloride 0.9% (plus) 50 ML 100 MG IV ×2 (07:02→15:46)
[2023-07-30] MEDS: lidocaine-epi 1% 20 mL INJ INJECTION (07:50)
[2023-07-30] MEDS: vancomycin 1,000 MG SDV 1000 MG XX (08:27)
--- NOTE | 2023-07-30 09:22 | PM.OP ---
Operative Report Date of procedure: July 30, 2023 Pre-op diagnosis: Painful hardware and spine Post-op diagnosis: same Procedure done: Remove deep hardware from spine Surgeon: Bernabe Carbajal DO Estimated blood loss (mL): 50 Procedure: Remove deep hardware from spine Patient is brought to the operative suite after undergoing anesthesia was placed in the prone position. All areas impingement well-padded. Patient's prepped draped normal sterile fashion. Skin incision made using previous skin incision. The thoracolumbar fascia was split and then exposure to the rods was and screws was made. Patient had a T10-S1 on the right side T10-L5 on the left side. Previous hardware removed. The screw caps were all identified on both sides and removed bilaterally. Rods were removed bilaterally. Then all the screws were removed bilaterally. Wounds and irrigated. X-rays were taken to ensure that all hardware is out. The cage at L5-S1 remained try to take this out previously and had a small dural tear. That she is is completely sealed off at this point patient is not symptomatic from the cage was more from the loose screws. The bottom 2 screws. Loose as the top 2 screws. Screws feels okay. At this point wound was irrigated was placed deep drain was placed and then the wound was closed in layered fashion with 0 Vicryl 2-0 Vicryl and Monocryl suture. Sterile dressings applied patient transferred to the PACU in stable condition.
[2023-07-30] MEDS: fentaNYL 50 mcg/mL INJ 2mL IVP ×3 (09:35→12:56)
[2023-07-30] MEDS: fentaNYL 50 mcg/mL INJ 2mL 100 MCG (09:40)
[2023-07-30] MEDS: HYDROmorphone 1 mg/mL INJ 1 mL 0.5 MG IVP ×2 (09:50→19:50)
--- NOTE | 2023-07-30 13:18 | PC.NURSE ---
report given to Benny Chang at 1300
[2023-07-30] MEDS: lactated ringers 1,000 ML 90 ML IV (13:36)
[2023-07-30] MEDS: sucralfate 1 gm Tablet PO ×2 (13:37→19:39)
--- NOTE | 2023-07-30 14:16 | XR_ITS ---
WS: [id number] Exam: XR lumbar spine 2-3V* [id number] Date/Time of Exam: 07/30/2023 2:16 PM Reason For Exam: OR pic. hardware removal Limited anterior posterior C ARM intraoperative images of the lumbar spine are submitted. Compared to previous exam 07/18/2023. Previously noted posterior fusion rods in the lower thoracic and lumbar spine have been removed. A di sc spacer noted at L5-S1. No other significant finding on this limited study.
--- NOTE | 2023-07-30 15:21 | ANE.PACU2 ---
Inpatient post-anesthesia follow up: Airway intact: Yes Vital signs: Temperature 98.1 F Pulse Rate 99 Respiratory Rate 18 Blood Pressure 133/72 Pulse Oximetry 97 Oxygen Delivery Me thod Room Air Oxygen Flow Rate 6 Fraction of Inspir ed Oxygen Hydration adequate: Yes Nausea and vomiting: No Pain level: 3 Mental status: Baseline
[2023-07-30] MEDS: oxyCODONE-APAP 10-325 mg Tablet PO ×2 (15:45→21:42)
[2023-07-30] MEDS: ketorolac 30 mg/mL INJ IVP ×2 (15:46→23:21)
[2023-07-30] MEDS: oxyCODONE 10 mg ER (12 HR) Tablet PO (17:14)
[2023-07-30] MEDS: docusate sodium 100 mg Capsule PO (17:14)
[2023-07-31] VITALS (13 sets, daily range): BP systolic 131–157; BP diastolic 74–89; PULSE 76–92; RESP 15–20; TEMP 36.7–37; O2SAT 94–97; BMI 19.1
[2023-07-31] MEDS: ceFAZolin 2,000 MG in sodium chloride 0.9% (plus) 50 ML 100 MG IV ×2 (00:07→06:53)
[2023-07-31] MEDS: lactated ringers 1,000 ML 90 ML IV ×2 (00:08→14:06)
[2023-07-31] MEDS: acetaminophen 325 mg Tablet 650 MG PO (00:49)
[2023-07-31] MEDS: sucralfate 1 gm Tablet PO ×4 (00:50→20:07)
[2023-07-31] MEDS: oxyCODONE-APAP 10-325 mg Tablet PO ×3 (02:51→20:07)
--- NOTE | 2023-07-31 07:11 | CT_ITS ---
WS: [id number] CT PELVIS NONCONTRAST HISTORY: hip pain post op, status post vincent and screw removal in the lumbar spine and pelvis. TECHNIQUE: Contiguous imaging is performed of the pelvis without contrast. Coronal and sagittal refor mats are reviewed. All CT scans at [facility] use at least one of these dose optimization werner hniques: automated exposure control; mA and/or kV adjustment per patient size (includes targeted exam s where dose is matched to clinical indication); or iterative reconstruction. DLP: 292.34 mGy.cm COMPARISON: 08/04/2022 Osseous tracts remain in the lower lumbar vertebral bodies and also within this sacrum from the recen t hardware removal. There is a single interbody spacer remaining in the L4-5 disc. The spacer is post eriorly displaced and extends 10.6 mm posterior to the vertebral body. There is a small amount of sof t tissue air at the site of the recent hardware removal, adjacent to the tracts which is not unusual. There is a large posterior laminectomy defect at L4-5 through L5-S1. Severe bilateral foraminal steno sis at L4-5 and L5-S1 greatest at L5-S1 due to combination of disc and osteophyte and facet disease. The partially posteriorly displaced interbody spacer at L5-S1 is likely encroaching and contacting th e LEFT S1 nerve root. Bone graft site at the LEFT ilium. SI joints are negative. No acute fractures. There is a remote frac ture with healing involving the RIGHT inferior pubic rami. No sacral fracture. IMPRESSION: 1. Recent removal of the posterior lumbosacral screws and rods. Osseous defects are noted at the scr ew tracts. 2. Interbody spacer at L5-S1 posteriorly displaced by 10.6 mm encroaching upon the thecal sac and li tammy contacting the LEFT S1 nerve root. 3. Severe bilateral foraminal stenosis at L4-5 and L5-S1, greatest at L5-S1 due to combination of di sc, osteophyte and facet disease.
--- NOTE | 2023-07-31 07:12 | PM.PN ---
Subjective Subjective: Patient still complaining of the right hip pain he was having preoperatively. At this point I ordered a CT scan of his pelvis. And his lumbar spine. Vitals/I&O/Wt Last Vital Signs Temp 98.4 F 07/31/23 04:00 Pulse 78 07/31/23 04:00 Resp 16 07/31/23 04:00 BP 131/74 07/31/23 04:00 Pulse Ox 97 07/31/23 04:00 O2 Del Method Room Air 07/30/23 16:15 O2 Flow Rate 6 07/30/23 09:14 07/30/23 07/31/23 07/31/23 22:59 06:59 14:59 Intake Total 1730 / 2081.5 1458 / 3539.5 Output Total 525 / 975 160 / 1135 Balance 1205 / 1106.5 1298 / 2404.5 Weight last 48 hrs Weight 153 lb Weight 153 lb 8 oz Weight 158 lb Physical Exam Narrative: Continues to have pain rating down his leg. A&P Assessment and plan (1) Painful orthopaedic hardware: Postop day #1 removal of hardware from spine. Will get CT scan of his lumbar and pelvis to further evaluate why is to still continue to have pain. Attestations Medical Necessity Statement*: Pain control Coding Level of Care Code Acute Code for [facility] Fwd Diagnoses Painful orthopaedic hardware T84.84XA
--- NOTE | 2023-07-31 07:14 | CT_ITS ---
WS: [id number] CT LUMBAR SPINE, noncontrast. HISTORY: Postop by 24 days for screw and vincent removal lumbar spine and pelvis. TECHNIQUE: Contiguous 2.0 mm axial imaging are performed. Sagittal and coronal reformats are submitte d and reviewed. All CT scans at [facility] use at least one of these dose optimization techni ques: automated exposure control; mA and/or kV adjustment per patient size (includes targeted exams w here dose is matched to clinical indication); or iterative reconstruction. IV contrast: None DLP: 477.48 mGy.cm COMPARISON: 02/24/2023 Mild rotary scoliosis lumbar spine. Lower lumbar spine curvature to the RIGHT. Bilateral well circums cribed tracts are identified throughout the lumbar spine and the pelvis at the site of the recent abdoul dware removal. There is a remaining interbody spacer at L5-S1 posteriorly displaced by 9 mm from the disc. Disc spaces are well desiccated. Mild disc space narrowing throughout the lumbar spine but no a cute fracture. There are small osseous fragments in the soft tissues posterior to the LEFT L5 screw r emoval which could be bony fragments from the screw removal along the tract. There is a subcutaneous drain along the surgical site beginning in the lower thoracic paraspinal soft tissues and extending external at the L4-5 level. L1-2: Diffuse annular disc bulging. Shallow RIGHT foraminal disc protrusion. Mild LEFT and moderate R IGHT foraminal stenosis. There is a large posterior central laminectomy defect. L2-3: Mild annular disc bulging asymmetric to the RIGHT. RIGHT foraminal and extraforaminal disc protrusion resulting in mild to moderate RIGHT foraminal sten osis and mild LEFT foraminal stenosis. Large posterior laminectomy defect. L3-4: Osteophytic ridging surround the vertebral body and diffuse disc bulging. Large posterior venu ectomy defect. Shallow RIGHT paracentral and foraminal disc protrusion. Mild to moderate bilateral fo raminal stenosis. Large posterior laminectomy defect. L4-5: Osteophytic ridging and diffuse annular disc bulging. Large posterior laminectomy defect. At le ast moderate bilateral foraminal stenosis. Marked facet arthritis. L5-S1: Diffuse annular disc bulging. Osteophytic ridging and marked facet arthritis. Posterior large laminectomy defect. Extruded interbody disc spacer slightly to the LEFT of midline. Extruded spacer i s likely contacting the LEFT S1 nerve root. Severe bilateral subarticular recess and foraminal stenos is. Mild calcification throughout the abdominal aorta. IMPRESSION: 1. Recent removal of the pedicle screws, pelvic screws and vertical rods. Recent postoperative fiore es in the soft tissues from the hardware removal are identified. 2. L5-S1 interbody spacer posteriorly extruded by 9 mm contacting the LEFT S1 nerve root. 3. Large posterior laminectomy defect extending from L1-L5. 4. L5-S1: Severe bilateral subarticular recess and foraminal stenosis. 5. L1-2: Moderate RIGHT foraminal stenosis with a shallow disc protrusion. Mild stenosis on the LEFT . 6. L2-3: RIGHT foraminal extraforaminal disc protrusion resulting in mild to moderate RIGHT foramina l stenosis. 7. L3-4: Mild to moderate bilateral foraminal stenosis. Shallow RIGHT paracentral and foraminal disc protrusion. 8. L4-5: Moderate bilateral foraminal stenosis with marked facet arthritis. 9. Postoperative drain catheter in the subcu soft tissues at the lumbar spine level.
[2023-07-31] MEDS: ketorolac 30 mg/mL INJ IVP ×2 (07:51→22:43)
[2023-07-31] MEDS: oxyCODONE 10 mg ER (12 HR) Tablet PO ×2 (08:57→17:56)
[2023-07-31] MEDS: atorvastatin 40 mg Tablet 20 MG PO (08:58)
[2023-07-31] MEDS: tamsulosin 0.4 mg Capsule 0.400000000000000022 MG PO (08:58)
[2023-07-31] MEDS: pantoprazole DR 40 mg Tablet PO (08:58)
[2023-07-31] MEDS: HYDROmorphone 1 mg/mL INJ 1 mL 0.5 MG IVP (12:37)
[2023-07-31] MEDS: docusate sodium 100 mg Capsule PO (17:57)
[2023-08-01] VITALS (14 sets, daily range): BP systolic 121–153; BP diastolic 68–81; PULSE 63–99; RESP 14–20; TEMP 36.6–36.8; O2SAT 93–97
[2023-08-01] MEDS: lactated ringers 1,000 ML 90 ML IV ×2 (01:08→16:13)
[2023-08-01] MEDS: oxyCODONE-APAP 10-325 mg Tablet PO ×4 (01:53→20:45)
[2023-08-01] MEDS: sucralfate 1 gm Tablet PO ×4 (01:53→20:45)
--- NOTE | 2023-08-01 07:19 | PM.PN ---
Subjective Subjective: Patient resting in a locked room. Complain of the same pain going down the hip and leg. Vitals/I&O/Wt Last Vital Signs Temp 98.3 F 08/01/23 04:00 Pulse 96 08/01/23 04:00 Resp 18 08/01/23 04:00 BP 147/80 08/01/23 04:00 Pulse Ox 96 08/01/23 04:00 O2 Del Method Room Air 07/31/23 23:39 O2 Flow Rate 6 07/30/23 09:14 07/31/23 08/01/23 08/01/23 22:59 06:59 14:59 Intake Total 600 / 2250 993 / 3243 Output Total 100 / 900 400 / 1300 40 / 40 Balance 500 / 1350 593 / 1943 -40 / -40 Weight last 48 hrs Weight 153 lb Weight 153 lb 8 oz Physical Exam Narrative: Resting in bed no changes A&P Assessment and plan (1) Painful orthopaedic hardware: Postop day 2 removal of hardware. Planned for the OR to remove cage. DC drain Up with therapy Attestations Medical Necessity Statement*: Pain control Coding Level of Care Code Acute Code for [facility] Fwd Diagnoses Painful orthopaedic hardware T84.84XA
--- NOTE | 2023-08-01 07:29 | MR_ITS ---
WS: [id number] MRI LUMBAR SPINE NONCONTRAST TECHNIQUE: Sagittal T1, T2 and STIR imaging. Axial T1 and T2 imaging. CLINICAL INFORMATION: surgery on friday morning 7 am COMPARISON: CT 07/31/2023 FINDINGS: Recent removal of the previously described pedicle screw fixation with interconnecting rods. Posterio r protrusion of the interbody spacer graft L5-S1 is unchanged since the recent CT with subsidence at the L5-S1 level. Interbody spacer protrudes posteriorly measuring 9 mm. Stable postoperative changes laminectomy defects L1-L5 with expected postoperative soft tissue edema. L1-L2: Mild disc bulging with slight effacement of ventral thecal sac. Spinal canal is patent. Momo ctomy defects. Mild facet arthropathy. Mild RIGHT greater than LEFT foraminal narrowing. L2-L3: Disc desiccation. Spinal canal is patent. Laminectomy defects. Mild facet arthropathy. Mild ch ronic foraminal narrowing. L3-L4: Disc desiccation. Spinal canal is patent. Laminectomy defects. Moderate LEFT and mild RIGHT fo raminal narrowing. L4-L5: Disc desiccation with postoperative laminectomy defects. Small amount of edema in the laminect don defects with slight effacement of the dorsal thecal sac. Spinal canal is patent. Moderate bilater al foraminal narrowing LEFT greater than RIGHT. Moderate facet arthropathy. L5-S1: Posterior protrusion of the interbody spacer graft as described on the lumbar spine CT. Momo ctomy defects. Moderate effacement of the thecal sac with encroachment on traversing S1 nerve roots L EFT greater than RIGHT. Laminectomy defects at this level. Moderate chronic bilateral bony foraminal narrowing. No evidence of drainable abscess or fluid collection. Small disc osteophyte protrusions at C5-C6 and C6-C7 in the cervical spine neurobiologist imaging. IMPRESSION: 1. Recent interval removal of the lower thoracic and lumbar hardware with laminectomy defects in the lumbar spine. Expected postoperative changes in the dorsal subcutaneous soft tissues. 2. No evidence of drainable abscess or fluid collection. 3. Posterior protrusion of the L5-S1 interbody spacer graft measuring 9 mm with moderate narrowing o f the thecal sac and encroachment traversing LEFT greater than RIGHT S1 nerve roots. Laminectomy has been performed at this level. 4. Mild dorsal effacement of the thecal sac at L4-5. 5. Otherwise multilevel chronic bony foraminal narrowing described above.
[2023-08-01] MEDS: atorvastatin 40 mg Tablet 20 MG PO (08:25)
[2023-08-01] MEDS: pantoprazole DR 40 mg Tablet PO (08:25)
[2023-08-01] MEDS: tamsulosin 0.4 mg Capsule 0.400000000000000022 MG PO (08:25)
[2023-08-01] MEDS: docusate sodium 100 mg Capsule PO ×2 (08:25→17:13)
--- NOTE | 2023-08-01 11:40 | PC.SOCIAL ---
Pg 2 IMM Explained to pt Pg 2 IMM. No questions voiced. Provided pt a copy. Initialed, dated, & timed a copy & placed in chart.
[2023-08-01] MEDS: HYDROmorphone 1 mg/mL INJ 1 mL 0.5 MG IVP ×2 (11:41→21:47)
[2023-08-01] MEDS: oxyCODONE 10 mg ER (12 HR) Tablet PO (17:13)
[2023-08-01] MEDS: acetaminophen 325 mg Tablet 650 MG PO (23:35)
[2023-08-02] VITALS (10 sets, daily range): BP systolic 131–155; BP diastolic 74–84; PULSE 79–98; RESP 15–18; TEMP 36.5–36.9; O2SAT 94–100
[2023-08-02] MEDS: oxyCODONE-APAP 10-325 mg Tablet PO ×4 (02:51→23:04)
[2023-08-02] MEDS: sucralfate 1 gm Tablet PO ×4 (02:51→19:51)
[2023-08-02] MEDS: lactated ringers 1,000 ML 90 ML IV ×3 (02:52→21:26)
[2023-08-02] MEDS: HYDROmorphone 1 mg/mL INJ 1 mL 0.5 MG IVP ×4 (05:57→23:43)
[2023-08-02] MEDS: oxyCODONE 10 mg ER (12 HR) Tablet PO ×2 (08:43→17:23)
[2023-08-02] MEDS: tamsulosin 0.4 mg Capsule 0.400000000000000022 MG PO (08:43)
[2023-08-02] MEDS: atorvastatin 40 mg Tablet 20 MG PO (08:44)
[2023-08-02] MEDS: pantoprazole DR 40 mg Tablet PO (08:44)
[2023-08-02] MEDS: docusate sodium 100 mg Capsule PO ×2 (08:44→17:23)
--- NOTE | 2023-08-02 09:34 | PC.NURSE ---
EVS found cigarette butt in patients floor while doing a daily clean. This nurse asked patient if he was smoking in the room. He stated he was not. Educated patient on the dangers of smoking in the hospital with oxygen bled through the [place]oll[place]. Also educated patient on smoking delaying wound healing. Patient asked for a nicotine patch.
[2023-08-02] MEDS: nicotine 21 mg Patch 1 PATCH TRANSDERMA (10:20)
--- NOTE | 2023-08-02 15:45 | PM.PN ---
Subjective Subjective: Patient continues to have right leg pain. Vitals/I&O/Wt Last Vital Signs Temp 97.7 F 08/02/23 12:00 Pulse 88 08/02/23 12:00 Resp 15 08/02/23 12:00 BP 155/84 08/02/23 12:00 Pulse Ox 100 08/02/23 12:00 O2 Del Method Room Air 08/02/23 09:02 O2 Flow Rate 6 07/30/23 09:14 08/02/23 08/02/23 08/02/23 06:59 14:59 22:59 Intake Total 958.5 / 2678.5 1011 / 1011 Output Total 105 / 145 Balance 853.5 / 2533.5 1011 / 1011 Weight last 48 hrs Weight 162 lb 3 oz Physical Exam Narrative: Patient resting in bed watching TV. Continues at the right leg pain. A&P Assessment and plan (1) Status post lumbar spinal fusion: Plan for cage removal on Friday morning. Attestations Medical Necessity Statement*: Pain control Coding Level of Care Code Acute Code for Ch[facility] Fwd Diagnoses Status post lumbar spinal fusion Z98.1
[2023-08-02 17:18] LABS: Basophils % 0.4 %; Eosinophils # 0.2 10^3/uL (0.0-0.8); Eosinophils % 3.2 %; Hematocrit 33.4 % (37-53); Lymphocytes # 1.6 10^3/uL (0.8-4.8); Lymphocytes % 21.3 %; Mean Corpuscular HGB Conc 32.3 g/dL (30-55); Mean Corpuscular Hemoglobin 30.2 pg (27-33); Mean Corpuscular Volume 93.3 fl (82-101); Mean Platelet Volume 8.8 fL (7.4-10.4); Monocytes # 0.7 10^3/uL (0.2-0.9); Monocytes % 9.2 %; Neutrophils # 4.76 10^3/uL (1.8-7.7); Neutrophils % 65.5 %; Nucleated Red Blood Cells % 0 %; Platelet Count 304 10^3/cmm (157-399); Red Blood Count 3.58 10^6/uL (3.85-5.65); Red Cell Distribution Width 14.8 % (12.1-15.1); White Blood Count 7.27 10^3/uL (3.29-11.43)
--- NOTE | 2023-08-02 18:48 | PC.NURSE ---
Hemovac removed per Dr. Carbajal orders. Tolerated well.
[2023-08-03] VITALS (16 sets, daily range): BP systolic 130–150; BP diastolic 68–86; PULSE 63–100; RESP 16–20; TEMP 36.4–36.8; O2SAT 95–98
[2023-08-03] MEDS: sucralfate 1 gm Tablet PO ×4 (01:15→19:32)
[2023-08-03] MEDS: oxyCODONE-APAP 10-325 mg Tablet 1 TAB PO (02:48)
[2023-08-03] MEDS: oxyCODONE-APAP 10-325 mg Tablet PO ×5 (05:40→22:18)
[2023-08-03] MEDS: HYDROmorphone 1 mg/mL INJ 1 mL 0.5 MG IVP (06:19)
[2023-08-03] MEDS: pantoprazole DR 40 mg Tablet PO (08:20)
[2023-08-03] MEDS: tamsulosin 0.4 mg Capsule 0.400000000000000022 MG PO (08:20)
[2023-08-03] MEDS: docusate sodium 100 mg Capsule PO ×2 (08:20→18:05)
[2023-08-03] MEDS: atorvastatin 40 mg Tablet 20 MG PO (08:20)
[2023-08-03] MEDS: nicotine 21 mg Patch 1 PATCH TRANSDERMA (08:20)
[2023-08-03] MEDS: oxyCODONE 10 mg ER (12 HR) Tablet PO (08:20)
[2023-08-03] MEDS: lactated ringers 1,000 ML 90 ML IV ×2 (08:21→21:10)
--- NOTE | 2023-08-03 11:03 | P.PN_ITS ---
Subjective 2 Subjective: No changes from yesterday. Patient sitting up in bed Vitals/I&O/Wt Last Vital Signs Temp 97.6 F 08/03/23 09:19 Pulse 100 08/03/23 09:19 Resp 18 08/03/23 10:35 BP 149/86 08/03/23 09:19 Pulse Ox 95 08/03/23 09:19 O2 Del Method Room Air 08/03/23 09:19 O2 Flow Rate 6 07/30/23 09:14 08/02/23 08/03/23 08/03/23 22:59 06:59 14:59 Intake Total 1920 / 2931 1342.5 / 1342.5 Balance 1920 / 2931 1342.5 / 1342.5 Weight last 48 hrs Weight 158 lb 7 oz Weight 162 lb 3 oz Physical Exam 2 Narrative: Unchanged Data 08/02/23 17:05 A&P Assessment and plan (1) Painful orthopaedic hardware: Plan to remove cage tomorrow morning. N.p.o. after midnight. Attestations 2 Medical Necessity Statement*: Pain control Coding Level of Care Code Acute Code for g Fwd Diagnoses Painful orthopaedic hardware T84.84XA
[2023-08-04] VITALS (28 sets, daily range): BP systolic 104–149; BP diastolic 48–94; PULSE 77–115; RESP 10–20; TEMP 36.3–37.1; O2SAT 93–99
--- NOTE | 2023-08-04 | XR_ITS ---
WS: [id number] Lumbar spine, C ARM fluoroscopy views, 08/04/2023 Clinical Data: OR PICS Comparison: MRI lumbar spine, 08/01/2023. Findings: Dr. Schaffer removed an L5-S1 disc spacer. Impression: Removal of L5-S1 disc spacer.
[2023-08-04] MEDS: oxyCODONE-APAP 10-325 mg Tablet PO ×4 (02:19→21:29)
--- NOTE | 2023-08-04 06:17 | PC.NURSE ---
pt off unit at this time, went to OR.
--- NOTE | 2023-08-04 06:34 | W.PM.OPSUD ---
Surgery/Procedure H&P Update DATE OF PROCEDURE: August 04, 2023 DATE H&P PERFORMED: 07/18/23 H&P UPDATE INFORMATION: I have reviewed H&P completed within last 30 days, I have examined patient prior to procedure and No changes to prior documentation PREOP DIAGNOSIS: painful hardware PLANNED PROCEDURE: Operation Date: 07/30/23 07:00 Proposed Procedures p Hardware Removal Back(Not Applicable) - Bernabe Carbajal DO Operation Date: 08/04/23 07:00 Proposed Procedures p Hardware Removal Back(Not Applicable) - Bernabe Carbajal DO
--- NOTE | 2023-08-04 06:54 | ANES.PREANE2 ---
Pre-Anesthetic Assessment Height/Weight: Height 1.91 m Weight 71.242 kg Temp Pulse Resp BP Pulse Ox O2 Del Method O2 Flow Rate 98.2 F 77 18 147/89 99 Room Air 6 08/04/23 06:32 08/04/23 06:32 08/04/23 06:32 08/04/23 06:32 08/04/23 06:32 08/04/23 06:32 07/30/23 09:14 Preop Diagnosis: painful hardware Operation Date: 07/30/23 07:00 Proposed Procedures p Hardware Removal Back(Not Applicable) - Bernabe Brayan DO [place] Operation Date: 08/04/23 07:00 Proposed Procedures p Hardware Removal Back(Not Applicable) - Bernabe Schmidt Raven, DO Familial anesthetic complications: none Was Beta Emani taken within 24 hours: N/A Was Clonidine taken within 24 hours: N/A Last intake: Intake Last Liquid Date 08/03/23 Last Liquid Time 21:00 Last Solid Date 08/03/23 Last Solid Time 15:00 Social Tobacco and No alcohol 1 pack(s) per day Exam alert, oriented x 3 and regular rate & rhythm Airway Submandibular: within normal limits Cervical ROM: within normal limits Mallampati: Class II Comments: Comments: Edentulous Pulmonary Chronic Obstructive Pulmonary Disease CV/HEM Anemia, Coronary Artery Disease and Myocardial Infarction GI Gastroesophageal Reflux Disease Metabolic Hyperlipidemia Musc/skel Lower Back Pain and Osteoarthritis/DJD Anesthetic Plan ASA status: 3 Anesthesia: General Medications/Allergies Home Medications Medication Instructions Recorded Confirmed Last Taken Type naloxone 4 mg/actuation nasal 1 spray intranasal Q2M PRN Opioid 05/08/20 07/29/23 11/06/22 History spray (Narcan) Reversal Accommodative orthotics #1 ea 04/15/22 07/31/23 11/06/22 Rx gauntlet AFO to the left #1 ea 05/20/22 07/31/23 11/06/22 Rx TENS unit #1 ea 07/09/22 07/31/23 11/06/22 Rx albuterol sulfate 90 mcg/actuation 2 puff inhalation PRN PRN Wheezing 10/11/22 07/29/23 07/27/23 Rx aerosol inhaler (ProAir HFA) #6.7 grams sucralfate 1 gram tablet (Carafate) 1 g PO Q6H #120 tabs 03/26/23 07/29/23 07/29/23 Rx tamsulosin 0.4 mg capsule (Flomax) 0.4 mg PO DAILY #30 caps 03/26/23 07/29/23 07/29/23 Rx atorvastatin 20 mg tablet 20 mg PO DAILY #30 tabs 04/09/23 07/29/23 07/29/23 Rx pantoprazole 40 mg tablet,delayed 40 mg PO DAILY 30 days #30 tabs 04/09/23 07/29/23 07/29/23 Rx release (Protonix) oxycodone 10 mg tablet 10 - 20 mg (1 - 2 x 10 mg) PO Q8H 07/25/23 07/29/23 07/30/23 Rx PRN pain 7 days #40 tabs Allergies Allergy/AdvReac Type Severity Reaction Status Date / Time carbamazepine [From Tegretol] Allergy Severe ALGY-Rash Verified 07/30/23 06:26 phenobarbital Allergy Severe ADR-Irritab Verified 07/30/23 06:26 le phenytoin [From Dilantin] Allergy Severe ALGY-Rash Verified 07/30/23 06:26 prochlorperazine Allergy Severe ADR-Migrain Verified 07/30/23 06:26 [From Compazine] e ketorolac [From Toradol] Allergy Intermediate ADR-Cramping Verified 07/30/23 06:26 of the Muscles morphine Allergy ALGY-Swell Verified 07/18/23 08:27 Lip/Tongue/Throat Penicillins Allergy ALGY-Hives Verified 07/18/23 08:27 propofol Allergy ADR-Headach Verified 07/18/23 08:27 e ciprofloxacin AdvReac increase Verified 07/18/23 08:27 blood pressure with headache Current Medications Generic Name Dose Route Start Last Admin Trade Name Freq PRN Reason Stop Dose Admin Acetaminophen 650 mg 07/30/23 09:15 08/01/23 23:35 Acetaminophen 325 Mg Tablet PO 650 mg Q4H PRN Administration Mild Pain or fever >101.5 Atorvastatin Calcium 20 mg 07/31/23 09:00 08/03/23 08:20 Atorvastatin 40 Mg Tablet PO 20 mg DAILY SABAS Administration Docusate Sodium 100 mg 07/30/23 18:00 08/03/23 18:05 Docusate Sodium 100 Mg Capsule PO 100 mg BID SABAS Administration Lactated Ringer's 1,000 mls @ 90 mls/hr 07/30/23 09:15 08/03/23 21:10 Lactated Ringers IV 90 mls/hr .Q11H7M SABAS Administration Nicotine 1 patch 08/02/23 09:45 08/03/23 08:20 Nicotine 21 Mg Patch TRANSDERMA 1 patch DAILY SABAS Administration Oxycodone/Acetaminophen 1 - 2 tab 08/03/23 02:27 08/04/23 02:19 Oxycodone-Apap 10-325 Mg Tablet PO 2 tab Q4H PRN Administration MODERATE TO SEVERE PAIN Pantoprazole Sodium 40 mg 07/31/23 09:00 08/03/23 08:[address] 40 Mg Tablet PO 40 mg DAILY SABAS Administration Sucralfate 1 gm 07/30/23 09:30 08/04/23 00:52 Sucralfate 1 Gm Tablet PO Not Given Q6H SABAS Tamsulosin HCl 0.4 mg 07/31/23 09:00 08/03/23 08:20 Tamsulosin 0.4 Mg Capsule PO 0.4 mg DAILY SABAS Administration PFSH Anesthesia Medical History Chronic prostatitis History of broken leg BPH loc w urin obs/LUTS Surgical History History of cholecystectomy History of bilateral inguinal hernia repair H/O shoulder surgery History of ankle surgery History of elbow surgery History of hernia surgery Family History Father , AT AGE 73 Murder Mother , AT AGE 42 Cancer COLON Social History Smoking and tobacco/nicotine status: current every day tobacco/nicotine user cigarettes Packs smoked per day: 0.25 Years cigarettes smoked: 35 Second hand smoke exposure: No Alcohol intake: never Substance/Drug Use: never Adopted: Yes Lives independently: Yes Household members: none Marital status: Number of children: 2 service: No Current occupational status: retired Current gender identity: Male Special alejandro needs: No Agree to transfusion: Yes Data Anesthesia 08/02/23 17:05 Short CBC 08/02/23 Range/Units 17:05 WBC 7.27 (3.29-11.43) 10^3/uL Hgb 10.80 L (11.27-16.99) g/dL Hct 33.4 L (37-53) % MCV 93.3 (82-101) fl Plt Count 304 (157-399) 10^3/cmm Neut % (Auto) 65.5 % Neut # (Auto) 4.76 (1.8-7.7) 10^3/uL Cardiac Studies: Sestamibi Stress Test (Cardiology) 08/05/22
[2023-08-04] MEDS: sodium chloride 0.9% 1,000 ML 30 ML IV (07:00)
[2023-08-04] MEDS: ceFAZolin 2,000 MG in sodium chloride 0.9% (plus) 50 ML 100 MG IV ×3 (07:08→23:04)
[2023-08-04] MEDS: vancomycin 1,000 MG SDV 1000 MG XX (08:33)
--- NOTE | 2023-08-04 10:03 | PM.OP ---
Operative Report Date of procedure: August 04, 2023 Pre-op diagnosis: Painful hardware and spine Post-op diagnosis: same Procedure done: 1.Removal of deep hardware from the spine.(L5-S1 interbody cage) 2. Use of computer navigation stereotactic for spine Surgeon: Bernabe Carbajal DO Estimated blood loss (mL): 25 Procedure: 1. Removal of deep hardware from the spine.(L5-S1 interbody cage) 2. Use of computer navigation stereotactic for spine Patient is brought to the procedure after going anesthesia was placed in the prone position with patient well-padded. Patient's prepped draped also fashion. Skin incision is made using the previous skin incision. At this point patient recently had surgery the sutures were cut and removed. And then the thoracolumbar fascia was opened. Retractors were placed. And then attention was brought to placing the computer navigation. 2 pins were placed into the right iliac crest. The fiducial for the computer navigation was attached to these pins C-arm was brought in and spun around the patient. The information from the C-arm was then loaded the computer in order to help locate the cage as well as identify where the laminectomy defects were during the surgery. The S1 pedicle tract was identified and then scar tissue was removed of the bone as well as the lamina over the sacrum. Tracking up to the laminectomy defect of the previous surgery. The previous facet joint was taken down further in order to identify the disc base disc base was then identified joseph were then used to open up the space in order to facilitate going towards the cage through normal tissue. The S1 nerve root was traced from distal to proximal up to the cage. And then using curved curettes the cage was identified and scar tissue was gingerly removed off of the cage. This process was repeated until the cage was exposed. Once part of the cage was exposed it was tamped in order to facilitate less tenting on the dura. Once the tissue was freed up all the way around the cage the pair of cage or grabbers was used to remove the cage. At this point no dural tears were present wounds were irrigated and closed in layered fashion. The thoracolumbar fascia was closed with 0 Vicryl skin 2-0 Vicryl and skin with Monocryl suture. Sterile dressings were applied patient was transferred to the PACU in stable condition.
[2023-08-04] MEDS: HYDROmorphone 1 mg/mL INJ 1 mL 0.5 MG IVP (10:20)
[2023-08-04] MEDS: meperidine 50 mg/mL INJ (10:32)
--- NOTE | 2023-08-04 11:32 | PC.SOCIAL ---
IMM Update pg 2 of IMM copy left @ bedside. Patient is in procedure @ this time. Copy dated, initialed and placed in chart.
[2023-08-04] MEDS: sucralfate 1 gm Tablet PO ×2 (13:00→21:13)
[2023-08-04] MEDS: docusate sodium 100 mg Capsule PO (17:28)
[2023-08-04] MEDS: lactated ringers 1,000 ML 90 ML IV (19:50)
--- NOTE | 2023-08-04 19:53 | ANE.PACU2 ---
Inpatient post-anesthesia follow up: Airway intact: Yes Vital signs: Temperature 98.0 F Pulse Rate 105 Respiratory Rate 18 Blood Pressure 119/70 Pulse Oximetry 97 Oxygen Delivery Me thod Room Air Oxygen Flow Rate 6 Fraction of Inspir ed Oxygen Hydration adequate: Yes Nausea and vomiting: No Pain level: 2 Mental status: Baseline
[2023-08-04] MEDS: ketorolac 30 mg/mL INJ IVP (19:59)
[2023-08-05] VITALS (7 sets, daily range): BP systolic 101–124; BP diastolic 46–76; PULSE 68–92; RESP 16–18; TEMP 36.6–36.9; O2SAT 95–98
[2023-08-05] MEDS: oxyCODONE-APAP 10-325 mg Tablet PO ×2 (01:31→06:04)
[2023-08-05] MEDS: sucralfate 1 gm Tablet PO ×2 (01:31→06:44)
[2023-08-05] MEDS: ceFAZolin 2,000 MG in sodium chloride 0.9% (plus) 50 ML 100 MG IV (06:04)
[2023-08-05] MEDS: lactated ringers 1,000 ML 90 ML IV (06:07)
[2023-08-05] MEDS: atorvastatin 40 mg Tablet 20 MG PO (07:39)
[2023-08-05] MEDS: tamsulosin 0.4 mg Capsule 0.400000000000000022 MG PO (07:39)
[2023-08-05] MEDS: nicotine 21 mg Patch 1 PATCH TRANSDERMA (07:40)
[2023-08-05] MEDS: pantoprazole DR 40 mg Tablet PO (07:40)
[2023-08-05] MEDS: docusate sodium 100 mg Capsule PO (07:40)
--- NOTE | 2023-08-05 08:01 | P.DS_ITS ---
Discharge Providers Date of Admission: 07/30/23 12:38 Date of Discharge: August 05, 2023 Attending Provider at Admission: Bernabe Carbajal DO Attending Provider at Discharge: Bernabe Carbajal DO Primary Care Provider: Talita Winn MD Diagnoses at Discharge Discharge Diagnosis (1) Painful orthopaedic hardware: Status: Acute Reason for Visit Reason for Visit: T84.84XA, M54.9 Physical Exam Narrative: Pain going down right leg is gone. Discharge Data Studies Completed and Pending Completed Studies During Hospitalization Category Date Time Status CT bony pelvis 23913 Routine Cat Scan 07/31/23 07:[address] lumbar spine wo con* [id number] Routine Cat Scan 07/31/23 07:14 Completed XR lumbar spine 2-3V* [id number] Routine Exams 07/30/23 14:16 Completed MR lumbar spine wo con* [id number] Routine MRI 08/01/23 07:29 Completed Pending at discharge Category Date Time Status C-arm Fluoroscopy [id number] Routine Exams 08/04/23 06:32 Taken Laboratory Results WBC 7.27 10^3/uL (3.29-11.43) 08/02/23 17:05 RBC 3.58 10^6/uL (3.85-5.65) L 08/02/23 17:05 Hgb 10.80 g/dL (11.27-16.99) L 08/02/23 17:05 Hct 33.4 % (37-53) L 08/02/23 17:05 MCV 93.3 fl (82-101) 08/02/23 17:05 MCH 30.2 pg (27-33) 08/02/23 17:05 MCHC 32.3 g/dL (30-55) 08/02/23 17:05 RDW 14.8 % (12.1-15.1) 08/02/23 17:05 Plt Count 304 10^3/cmm (157-399) 08/02/23 17:05 MPV 8.8 fL (7.4-10.4) 08/02/23 17:05 Neut % (Auto) 65.5 % 08/02/23 17:05 Lymph % (Auto) 21.3 % 08/02/23 17:05 Elbert % (Auto) 9.2 % 08/02/23 17:05 Eos % (Auto) 3.2 % 08/02/23 17:05 Baso % (Auto) 0.4 % 08/02/23 17:05 Neut # (Auto) 4.76 10^3/uL (1.8-7.7) 08/02/23 17:05 Lymph # (Auto) 1.6 10^3/uL (0.8-4.8) 08/02/23 17:05 Elbert # (Auto) 0.7 10^3/uL (0.2-0.9) 08/02/23 17:05 Eos # (Auto) 0.2 10^3/uL (0.0-0.8) 08/02/23 17:05 Baso # (Auto) 0.0 10^3/uL (0.0-0.1) 08/02/23 17:05 Nucleated RBC % (auto) 0 % 08/02/23 17:05 Nucleated RBCs # 0.0 /100WBC 08/02/23 17:05 Vitals Last Vital Signs Temp 98.4 F 08/05/23 07:35 Pulse 92 08/05/23 07:35 Resp 16 08/05/23 07:35 BP 124/76 08/05/23 07:35 Pulse Ox 95 08/05/23 07:35 O2 Del Method Room Air 08/05/23 07:35 O2 Flow Rate 6 08/04/23 10:03 Discharge Plan Discharge Patient Disposition: Home Condition: Stable Prescriptions: New Percocet 10-325 mg tablet 1 - 2 tab PO Q4H PRN (Reason: pain) 7 Days Qty: 40 0RF Continued Narcan 4 mg/actuation spray,non-aerosol 1 spray intranasal Q2M PRN (Reason: Opioid Reversal) Rx Instructions: spray 1 dose into ONE nostril; alternate nostrils w each dose until help arrives (DME) gauntlet AFO to the left See Rx Instructions .Route .MEDSUPPLY Qty: 1 0RF Rx Instructions: As directed by [facility] (DME) TENS unit See Rx Instructions .Route .MEDSUPPLY Qty: 1 0RF Rx Instructions: As directed oxycodone 10 mg tablet 10 - 20 mg PO Q8H PRN (Reason: pain) 7 Days Qty: 40 0RF (DME) Accommodative orthotics See Rx Instructions .Route .MEDSUPPLY Qty: 1 0RF Rx Instructions: As directed by [facility] tamsulosin [Flomax] 0.4 mg capsule 0.4 mg PO DAILY Qty: 30 4RF sucralfate [Carafate] 1 gram tablet 1 g PO Q6H Qty: 120 2RF Rx Instructions: TAKE ONE TABLET BY MOUTH EVERY 6 HOURS albuterol sulfate [ProAir HFA] 90 mcg/actuation HFA aerosol inhaler 2 puff inhalation PRN PRN (Reason: Wheezing) Qty: 6.7 0RF atorvastatin 20 mg tablet 20 mg PO DAILY Qty: 30 3RF Rx Instructions: Needs appointment and labs pantoprazole [Protonix] 40 mg tablet,delayed release (DR/EC) 40 mg PO DAILY 30 Days Qty: 30 3RF Discharge Orders: Discharge Order (Routine); Ordered 08/05/23 Ordered By: Bernabe Carbajal Referrals: Bernabe Carbajal DO [Physician] - 08/12/23 8:15 am Talita Winn MD [Primary Care Provider] - Discharge Diet: Advance as tolerated Discharge Activity: Limit activity as instructed Patient Instructions: Opioid Safety Activity Restrictions/Additional Instructions: Thank you for [facility] for your care! The following is a list of instructions, from your provider, to follow upon your discharge to ensure you have the optimal recovery from your recent injury orsurgery. Follow-up care is a caraballo part of your treatment and safety. Be sure to make and go to all appointments, and call your doctor if you are having problems. If you do not already have a follow-up appointment made, call Dr. Carbajal office in the next 1-3 days to make follow up appointment for 1 weeks at [phone]. It is also a good idea to know your test results and keep a list of the medicines you take. Medications will be prescribed for you at your provider's discretion. These medications are to be used as instructed; if they are taken more often that prescribed they will not be refilled early and in most cases will not be refilled at all. > When a refill is needed,you should contact misty garcia 2-3 business days before your prescription runs out. Medications will NOT be refilled by graphic production artist providers after hours! > Many pain medications contain Tylenol (Acetaminophen). Do not consume more than 4,000 mg of Tylenol per day in total with any combination ofmedications. > Pain medications can cause constipation. Please use an over the counter stool softener as directed, while taking pain medications. Consulty our local pharmacist with questions or recommendations on stool softeners. If constipation persists, contact our office or your primary care provider. > While under our care,you are not to receive pain medications or other controlled substances from any other provider unless our office is notified and approves. Any attempts to do so will result in refusal to prescribe any further pain medications and possible dismissal from our practice. ? Your wound and/or dressing should remain clean and dry for 7 days after surgery. On postoperative day 7 in the clinic. Pad dry afterwards. No further dressing should be required from that point on. Do not put any creams or ointments on theincision > It is normal for there to be a small amount of discharge (bloody or blood tinged) present from a surgical wound for the first 1-3days. > The wound should be examined twice a day for signs of infection. Mild redness or bruising is to be expected but indications that an infection maybe starting would include; An increase in redness, swelling, or discharge, a foul odor present around the incision, and/or a fever greater than 101 ?F ? Showering is permitted, however we ask that you do not take a bath, sit in a whirlpool / Jacuzzi, or go swimming for 1 month. For only the first 2 days after surgery, lt wilt be necessary for you to cover your wound/dressing with plastic and tape to keep it dry. ? Walking is essential for the healing process after surgery. We would like you to slowly advance your walking. This should be done on relatively flat clear ground (inside or out) or can be done on a treadmill. Remember this goal does not have to happen all at once, slowly increase your distance and duration. This can be broken into more more than one walk per day as tolerated. Patients who walk as directed after surgery rarely require Physical Therapy. In the unlikely event this issue arises your provider will direct hospital staff to make the appropriate arrangements. ? No lifting over 5 pounds {a gallon of milk) or bending/twisting until further notice. Each of these activities places an unnecessary amount of stress onto the body and can impede the delicate healing process. > Instead of bending at the waist, keep your back straight and bend at the knees. > Instead of twisting your torso, keep your back straight and turn your entire body with your feet. ? You may sleep in any position which makes you comfortable. Many patie nts find comfort sleeping in a reclining chair. It is not abnormal to have difficulty sleeping for the first several weeks following your surgery. We recommend trying Benadry! or Tylenol PM as directed to help with your sleeping difficulties. Both medications are over the counter and available withoutprescription. ? NO SMOKING!!! Smoking dramatically increases the probability of developing postoperative wound infections. ? Common complaints after lumbar and/or thoracic spine surgery include, but are not limited to: numbness and/or tingling in the legs, pain around the incision and surrounding tissues, muscle spasms, or stiffness of the middle to low back. Contact our office if these symptoms persist or if an acute change occurs. ? No driving for the first 3-5days, and not while taking narcotics [] until seen at your follow-up appointment and cleared. There are no restrictions for riding on short trips, however if you take a longer trip, arrangements should be made to make regular stops to get out of the vehicle and stretch . ? Swelling is an unfortunate event that will take place with any surgery and is the primary source of your postoperative discomfort. While walking and regular approved activities helps control inflammation, there are additional steps you can take to minimizeswelling. > Place ice over the surgical site and surrounding tissue for twenty minutes, followed by applying a low/medium heat (heating pad) for an additional twenty minutes every 1-2 hours as needed for painrelief. > You may use of over the counter anti-inflammatory medications (Ibuprofen, Motrin, Aleve, Advil, etc) as directed on the package label. These types of medicines wm significantly reduce the amount of discomfort you experience after surgery from swelling. It should be noted that if you have and allergy to any of these medications, or a history of ulcers or kidney disease you should consult you primary care provider prior to starting these m edications. Discharge Attestations Time Spent in Discharge Care*: less than 30 min Status at Discharge: Cognitive status at discharge: cognitively intact , Behavioral status at discharge: [facility] , Quality Metrics Clinical Quality Measures [ No reported AMI, CVA or VTE this stay] Coding Level of Care Code Acute Code for Chg Fwd Diagnoses Painful orthopaedic hardware T84.84XA
== END 2023-08-05 09:57 | disposition home or self-care (01) | DRG 517 ==
LOC: MEDSURG 15:56
PROVIDERS: Admitting Provider Orthopaedic Surgery; PCP Family Medicine; Visit Provider Orthopaedic Surgery
PROC: 0RPA04Z Removal of Internal Fixation Device from Thoracolumbar Vertebral Joint, Open Approach (ICD-10-PCS; principal; 2023-07-30 07:00)
PROC: 0SP304Z Removal of Internal Fixation Device from Lumbosacral Joint, Open Approach (ICD-10-PCS; principal; 2023-08-04 07:00)
DX: T84.84XA Pain due to internal orthopedic prosthetic devices, implants and grafts, initial encounter (principal); F17.210 Nicotine dependence, cigarettes, uncomplicated; M54.9 Dorsalgia, unspecified; K21.9 Gastro-esophageal reflux disease without esophagitis; N40.1 Benign prostatic hyperplasia with lower urinary tract symptoms; M25.551 Pain in right hip; Y99.9 Unspecified external cause status
CPT/HCPCS: 72020; 72100; 72131; 72148; 72192; 76000; 85025; 93005; 97116; 97161; J0131; J0690; J1100; J1170; J1885; J2175; J2250; J2371; J2405; J2704; J3010; J3370; J3475; J3490; J7030; J7120

== ENCOUNTER → 2023-08-12 08:20 | Outpatient (BNVA) | payer MEDICARE, MEDICAID, SELFPAY | PROVIDERS: PCP Family Medicine; Visit Provider Orthopaedic Surgery | DX: R10.9 Unspecified abdominal pain (principal); T84.84XA Pain due to internal orthopedic prosthetic devices, implants and grafts, initial encounter; X58.XXXA Exposure to other specified factors, initial encounter | CPT/HCPCS: 99024 ==

== ENCOUNTER 2023-08-12 21:52 | Emergency (ER) | payer MEDICARE, MEDICAID, SELFPAY ==
[2023-08-12 21:54] VITALS: BP 131/85; PULSE 108; RESP 18; TEMP 36.9; O2SAT 99; BMI 19.7
--- NOTE | 2023-08-12 22:08 | CTR_ITS ---
PROCEDURE INFORMATION: Exam: CT Lumbar Spine With Contrast Exam date and time: 08/13/2023 12:45 AM Age: 67 years old Clinical indication: Lumbago; Prior surgery; Surgery date: Post-operative (0-2 days); Surgery type: Post-op pain TECHNIQUE: Imaging protocol: Computed tomography of the lumbar spine with contrast. Radiation optimization: All CT scans at this facility use at least one of these dose optimization techniques: automated exposure control; mA and/or kV adjustment per patient size (includes targeted exams where dose is matched to clinical indication); or iterative reconstruction. Contrast material: OMNI 350; Contrast volume: 125 ml; Contrast route: INTRAVENOUS (IV); COMPARISON: MR lumbar spine wo con* [id number] 08/01/2023 2:53 PM RADIATION DOSE METRICS: Total DLP (mGy-cm): 518.3 FINDINGS: Bones/joints: No acute fracture. Normal alignment. No significant disc bulge or herniation. No severe spinal canal stenosis. No significant neural foraminal narrowing. From L1 - S1, there are postoperative changes following removal of bilateral transpedicular screws and supporting rods. Laminectomies are noted from L2 - L5. Soft tissues: In the soft tissues, the level of the laminectomies and posterior to the spine, there are multiple amorphous hypodensities that may represent resolving hematomas, some with faint peripheral enhancement. In the subcutaneous adipose tissue at the midline, there is a rim enhancing hypodensity in measuring 8.3 cm in craniocaudal extent by 1.8 cm transversely by 0.8 cm in anteroposterior dimension, with density measurement of 31 Hounsfield units, above water. Multiple similar collections as seen in the posterior paraspinous muscles. Largest hypodensity is at the level of L5-S1, which extends from the skin to the posterior vertebral body of L5, measuring 5.2 x 1.8 cm. (image 132, series 4). While this shows density measurements slightly above water, it may represent resolving hematoma with some early rim enhancement. Clinical correlation is necessary as to possible superimposed infection. CT/CT lumbar spine w con [id number] IMPRESSION: 1. Postoperative changes as described above. 2. Multiple rim enhancing hypodensities in the posterior paraspinous muscles and in the subcutaneous soft tissues at the midline favored to represent evolving hematomas, the largest at L5 extending left lateral to the dural sac up to the vertebral body. As there is some early rim enhancement, clinical correlation as to presence or absence of infection is recommended.
--- NOTE | 2023-08-12 22:08 | CTR_ITS ---
PROCEDURE INFORMATION: Exam: CT Thoracic Spine With Contrast Exam date and time: 08/13/2023 12:41 AM Age: 67 years old Clinical indication: Pain in thoracic spine; Additional info: Post-op pain TECHNIQUE: Imaging protocol: Computed tomography of the thoracic spine with contrast. Radiation optimization: All CT scans at this facility use at least one of these dose optimization techniques: automated exposure control; mA and/or kV adjustment per patient size (includes targeted exams where dose is matched to clinical indication); or iterative reconstruction. Contrast material: OMNI 350; Contrast volume: 125 ml; Contrast route: INTRAVENOUS (IV); COMPARISON: CR XR thoracic spine 3V* [id number] 08/13/2022 8:01 AM RADIATION DOSE METRICS: Total DLP (mGy-cm): 644.71 FINDINGS: Bones/joints: No acute fracture. Normal alignment. There is a mild levoconvex curvature of the thoracic spine. No significant disc bulge or herniation. No severe spinal canal stenosis. No significant neural foraminal narrowing. Degenerative disc disease and vacuum disc at T8-T9, T9-T10 and T10-T11. From T10- L2, there are postoperative changes following removal of transpedicular screws and supporting rods. Bone chips posterior to the facet joints show early healing changes. Soft tissues: Two residual soft tissue gas bubbles are seen posterior to the left pedicle of L1. No large fluid collections identified. Lungs: The included lung garcia show mild centrilobular and paraseptal emphysematous changes with upper lobe predominance. CT/CT thoracic spine w con [id number] IMPRESSION: Redemonstration of postoperative changes. Most of the soft tissue gas that resolved. No large fluid collections are noted.
[2023-08-12] MEDS: ondansetron 2 mg/ML SDV 2 mL 4 MG IVP (22:21)
[2023-08-12 22:23] VITALS: RESP 32
[2023-08-12] MEDS: fentaNYL 50 mcg/mL INJ 2mL IVP (22:23)
[2023-08-12 22:46] LABS: Erythrocyte Sedimentation Rate 29 mm/hr (0-10)
[2023-08-12 22:47] LABS: Basophils % 0.3 %; Eosinophils # 0.1 10^3/uL (0.0-0.8); Eosinophils % 1.2 %; Hematocrit 33.8 % (37-53); Lymphocytes # 1.1 10^3/uL (0.8-4.8); Lymphocytes % 11.5 %; Mean Corpuscular Hemoglobin 29.7 pg (27-33); Mean Corpuscular Volume 92.9 fl (82-101); Mean Platelet Volume 8.7 fL (7.4-10.4); Monocytes # 0.6 10^3/uL (0.2-0.9); Monocytes % 6.1 %; Neutrophils # 7.75 10^3/uL (1.8-7.7); Neutrophils % 80.3 %; Nucleated Red Blood Cells % 0 %; Platelet Count 459 10^3/cmm (157-399); Red Blood Count 3.64 10^6/uL (3.85-5.65); Red Cell Distribution Width 14.8 % (12.1-15.1); White Blood Count 9.66 10^3/uL (3.29-11.43)
[2023-08-12 22:58] LABS: INR 0.97 (0.8-1.2)
[2023-08-12 23:09] LABS: Alanine Aminotransferase 6 U/L (0-41); Albumin Level 3.5 g/dL (3.5-5.2); Alkaline Phosphatase 82 U/L (40-130); Anion Gap 14.8 (5-19); Aspartate Amino Transferase 9 U/L (0-40); Blood Urea Nitrogen 13 mg/dL (8-23); C Reactive Protein 13.5 mg/L (0.0-4.9); Calcium 8.9 mg/dL (8.5-10.5); Carbon Dioxide 24 mmol/L (22-29); Chloride 103 mmol/L (98-107); Creatinine Clr Calc Pharmacy 101.9648; Globulin 3.5 g/dL (1.3-4.6); Glomerular Filtration Rate 166.4 mL/min (90-130); Glucose 105 mg/dL (65-115); Osmolality Calculated 286 mOsm/kg (285-295); Potassium 3.8 mmol/L (3.5-5.1); Sodium 138 mmol/L (136-145); Total Bilirubin 0.2 mg/dL (0.15-1.2)
[2023-08-12 23:16] LABS: Procalcitonin 1.81 ng/mL (0-0.5)
[2023-08-12 23:37] LABS: Add Urine Microscopic? NO; Charge for UA Resulting for Rev
[2023-08-12 23:47] LABS: Bilirubin Urine Neg (Negative); Blood Urine Neg (Negative); Glucose Urine UA Norm (Normal); Ketones Urine Negative (Negative); Leukocyte Esterase Urine Negative (Negative); Nitrate Urine Negative (Negative); Protein Urine Neg (Negative); Urine Appearance Clear (CLEAR); Urine Color Yellow (Yellow); Urobilinogen Urine Neg (Negative); pH Urine 5 (5-7)
[2023-08-12 23:48] LABS: Amphetamines Screen Urine Negative (Negative); Barbiturates Screen Urine Negative (Negative); Benzodiazepines Screen Urine Positive (Negative); Cocaine Screen Urine Negative (Negative); Opiate Screen Urine Positive (Negative); PCP Screen Urine Negative (Negative); THC Screen Urine Positive (Negative)
[2023-08-13] MEDS: iohexol 350 mg/mL 500 mL Btl (per mL) IV (01:07)
--- NOTE | 2023-08-13 01:51 | ED_ITS ---
HPI - Back Pain/Injury 2 General: Chief Complaint: Back Pain/Injury Stated Complaint: back pain, post op surgery Time Seen by Provider: 08/12/23 22:22 History of Present Illness: 67-year-old male presents to the emergen cy department via EMS personnel with complaints of low back pain. The patient states that he was seen by Dr. Carbajal for his postoperative office visit yesterday and had orthopedic spinal hardware removed on August 04, 2023. He states he was discharged from the hospital on August 04 and has been doing well since that time until yesterday when he started having some low back pain. He states he was initially given Percocet but feels that it is not controlling his pain at present. He states his pain currently is a 10 out of 10 sharp and constant. He denies paresthesia or paralysis. He denies urinary or bowel retention or incontinence. He denies fevers chills or night sweats. He is able to stand and ambulate without difficulty at present. Associated symptoms: Deny abdominal pain, chills, fatigue, fever(s), nausea or vomiting Review of Systems 2 General: Reports: 10 or more systems reviewed and unremarkable except in HPI and below Const: Denies: fever(s), chills, fatigue or malaise GI: Denies: abdominal pain, nausea or vomiting Musc: Reports: back pain; Denies: extremity swelling PFSH ED 2 PFSH: Medical History Chronic prostatitis History of broken leg BPH loc w urin obs/LUTS Surgical History History of cholecystectomy History of bilateral inguinal hernia repair H/O shoulder surgery History of ankle surgery History of elbow surgery History of hernia surgery Family History Father , AT AGE 73 Murder Mother , AT AGE 42 Cancer COLON Social History Smoking and tobacco/nicotine status: current every day tobacco/nicotine user cigarettes Packs smoked per day: 0.25 Years cigarettes smoked: 35 Second hand smoke exposure: No Alcohol intake: never Substance/Drug Use: never Adopted: Yes Lives independently: Yes Household members: none Marital status: Number of children: 2 service: No Current occupational status: retired Current gender identity: Male Special alejandro needs: No Agree to transfusion: Yes Physical Exam 2 Narrative: EXAM NARRATIVE: Constitutional: the patient appears well nourished and with normal development. Vital signs reviewed as documented. Appears in moderate pain. HENMT: Normocephalic, atraumatic. External ears normal appearance without drainage. Nose without drainage, normal appearance. Mucus membranes moist. Neck is supple, No jugular venous distension, trachea is midline, no appreciable carotid bruits. No lymphadenopathy. No meningeal signs. Flexion, extension and lateral rotation is without pain. Eyes: Pupils are equal, round, reactive to light and accommodation. No scleral icterus. Extra-ocular movement are intact. Thorax is symmetrical and with equal rise and fall with respirations. Resp: Lungs are clear to auscultation. No wheezes, rales, crackles or ronchi at present. Cardio: Regular rate and rhythm. Positive S1, S2. No appreciable murmurs, rubs or gallops. GI: Abdominal exam reveals normal bowel sounds to all quadrants. No organomegaly. No obvious palpable masses noted. No hepatomegally appreciated. Soft, non-tender to palpation. Extremity: Extremities are non-edematous and both femoral and pedal pulses are 2+ and equal bilaterally. Moves all extremities well, sensation in all extremities. Neuro: Alert and oriented x4, person, place, time and situation. Cranial nerves II through XII are grossly intact, there is no focal neurological deficits that I can appreciate at present. Sensation intact to all extremities. 2-point discrimination intact. Light touch intact to all extremities. Motor strength in the upper and lower extremities are equal and bilateral 5/5. Psych: Cooperative, calm, normal thought process, appropriate judgment. Skin: No lesions, rashes. No gross abnormalities noted. Back: Symmetrical, no obvious deformity, No CVA tenderness, there is a poorly attached postoperative surgical dressing noted. We did remove the surgical dressing to review the postoperative surgical scar that appears to be well- healed and well-approximated without signs of infection or drainage. Course 2 ED course: I contacted Dr. Carbajal the orthopedic spine surgeon who had seen the patient in his office yesterday and had evaluated the patient's wound. I advised Dr. Carbajal that the radiologist had contacted me and discussed the findings that are consistent with multiple hypodensities that may represent hematomas that have faint peripheral enhancement. Dr. Garcia that there was also a rim-enhancing hypodensity measuring 8.3 cm in the craniocaudal extending by 1.8 cm transversely by 0.8 cm in the anterior posterior dimension with a density measuring of 31 Hounsfield [address]. I advised Dr. Carbajal that the radiologist stated the largest hypodensity is at the level of L5-S1 extending from the skin to the posterior vertebral body of L5 measuring 5.2 x 1.8 cm and that this may also represent a resolving hematoma with early rim enhancement. I did discuss the potential that the hypodensity at L5 could have an infectious nature, as the patient's ESR was elevated at 29 and the patient's CRP was also elevated to 13.5. The patient's postoperative surgical site did not appear to be reddened or have signs of infection or drainage, the patient's white blood cell count was in the normal range of 9.66 and the patient has remained afebrile and with these findings Dr. Carbajal felt that these were not related to an infectious process but to a resolving postoperative hematomas. I did have an extensive discussion with the patient regarding red flags which included the onset of fever, chills, rigors, increased fatigue and weakness and that if any of these are experienced by the patient he would return to the emergency department immediately for additional evaluation treatment and care. The patient verbalized understanding of all information provided and was provided this information at the time of discharge. Reevaluation(s): Reevaluation #1: Reevaluation of the patient after he received fentanyl and Zofran, patient states that he feels much better and that his pain is well-controlled. Patient's vital signs have remained stable while in the emergency department he has remained afebrile with no active signs of infection at present. Time: 04:30 Vital Signs: Vital signs: Vital Signs Temperature 98.4 F 08/12/23 21:54 Pulse Rate 91 08/13/23 03:31 Respiratory Rate 21 H 08/13/23 03:31 Blood Pressure 130/74 08/13/23 03:31 Pulse Oximetry 95 08/13/23 03:31 Oxygen Delivery Me thod Room Air 08/12/23 21:54 MDM - Back Pain/Injury Medical Decision Making Physical exam completed and documented I did review the patient's previous medical records as well as the postoperative note from Dr. Carbajal. I will provide the patient IV pain medications as well as laboratory evaluation to include a CBC and CMP ESR and CRP to evaluate for infection. I will provide him IV pain medication as well as a repeat CT scan for evaluation of possible paraspinal abscess or infected subcutaneous tissue. I did contact Dr. Carbajal his orthopedic spine surgeon and discussed the CT scan results with him. At this time Dr. Carbajal felt that there was not an infectious process and that the patient could be discharged home with recommended follow-up as previously scheduled. Patient was advised of his laboratory and radiographic findings and is in agreement with this plan. Medical Records I reviewed the patient's medical records. Labs I reviewed the patient's lab results. 08/12/23:08/12/23 22: Radiology Impressions Lumbar Spine CT 08/12/23 22:08 IMPRESSION: 1. Postoperative changes as described above. 2. Multiple rim enhancing hypodensities in the posterior paraspinous muscles and in the subcutaneous soft tissues at the midline favored to represent evolving hematomas, the largest at L5 extending left lateral to the dural sac up to the vertebral body. As there is some early rim enhancement, clinical correlation as to presence or absence of infection is recommended. ADDENDUM: 08/13/23 0516 Findings were discussed with WYATT CHAVEZ at 08/13/2023 5:14 AM CDT. Thoracic Spine CT 08/12/23 22:08 IMPRESSION: Redemonstration of postoperative changes. Most of the soft tissue gas that resolved. No large fluid collections are noted. Laboratory Results WBC 9.66 10^3/uL (3.29-11.43) 08/12/23 22: RBC 3.64 10^6/uL (3.85-5.65) L 08/12/23: Hgb 10.80 g/dL (11.27-16.99) L 08/12/23: Hct 33.8 % (37-53) L 08/12/23: MCV 92.9 fl (82-101) 08/12/23: MCH 29.7 pg (27-33) 08/12/23: MCHC 32.0 g/dL (30-55) 03/12/24 22:21 RDW 14.8 % (12.1-15.1) 08/12/23 22:21 Plt Count 459 10^3/cmm (157-399) H 08/12/23 22:21 MPV 8.7 fL (7.4-10.4) 08/12/23 22:21 Neut % (Auto) 80.3 % 08/12/23 22:21 Lymph % (Auto) 11.5 % 08/12/23 22:21 [place] % (Auto) 6.1 % 08/12/23 22:21 Eos % (Auto) 1.2 % 08/12/23 22:21 Baso % (Auto) 0.3 % 08/12/23 22:21 Neut # (Auto) 7.75 10^3/uL (1.8-7.7) H 08/12/23 22:21 Lymph # (Auto) 1.1 10^3/uL (0.8-4.8) 08/12/23 22:21 [place] # (Auto) 0.6 10^3/uL (0.2-0.9) 08/12/23 22:21 Eos # (Auto) 0.1 10^3/uL (0.0-0.8) 08/12/23 22:21 Baso # (Auto) 0.0 10^3/uL (0.0-0.1) 08/12/23 22:21 Nucleated RBC % (auto) 0 % 08/12/23 22:21 Nucleated RBCs # 0.0 /100WBC 08/12/23 22:21 ESR 29 mm/hr (0-10) H 08/12/23 22:21 PT 13.20 SECONDS (12.1-14.9) 08/12/23 22:21 INR 0.97 (0.8-1.2) 08/12/23 22:21 APTT 38.0 SECONDS (23.9-36.7) H 08/12/23 22:21 Sodium 138 mmol/L (136-145) 08/12/23 22:21 Potassium 3.8 mmol/L (3.5-5.1) 08/12/23 22:21 Chloride 103 mmol/L (98-107) 08/12/23 22:21 Carbon Dioxide 24 mmol/L (22-29) 08/12/23 22:21 Anion Gap 14.8 (5-19) 08/12/23 22:21 BUN 13 mg/dL (8-23) 08/12/23 22:21 Creatinine 0.5 mg/dL (0.7-1.2) L 08/12/23 22:21 GFR Calculation 166.4 mL/min (90-130) H 08/12/23 22:21 Glucose 105 mg/dL (65-115) 08/12/23 22:21 Calculated Osmolality 286 mOsm/kg (285-295) 08/12/23 22:21 Calcium 8.9 mg/dL (8.5-10.5) 08/12/23 22:21 Total Bilirubin 0.2 mg/dL (0.15-1.2) 08/12/23 22:21 AST 9 U/L (0-40) 08/12/23 22:21 ALT 6 U/L (0-41) 08/12/23 22:21 Alkaline Phosphatase 82 U/L (40-130) 08/12/23 22:21 C-Reactive Protein 13.5 mg/L (0.0-4.9) H 08/12/23 22:21 Total Protein 7.0 g/dL (6.6-8.7) 08/12/23 22:21 Albumin 3.5 g/dL (3.5-5.2) 08/12/23 22:21 Globulin 3.5 g/dL (1.3-4.6) 08/12/23 22:21 Procalcitonin 1.81 ng/mL (0-0.5) H 08/12/23 22:21 Urine Color Yellow (Yellow) 08/12/23 23:19 Urine Appearance Clear (CLEAR) 08/12/23 23:19 Urine pH 5 (5-7) 08/12/23 23:19 Ur Specific [place] 1.020 (1.005-1.030) 08/12/23 23:19 Urine Protein Neg (Negative) 08/12/23 23:19 Urine Glucose (UA) Norm (Normal) 08/12/23 23:19 Urine Ketones Negative (Negative) 08/12/23 23:19 Urine Blood Neg (Negative) 08/12/23 23:19 Urine Nitrate Negative (Negative) 08/12/23 23:19 Urine Bilirubin Neg (Negative) 08/12/23 23:19 Urine Urobilinogen Neg mg/dL (Negative) 08/12/23 23:19 Ur Leukocyte Esterase Negative (Negative) 08/12/23 23:19 Urine Opiates Screen Positive ng/mL (Negative) H 08/12/23 23:19 Ur Barbiturates Screen Negative ng/mL (Negative) 08/12/23 23:19 Ur Phencyclidine Scrn Negative ng/mL (Negative) 08/12/23 23:19 Ur Amphetamines Screen Negative ng/mL (Negative) 08/12/23 23:19 U Benzodiazepines Scrn Positive ng/mL (Negative) H 08/12/23 23:19 Urine Cocaine Screen Negative ng/mL (Negative) 08/12/23 23:19 U Marijuana (THC) Screen Positive ng/mL (Negative) H 08/12/23 23:19 All radiology interpretation(s) finalized by discharge Discharge Plan Discharge Patient Disposition: Home Clinical Impression: Postoperative back pain Condition: Stable Prescriptions: New oxycodone-acetaminophen [Percocet] 5-325 mg tablet 1 tab PO Q6H PRN (Reason: pain) Qty: 14 0RF No Action Narcan 4 mg/actuation spray,non-aerosol 1 spray intranasal Q2M PRN (Reason: Opioid Reversal) Rx Instructions: spray 1 dose into ONE nostril; alternate nostrils w each dose until help arrives (DME) gauntlet AFO to the left See Rx Instructions .Route .MEDSUPPLY Qty: 1 0RF Rx Instructions: As directed by [facility] (DME) TENS unit See Rx Instructions .Route .MEDSUPPLY Qty: 1 0RF Rx Instructions: As directed oxycodone 10 mg tablet 10 - 20 mg PO Q8H PRN (Reason: pain) 7 Days Qty: 40 0RF prednisone 20 mg tablet 20 mg PO DAILY Qty: 15 0RF Rx Instructions: 60mg for three days, 40mg for 2 days, 20mg for 2 days (DME) Accommodative orthotics See Rx Instructions .Route .MEDSUPPLY Qty: 1 0RF Rx Instructions: As directed by [facility] tamsulosin [Flomax] 0.4 mg capsule 0.4 mg PO DAILY Qty: 30 4RF sucralfate [Carafate] 1 gram tablet 1 g PO Q6H Qty: 120 2RF Rx Instructions: TAKE ONE TABLET BY MOUTH EVERY 6 HOURS albuterol sulfate [ProAir HFA] 90 mcg/actuation HFA aerosol inhaler 2 puff inhalation PRN PRN (Reason: Wheezing) Qty: 6.7 0RF atorvastatin 20 mg tablet 20 mg PO DAILY Qty: 30 3RF Rx Instructions: Needs appointment and labs pantoprazole [Protonix] 40 mg tablet,delayed release (DR/EC) 40 mg PO DAILY 30 Days Qty: 30 3RF Discharge Orders: Discharge ED (Routine); Ordered 08/13/23 Ordered By: Wyatt Chavez Referrals: Talita Winn MD [Primary Care Provider] - Discharge Diet: Usual diet Discharge Activity: Limit activity as instructed Patient Instructions: Opioid Safety, Pain Management Activity Restrictions/Additional Instructions: Activity Restrictions/Additional Instructions: Thank you for choosing [facility] for your healthcare needs today. Please realize that you were seen in the Emergency Department and that we are providing you with an emergency medical screening exam and this may not be a complete and all inclusive of all the testing and or medical work-up that you may need to determine your ailment or severity of your illness. It is very important that you follow-up as instructed with your Primary care provider or Specialist for additional evaluation and to discuss your medical treatment plan. Return to the Emergency Department should you have concerns or if your condition changes or worsens in any way or if you experience fevers, chills, increased weakness or fatigue or drainage from your surgical site. It is also very important to keep your postoperative follow-up appointments as scheduled. Coding Level of Care Code ED Sterilisation Technician for [facility]
[2023-08-13 01:56] VITALS: BP 127/77; PULSE 91; RESP 21; O2SAT 93
[2023-08-13 03:31] VITALS: BP 130/74; PULSE 91; RESP 21; O2SAT 95
[2023-08-13] MEDS: oxyCODONE-APAP 10-325 mg Tablet 1 TAB PO (06:33)
[2023-08-13 08:49] VITALS: RESP 20
[2023-08-13] MEDS: oxyCODONE-APAP 5-325 mg Tablet 1 TAB PO (08:49)
--- NOTE | 2023-08-13 08:57 | PC.NURSE ---
pt was DC'd at time day shift assumed care. pt is to be held in ED until MRI is complete and brought back to ED to figure out dispo. pt is resting in room at this time in NAD. MRI scheduled for 1014.
[2023-08-13 09:05] VITALS: BP 116/63; PULSE 96; O2SAT 91
[2023-08-13 10:00] VITALS: BP 122/72
--- NOTE | 2023-08-13 10:07 | PC.NURSE ---
PT taken to MRI 1000
--- NOTE | 2023-08-13 10:46 | PC.NURSE ---
pt back from MRI at 1045. MRI reports they were unable to perform test due to pt not cooperating.
== END 2023-08-13 11:00 | disposition home or self-care (01) ==
PROVIDERS: Emergency Provider Internal Medicine; PCP Family Medicine
DX: G89.18 Other acute postprocedural pain (principal); M54.50 Low back pain, unspecified; F17.210 Nicotine dependence, cigarettes, uncomplicated
CPT/HCPCS: 36415; 72129; 72132; 80053; 80306; 81003; 84145; 85025; 85610; 85651; 85730; 86140; 87040; 96374; 96375; 99285; J2405; J3010; Q9967

== ENCOUNTER → 2023-08-19 15:28 | Outpatient (BNVA) | payer MEDICARE, MEDICAID, SELFPAY | PROVIDERS: PCP Family Medicine; Visit Provider Orthopaedic Surgery | DX: M25.551 Pain in right hip (principal); T84.84XA Pain due to internal orthopedic prosthetic devices, implants and grafts, initial encounter; X58.XXXA Exposure to other specified factors, initial encounter | CPT/HCPCS: 73502; 99024 ==

== ENCOUNTER 2023-09-11 11:53 | Emergency (ER) | payer MEDICARE, MEDICAID, SELFPAY ==
[2023-09-11 11:54] VITALS: BP 120/67; PULSE 94; TEMP 36.9; O2SAT 90; BMI 19.6
--- NOTE | 2023-09-11 12:08 | CT_ITS ---
WS: [id number] CT LUMBAR SPINE, noncontrast. HISTORY: Low back pain, fall TECHNIQUE: Contiguous 2.0 mm axial imaging are performed. Sagittal and coronal reformats are submitte d and reviewed. All CT scans at [facility] use at least one of these dose optimization techni ques: automated exposure control; mA and/or kV adjustment per patient size (includes targeted exams w here dose is matched to clinical indication); or iterative reconstruction. IV contrast: None DLP: 447.48 mGy.cm COMPARISON: 08/13/2023 Mild reverse curvature lumbar spine. Disc bases are narrowed. Postoperative changes are still apparen t in the vertebral bodies and pedicles from removal of screws and rods. Laminectomies from L2-L5. No acute compression fractures identified. The changes involving the endplates and the disc are stable t o 08/13/2023. There is a small amount of persistent air in the soft tissues adjacent to the LEFT L5 pe dicle screw removal site. No severe spinal canal stenosis. Foraminal narrowing from L1-L2 as before. Postoperative changes michael g the posterior paraspinal region cannot be further evaluated without IV contrast. Multiple fluid col lections were identified on the study from 08/13/2023. Some of these are fluid collections are still p resent. IMPRESSION: 1. No acute lumbar spine fracture. 2. Extensive laminectomy defects from L2-L5. Vertebral body defects from transpedicular screw remova l. 3. 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 4. Fluid collections are still evident along the posterior paraspinal postoperative site. Better see n on the prior study from 08/13/2023 with contrast.
[2023-09-11 12:18] VITALS: BP 105/77; PULSE 98; O2SAT 95
[2023-09-11 12:29] VITALS: RESP 18
[2023-09-11] MEDS: oxyCODONE-APAP 10-325 mg Tablet 1 TAB PO ×2 (12:29→13:43)
--- NOTE | 2023-09-11 12:30 | ED_ITS ---
HPI - Back Pain/Injury 2 General: Chief Complaint: Back Pain/Injury Stated Complaint: back pain/weakness Time Seen by Provider: 09/11/23 12:08 Source: patient Mode of arrival: EMS History of Present Illness: 68-year-old male presents emergency room complaining of back pain he did slip and fall at home yesterday. He states his back hurts and he feels like he is freezing he said he reports having a fever last night. Reviewing his chart he had [address] Carbajal since October 2021. His most recent surgery was on August 03 where a L5-S1 interbody cage was removed. He states he could not get out of bed this morning. Patient reports fever last night of over 100. MD elicited complaint: back pain Pertinent past history: prior back pain Timing: constant Severity: severe Quality: aching and spasming Location: lumbar spine Exacerbating factors: movement, sitting upright, walking and lifting Relieving factors: supine Associated symptoms: Deny abdominal pain, arthralgias, chills, change in bowel habits, difficulty walking, dysuria, fatigue, fecal incontinence, fever(s), hematuria, myalgias, nausea, numbness, syncope, tingling/numbness/burning, urinary frequency, urinary urgency, vomiting, weakness or other Treatments prior to arrival: prescription analgesics Work related injury: No Review of Systems 2 Const: Denies: fever(s), chills or fatigue Card: Denies: syncope Resp: Denies: dyspnea GI: Denies: abdominal pain, nausea, vomiting, fecal incontinence or change in bowel habits : Denies: dysuria, urinary frequency, urinary urgency or hematuria Musc: Reports: back pain; Denies: neck pain Skin/Breast: Denies: rash Neuro: Denies: difficulty walking PFSH ED 2 PFSH: Medical History Chronic prostatitis History of broken leg BPH loc w urin obs/LUTS Surgical History History of cholecystectomy History of bilateral inguinal hernia repair H/O shoulder surgery History of ankle surgery History of elbow surgery History of hernia surgery Family History Father , AT AGE 73 Murder Mother , AT AGE 42 Cancer COLON Social History Smoking and tobacco/nicotine status: current every day tobacco/nicotine user cigarettes Packs smoked per day: 0.25 Years cigarettes smoked: 35 Second hand smoke exposure: No Alcohol intake: never Substance/Drug Use: never Adopted: Yes Lives independently: Yes Household members: none Marital status: Number of children: 2 service: No Current occupational status: retired Current gender identity: Male Special alejandro needs: No Agree to transfusion: Yes Physical Exam 2 Const: GENERAL APPEARANCE: cooperative and comfortable O RIENTATION/CONSCIOUSNESS: Yes awake, Yes oriented to person, Yes oriented to place and Yes oriented to time HENMT: COMMON NORMALS: normocephalic, atraumatic and hearing grossly normal bilaterally HEAD & SCALP: normocephalic and atraumatic Resp: COMMON NORMALS: normal respiratory effort, No retractions, No use of accessory muscles and clear to auscultation bilaterally AUSCULTATION: clear to auscultation bilaterally Cardio: COMMON NORMALS: regular rate, regular rhythm and No murmurs present (Cardio) RATE: regular rate RHYTHM: regular rhythm GI: COMMON NORMALS: Soft to palpation and No hepatosplenomegaly present A USCULTATION: Yes normoactive bowel sounds PALPATION: Yes Soft to palpation, No Tenderness to palpation present (GI), No Guarding due to palpation present (GI) and Yes No hepatosplenomegaly present Extremity: COMMON NORMALS: normal to inspection, capillary refill normal, no clubbing, cyanosis or edema, no calf tenderness and no pedal edema Neuro: SENSORIUM/ORIENTATION: Yes oriented to person, Yes oriented to place and Yes oriented to time OTHER: No focal neurologic deficits strength in the lower extremities normal. Gait normal sensation and strength are normal. Skin: COMMON NORMALS: no rashes or lesions noted GENERAL SKIN EXAM: no rashes or lesions noted Course 2 Vital Signs: Vital signs: Vital Signs Temperature 98.4 F 09/11/23 11:54 Pulse Rate 81 09/11/23 13:44 Respiratory Rate 18 09/11/23 13:44 Blood Pressure 105/77 09/11/23 12:18 Pulse Oximetry 99 09/11/23 13:44 Oxygen Delivery Me thod Room Air 09/11/23 12:18 MDM - Back Pain/Injury Medical Decision Making CT does not show any acute changes there is some fluid present that was present previously. Discussed Dr. Carbajal. White count slight elevated CRP and ESR are stable and/or declining. Patient prefers to discharge home Dr. Carbajal recommends he follows up as planned. Medical Records I reviewed the patient's medical records. Labs I reviewed the patient's lab results. 09/11/23 12:38 09/11/23 12:38 Laboratory Results WBC 4.66 10^3/uL (3.29-11.43) 09/11/23 12:38 RBC 3.76 10^6/uL (3.85-5.65) L 09/11/23 12:38 Hgb 11.30 g/dL (11.27-16.99) 09/11/23 12:38 Hct 35.8 % (37-53) L 09/11/23 12:38 MCV 95.2 fl (82-101) 09/11/23 12:38 MCH 30.1 pg (27-33) 09/11/23 12:38 MCHC 31.6 g/dL (30-55) 09/11/23 12:38 RDW 15.2 % (12.1-15.1) H 09/11/23 12:38 Plt Count 334 10^3/cmm (157-399) 09/11/23 12:38 MPV 8.7 fL (7.4-10.4) 09/11/23 12:38 Neut % (Auto) 57.2 % 09/11/23 12:38 Lymph % (Auto) 27.7 % 09/11/23 12:38 [place] % (Auto) 10.9 % 09/11/23 12:38 Eos % (Auto) 3.4 % 09/11/23 12:38 Baso % (Auto) 0.6 % 09/11/23 12:38 Neut # (Auto) 2.66 10^3/uL (1.8-7.7) 09/11/23 12:38 Lymph # (Auto) 1.3 10^3/uL (0.8-4.8) 09/11/23 12:38 [place] # (Auto) 0.5 10^3/uL (0.2-0.9) 09/11/23 12:38 Eos # (Auto) 0.2 10^3/uL (0.0-0.8) 09/11/23 12:38 Baso # (Auto) 0.0 10^3/uL (0.0-0.1) 09/11/23 12:38 Nucleated RBC % (auto) 0 % 09/11/23 12:38 Nucleated RBCs # 0.0 /100WBC 09/11/23 12:38 ESR 37 mm/hr (0-10) H 09/11/23 12:38 Sodium 142 mmol/L (136-145) 09/11/23 12:38 Potassium 4.7 mmol/L (3.5-5.1) 09/11/23 12:38 Chloride 105 mmol/L (98-107) 09/11/23 12:38 Carbon Dioxide 28 mmol/L (22-29) 09/11/23 12:38 Anion Gap 13.7 (5-19) 09/11/23 12:38 BUN 10 mg/dL (8-23) 09/11/23 12:38 Creatinine 0.6 mg/dL (0.7-1.2) L 09/11/23 12:38 GFR Calculation 134.4 mL/min (90-130) H 09/11/23 12:38 Glucose 82 mg/dL (65-115) 09/11/23 12:38 Calculated Osmolality 292 mOsm/kg (285-295) 09/11/23 12:38 Calcium 9.2 mg/dL (8.5-10.5) 09/11/23 12:38 Total Bilirubin 0.2 mg/dL (0.15-1.2) 09/11/23 12:38 AST 11 U/L (0-40) 09/11/23 12:38 ALT 6 U/L (0-41) 09/11/23 12:38 Alkaline Phosphatase 99 U/L (40-130) 09/11/23 12:38 C-Reactive Protein 6.6 mg/L (0.0-4.9) H 09/11/23 12:38 Total Protein 6.9 g/dL (6.6-8.7) 09/11/23 12:38 Albumin 3.6 g/dL (3.5-5.2) 09/11/23 12:38 Globulin 3.3 g/dL (1.3-4.6) 09/11/23 12:38 All radiology interpretation(s) finalized by discharge Discharge Plan Discharge Patient Disposition: Home Clinical Impression: Chronic back pain Condition: Stable Prescriptions: No Action Narcan 4 mg/actuation spray,non-aerosol 1 spray intranasal Q2M PRN (Reason: Opioid Reversal) Rx Instructions: spray 1 dose into ONE nostril; alternate nostrils w each dose until help arrives (DME) gauntlet AFO to the left See Rx Instructions .Route .MEDSUPPLY Qty: 1 0RF Rx Instructions: As directed by [facility] (DME) TENS unit See Rx Instructions .Route .MEDSUPPLY Qty: 1 0RF Rx Instructions: As directed (DME) Accommodative orthotics See Rx Instructions .Route .MEDSUPPLY Qty: 1 0RF Rx Instructions: As directed by [facility] tamsulosin [Flomax] 0.4 mg capsule 0.4 mg PO DAILY Qty: 30 4RF sucralfate [Carafate] 1 gram tablet 1 g PO Q6H Qty: 120 2RF albuterol sulfate [ProAir HFA] 90 mcg/actuation HFA aerosol inhaler 2 puff inhalation PRN PRN (Reason: Wheezing) Qty: 6.7 0RF atorvastatin 20 mg tablet 20 mg PO DAILY Qty: 30 3RF pantoprazole [Protonix] 40 mg tablet,delayed release (DR/EC) 40 mg PO DAILY 30 Days Qty: 30 3RF oxycodone-acetaminophen 5-325 mg tablet 1 tab PO Q4H MDD 6 PRN (Reason: pain) 30 Days Qty: 120 0RF Discharge Orders: Discharge ED (Routine); Ordered 09/11/23 Ordered By: Deric Torres Referrals: Talita Winn MD [Primary Care Provider] - Discharge Diet: Usual diet Discharge Activity: Increase activity as tolerated Patient Instructions: Opioid Safety, Pain Management Activity Restrictions/Additional Instructions: Thank you for choosing [facility] for your healthcare needs today. Please realize this is an emergency room and that we are providing you with a medical screening exam and this may not be complete and all inclusive of all the testing and or work up that you may need to determine your ailment or severity of your illness. It is very important that you follow up as instructed or that you return to the Emergency Department should you have concerns or if your condition changes or worsens in any way. You are seen today for complaint of back pain. Your labs did not show significant abnormality the CT is essentially unchanged from previous CT. Reviewed your case with Dr. Carbajal he recommends follow-up with him in the office as previously planned. Continue previously prescribed pain medicines. Coding Level of Care Code ED Slitter [employer] for [facility]
[2023-09-11 12:46] LABS: Basophils % 0.6 %; Eosinophils # 0.2 10^3/uL (0.0-0.8); Eosinophils % 3.4 %; Hematocrit 35.8 % (37-53); Lymphocytes # 1.3 10^3/uL (0.8-4.8); Lymphocytes % 27.7 %; Mean Corpuscular HGB Conc 31.6 g/dL (30-55); Mean Corpuscular Hemoglobin 30.1 pg (27-33); Mean Corpuscular Volume 95.2 fl (82-101); Mean Platelet Volume 8.7 fL (7.4-10.4); Monocytes # 0.5 10^3/uL (0.2-0.9); Monocytes % 10.9 %; Neutrophils # 2.66 10^3/uL (1.8-7.7); Neutrophils % 57.2 %; Nucleated Red Blood Cells % 0 %; Platelet Count 334 10^3/cmm (157-399); Red Blood Count 3.76 10^6/uL (3.85-5.65); Red Cell Distribution Width 15.2 % (12.1-15.1); White Blood Count 4.66 10^3/uL (3.29-11.43)
[2023-09-11 13:04] LABS: Erythrocyte Sedimentation Rate 37 mm/hr (0-10)
[2023-09-11 13:09] LABS: Alanine Aminotransferase 6 U/L (0-41); Albumin Level 3.6 g/dL (3.5-5.2); Alkaline Phosphatase 99 U/L (40-130); Aspartate Amino Transferase 11 U/L (0-40); Blood Urea Nitrogen 10 mg/dL (8-23); C Reactive Protein 6.6 mg/L (0.0-4.9); Calcium 9.2 mg/dL (8.5-10.5); Carbon Dioxide 28 mmol/L (22-29); Chloride 105 mmol/L (98-107); Creatinine Clr Calc Pharmacy 97.6882; Globulin 3.3 g/dL (1.3-4.6); Glomerular Filtration Rate 134.4 mL/min (90-130); Glucose 82 mg/dL (65-115); Osmolality Calculated 292 mOsm/kg (285-295); Sodium 142 mmol/L (136-145); Total Bilirubin 0.2 mg/dL (0.15-1.2); Total Protein 6.9 g/dL (6.6-8.7)
[2023-09-11 13:10] LABS: Anion Gap 13.7 (5-19); Potassium 4.7 mmol/L (3.5-5.1)
--- NOTE | 2023-09-11 13:25 | PC.NURSE ---
NURSE ENTERED PATIENTS ROOM TO ANSWER CALL. PATIENT STATES THAT HE WANTS TO SPEAK TO DR JOHNSON. NURSE INFORMED PATIENT THAT MIGHT NOT BE POSSIBLE DR JOHNSON IS NOT DISBURSING OFFICER. PATIENT STATES THAT HE WANTS TO LEAVE AMA THEN. PROVIDER INFORMED. PROVIDER SPOKE TO PATIENT. PATIENT AGREED TO STAY.
[2023-09-11 13:44] VITALS: PULSE 81; RESP 18; O2SAT 99
== END 2023-09-11 13:45 | disposition home or self-care (01) ==
PROVIDERS: Emergency Provider Family Medicine; PCP Family Medicine
DX: G89.29 Other chronic pain (principal); M54.9 Dorsalgia, unspecified; F17.210 Nicotine dependence, cigarettes, uncomplicated
CPT/HCPCS: 36415; 72131; 80053; 85025; 85651; 86140; 99284

== ENCOUNTER → 2023-09-16 08:55 | Outpatient (BNVA) | payer MEDICARE, MEDICAID, SELFPAY | PROVIDERS: PCP Family Medicine; Visit Provider Orthopaedic Surgery | DX: M54.9 Dorsalgia, unspecified (principal); G89.29 Other chronic pain; M25.551 Pain in right hip; M25.552 Pain in left hip | CPT/HCPCS: 72100; 73522; 99024 ==

== ENCOUNTER 2023-09-17 10:18 | Oncology outpatient (recurring) (ONCR) | payer MEDICARE, MEDICAID, SELFPAY | END 2023-09-30 23:59 | disposition home or self-care (01) | PROVIDERS: PCP Family Medicine; Visit Provider Family Medicine | DX: Z45.2 Encounter for adjustment and management of vascular access device (principal) | CPT/HCPCS: 96523 ==

== ENCOUNTER 2023-09-30 08:20 | Outpatient (CLI) | payer MEDICARE, MEDICAID, SELFPAY ==
--- NOTE | 2023-09-30 10:00 | CT_ITS ---
WS: [id number] CT ABDOMEN AND PELVIS NONCONTRAST HISTORY: Hip Pain, bilateral TECHNIQUE: Imaging performed through the abdomen and pelvis. Coronal and sagittal reformats are submi tted. All CT scans at [facility] use at least one of these dose optimization techniques: auto mated exposure control; mA and/or kV adjustment per patient size (includes targeted exams where dose is matched to clinical indication); or iterative reconstruction. DLP: 305.63 mGy.cm COMPARISON: 08/04/2022, 05/04/2021 Lower thorax: Lung bases are clear. Visualized heart is normal. No hiatal hernia. Liver: Normal size liver with pneumobilia. No mass identified on this unenhanced study. The common bi le duct is dilated measuring up to 13 mm. Similar to the prior study. Gallbladder: Prior cholecystectomy. Pancreas: Limited visualization of the pancreas. No mass or stone identified at the pancreatic head. Spleen: Granulomata. Adrenal glands: Normal. No mass. Right kidney: Normal size kidney with no mass or hydronephrosis. Left kidney: Normal size kidney with no mass or hydronephrosis. Aorta: Mild atherosclerosis abdominal aorta with no aneurysm. No free fluid, intraperitoneal air or significant lymphadenopathy. GI tract: Nonobstructive pattern. Slight increased fluid in the small bowel. No obstruction. Moderate diffuse constipation. No diverticulitis. Normal appendix. Abdominal wall: Negative. No hernia. Pelvis: Well-distended urinary bladder. No free fluid or adenopathy. Prostate gland calcifications. Osseous structures: Posterior lumbar spine surgery with large laminectomy defects extending from L1-L 5. No hardware remains. CT/CT abdomen pelvis wo con [id number] IMPRESSION: 1. Pneumobilia with dilatation of the common bile duct. Similar to the study f rom 05/04/2021. No progression. 2. Prior cholecystectomy. 3. Mild diffuse constipation. 4. No adenopathy or free air. No free fluid.
== END 2023-09-30 08:21 | disposition home or self-care (01) ==
LOC: RAD 08:21
PROVIDERS: PCP Family Medicine; Visit Provider Orthopaedic Surgery
DX: M25.551 Pain in right hip (principal); M25.552 Pain in left hip; K83.9 Disease of biliary tract, unspecified; K59.00 Constipation, unspecified
CPT/HCPCS: 74176; 99024

== ENCOUNTER → 2023-10-16 09:51 | Outpatient (BNVA) | payer MEDICARE, MEDICAID, SELFPAY | PROVIDERS: PCP Family Medicine; Visit Provider Orthopaedic Surgery | DX: M54.50 Low back pain, unspecified (principal); G89.29 Other chronic pain; M54.9 Dorsalgia, unspecified | CPT/HCPCS: 72100; 99024 ==

== ENCOUNTER → 2023-11-13 14:15 | Outpatient (BNVA) | payer MEDICARE, MEDICAID, SELFPAY | PROVIDERS: PCP Family Medicine; Visit Provider Orthopaedic Surgery | DX: Z98.1 Arthrodesis status (principal) | CPT/HCPCS: 99024 ==

== ENCOUNTER 2023-11-26 06:00 | Outpatient (RCR) | payer MEDICARE, MEDICAID, SELFPAY | END 2023-11-30 23:59 | disposition home or self-care (01) | LOC: APT 06:00 | PROVIDERS: PCP Family Medicine; Visit Provider Orthopaedic Surgery | DX: Z47.89 Encounter for other orthopedic aftercare (principal) | CPT/HCPCS: 97161 ==

== ENCOUNTER → 2023-11-27 09:21 | Outpatient (BNVA) | payer MEDICARE, MEDICAID, SELFPAY | PROVIDERS: PCP Family Medicine; Visit Provider Orthopaedic Surgery | DX: Z98.1 Arthrodesis status (principal); M54.9 Dorsalgia, unspecified; G89.29 Other chronic pain | CPT/HCPCS: 72100; 99213 ==

== ENCOUNTER 2023-12-03 13:24 | Oncology outpatient (recurring) (ONCR) | payer MEDICARE, MEDICAID, SELFPAY ==
--- NOTE | 2023-12-03 13:45 | MRR_ITS ---
PROCEDURE INFORMATION: Exam: MR Lumbar Spine Without Contrast Exam date and time: 12/03/2023 1:53 PM Age: 68 years old Clinical indication: Low back pain; Prior surgery; Surgery date: 6+ months; Surgery type: C5-s1 fusion removal; Patient HX: Chronic back and right hip pain TECHNIQUE: Imaging protocol: Magnetic resonance imaging of the lumbar spine without contrast. COMPARISON: CT lumbar spine wo con* [id number] 09/11/2023 12:47 PM FINDINGS: Bones/joints: There is evidence of prior posterior instrumented fusion from at least T11 through S1 with residual tracts related to hardware that has since been removed. Posterior decompression of the thoracolumbar and lumbosacral spine. No evidence of acute fracture or subluxation. Moderate-severe multilevel spondylosis of the lumbar spine with facet arthrosis, osteophytosis and endplate degeneration. Spinal cord: Visualized cord signal is unremarkable. Conus terminates at T12-L1. L1-L2: Posterior decompression. Disc bulge and facet arthrosis results in moderate right-sided and mild left-sided foraminal stenosis. L2-L3: Posterior decompression. Mild disc bulge and moderate facet arthrosis results in moderate bilateral foraminal stenosis with contacting/impingement of the exiting right L2 nerve root (images 12-13 of series 11). There is contacting of the undersurface of the exiting left L2 nerve root. L3-L4: Posterior decompression. Mild disc bulge and severe facet arthrosis results in moderate-severe left-sided and moderate right-sided foraminal stenosis. There is contacting/impingement of the exiting left L3 nerve root and contacting of the undersurface of the exiting right L3 nerve root. L4-L5: Posterior decompression. Severe facet arthrosis results in moderate-severe bilateral foraminal stenosis with contacting/impingement of the exiting L4 nerve roots bilaterally. L5-S1: Posterior decompression. Disc bulge and severe facet arthrosis results in severe bilateral foraminal stenosis with impingement of the exiting L5 nerve roots bilaterally. There is partial effacement of the right lateral recess with contacting/impingement of the descending right S1 nerve root (images 30 1-32 of series 14). Soft tissues: Postsurgical changes of the paraspinal soft tissues. No fluid collection or hematoma. MR/MR lumbar spine wo con* [id number] IMPRESSION: 1. Multilevel moderate-severe foraminal stenosis with contacting/impingement of the exiting right L2, left L3, bilateral L4 and bilateral L5 nerve roots. 2. Contacting/impingement of the descending right S1 nerve root.
== END 2023-12-31 23:59 | disposition home or self-care (01) ==
LOC: RAD 13:24 → ONCMED 12-16 07:30
PROVIDERS: PCP Family Medicine; Visit Provider Orthopaedic Surgery
DX: M48.061 Spinal stenosis, lumbar region without neurogenic claudication (principal)
CPT/HCPCS: 72148

== ENCOUNTER → 2023-12-23 08:21 | Outpatient (BNVA) | payer MEDICARE, MEDICAID, SELFPAY | PROVIDERS: PCP Family Medicine; Visit Provider Orthopaedic Surgery | DX: M54.9 Dorsalgia, unspecified (principal); G89.29 Other chronic pain | CPT/HCPCS: 99214 ==

== ENCOUNTER 2024-01-06 15:56 | Emergency (ER) | payer MEDICARE, MEDICAID, SELFPAY ==
[2024-01-06 16:02] VITALS: BP 126/72; PULSE 104; TEMP 37.1; O2SAT 92; BMI 23.1
--- NOTE | 2024-01-06 16:31 | ED_ITS ---
Documented by User: Deric Torres DO 01/08/24 06:05 HPI - Seizure 2 General: Chief Complaint: Seizure Stated Complaint: Seizures Time Seen by Provider: 01/06/24 16:04 History of Present Illness: HPI Narrative: 68-year-old male presents emergency room after reported seizure. Reported multiple seizures at home states family witnessed 3 EMS witnessed 2 he was given 2 mg of Ativan and route. He tells me he has had seizures before. Although it is not listed on his past medical history he is not on any antiseizure medications. He does however have multiple seizure medications listed on his allergy list. Reviewing our past medical records in [employer] EMR there is no visits noted for seizures. Associated symptoms: Deny chest pain, chills or fever(s) Review of Systems 2 Const: Denies: fever(s) or chills Card: Denies: chest pain Resp: Denies: dyspnea GI: Denies: abdominal pain : Denies: dysuria, urinary frequency or urinary urgency Musc: Denies: neck pain or back pain Skin/Breast: Denies: rash PFSH ED 2 PFSH: Medical History Long-term use of high-risk medication Chronic back pain greater than 3 months duration Enrolled in chronic care management Chronic prostatitis History of broken leg BPH loc w urin obs/LUTS Surgical History History of cholecystectomy History of bilateral inguinal hernia repair H/O shoulder surgery History of ankle surgery History of elbow surgery History of hernia surgery Family History Father , AT AGE 73 Murder Mother , AT AGE 42 Cancer COLON Social History Smoking and tobacco/nicotine status: current every day tobacco/nicotine user cigarettes Packs smoked per day: 0.25 Years cigarettes smoked: 35 Second hand smoke exposure: No Alcohol intake: never Substance/Drug Use: never Adopted: Yes Lives independently: Yes Household members: none Marital status: Number of children: 2 service: No Current occupational status: retired Current gender identity: Male Special alejandro needs: No Agree to transfusion: Yes Physical Exam 2 Const: COMMON NORMALS: no acute distress GENERAL APPEARANCE: cooperative and comfortable ORIENTATION/CONSCIOUSNESS: Yes awake, Yes oriented to person, Yes oriented to place and Yes oriented to time HENMT: COMMON NORMALS: normocephalic, atraumatic and hearing grossly normal bilaterally HEAD & SCALP: normocephalic and atraumatic Resp: COMMON NORMALS: normal respiratory effort, No retractions, No use of accessory muscles and clear to auscultation bilaterally AUSCULTATION: clear to auscultation bilaterally Cardio: COMMON NORMALS: regular rate, regular rhythm and No murmurs present (Cardio) RATE: regular rate RHYTHM: regular rhythm GI: COMMON NORMALS: Soft to palpation and No hepatosplenomegaly present A USCULTATION: Yes normoactive bowel sounds PALPATION: Yes Soft to palpation, No Tenderness to palpation present (GI), No Guarding due to palpation present (GI) and Yes No hepatosplenomegaly present Extremity: COMMON NORMALS: normal to inspection, capillary refill normal, no clubbing, cyanosis or edema, no calf tenderness and no pedal edema Neuro: SENSORIUM/ORIENTATION: Yes oriented to person, Yes oriented to place and Yes oriented to time Skin: COMMON NORMALS: no rashes or lesions noted GENERAL SKIN EXAM: no rashes or lesions noted Course 2 Vital Signs: Vital signs: Vital Signs Temperature 98.8 F 01/06/24 20:33 Pulse Rate 98 01/06/24 20:33 Respiratory Rate 16 01/06/24 20:33 Blood Pressure 144/88 01/06/24 20:33 Pulse Oximetry 98 01/06/24 20:33 Oxygen Delivery Me thod Room Air 01/06/24 18:09 Oxygen Flow Rate 3 01/06/24 16:02 MDM - Seizure MDM Narrative Medical decision making narrative: Care signed out to Dr. Brown at change of shift. See final notes for diagnosis and disposition. Lab Data 01/06/24 19:08 01/06/24 17:15 Labs: Radiology Impressions Head CT 01/06/24 16:37 IMPRESSION: No acute intracranial abnormality or interval change from 08/04/2022. Further evaluation with MRI if there is suspicion for early occult ischemia or other significant intracranial abnormality. Laboratory Results WBC Cancelled 01/06/24 19:08 Corrected WBC Cancelled 01/06/24 19:08 RBC Cancelled 01/06/24 19:08 Hgb Cancelled 01/06/24 19:08 Hct Cancelled 01/06/24 19:08 MCV Cancelled 01/06/24 19:08 MCH Cancelled 01/06/24 19:08 MCHC Cancelled 01/06/24 19:08 RDW Cancelled 01/06/24 19:08 Plt Count Cancelled 01/06/24 19:08 MPV Cancelled 01/06/24 19:08 Gran % Cancelled 01/06/24 19:08 Neut % (Auto) Cancelled 01/06/24 19:08 Lymph % (Auto) Cancelled 01/06/24 19:08 Ogle % (Auto) Cancelled 01/06/24 19:08 Eos % (Auto) Cancelled 01/06/24 19:08 Baso % (Auto) Cancelled 01/06/24 19:08 Neut # (Auto) Cancelled 01/06/24 19:08 Lymph # (Auto) Cancelled 01/06/24 19:08 Ogle # (Auto) Cancelled 01/06/24 19:08 Eos # (Auto) Cancelled 01/06/24 19:08 Baso # (Auto) Cancelled 01/06/24 19:08 Absolute Gran (auto) Cancelled 01/06/24 19:08 Nucleated RBC % (auto) Cancelled 01/06/24 19:08 Nucleated RBCs # Cancelled 01/06/24 19:08 Sodium 133 mmol/L (136-145) L 01/06/24 17:15 Potassium 4.4 mmol/L (3.5-5.1) 01/06/24 17:15 Chloride 100 mmol/L (98-107) 01/06/24 17:15 Carbon Dioxide 19 mmol/L (22-29) L 01/06/24 17:15 Anion Gap 18.4 (5-19) 01/06/24 17:15 BUN 8 mg/dL (8-23) 01/06/24 17:15 Creatinine 0.8 mg/dL (0.7-1.2) 01/06/24 17:15 GFR Calculation 96.4 mL/min (90-130) 01/06/24 17:15 Glucose 84 mg/dL (65-115) 01/06/24 17:15 Calculated Osmolality 274 mOsm/kg (285-295) L 01/06/24 17:15 Calcium 9.5 mg/dL (8.5-10.5) 01/06/24 17:15 Magnesium 2.2 mg/dL (1.7-2.3) 01/06/24 17:15 Total Bilirubin 0.3 mg/dL (0.15-1.2) 01/06/24 17:15 AST 15 U/L (0-40) 01/06/24 17:15 ALT 6 U/L (0-41) 01/06/24 17:15 Alkaline Phosphatase 89 U/L (40-130) 01/06/24 17:15 Total Protein 7.4 g/dL (6.6-8.7) 01/06/24 17:15 Albumin 3.6 g/dL (3.5-5.2) 01/06/24 17:15 Globulin 3.8 g/dL (1.3-4.6) 01/06/24 17:15 Discharge Plan Discharge Patient Disposition: Home Clinical Impression: Epileptic seizure Condition: Stable Prescriptions: No Action Narcan 4 mg/actuation spray,non-aerosol 1 spray intranasal Q2M PRN (Reason: Opioid Reversal) Rx Instructions: spray 1 dose into ONE nostril; alternate nostrils w each dose until help arrives (DME) gauntlet AFO to the left See Rx Instructions .Route .MEDSUPPLY Qty: 1 0RF Rx Instructions: As directed by NIMESH&O atorvastatin 20 mg tablet 20 mg PO DAILY Qty: 30 3RF pantoprazole [Protonix] 40 mg tablet,delayed release (DR/EC) 40 mg PO DAILY 30 Days Qty: 30 3RF sucralfate [Carafate] 1 gram tablet 1 g PO Q6H Qty: 120 2RF tamsulosin [Flomax] 0.4 mg capsule 0.4 mg PO DAILY Qty: 30 4RF albuterol sulfate [ProAir HFA] 90 mcg/actuation HFA aerosol inhaler 2 puff inhalation PRN PRN (Reason: Wheezing) Qty: 6.7 0RF doxepin 25 mg capsule 25 mg PO .qhs Qty: 30 3RF oxycodone-acetaminophen 10-325 mg tablet 1 tab PO Q4H PRN (Reason: pain) 30 Days Qty: 180 0RF (DME) Accommodative orthotics See Rx Instructions .Route .MEDSUPPLY Qty: 1 0RF Rx Instructions: As directed by NIMESH&O diazepam [Valium] 5 mg tablet 5 - 10 mg PO BID PRN (Reason: anxiety) 14 Days Qty: 28 0RF Discharge Orders: Discharge ED (Routine); Ordered 01/06/24 Ordered By: Kev Brown Referrals: Talita Winn MD [Primary Care Provider] - 1 week Patient Instructions: Seizures Activity Restrictions/Additional Instructions: Lab work that we have as well as your head CT is all benign. We are still waiting her CBC. If the CBC is abnormal we may call you with change in plan but otherwise please follow-up with your pain apex physician in the next 7 to 10 days for further evaluation and treatment. Coding Level of Care Code ED Motor Vehicle Clerk for Chg Fwd Documented by User: Kev Brown DO 01/06/24 19:56 HPI - Seizure 2 General: Chief Complaint: Seizure Stated Complaint: Seizures Time Seen by Provider: 01/06/24 16:04 PFSH ED 2 PFSH: Medical History Long-term use of high-risk medication Chronic back pain greater than 3 months duration Enrolled in chronic care management Chronic prostatitis History of broken leg BPH loc w urin obs/LUTS Surgical History History of cholecystectomy History of bilateral inguinal hernia repair H/O shoulder surgery History of ankle surgery History of elbow surgery History of hernia surgery Family History Father , AT AGE 73 Murder Mother , AT AGE 42 Cancer COLON Social History Smoking and tobacco/nicotine status: current every day tobacco/nicotine user cigarettes Packs smoked per day: 0.25 Years cigarettes smoked: 35 Second hand smoke exposure: No Alcohol intake: never Substance/Drug Use: never Adopted: Yes Lives independently: Yes Household members: none Marital status: Number of children: 2 service: No Current occupational status: retired Current gender identity: Male Special alejandro needs: No Agree to transfusion: Yes Course 2 Vital Signs: Vital signs: Vital Signs Temperature 98.8 F 01/06/24 20:33 Pulse Rate 98 01/06/24 20:33 Respiratory Rate 16 01/06/24 20:33 Blood Pressure 144/88 01/06/24 20:33 Pulse Oximetry 98 01/06/24 20:33 Oxygen Delivery Me thod Room Air 01/06/24 18:09 Oxygen Flow Rate 3 01/06/24 16:02 MDM - Seizure MDM Narrative Medical decision making narrative: Care signed out to Dr. Brown at change of shift. See final notes for diagnosis and disposition. Care transferred over to myself at shift change, lab work was reviewed as well as head CT patient was discussed lab results. Still pending a CBC, patient said he is ready to go home and is wants to leave. Patient be discharged home and if anything is abnormal on CBC that requires a change in treatment we will call him with results. Medical Records Attestation: I reviewed the patient's medical records. Lab Data Attestation: I reviewed the patient's lab results. 01/06/24 19:08 01/06/24 17:15 Labs: Radiology Impressions Head CT 01/06/24 16:37 IMPRESSION: No acute intracranial abnormality or interval change from 08/04/2022. Further evaluation with MRI if there is suspicion for early occult ischemia or other significant intracranial abnormality. Laboratory Results WBC Cancelled 01/06/24 19:08 Corrected WBC Cancelled 01/06/24 19:08 RBC Cancelled 01/06/24 19:08 Hgb Cancelled 01/06/24 19:08 Hct Cancelled 01/06/24 19:08 MCV Cancelled 01/06/24 19:08 MCH Cancelled 01/06/24 19:08 MCHC Cancelled 01/06/24 19:08 RDW Cancelled 01/06/24 19:08 Plt Count Cancelled 01/06/24 19:08 MPV Cancelled 01/06/24 19:08 Gran % Cancelled 01/06/24 19:08 Neut % (Auto) Cancelled 01/06/24 19:08 Lymph % (Auto) Cancelled 01/06/24 19:08 Ogle % (Auto) Cancelled 01/06/24 19:08 Eos % (Auto) Cancelled 01/06/24 19:08 Baso % (Auto) Cancelled 01/06/24 19:08 Neut # (Auto) Cancelled 01/06/24 19:08 Lymph # (Auto) Cancelled 01/06/24 19:08 Ogle # (Auto) Cancelled 01/06/24 19:08 Eos # (Auto) Cancelled 01/06/24 19:08 Baso # (Auto) Cancelled 01/06/24 19:08 Absolute Gran (auto) Cancelled 01/06/24 19:08 Nucleated RBC % (auto) Cancelled 01/06/24 19:08 Nucleated RBCs # Cancelled 01/06/24 19:08 Sodium 133 mmol/L (136-145) L 01/06/24 17:15 Potassium 4.4 mmol/L (3.5-5.1) 01/06/24 17:15 Chloride 100 mmol/L (98-107) 01/06/24 17:15 Carbon Dioxide 19 mmol/L (22-29) L 01/06/24 17:15 Anion Gap 18.4 (5-19) 01/06/24 17:15 BUN 8 mg/dL (8-23) 01/06/24 17:15 Creatinine 0.8 mg/dL (0.7-1.2) 01/06/24 17:15 GFR Calculation 96.4 mL/min (90-130) 01/06/24 17:15 Glucose 84 mg/dL (65-115) 01/06/24 17:15 Calculated Osmolality 274 mOsm/kg (285-295) L 01/06/24 17:15 Calcium 9.5 mg/dL (8.5-10.5) 01/06/24 17:15 Magnesium 2.2 mg/dL (1.7-2.3) 01/06/24 17:15 Total Bilirubin 0.3 mg/dL (0.15-1.2) 01/06/24 17:15 AST 15 U/L (0-40) 01/06/24 17:15 ALT 6 U/L (0-41) 01/06/24 17:15 Alkaline Phosphatase 89 U/L (40-130) 01/06/24 17:15 Total Protein 7.4 g/dL (6.6-8.7) 01/06/24 17:15 Albumin 3.6 g/dL (3.5-5.2) 01/06/24 17:15 Globulin 3.8 g/dL (1.3-4.6) 01/06/24 17:15 All radiology interpretation(s) finalized by discharge Discharge Plan Discharge Patient Disposition: Home Clinical Impression: Epileptic seizure Condition: Stable Prescriptions: No Action Narcan 4 mg/actuation spray,non-aerosol 1 spray intranasal Q2M PRN (Reason: Opioid Reversal) Rx Instructions: spray 1 dose into ONE nostril; alternate nostrils w each dose until help arrives (DME) gauntlet AFO to the left See Rx Instructions .Route .MEDSUPPLY Qty: 1 0RF Rx Instructions: As directed by NIMESH&O atorvastatin 20 mg tablet 20 mg PO DAILY Qty: 30 3RF pantoprazole [Protonix] 40 mg tablet,delayed release (DR/EC) 40 mg PO DAILY 30 Days Qty: 30 3RF sucralfate [Carafate] 1 gram tablet 1 g PO Q6H Qty: 120 2RF tamsulosin [Flomax] 0.4 mg capsule 0.4 mg PO DAILY Qty: 30 4RF albuterol sulfate [ProAir HFA] 90 mcg/actuation HFA aerosol inhaler 2 puff inhalation PRN PRN (Reason: Wheezing) Qty: 6.7 0RF doxepin 25 mg capsule 25 mg PO .qhs Qty: 30 3RF oxycodone-acetaminophen 10-325 mg tablet 1 tab PO Q4H PRN (Reason: pain) 30 Days Qty: 180 0RF (DME) Accommodative orthotics See Rx Instructions .Route .MEDSUPPLY Qty: 1 0RF Rx Instructions: As directed by NIMESH&O diazepam [Valium] 5 mg tablet 5 - 10 mg PO BID PRN (Reason: anxiety) 14 Days Qty: 28 0RF Discharge Orders: Discharge ED (Routine); Ordered 01/06/24 Ordered By: Kev Brown Referrals: Talita Winn MD [Primary Care Provider] - 1 week Patient Instructions: Seizures Activity Restrictions/Additional Instructions: Lab work that we have as well as your head CT is all benign. We are still waiting her CBC. If the CBC is abnormal we may call you with change in plan but otherwise please follow-up with your pain apex physician in the next 7 to 10 days for further evaluation and treatment. Coding Level of Care Code ED Motor Vehicle Clerk for [place]
--- NOTE | 2024-01-06 16:37 | CTR_ITS ---
PROCEDURE INFORMATION: Exam: CT Head Without Contrast Exam date and time: 01/06/2024 4:48 PM Age: 68 years old Clinical indication: Other: Seizures; Additional info: New onset seizures TECHNIQUE: Imaging protocol: Computed tomography of the head without contrast. Radiation optimization: All CT scans at this facility use at least one of these dose optimization techniques: automated exposure control; mA and/or kV adjustment per patient size (includes targeted exams where dose is matched to clinical indication); or iterative reconstruction. COMPARISON: CT head wo con* [id number] 08/04/2022 10:21 PM RADIATION DOSE METRICS: Total DLP (mGy-cm): 1028.7 FINDINGS: Brain: Small bilateral lacunar infarcts in the basal ganglia again demonstrated. No focal mass effect, cytotoxic or vasogenic edema. Mild cerebral parenchymal change. Cerebral ventricles: No ventriculomegaly. Paranasal sinuses: Visualized sinuses are unremarkable. No fluid levels. Mastoid air cells: Visualized mastoid air cells are well aerated. Bones: Unremarkable. No acute fracture. Soft tissues: Unremarkable. CT/CT head wo con* [id number] IMPRESSION: No acute intracranial abnormality or interval change from 08/04/2022. Further evaluation with MRI if there is suspicion for early occult ischemia or other significant intracranial abnormality.
[2024-01-06] MEDS: levETIRAcetam 1,000 MG/100 ML PREMIX 400 MG IV (16:38)
[2024-01-06 16:45] VITALS: BP 109/73; PULSE 96; RESP 18; O2SAT 96
[2024-01-06 17:50] LABS: Albumin Level 3.6 g/dL (3.5-5.2); Alkaline Phosphatase 89 U/L (40-130); Blood Urea Nitrogen 8 mg/dL (8-23); Calcium 9.5 mg/dL (8.5-10.5); Carbon Dioxide 19 mmol/L (22-29); Chloride 100 mmol/L (98-107); Globulin 3.8 g/dL (1.3-4.6); Glomerular Filtration Rate 96.4 mL/min (90-130); Glucose 84 mg/dL (65-115); Magnesium 2.2 mg/dL (1.7-2.3); Osmolality Calculated 274 mOsm/kg (285-295); Sodium 133 mmol/L (136-145); Total Bilirubin 0.3 mg/dL (0.15-1.2); Total Protein 7.4 g/dL (6.6-8.7)
[2024-01-06 17:53] LABS: Alanine Aminotransferase 6 U/L (0-41); Anion Gap 18.4 (5-19); Aspartate Amino Transferase 15 U/L (0-40); Potassium 4.4 mmol/L (3.5-5.1)
[2024-01-06] MEDS: oxyCODONE-APAP 10-325 mg Tablet 1 TAB PO ×2 (17:54→19:42)
[2024-01-06] MEDS: orphenadrine 30 mg/mL Inj 2 mL 60 MG IM (17:54)
[2024-01-06 17:56] VITALS: BP 139/83; PULSE 100; RESP 17; O2SAT 95
[2024-01-06 18:09] VITALS: BP 141/91; PULSE 101; RESP 16; O2SAT 93
[2024-01-06 19:42] VITALS: RESP 16; O2SAT 97
--- NOTE | 2024-01-06 20:32 | PC.NURSE ---
RN into room to redraw CBC. pt declined lab redraw. unable to draw from existing IVs. pt requesting to be discharged anyway. notified.
[2024-01-06 20:33] VITALS: BP 144/88; PULSE 98; RESP 16; TEMP 37.1; O2SAT 98
== END 2024-01-06 20:35 | disposition home or self-care (01) ==
PROVIDERS: Emergency Provider Family Medicine; PCP Family Medicine
DX: G40.909 Epilepsy, unspecified, not intractable, without status epilepticus (principal); F17.210 Nicotine dependence, cigarettes, uncomplicated
CPT/HCPCS: 36415; 70450; 80053; 83735; 85025; 96365; 96372; 99285; J1953; J2360

== ENCOUNTER → 2024-01-14 10:39 | Outpatient (BNVA) | payer MEDICARE, MEDICAID, SELFPAY | PROVIDERS: PCP Family Medicine; Visit Provider Family Medicine | DX: E78.5 Hyperlipidemia, unspecified (principal); K29.70 Gastritis, unspecified, without bleeding; I21.4 Non-ST elevation (NSTEMI) myocardial infarction; D64.9 Anemia, unspecified; Z98.1 Arthrodesis status | CPT/HCPCS: 80053; 80061; 84443; 85025; G0103 ==

== ENCOUNTER → 2024-01-20 15:34 | Outpatient (BNVA) | payer MEDICARE, MEDICAID, SELFPAY | PROVIDERS: PCP Family Medicine; Visit Provider Orthopaedic Surgery | DX: M54.9 Dorsalgia, unspecified (principal); G89.29 Other chronic pain; M54.50 Low back pain, unspecified | CPT/HCPCS: 72100; 99213 ==

== ENCOUNTER 2024-02-04 06:44 | Outpatient (CLI) | payer MEDICARE, MEDICAID, SELFPAY ==
--- NOTE | 2024-02-04 07:12 | XR_ITS ---
WS: [id number] Examination: XR shoulder LT min 2V* [id number] Reason for Exam: M25.512 - Pain in left shoulder Date: 02/04/2024 Comparison: 01/16/2017 Findings: The bone density is maintained. There is no destruction. There is no displaced fracture or dislocation. Mild spurring at the AC joint is identified. There is asymmetry with increased density in the left apex. There is a right sided catheter XR/XR shoulder LT min 2V* [id number] Impression: There is no acute bony abnormality Mild chronic changes are present. There is asymmetric density at the left apex. I recommend PA and lateral chest imaging for further evaluation.
== END 2024-02-04 06:45 | disposition home or self-care (01) ==
PROVIDERS: PCP Family Medicine; Visit Provider Family Medicine
DX: R93.7 Abnormal findings on diagnostic imaging of other parts of musculoskeletal system (principal); M25.512 Pain in left shoulder
CPT/HCPCS: 73030

== ENCOUNTER → 2024-02-13 08:47 | Outpatient (BNVA) | payer MEDICARE, MEDICAID, SELFPAY | PROVIDERS: PCP Family Medicine; Visit Provider Student in an Organized Health Care Education/Training Program | DX: Z12.11 Encounter for screening for malignant neoplasm of colon (principal) | CPT/HCPCS: 99024; 99204 ==

== ENCOUNTER → 2024-02-17 14:06 | Outpatient (BNVA) | payer MEDICARE, MEDICAID, SELFPAY | PROVIDERS: PCP Family Medicine; Visit Provider Orthopaedic Surgery | DX: M54.50 Low back pain, unspecified (principal); G89.29 Other chronic pain | CPT/HCPCS: 72100; 99213 ==

== ENCOUNTER 2024-03-23 13:40 | Oncology outpatient (recurring) (ONCR) | payer MEDICARE, MEDICAID, SELFPAY ==
--- OUTSIDE RECORDS SUMMARY | 2024-03-08 07:33 | XMS_ITS ---
Author Name Unknown Organization [facility] Address [address] [place] [address] Care Team Providers Care Optometry Assistant Name Role Phone Marvin Diaz Primary Care Provider [phone] REASON FOR VISIT EVAL AND TREAT Encounters Encounter Location Date Provider Diagnosis [facility] [address] [place] [phone] 05/01/2023 Marvin Diaz Plan Of Treatment No Information Progress Notes * Geoffrey MCLEODDOB: 7 (68 yo M)Acc No.[id number]:05/01/2023 Progress Notes Patient:?Geoffrey MCLEOD Provider:?Marvin Diaz MD :1955???Age:67 Y???Sex:Male Bradly e:05/01/2023 Address:[address] [place], [place] [phone] Subjective: * Chief Complaints: * ???1. EVAL AND TREAT. * Medical History:? Objective: * Vitals:? Assessment: Plan: * Treatment: Care Plan: * Problems:? * Billing Information: * Visit Code:? * Procedure Codes:? * Electronic signature of Cristian Diaz MD on 03/08/2024 at 07:33 AM CDT Sign off status: Pending * Provider:?Marivn Diaz MD Bradly e:?05/01/2023 Generated for Venkat pittman/Lebron/eTransmrubi on:?03/08/2024 07:33 AM CDT
--- OUTSIDE RECORDS SUMMARY | 2024-03-08 07:33 | XMS_ITS | Patient Health Record ---
Author Name Unknown Organization [facility] Address [address] [place] [address] Care Team Providers Care Horticulture Instructor Name Role Phone DiazNareshshawnakwasi Primary Care Provider [phone] Allergies Allergen (clinical drug ingredient) Drug/Non Drug Allergy documented on EMR Reaction Allergy Type Onset Date Status carbamazepine Carbamazepine , Drug Allergy Active phenytoin Phenytoin , Drug Allergy Active prochlorperazine Prochlorperazine , Drug Allergy Active ketorolac Ketorolac , Drug Allergy Active Reason For Referral No Information Medications Medication SIG (Take, Route, Frequency, Duration) Notes [...] 1 tablet Orally Once a day Active Immunizations Vaccine Route Administration Date Status Comme nts Influenza (whole), CPT 80315 Inactive Unknown 03/16/2018 Administered Problems Problem Type SNOMED Code ICD Code Onset Dates Problem Status W/U Status Risk Notes Problem [id number] Abnormal findings on diagnostic imaging of liver and biliary tract (R93.2) Active confirmed Plan Of Treatment No Information Insurance Providers Payer Name Payer Address Payer Phone Subscriber Number Group Number Insured Name Patient Relationship to Insured Coverage Start Date Coverage End Date [facility] Medicare Advantage PPO [address] [address] [place] [address] [id number] Geoffrey Mcleod Self - patient is the insured [place] Medicaid [address] [place] [address] [id number] Geoffrey Mcleod Self - patient is the insured
--- OUTSIDE RECORDS SUMMARY | 2024-03-08 07:33 | XMS_ITS ---
Author Name Unknown Organization [facility] Address [address] [place] [address] Care Team Providers Care Machine Stamper Name Role Phone Marvin Diaz Primary Care Provider [phone] REASON FOR VISIT EVAL AND TREAT Encounters Encounter Location Date Provider Diagnosis [facility] [address] [place] [phone] 05/08/2023 Marvin Diaz Plan Of Treatment No Information Progress Notes * Geoffrey FERGSUONDOB: (68 yo M)Acc No.[id number]:05/08/2023 Progress Notes Patient:?Geoffrey FERGUSON Provider:?Marvin Diaz MD :1955???Age:67 Y???Sex:Male Bradly e:05/08/2023 Address:[address] [place], [place] [phone] Subjective: * Chief Complaints: * ???1. EVAL AND TREAT. * ROS:?General/Constitutional:?Patient denies?fatigue , fever , night sweats.?Hematology:?Patient denies?easy bruising , bleeding problems , recent transfusion.?Respiratory:?Patient denies?cough , shortness of breath , wheezing.?Cardiovascular:?Patient denies?chest pain , irregular heartbeat , swelling in hands/feet.?Gastrointestinal:?Patient denies?abdominal pain, bloating , constipation , diarrhea , heartburn , blood in stool , nausea , vomiting.?Genitourinary:?Patient denies?painful urination , blood in the urine , difficulty urinating.?ENT:?Patient denies?ear pain , nosebleed, runny nose,?sore throat.?Musculoskeletal:?Patient denies?arthritis\arthralgia , back pain , joint stiffness , muscle aches.?Skin:?Patient denies?skin lesion(s) , rash , acne.?Neurologic:?Patient denies?dizziness , fainting , headache , memory loss , seizures.?Psychiatric:?Patient denies?anxiety , depressed mood , difficulty sleeping , suicidal thoughts.? * Medical History:? Objective: * Vitals:? Assessment: Plan: * Treatment: Care Plan: * Problems:? * Billing Information: * Visit Code:? * Procedure Codes:? * Electronic signature of Cristian Diaz MD on 03/08/2024 at 07:32 AM CDT Sign off status: Pending * Provider:?Marvin Diaz MD Bradly e:?05/08/2023 Generated for Venkat pittman/Lebron/Griselda on:?03/08/2024 07:32 AM CDT
--- OUTSIDE RECORDS SUMMARY | 2024-03-08 07:33 | XMS_ITS ---
Author Name Unknown Organization [facility] Address [address] [place] [address] Care Team Providers Care Assembler Carbon Brushes Name Role Phone Marvin Diaz Primary Care Provider REASON FOR VISIT EVAL & TREAT Encounters Encounter Location Date Provider Diagnosis [facility] [address] [place] [phone] 04/17/2023 Marvin Diaz Plan Of Treatment No Information Progress Notes * Geoffrey MCLEODDOB: 7 (68 yo M)Acc No.[id number]:04/17/2023 Progress Notes Patient:?Geoffrey MCLEOD Provider:?Marvin Diaz MD :1955???Age:67 Y???Sex:Male Bradly e:04/17/2023 Address:[address] [place], [place] [phone] Subjective: * Chief Complaints: * ???1. EVAL & TREAT. * Medical History:? Objective: * Vitals:? Assessment: Plan: * Treatment: Care Plan: * Problems:? * Billing Information: * Visit Code:? * Procedure Codes:? * Electronic signature of Cristian Diaz MD on 03/08/2024 at 07:33 AM CDT Sign off status: Pending * Provider:?Marvin Diaz MD Bradly e:?04/17/2023 Generated for Venkat pittman/Lebron/eTransmrubi on:?03/08/2024 07:33 AM CDT
--- OUTSIDE RECORDS SUMMARY | 2024-03-23 13:42 | XMS_ITS ---
Author Name Unknown Organization [facility] Address [address] [place] [address] Care Team Providers Care Caramel Candy Maker Name Role Phone Marvin Diaz Primary Care Provider REASON FOR VISIT EVAL AND TREAT Encounters Encounter Location Date Provider Diagnosis [facility] [address] [place] [phone] 05/08/2023 Marvin Diaz Plan Of Treatment No Information Progress Notes * Geoffrey FERGUSONDOB: (68 yo M)Acc No.[id number]:05/08/2023 Progress Notes Patient:?Geoffrey FERGUSON Provider:?Marvin Diaz MD :1955???Age:67 Y???Sex:Male Bradly e:05/08/2023 Address:[address] [place], [place] [phone] Subjective: * Chief Complaints: * ???1. EVAL [...] Electronic signature of Cristian Diaz MD on 03/23/2024 at 01:42 PM CDT Sign off status: Pending * Provider:?Marvin Diaz MD Bradly e:?05/08/2023 Generated for Venkat pittman/Lebron/Griselda on:?03/23/2024 01:42 PM CDT
--- OUTSIDE RECORDS SUMMARY | 2024-03-23 13:43 | XMS_ITS | Patient Health Record ---
Author Name Unknown Organization [facility] Address [address] [place] [address] Care Team Providers Care Audiology Director Name Role Phone DiazNareshshawnakwasi Primary Care Provider [phone] Allergies Allergen (clinical drug ingredient) Drug/Non Drug [...] Date Status Comme nts Influenza (whole), CPT 81161 Inactive Unknown 03/16/2018 Administered Problems Problem Type SNOMED Code ICD Code Onset Dates Problem Status W/U Status Risk Notes Problem [id number] Abnormal findings on diagnostic imaging of liver and biliary tract (R93.2) Active confirmed Plan Of Treatment No Information Insurance Providers Payer Name Payer Address Payer Phone Subscriber Number Group Number Insured Name Patient Relationship to Insured Coverage Start Date Coverage End Date [facility] Medicare Advantage PPO [address] [address] [place] [address] [id number] Geoffrey Mcleod Self - patient is the insured [place] Medicaid [address] [place] [address] [id number] Geoffrey Mcleod Self - patient is the insured
--- OUTSIDE RECORDS SUMMARY | 2024-03-23 13:43 | XMS_ITS ---
Author Name Unknown Organization [facility] Address [address] [place] [address] Care Team Providers Care Call Center Trainer Name Role Phone Marvin Diaz Primary Care Provider REASON FOR VISIT EVAL & TREAT Encounters Encounter Location Date Provider Diagnosis [facility] [address] [place] [phone] 04/17/2023 Marvin Diaz Plan Of Treatment No Information Progress Notes * Geoffrey MCLEODDOB: 7 (68 yo M)Acc No.[id number]:04/17/2023 Progress Notes Patient:?Geoffrey MCLEOD Provider:?Marvin Diaz MD :1955???Age:67 Y???Sex:Male Bradly e:04/17/2023 Address:[address] [place], [place] [phone] Subjective: * Chief Complaints: * ???1. EVAL & TREAT. * Medical History:? Objective: * Vitals:? Assessment: Plan: * Treatment: Care Plan: * Problems:? * Billing Information: * Visit Code:? * Procedure Codes:? * Electronic signature of Cristian Diaz MD on 03/23/2024 at 01:42 PM CDT Sign off status: Pending * Provider:?Marvin Diaz MD Bradly e:?04/17/2023 Generated for Venkat pittman/Lebron/eTransmrubi on:?03/23/2024 01:42 PM CDT
--- OUTSIDE RECORDS SUMMARY | 2024-03-23 13:43 | XMS_ITS ---
Author Name Unknown Organization [facility] Address [address] [place] [address] Care Team Providers Care Dynamic Balancer Name Role Phone Marvin Diaz Primary Care Provider [phone] REASON FOR VISIT EVAL AND TREAT Encounters Encounter Location Date Provider Diagnosis [facility] [address] [place] [phone] 05/01/2023 Marvin Diaz Plan Of Treatment No Information Progress Notes * Geoffrey MCLEODDOB: 7 (68 yo M)Acc No.[id number]:05/01/2023 Progress Notes Patient:?Geoffrey MCLEOD Provider:?Marvin Diaz MD :1955???Age:67 Y???Sex:Male Bradly e:05/01/2023 Address:[address] [place], [place] [phone] Subjective: * Chief Complaints: * ???1. EVAL AND TREAT. * Medical History:? Objective: * Vitals:? Assessment: Plan: * Treatment: Care Plan: * Problems:? * Billing Information: * Visit Code:? * Procedure Codes:? * Electronic signature of Cristian Diaz MD on 03/23/2024 at 01:42 PM CDT Sign off status: Pending * Provider:?Marvin Diaz MD Bradly e:?05/01/2023 Generated for Venkat pittman/Lebron/eTransmitting on:?03/23/2024 01:42 PM CDT
--- NOTE | 2024-03-23 14:06 | CT_ITS ---
WS: [id number] LDCT LUNG CANCER SCREENING TECHNIQUE: Noncontrast CT of the chest with coronal and sagittal reformatted images. CLINICAL INFORMATION: NICOTINE DEPENDENCE COMPARISON: CT 01/01/2023 DLP: 63.89 mGy.cm DIvol: Mean CTDIvol: 1.10 (mGy) All CT scans at [facility] use at least one of these dose optimization techniques: automat ed exposure control; mA and/or kV adjustment per patient size (includes targeted exams where dose is matched to clinical indication); or iterative reconstruction. FINDINGS: Bilateral 2 to 3 mm noncalcified nodules in the upper lobes. A few tiny nodules in the LEFT greater t [place]a RIGHT lower lobes. No new suspicious opacities. 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 Calcified granulomas RIGHT lower lobe. Chronic emphysematous changes. Coronary calcification. Aortic calcification. Slightly ectatic thoraci c aorta. No mediastinal or hilar lymphadenopathy. Calcified RIGHT hilar nodes. No axillary lymphadeno raúl. Pneumobilia. Adrenal glands are normal. Splenic granulomas. Prior cholecystectomy. Chronic romero ateral rib fractures. RIGHT reversed TSA. Removal of the prior thoracolumbar fusion. CT/CT lung screening 25098 IMPRESSION: LUNG-RADS: 2-Benign Appearance or Behavior FOLLOW UP: 12 Month: Continue annual screening with LDCT
== END 2024-04-01 23:59 | disposition home or self-care (01) ==
LOC: RAD 13:41 → ONCMED 03-29 10:33
PROVIDERS: Visit Provider Family Medicine
DX: F17.200 Nicotine dependence, unspecified, uncomplicated (principal); R91.8 Other nonspecific abnormal finding of lung field; J84.10 Pulmonary fibrosis, unspecified; J98.4 Other disorders of lung; I25.10 Atherosclerotic heart disease of native coronary artery without angina pectoris; I70.0 Atherosclerosis of aorta; I89.8 Other specified noninfective disorders of lymphatic vessels and lymph nodes; L92.8 Other granulomatous disorders of the skin and subcutaneous tissue; Z90.49 Acquired absence of other specified parts of digestive tract; S22.43XS Multiple fractures of ribs, bilateral, sequela; X58.XXXS Exposure to other specified factors, sequela
CPT/HCPCS: 71271

== ENCOUNTER 2024-04-06 06:02 | Day surgery (SDC) | payer MEDICARE, MEDICAID, SELFPAY ==
--- OUTSIDE RECORDS SUMMARY | 2024-04-06 06:05 | XMS_ITS ---
Author Name Unknown Organization [facility] Address [address] [place] [address] Care Team Providers Care Auto Clocks Repairer Name Role Phone Marvin Diaz Primary Care Provider Migration, Provider Unavailable Unavailable REASON FOR VISIT EMR-Robert Encounters Encounter Location Date Provider Diagnosis Migrated_Facility 0 0 03/27/2024 Provider Migration Plan Of Treatment No Information Progress Notes * MCLEOD GeoffreyDOB: (68 yo M)Acc No.[id number]:03/27/2024 Patient:?MCLEOD Geoffrey :1955???Age:68 Y???Sex:Male Address:[address] [place] [phone] Subjective: * Chief Complaints: * ???EMR-Robert * Medical History:? * Surgical History:? * Hospitalization/Major Diagno stic Procedure:? * Medications:? Objective: * Vitals:? * Physical Examination:? Assessment: Plan: * Treatment: * Procedure Codes:? * * Date:?
--- OUTSIDE RECORDS SUMMARY | 2024-04-06 06:05 | XMS_ITS ---
Author Name Unknown Organization [facility] Address [address] [place] [address] Care Team Providers Care Customer Support Engineer Name Role Phone Marvin Diaz Primary Care Provider [phone] Migration, Provider Unavailable Unavailable Allergies Allergen (clinical [...] * Geoffrey MCLEODDOB: 7 (68 yo M)Acc No.[id number]:03/28/2024 Patient:?Geoffrey MCLEOD :1955???Age:68 Y???Sex:Male Address:[address] [place] [phone] Subjective: * Chief Complaints: * ???EMR-Robert * Medical History:? * Surgical History:? * Hospitalization/Major Diagno stic Procedure:? * Medications:? * Allergies:?Carbamazepine: , - AllergyPhenytoin: , - AllergyProchlorperazine: , - AllergyKetorolac: , - Allergy Objective: * Vitals:? * Physical Examination:? Assessment: Plan: * Treatment: * Procedure Codes:? * * Date:?
--- OUTSIDE RECORDS SUMMARY | 2024-04-06 06:05 | XMS_ITS ---
Author Name Unknown Organization [facility] Address [address] [place] [address] Care Team Providers Care Photographer News Name Role Phone Marvin Diaz Primary Care Provider [phone] REASON FOR VISIT EVAL AND TREAT Encounters Encounter Location Date Provider Diagnosis [facility] [address] [place] [phone] 05/08/2023 Marvin Diaz Plan Of Treatment No Information Progress Notes * Geoffrey FERGUSONDOB: (68 yo M)Acc No.[id number]:05/08/2023 Progress Notes Patient:?Geoffrey FERGUSON Provider:?Marvin Diaz MD :1955???Age:67 Y???Sex:Male Bradly e:05/08/2023 Address:[address] [place], [place] [phone] Subjective: * Chief Complaints: * ???1. EVAL [...] Objective: * Vitals:? Assessment: Plan: * Treatment: Forms: Care Plan: * Problems:? * Billing Information: * Visit Code:? * Procedure Codes:? * Electronic signature of Chri yamilet Diaz MD on 04/06/2024 at 06:05 AM COLD PRESS OPERATOR Sign off status: Pending * Provider:?Marvin Diaz MD Bradly e:?05/08/2023 Generated for Venkat pittman/Lebron/Griselda on:?04/06/2024 06:05 AM COLD PRESS OPERATOR
--- OUTSIDE RECORDS SUMMARY | 2024-04-06 06:06 | XMS_ITS | Patient Health Record ---
Author Name Unknown Organization [facility] Address [address] [place] [address] Care Team Providers Care Paint Spray Tender Name Role Phone Diaz Marvin Primary Care Provider Migration, Provider Unavailable Unavailable Allergies Allergen (clinical [...] Date Status Comme nts Influenza (whole), CPT 11520 Inactive Unknown 03/16/2018 Administered Problems Problem Type SNOMED Code ICD Code Onset Dates Problem Status W/U Status Risk Notes Problem [id number] Abnormal findings on diagnostic imaging of liver and biliary tract (R93.2) Active confirmed Encounters Encounter Location Date Provider Diagnosis Migrated_Facility 0 0 03/27/2024 Provider Migration Migrated_Facility 0 0 03/28/2024 Provider Migration Plan Of Treatment No Information Insurance Providers Payer Name Payer Address Payer Phone Subscriber Number Group Number Insured Name Patient Relationship to Insured Coverage Start Date Coverage End Date [facility] Medicare Advantage PPO [address] [address] [place] [address] [id number] Geoffrey Mcleod Self - patient is the insured [place] Medicaid [address] [place] [address] [id number] Geoffrey Mcleod Self - patient is the insured
--- OUTSIDE RECORDS SUMMARY | 2024-04-06 06:06 | XMS_ITS | Continuity of Care Document ---
Author Name Unknown Organization [facility] Address [address] [id number] [address] Phone Care Team Providers Care Sack Repairer Name Role Phone Tunde ARMIJOC/JOSÉ LUIS-Mague ZACARIAS [...] on Encounter SBIRT - AUDIT/DAST, 15-30 MIN [facility], [id number] 4220567ZS- [place], [address], [place] tel:[phone] Behavioral Medicine F2 Follow Up of Opioid Dependence (chief complaint)F ollow Up of Medication Refills (chief complaint) AgitationOthe r ferry terminal agent (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 [address], [place], [address], [place]. tel:[phone] Referring Provider: Mague Griffiths, [address] [place], [address] . tel:[phone] [facility], [id number] 7708[address]OA- [place], [address], [place] tel:[phone] Behavioral Medicine F2 No Information 3 Yfn Bee. [address] [place], [address], [place]. tel:[phone] Referring Provider: Rohit Coulter, [address] [facility] [place], [address] . tel:[phone] [facility], [id number] [place], [address], [place] tel:[phone] Behavioral Medicine F2 No Information Rg- 3 Yfn Bee. [address], [place], [place], [address], [place]. tel:[phone] SBIRT - AUDIT/DAST, 15-30 MIN [facility], [id number] 16238[address]SP- [place], [address], [place] tel:[phone] Behavioral Medicine F2 No Information 3 [facility]. [address] [place], [place], [address], [place]. tel:[phone] Referring Provider: [facility], [address] [place], [address] . tel:[phone] OFFICE/OUTPA TIENT VISIT EST [facility], [id number] 35233[address]RC- [place], [address], [place] tel:[phone] Behavioral Medicine F2 MAT (chief complaint) Other specified counseling 3 Tal Roberson. [address] [place], [address], [place]. tel:[phone] Referring Provider: Da Parada, [address] [place], [address]. tel:[phone] [facility], [id number] 2289214BJ- [place], [address], [place] tel:[phone] Behavioral Medicine F2 No Information 3 Tal Roberson. [address] [place], [address], [place]. tel:[phone] Referring Provider: Da Parada, [address] [place], [address]. tel:[phone] [facility], [id number] 1987429AF- [place], [address], [place] tel:[phone] Behavioral Health Integration 2 No Information OFFICE/OUTPA TIENT VISIT [facility], [id number] 1563728KM- [place], [address], [place] tel:[phone] Behavioral Medicine F2 MAT JULIAN F/U (chief complaint) 2 Y[address]. [address] [place], [address], [place]. tel:[phone] Referring Provider: Rohit Coulter, [address] [place], [address] . tel:[phone] [facility], [id number] [place], [address], [place] tel:[phone] Behavioral Health Integration 2 Nahomy Carpenter. [address] , [place], [place], [address], [place]. tel:[phone] OFFICE/OUTPA TIENT VISIT, [facility], [address] [place], [address], [place] tel:[phone] Behavioral Medicine F2 MAT JULIAN F/U (chief complaint) 2 Y[address]. [address] [place], [address], [place]. tel:[phone] Referring Provider: [place], [address] . tel:[phone] OFFICE/OUTPA TIENT VISIT, [facility], [id number] [place], [address], [place] tel:[phone] Behavioral Medicine F2 MAT JULIAN F/U (chief complaint) 2 Y[address]. [address] [place], [address], [place]. tel:[phone] Referring Provider: Rohit Coulter, [address] [place], [address] . tel:[phone] PSYCH DIAGNOSTIC EVALUATION [facility], [address] [place], [address], [place] tel:[phone] Behavioral Health Integration 2 Kevin Atkins. [address] [place], [place], [address], [place]. tel:[phone] Referring Provider: Milly Brown, [address] [place], [address] . tel:[phone] [facility], [id number] 9827[place], [place], [address], [place] tel:[phone] Behavioral Health Integration Other specified counseling 2 Angeles Polk. [address] , [place], [place], [address], [place]. tel:[phone] OFFICE/OUTPA TIENT VISIT, [facility], [address] [place], [address], [place] tel:[phone] Behavioral Medicine F2 Establish Care (chief complaint) Gastroesophag eal reflux disease without esophagitisSe izure disorderHisto ry of fibromyalgiaN icotine dependence with current useEncounter to establish careBPH associated with nocturiaNoctu tksLoux-A-Zcw h in place 2 Yfn Bee. [address] [place], [address], [place]. tel:[phone] Referring Provider: Rohit Coulter, [address] [place], [address] . tel:[phone] As per patient privacy policy some of the clinical information may not be visible. Family History Family Member Type Diagnosis Age At Onset No Information Payers Payer name Insurance type Covered republican ID Imer Whitlock (s) [employer] CI [id number] M [place] Medicaid MC [id number] Social History Type Description Quantity Date Captured [...] Future Order: Lab Order CBC With Differential/Platelet ([id number]), Sent on: Sent Future Order: Lab Order CMP ([id number]), Sen t on: Sent Future Order: Lab Order Lipid Pr ofile ([id number]), Sent on: Sent Future Order: Lab Order Vitamin D 25-OH ([id number]), Sent on: Sent Future Order: Lab Order Vit B12 ([id number]), Sent on: Sent Future Order: Lab Order TSH-InHo use ([id number]), Sent on: Sent Future Order: Lab Order Microalb umin, Urine ([id number]), Sent on: Sent Future Order: Lab Order UA, Macr o W/ Reflex Micro ([id number]), Sent on: Sent Future Order: Lab Order PSA (PRICE E AND TOTAL) ([id number]), Sent on: Sent History Of Present Illness [...] office today for a follow up for Kayleighmariana report they are doing wellConcerns: DeniesIssues: DeniesDrug [...] a 65 YOM t hat presents to [facility].Concerns: Pt states he was in PM, is [...] Score 0/10 Instructions Date Instruction Additional Infor gilbert UDSWent over UDSStar t Neurontin 600mg TIDStart [...] PRN with any issues. Related to Other custodial (current) drug therapy FDA is warning t [...] while taking this medicine. Notify your health daycare provider immediately and seek dental treatment if you experience any problems with your teeth or gums while taking buprenorphine medicines that are dissolved in the mouth. If you are starting this medicine, tell your health adult care provider if you have any tooth problems, including a history of cavities. When taking your buprenorphine medicine and after it is completely dissolved, take a large sip of water, swish it gently around your teeth and gums, and spit. Wait at least 1 hour before brushing your teeth. [place] teeth 1 hour after EACH dose. if a Dental referral is needed, please let us know so we can schedule Related to Other specified counseling Please consider quit ting using tobacco products and/or vaping. This causes numerous health problems and can worsen anxiety, depression, and mood problems. Please contact my office if you would like information or resources to help you quit. 6-827-ULVJUQX is also a good resource for you. Related to Nicotine dependence with current use As per patient privacy policy some of the clinical information may not be visible. Assessments Type Assessment Date assessment Agitation assessment Other ferry terminal agent (current) drug t herapy As per patient privacy policy some of the clinical information may not be visible. Mental Status Date Cognitive Assessment Orientation - Jefferson ed to time, place, person, situation.Normal Orientation Patient Care Teams Name Effective Dates (start - stop) Status Members No Information
[2024-04-06 06:20] VITALS: BP 85/63; PULSE 101; RESP 18; TEMP 36.9; O2SAT 93
[2024-04-06] MEDS: sodium chloride 0.9% 1,000 ML 30 ML IV (06:27)
--- NOTE | 2024-04-06 06:59 | ANES.PREANE2 ---
Pre-Anesthetic Assessment Height/Weight: Height 1.75 m Weight 71.214 kg Temp Pulse Resp BP Pulse Ox O2 Del Method 98.4 F 101 H 18 85/63 93 Room Air 04/06/24 06:20 04/06/24 06:20 04/06/24 06:20 04/06/24 06:20 04/06/24 06:20 04/06/24 06:20 Preop Diagnosis: HO colon polyps Operation Date: 04/06/24 07:00 Proposed Procedures p Colonoscopy 22235, G0105, Z12.11(Not Applicable) - Arvind Mcginnis MD Familial anesthetic complications: none Was Beta Emani taken within 24 hours: N/A Was Clonidine taken within 24 hours: N/A Last intake: Intake Last Liquid Date 04/05/24 Last Liquid Time 00:00 Last Solid Date 04/05/24 Last Solid Time 14:00 Last Intake: 14:00 Social Tobacco and No alcohol Exam alert and oriented x 3 Airway Submandibular: within normal limits Cervical ROM: within normal limits Mallampati: Class I Dentition: false Pulmonary Chronic Obstructive Pulmonary Disease, Exertional Dyspnea and Shortness of Breath CV/HEM None reported None reported Hepatic None reported GI Gastroesophageal Reflux Disease Metabolic Hyperlipidemia Musc/skel Lower Back Pain and Osteoarthritis/DJD takes percocet daily for pain Neuropsych Seizure (seizure disorder. reports stopped taking seizure medication about a year or so ago becasue he stopped having seizures. last sizure 2 months ago per patient report. triggeredby lack of sleep per patient.) Anesthetic Plan ASA status: 3 Anesthesia: Anesthesia Evaluation, General and MAC Medications/Allergies Home Medications Medication Instructions Recorded Confirmed Last Taken Type naloxone 4 mg/actuation nasal 1 spray intranasal Q2M PRN Opioid 05/08/20 04/06/24 11/06/22 History spray (Narcan) Reversal Accommodative orthotics #1 ea 04/15/22 03/15/24 11/06/22 Rx gauntlet AFO to the left #1 ea 05/20/22 03/15/24 11/06/22 Rx doxepin 25 mg capsule 25 mg PO .qhs #30 caps 09/15/23 04/06/24 03/30/24 Rx albuterol sulfate 90 mcg/actuation 2 puff inhalation PRN PRN Wheezing 01/14/24 04/06/24 04/01/24 Rx aerosol inhaler #6.7 grams atorvastatin 20 mg tablet 20 mg PO DAILY #30 tabs 01/14/24 04/06/24 03/30/24 Rx pantoprazole 40 mg tablet,delayed 40 mg PO DAILY 30 days #30 tabs 01/14/24 04/06/24 04/05/24 Rx release (Protonix) sucralfate 1 gram tablet (Carafate) 1 g PO Q6H #120 tabs 01/14/24 04/06/24 03/30/24 Rx tamsulosin 0.4 mg capsule (Flomax) 0.4 mg PO DAILY #30 caps 01/14/24 04/06/24 04/05/24 Rx oxycodone-acetaminophen 10 mg-325 1 tab PO Q4H PRN pain 30 days #180 03/15/24 04/06/24 04/06/24 Rx mg tablet tabs Allergies Allergy/AdvReac Type Severity Reaction Status Date / Time carbamazepine [From Tegretol] Allergy Severe ALGY-Rash Verified 04/02/24 12:01 phenobarbital Allergy Severe ADR-Irritab Verified 04/02/24 12:01 le phenytoin [From Dilantin] Allergy Severe ALGY-Rash Verified 04/02/24 12:01 prochlorperazine Allergy Severe ADR-Migrain Verified 04/02/24 12:01 [From Compazine] e ketorolac [From Toradol] Allergy Intermediate ADR-Cramping Verified 04/02/24 12:01 of the Muscles morphine Allergy ALGY-Swell Verified 04/02/24 12:01 Lip/Tongue/Throat Penicillins Allergy ALGY-Hives Verified 04/02/24 12:01 ciprofloxacin AdvReac increase Verified 04/02/24 12:01 blood pressure with headache Current Medications Generic Name Dose Route Start Last Admin Trade Name Freq PRN Reason Stop Dose Admin Sodium Chloride 1,000 mls @ 30 mls/hr 04/06/24 06:15 04/06/24 06:27 Sodium Chloride 0.9% IV 30 mls/hr .Q24H SABAS Administration PFSH Anesthesia Medical History Smoker unmotivated to quit Elevated prostate specific antigen (PSA) Long-term use of high-risk medication Chronic back pain greater than 3 months duration Enrolled in chronic care management Chronic prostatitis History of broken leg BPH loc w urin obs/LUTS Surgical History (Updated 02/13/24 @ 08:56 by JACKIE Walls) History of cholecystectomy History of bilateral inguinal hernia repair H/O shoulder surgery History of ankle surgery History of elbow surgery History of hernia surgery Family History Father , AT AGE 73 Murder Mother , AT AGE 42 Cancer COLON Social History Smoking and tobacco/nicotine status: never used tobacco/nicotine Second hand smoke exposure: No Alcohol intake: never Substance/Drug Use: never Adopted: Yes Lives independently: Yes Household members: none Marital status: Number of children: 2 service: No Current occupational status: retired Current gender identity: Male Special alejandro needs: No Agree to transfusion: Yes Data Anesthesia Cardiac Studies: Sestamibi Stress Test (Cardiology) 08/05/22
--- NOTE | 2024-04-06 07:01 | W.PM.OPSFHP ---
Same Day Surgery H&P Indication for Procedure/HPI DATE OF PROCEDURE: April 06, 2024 CHIEF COMPLAINT/INDICATIONFOR SURGICAL PROCEDURE: Screening colonoscopy PREOP DIAGNOSIS: Screening colonoscopy PLANNED PROCEDURE: Operation Date: 04/06/24 07:00 Proposed Procedures p Colonoscopy 10205, G0105, Z12.11(Not Applicable) - Arvind Mcginnis MD Medications/Allergies* Home Medications Medication Instructions Recorded Confirmed Type naloxone 4 mg/actuation nasal 1 spray intranasal Q2M PRN Opioid 05/08/20 04/06/24 History spray (Narcan) Reversal Allergies/Adverse Reactions Allergy/AdvReac Type Severity Reaction Status Date / Time carbamazepine [From Tegretol] Allergy Severe ALGY-Rash Verified 04/02/24 12:01 phenobarbital Allergy Severe ADR-Irritab Verified 04/02/24 12:01 le phenytoin [From Dilantin] Allergy Severe ALGY-Rash Verified 04/02/24 12:01 prochlorperazine Allergy Severe ADR-Migrain Verified 04/02/24 12:01 [From Compazine] e ketorolac [From Toradol] Allergy Intermediate ADR-Cramping Verified 04/02/24 12:01 of the Muscles morphine Allergy ALGY-Swell Verified 04/02/24 12:01 Lip/Tongue/Throat Penicillins Allergy ALGY-Hives Verified 04/02/24 12:01 ciprofloxacin AdvReac increase Verified 04/02/24 12:01 blood pressure with headache Current Medications: Generic Name Dose Route Start Last Admin Trade Name Freq PRN Reason Stop Dose Admin Sodium Chloride 1,000 mls @ 30 mls/hr 04/06/24 06:15 04/06/24 06:27 Sodium Chloride 0.9% IV 30 mls/hr .Q24H SABAS Administration Pertinent History/Comorbid Conditions* Medical History (Updated 02/04/24 @ 12:01 by Talita Winn MD) Smoker unmotivated to quit Elevated prostate specific antigen (PSA) Long-term use of high-risk medication Chronic back pain greater than 3 months duration Enrolled in chronic care management Chronic prostatitis History of broken leg BPH loc w urin obs/LUTS Surgical History (Updated 08/06/23 @ 00:00 by VIKTORIA Addison) History of cholecystectomy History of bilateral inguinal hernia repair H/O shoulder surgery History of ankle surgery History of elbow surgery History of hernia surgery Family History (Updated 05/18/21 @ 08:18 by Shelli Pope LPN) Father, AT AGE 73 Mother, AT AGE 42 Murder Father Cancer Mother COLON Social History Smoking and tobacco/nicotine status: never used tobacco/nicotine Second hand smoke exposure: No Alcohol intake: never Substance/Drug Use: never Adopted: Yes Lives independently: Yes Household members: none Marital status: Number of children: 2 service: No Current occupational status: retired Current gender identity: Male Special alejandro needs: No Agree to transfusion: Yes Pertinent Exam Findings alert, oriented x 3, clear to auscultation bilaterally, regular rate & rhythm and procedure specific exam findings Abdomen soft, NT, ND Recommendations Surgery/Procedure today Other Plans: Proceed with endoscopy Coding Level of Care Code Acute Code for [place] Wesley
[2024-04-06 07:52] VITALS: BP 96/57; PULSE 71; RESP 16; TEMP 36.3; O2SAT 99
--- NOTE | 2024-04-06 07:58 | ANE.PACU2 ---
Inpatient post-anesthesia follow up: Airway intact: Yes Vital signs: Temperature 98.4 F Pulse Rate 101 Respiratory Rate 18 Blood Pressure 85/63 Pulse Oximetry 93 Oxygen Delivery Me thod Room Air Oxygen Flow Rate Fraction of Inspir ed Oxygen Hydration adequate: Yes Nausea and vomiting: No Pain level: 1 Mental status: Baseline
[2024-04-06 08:06] VITALS: BP 108/78; PULSE 90; RESP 16; TEMP 36.2; O2SAT 96
== END 2024-04-06 08:31 | disposition home or self-care (01) ==
PROVIDERS: Visit Provider Student in an Organized Health Care Education/Training Program
PROC: 0DJD8ZZ Inspection of Lower Intestinal Tract, Via Natural or Artificial Opening Endoscopic (ICD-10-PCS; CPT 45378; principal; 2024-04-06 07:00)
DX: Z12.11 Encounter for screening for malignant neoplasm of colon (principal); D12.5 Benign neoplasm of sigmoid colon; N40.1 Benign prostatic hyperplasia with lower urinary tract symptoms; N13.8 Other obstructive and reflux uropathy; J44.9 Chronic obstructive pulmonary disease, unspecified; E78.5 Hyperlipidemia, unspecified; K57.30 Diverticulosis of large intestine without perforation or abscess without bleeding; K21.9 Gastro-esophageal reflux disease without esophagitis
CPT/HCPCS: 45380; 88305; J2704; J7030

== ENCOUNTER → 2024-04-15 09:23 | Outpatient (BNVA) | payer MEDICARE, MEDICAID, SELFPAY | PROVIDERS: Visit Provider Orthopaedic Surgery | DX: M54.9 Dorsalgia, unspecified (principal); M54.50 Low back pain, unspecified; G89.29 Other chronic pain | CPT/HCPCS: 72100; 99213 ==

== ENCOUNTER 2024-04-20 04:10 | Emergency (ER) | payer MEDICARE, MEDICAID, SELFPAY ==
[2024-04-20 04:11] VITALS: BP 110/91; PULSE 106; RESP 18; TEMP 37; O2SAT 98; BMI 23.1
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
[2024-04-20 04:26] VITALS: RESP 18; O2SAT 96
[2024-04-20] MEDS: oxyCODONE-APAP 10-325 mg Tablet 1 TAB PO (04:26)
[2024-04-20 04:37] VITALS: BP 110/91; PULSE 104; O2SAT 98
[2024-04-20 05:21] VITALS: BP 128/93; PULSE 94; O2SAT 97
== END 2024-04-20 05:27 | disposition home or self-care (01) ==
PROVIDERS: Emergency Provider Emergency Medicine; PCP Family Medicine
DX: M54.50 Low back pain, unspecified (principal); F17.210 Nicotine dependence, cigarettes, uncomplicated
CPT/HCPCS: 99283

== ENCOUNTER → 2024-05-20 12:13 | Outpatient (BNVA) | payer MEDICARE, MEDICAID, SELFPAY | PROVIDERS: PCP Family Medicine; Visit Provider Orthopaedic Surgery | DX: M54.50 Low back pain, unspecified (principal); G89.29 Other chronic pain | CPT/HCPCS: 99213 ==

== ENCOUNTER → 2024-06-04 11:04 | Outpatient (BNVA) | payer MEDICARE, MEDICAID, SELFPAY | PROVIDERS: PCP Family Medicine; Visit Provider Student in an Organized Health Care Education/Training Program | DX: Z09 Encounter for follow-up examination after completed treatment for conditions other than malignant neoplasm (principal) | CPT/HCPCS: 99213 ==

== ENCOUNTER → 2024-06-24 08:45 | Outpatient (BNVA) | payer MEDICARE, MEDICAID, SELFPAY | PROVIDERS: PCP Family Medicine; Visit Provider Orthopaedic Surgery | DX: M54.50 Low back pain, unspecified (principal); G89.29 Other chronic pain | CPT/HCPCS: 99214 ==

== ENCOUNTER 2024-07-01 11:31 | Outpatient (CLI) | payer MEDICARE, MEDICAID, SELFPAY ==
[2024-07-01 12:20] LABS: Basophils % 0.6 %; Eosinophils # 0.1 10^3/uL (0.0-0.8); Eosinophils % 2.2 %; Hematocrit 39.7 % (37-53); Lymphocytes # 1.3 10^3/uL (0.8-4.8); Lymphocytes % 26.5 %; Mean Corpuscular HGB Conc 32.2 g/dL (30-55); Mean Corpuscular Hemoglobin 30.2 pg (27-33); Mean Corpuscular Volume 93.6 fl (82-101); Mean Platelet Volume 8.7 fL (7.4-10.4); Monocytes # 0.4 10^3/uL (0.2-0.9); Monocytes % 8.9 %; Neutrophils # 3.04 10^3/uL (1.8-7.7); Neutrophils % 61.6 %; Nucleated Red Blood Cells % 0 %; Platelet Count 292 10^3/cmm (157-399); Red Blood Count 4.24 10^6/uL (3.85-5.65); White Blood Count 4.94 10^3/uL (3.29-11.43)
[2024-07-01 12:24] LABS: Bilirubin Urine Negative (Negative); Blood Urine Negative (Negative); Glucose Urine UA Negative (Normal); Ketones Urine Negative (Negative); Leukocyte Esterase Urine Negative (Negative); Nitrate Urine Negative (Negative); Protein Urine Negative (Negative); Specific Gravity, Urine 1.019 (1.005-1.030); Urine Appearance Clear (CLEAR); Urine Color Yellow (Yellow); pH Urine 7.5 (5-7)
[2024-07-01 12:27] LABS: Add Urine Microscopic? YES; Bacteria Urine None Seen /hpf; Hyaline Casts Urine 0-4 /lpf; RBC Urine 0-2 /hpf (0-2); Squamous Epithelial Cell Urine 0-5 /hpf (0-5); WBC Urine 0-5 /hpf (0-5)
[2024-07-01 12:38] LABS: Alanine Aminotransferase 7 U/L (0-41); Alkaline Phosphatase 87 U/L (40-130); Anion Gap 14.1 (5-19); Aspartate Amino Transferase 13 U/L (0-40); Blood Urea Nitrogen 11 mg/dL (8-23); Carbon Dioxide 25 mmol/L (22-29); Chloride 101 mmol/L (98-107); Globulin 3.3 g/dL (1.3-4.6); Glomerular Filtration Rate 112.5 mL/min (90-130); Glucose 101 mg/dL (65-115); Osmolality Calculated 282 mOsm/kg (285-295); Potassium 4.1 mmol/L (3.5-5.1); Sodium 136 mmol/L (136-145); Total Bilirubin 0.4 mg/dL (0.15-1.2); Total Protein 7.3 g/dL (6.6-8.7)
== END 2024-07-01 11:32 | disposition home or self-care (01) ==
LOC: LAB 11:33
PROVIDERS: PCP Family Medicine; Visit Provider Orthopaedic Surgery
DX: M25.559 Pain in unspecified hip (principal)
CPT/HCPCS: 36415; 80053; 81001; 85025

== ENCOUNTER 2024-07-02 07:56 | Day surgery (SDC) | payer MEDICARE, MEDICAID, SELFPAY ==
[2024-07-02] VITALS (18 sets, daily range): BP systolic 129–160; BP diastolic 72–104; PULSE 75–95; RESP 14–18; TEMP 36.2–36.8; O2SAT 95–100; BMI 22.6
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
[2024-07-02] MEDS: sodium chloride 0.9% 1,000 ML 30 ML IV (08:40)
--- NOTE | 2024-07-02 09:03 | W.PM.OPSUD ---
Surgery/Procedure H&P Update DATE OF PROCEDURE: July 02, 2024 DATE H&P PERFORMED: 06/24/24 H&P UPDATE INFORMATION: I have reviewed H&P completed within last 30 days, I have examined patient prior to procedure and No changes to prior documentation PREOP DIAGNOSIS: Back and leg pain PLANNED PROCEDURE: Operation Date: 07/02/24 09:40 Proposed Procedures p LT Injection procedure for SI joint, anesthetic/steroid, with image guidance including arthrography when performed.(Left) - Bernabe Carbajal DO
--- NOTE | 2024-07-02 10:01 | PC.NURSE ---
0.25% sensorcaine 18cc lot [id number] exp 07/03/2025 mixed with 2cc of methylprednisolone acetate lot [id number], exp 03/02/2026. 20 cc injected per
--- NOTE | 2024-07-02 10:14 | XR_ITS ---
WS: [id number] Exam: XR pelvis 1-2V* [id number] Date/Time of Exam: 07/02/2024 10:15 AM Reason For Exam: OR PICS Single AP limited view of the pelvis is submitted. The image was obtained for procedural visualizatio n purposes.
--- NOTE | 2024-07-02 10:18 | PM.OP ---
Operative Report Date of procedure: July 02, 2024 Pre-op diagnosis: 1. Pain in left SI joint 2. Greater trochanteric bursitis Post-op diagnosis: same Post-op findings: 1. Steroid injection into the left SI joint 2. Steroid injection into the left greater trochanter bursa Surgeon: Bernabe Carbajal DO Estimated blood loss (mL): 1 Procedure: 1. Steroid injection into the left SI joint 2. Steroid injection into the left greater trochanter bursa Please refer to the procedure. Anesthesia was placed in the prone position all his pressure well-padded. Attention was first brought to the SI joint. This was done by using C-arm guidance. The joint was identified needle was placed into the SI joint and the superior middle and inferior aspect of the SI joint. Bupivacaine and Kenalog were injected. And again this is confirmed with C-arm guidance. Next attention was brought to the left greater trochanter. The trochanter was palpated and again bupivacaine and Kenalog were injected into the bursa. Patient was then woken up and transferred to the PACU in stable condition.
[2024-07-02] MEDS: fentaNYL 50 mcg/mL INJ 2mL IVP ×2 (10:19→10:28)
[2024-07-02] MEDS: HYDROmorphone 1 mg/mL INJ 1 mL 0.5 MG IVP (10:41)
--- NOTE | 2024-07-02 11:05 | ANE.PACU2 ---
Inpatient post-anesthesia follow up: Airway intact: Yes Vital signs: Temperature 97.2 F Pulse Rate 76 Respiratory Rate 18 Blood Pressure 147/86 Pulse Oximetry 100 Oxygen Delivery Me thod Room Air Oxygen Flow Rate 0 Fraction of Inspir ed Oxygen Hydration adequate: Yes Nausea and vomiting: No Pain level: 1 Mental status: Baseline
[2024-07-02] MEDS: oxyCODONE-APAP 10-325 mg Tablet 1 TAB PO (11:09)
== END 2024-07-02 11:40 | disposition home or self-care (01) ==
PROVIDERS: PCP Family Medicine; Visit Provider Orthopaedic Surgery
DX: M70.62 Trochanteric bursitis, left hip (principal); M53.3 Sacrococcygeal disorders, not elsewhere classified; J44.9 Chronic obstructive pulmonary disease, unspecified; I25.2 Old myocardial infarction; Z79.899 Other long term (current) drug therapy; Z88.8 Allergy status to other drugs, medicaments and biological substances; Z88.0 Allergy status to penicillin; Z88.5 Allergy status to narcotic agent; F17.210 Nicotine dependence, cigarettes, uncomplicated
CPT/HCPCS: 72170; 76000; J0330; J1100; J1171; J2405; J2704; J3010; J7030

== ENCOUNTER → 2024-07-22 08:05 | Outpatient (BNVA) | payer MEDICARE, MEDICAID, SELFPAY | PROVIDERS: PCP Family Medicine; Visit Provider Orthopaedic Surgery | DX: M54.50 Low back pain, unspecified (principal); G89.29 Other chronic pain | CPT/HCPCS: 72100; 99024 ==

== ENCOUNTER 2024-08-02 07:36 | Oncology outpatient (recurring) (ONCR) | payer MEDICARE, MEDICAID, SELFPAY ==
--- NOTE | 2024-08-02 08:00 | CT_ITS ---
WS: [id number] CT PELVIS NONCONTRAST HISTORY: Difficulty walking, low back and LEFT leg pain. TECHNIQUE: Contiguous imaging is performed of the pelvis without contrast. Coronal and sagittal reformats are reviewed. All CT scans at [facility] use at least one of these dose optimization techniques: automated exposure control; mA and/or kV adjustment per patient size (includes targeted exams where dose is matched to clinical indication); or iterative reconstruction. DLP: 207.28 mGy.cm COMPARISON: 09/30/2023, 07/31/2023 Orthopedic hardware has been removed from the lumbosacral spine. The tracts of the pedicle screws are still apparent. Large posterior laminectomy defects at L4 and L5. Moderate to severe bilateral L5-S1 foraminal stenosis due to osteophyte disease. Osteophytic bone formation encroaches upon the ventral thecal sac and facet arthritis. Mild narrowing of the SI joints. Iliac screw tracks are identified and uncomplicated. Bone graft site LEFT ilium. Interbody spacer at L5-S1 has been removed. Hips are well seated in the acetabulum. No fractures or displacement. No cam deformity. Prior RIGHT pubic rami fractures. No acute fracture. Muscles of the pelvis are symmetric. Urinary bladder is normal. No adenopathy. CT/CT pelvis wo con [id number] IMPRESSION: 1. Interval screw removal from the lumbosacral region. Also removal of the dis placed L5-S1 interbody spacer. 2. Moderate to severe foraminal stenosis at L5-S1 due to facet and osteophyte formation. 3. Posterior laminectomy defects at L4-5. 4. No fracture or bone destruction. 5. Remote healed fractures RIGHT pubic rami.
== END 2024-08-30 23:59 | disposition home or self-care (01) ==
LOC: RAD 07:37 → ONCMED 09:44
PROVIDERS: PCP Family Medicine; Visit Provider Orthopaedic Surgery
DX: R52 Pain, unspecified (principal); M48.07 Spinal stenosis, lumbosacral region; Z98.890 Other specified postprocedural states
CPT/HCPCS: 72192

== ENCOUNTER → 2024-08-12 14:48 | Outpatient (BNVA) | payer MEDICARE, MEDICAID, SELFPAY | PROVIDERS: PCP Family Medicine; Visit Provider Orthopaedic Surgery | DX: Z09 Encounter for follow-up examination after completed treatment for conditions other than malignant neoplasm (principal) | CPT/HCPCS: 99214 ==

== ENCOUNTER 2024-09-03 14:14 | Emergency (ER) | payer MEDICARE, MEDICAID, SELFPAY ==
[2024-09-03 14:18] VITALS: BP 107/84; PULSE 123; RESP 18; TEMP 37; O2SAT 96; BMI 21.2
--- NOTE | 2024-09-03 14:19 | XR_ITS ---
WS: [id number] XR chest 1V portable [id number] REASON FOR EXAM: dyspnea/cough FINDINGS: The chest is unchanged compared to 10/12/2022. Chemotherapy infusion port over the right chest with trans right internal jugular infusion catheter with the tip in the mid superior vena cava. Mild tortuosity of the thoracic aorta. Normal heart size. Calcified granulomatous disease bilaterally. No acute pulmonary parenchymal or pleural disease. Moderate degenerative spondylosis in the thoracic spine. Total reverse right shoulder arthroplasty. XR/XR chest 1V portable [id number] IMPRESSION: No acute chest abnormality.
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
[2024-09-03] MEDS: levETIRAcetam 1,000 MG/100 ML PREMIX 400 MG IV (14:45)
--- NOTE | 2024-09-03 14:46 | CT_ITS ---
WS: [id number] CT HEAD NONCONTRAST HISTORY: Recurrent seizures TECHNIQUE: Contiguous axial imaging performed through the brain. Bone and soft tissue windows. Sagittal and coronal reformats reviewed. All CT scans at [facility] use at least one of these dose optimization techniques: automated exposure control; mA and/or kV adjustment per patient size (includes targeted exams where dose is matched to clinical indication); or iterative reconstruction. DLP: 1072.88 mGy.cm COMPARISON: 01/06/2024 No acute intracranial hemorrhage, midline shift or mass effect. Mild atrophy and small vessel disease. Small bilateral lacunar infarcts in the basal ganglia. Mild cerebellar volume loss. Ventricles: Normal size with no hydrocephalus. No inferior displacement the cerebellar tonsils. Paranasal sinuses: Mucoperiosteal thickening in the LEFT maxillary sinus. Mastoid air cells: Well pneumatized. Calvarium and scalp: Skull is intact with no soft tissue edema or swelling. CT/CT head wo con* [id number] IMPRESSION: 1. No acute intracranial hemorrhage or edema. 2. Mild cerebral and cerebellar atrophy. 3. Chronic bilateral basal ganglia lacunar infarcts.
[2024-09-03] MEDS: LORazepam 2 mg/mL INJ 1 mL IVP (14:50)
--- NOTE | 2024-09-03 14:50 | PC.PHAR ---
Shayy at [facility] stated pt is non compliant and only wants his pain meds filled. Pt does have several other medications that have not been picked up since June. Last fill dates and day supply are added.
[2024-09-03 14:56] VITALS: BP 158/96; PULSE 121; O2SAT 98
[2024-09-03 15:03] LABS: Basophils # 0.1 10^3/uL (0.0-0.1); Basophils % 0.4 %; Eosinophils # 0.2 10^3/uL (0.0-0.8); Eosinophils % 1.1 %; Hematocrit 38.4 % (37-53); Lymphocytes # 2.1 10^3/uL (0.8-4.8); Mean Corpuscular HGB Conc 31.5 g/dL (30-55); Mean Corpuscular Hemoglobin 31.1 pg (27-33); Mean Corpuscular Volume 98.7 fl (82-101); Mean Platelet Volume 8.9 fL (7.4-10.4); Monocytes # 1.2 10^3/uL (0.2-0.9); Neutrophils # 12.75 10^3/uL (1.8-7.7); Neutrophils % 77.8 %; Nucleated Red Blood Cells % 0 %; Platelet Count 426 10^3/cmm (157-399); Red Blood Count 3.89 10^6/uL (3.85-5.65); Red Cell Distribution Width 15.1 % (12.1-15.1); White Blood Count 16.37 10^3/uL (3.29-11.43)
[2024-09-03 15:21] LABS: Alanine Aminotransferase 17 U/L (0-41); Albumin Level 3.7 g/dL (3.5-5.2); Alkaline Phosphatase 82 U/L (40-130); Anion Gap 30.4 (5-19); Aspartate Amino Transferase 19 U/L (0-40); Blood Urea Nitrogen 7 mg/dL (8-23); Calcium 9.7 mg/dL (8.5-10.5); Carbon Dioxide 13 mmol/L (22-29); Chloride 101 mmol/L (98-107); Glomerular Filtration Rate 96.1 mL/min (90-130); Glucose 134 mg/dL (65-115); Magnesium 2.4 mg/dL (1.7-2.3); Osmolality Calculated 292 mOsm/kg (285-295); Potassium 3.4 mmol/L (3.5-5.1); Sodium 141 mmol/L (136-145); Total Bilirubin 0.3 mg/dL (0.15-1.2); Total Protein 7.7 g/dL (6.6-8.7)
[2024-09-03 15:26] VITALS: BP 125/74; PULSE 113; RESP 17; O2SAT 93
[2024-09-03 15:56] VITALS: BP 127/73; PULSE 107; RESP 18; O2SAT 93
[2024-09-03 16:49] VITALS: BP 126/80; PULSE 109; O2SAT 100
--- NOTE | 2024-09-03 16:53 | PC.NURSE ---
this RN overrode 2mg of ativan to take with pt to CT in case of a seizure, no seizure while in CT. 2mg of ativan returned to the pyxis with jacob cespedes rn.
== END 2024-09-03 16:49 | disposition left against medical advice (07) ==
PROVIDERS: Emergency Provider Family Medicine; PCP Family Medicine
DX: Z53.21 Procedure and treatment not carried out due to patient leaving prior to being seen by health care provider (principal); F17.210 Nicotine dependence, cigarettes, uncomplicated
CPT/HCPCS: 36591; 70450; 71045; 80053; 83735; 85025; 96365; 96366; 96375; 99285; J1953; J2060

== ENCOUNTER → 2024-09-09 15:21 | Outpatient (BNVA) | payer MEDICARE, MEDICAID, SELFPAY | PROVIDERS: PCP Family Medicine; Visit Provider Orthopaedic Surgery | DX: M54.50 Low back pain, unspecified (principal); G89.29 Other chronic pain | CPT/HCPCS: 72100; 99213 ==

== ENCOUNTER → 2024-10-28 11:10 | Outpatient (BNVA) | payer MEDICARE, MEDICAID, SELFPAY | PROVIDERS: PCP Family Medicine; Visit Provider Orthopaedic Surgery | DX: M54.50 Low back pain, unspecified (principal); G89.29 Other chronic pain | CPT/HCPCS: 72100; 99214 ==

== ENCOUNTER 2024-11-08 09:27 | Day surgery (SDC) | payer MEDICARE, MEDICAID, SELFPAY ==
[2024-11-08] VITALS (11 sets, daily range): BP systolic 140–163; BP diastolic 76–96; PULSE 72–97; RESP 14–21; TEMP 36.5–36.7; O2SAT 91–100; BMI 20.7
[2024-11-08 10:22] LABS: Basophils # 0.1 10^3/uL (0.0-0.1); Basophils % 1.2 %; Eosinophils # 0.2 10^3/uL (0.0-0.8); Eosinophils % 4.6 %; Hematocrit 38.4 % (37-53); Lymphocytes # 1.3 10^3/uL (0.8-4.8); Lymphocytes % 26.1 %; Mean Corpuscular HGB Conc 32.8 g/dL (30-55); Mean Corpuscular Volume 94.6 fl (82-101); Mean Platelet Volume 8.6 fL (7.4-10.4); Monocytes # 0.4 10^3/uL (0.2-0.9); Monocytes % 7.1 %; Neutrophils # 3.01 10^3/uL (1.8-7.7); Neutrophils % 60.8 %; Nucleated Red Blood Cells % 0 %; Platelet Count 269 10^3/cmm (157-399); Red Blood Count 4.06 10^6/uL (3.85-5.65); Red Cell Distribution Width 15.5 % (12.1-15.1); White Blood Count 4.95 10^3/uL (3.29-11.43)
--- NOTE | 2024-11-08 10:23 | P.ANESASSM_ITS ---
Pre-Anesthetic Assessment Height/Weight: Height 1.85 m Weight 71.214 kg Temp Pulse Resp BP Pulse Ox O2 Del Method 97.8 F 72 16 153/96 91 Room Air 11/08/24 09:59 11/08/24 09:59 11/08/24 09:59 11/08/24 09:59 11/08/24 09:59 11/08/24 09:59 Preop Diagnosis: Left sacroiliac arthritis Operation Date: 11/08/24 12:40 Proposed Procedures p Lumbar Fusion(Not Applicable) - Bernabe Carbajal DO Familial anesthetic complications: None Was Beta Emani taken within 24 hours: N/A Was Clonidine taken within 24 hours: N/A Last intake: Intake Last Liquid Date 11/07/24 Last Liquid Time 21:00 Last Solid Date 11/07/24 Last Solid Time 21:30 Social Tobacco and No alcohol Exam alert, oriented x 3, clear to auscultation bilaterally and regular rate & rhythm Airway Mallampati: Class II Dentition: false Pulmonary Chronic Obstructive Pulmonary Disease CV/HEM Myocardial Infarction GI Gastroesophageal Reflux Disease Metabolic Hyperlipidemia Anesthetic Plan ASA status: 4 Anesthesia: General Risk of > 500 ml blood loss (7ml/kg in children): No Medications/Allergies Home Medications ?Medication ?Instructions ?Recorded ?Confirmed ?Last Taken ?Type Accommodative orthotics #1 ea 04/15/22 10/28/2412/22 Rx gauntlet AFO to the left #1 ea 05/20/22 10/28/240 12/22 Rx tamsulosin 0.4 mg capsule (Flomax) 0.4 mg PO DAILY #30 caps 01/14/24 11/08/24 11/07/24 Rx atorvastatin 20 mg tablet 20 mg PO DAILY #30 tabs 06/0211/08/24 11/07/24 Rx sucralfate 1 gram tablet (Carafate) 1 g PO Q6H #120 ta bs 06/17/24 11/08/24 11/07/24 Rx gabapentin 600 mg tablet 600 mg PO TID 09/03/2411/0811/07/24 History pantoprazole 40 mg tablet,delayed 40 mg PO BID 5 11/08/24 11/07/24 History release (Protonix) oxycodone-acetaminophen 10 mg-325 1 tab PO Q4H PRN betzy n 30 days #180 10/28/24 11/08/24 11/07/24 Rx mg tablet tabs Allergies Allergy/AdvReac Type Severity Reaction Status Date / Time carbamazepine (From Tegretol) Allergy Severe ALGY-Rash Verified 11/08/24 09:51 phenobarbital Allergy Severe ADR-Irritab Verified 11/08/24 09:51 le phenytoin (From Dilantin) Allergy Severe ALGY-Rash Verified 11/08/24 09:51 prochlorperazine (From Allergy Severe ADR-Migrain Verified 11/08/24 09:51 Compazine) e ketorolac (From Toradol) Allergy Intermediate ADR-Cramping Verified 11/08/24 09:51 of the Muscles morphine Allergy ALGY-Swell Verified 11/08/24 09:51 Lip/Tongue/Throat Penicillins Allergy ALGY-Hives Verified 11/08/24 09:51 ciprofloxacin AdvReac increase Verified 11/08/24 09:51 blood pressure with headache [facility] Anesthesia Medical History Smoker unmotivated to quit Elevated prostate specific antigen (PSA) Long-term use of high-risk medication Chronic back pain greater than 3 months duration Enrolled in chronic care management Chronic prostatitis History of broken leg BPH loc w urin obs/LUTS Surgical History History of cholecystectomy History of bilateral inguinal hernia repair H/O shoulder surgery History of ankle surgery History of elbow surgery History of hernia surgery Family History Father , AT AGE 73 Murder Mother , AT AGE 42 Cancer COLON Social History Smoking and tobacco/nicotine status: current every day tobacco/nicotine user cigarettes Packs smoked per day: 0.25 Years cigarettes smoked: 35 Second hand smoke exposure: No Alcohol intake: never Substance/Drug Use: never Adopted: Yes Lives independently: Yes Household members: none Marital status: Number of children: 2 service: No Current occupational status: retired Current gender identity: Male Special alejandro needs: No Agree to transfusion: Yes Data Anesthesia 11/08/24 10:15 11/08/24 10:15 Short CBC 11/08/24 Range/Units 10:15 WBC 4.95 (3.29-11.43) 10^3/uL Hgb 12.60 (11.27-16.99) g/dL Hct 38.4 (37-53) % MCV 94.6 (82-101) fl Plt Count 269 (157-399) 10^3/cmm Neut % (Auto) 60.8 % Neut # (Auto) 3.01 (1.8-7.7) 10^3/uL Cardiac Studies: 2 Sestamibi Stress Test (Cardiology) 08/05
[2024-11-08] MEDS: sodium chloride 0.9% 1,000 ML 30 ML IV (10:27)
[2024-11-08 10:37] LABS: Anion Gap 16.1 (5-19); Blood Urea Nitrogen 11 mg/dL (8-23); Calcium 9.3 mg/dL (8.5-10.5); Carbon Dioxide 21 mmol/L (22-29); Chloride 108 mmol/L (98-107); Glucose 81 mg/dL (65-115); Osmolality Calculated 290 mOsm/kg (285-295); Potassium 4.1 mmol/L (3.5-5.1); Sodium 141 mmol/L (136-145)
[2024-11-08] MEDS: fentaNYL 50 mcg/mL INJ 2mL IVP ×3 (11:04→14:20)
--- NOTE | 2024-11-08 12:30 | W.PM.OPSUD ---
Surgery/Procedure H&P Update DATE OF PROCEDURE: November 08, 2024 DATE H&P PERFORMED: 10/28/24 H&P UPDATE INFORMATION: I have reviewed H&P completed within last 30 days, I have examined patient prior to procedure and No changes to prior documentation PREOP DIAGNOSIS: Left sacroiliac arthritis PLANNED PROCEDURE: Operation Date: 11/08/24 12:40 Proposed Procedures p Lumbar Fusion(Not Applicable) - Bernabe Carbajal DO
[2024-11-08] MEDS: clindamycin 600 MG/50 ML PREMIX 100 MG IV (12:55)
--- NOTE | 2024-11-08 13:20 | XR_ITS ---
WS: [id number] Left SI joint, C-arm fluoroscopy views, 11/08/2024 Clinical Data: LEFT PERCUTANEOUS SI JOINT FUSION INTRAOP IMAGES Comparison: Left SI joint, 07/02/2024 Findings: Dr. Carbajal fused the left SI joint with 2 orthopedic screws. XR/XR sacroiliac jts m 3V [id number] Impression: Fusion of left SI joint.
[2024-11-08] MEDS: lidocaine-epi 1% 20 mL INJ INJECTION (13:29)
--- NOTE | 2024-11-08 14:02 | P.OP_ITS ---
Operative Report Date of procedure: November 08, 2024 Pre-op diagnosis: Left SI joint arthritis Post-op diagnosis: same Procedure done: Left percutaneous SI joint fusion Surgeon: Bernabe Carbajal DO Estimated blood loss (mL): 5 Procedure: Left percutaneous SI joint fusion Patient brought to the op suite after undergoing anesthesia was placed in the prone position. All areas of impingement were well-padded. Patient's prepped and draped normal sterile fashion. Skin incisions made over the left hip. Wire was inserted into the S1 segment. This is confirmed on lateral view and in the TUNISIAN views. Wire was directed into the iliac space across the SI joint into the ala. Next the screw length was measured. A size 45 screw was placed in the S1 segment. Next attention was placed to the S2 segment. Again the lateral view and inlet views were used to line up the starting point. Patient was inserted in the S2 segment. Outlet views confirmed it was between the S1 and S2 foramen. Wire was driven into. And then a 40 mm screw was placed into the S2 segment across the SI joint. Wounds were irrigated closed with Vicryl Monocryl suture. Sterile dressings were applied and patient was transferred to the PACU in stable condition.
--- NOTE | 2024-11-08 15:10 | ANE.PACU2 ---
Inpatient post-anesthesia follow up: Airway intact: Yes Vital signs: Temperature 97.7 F Pulse Rate 84 Respiratory Rate 15 Blood Pressure 140/83 Pulse Oximetry 92 Oxygen Delivery Me thod Room Air Oxygen Flow Rate Fraction of Inspir ed Oxygen Hydration adequate: Yes Nausea and vomiting: No Pain level: 1 Mental status: Baseline
== END 2024-11-08 15:10 | disposition home or self-care (01) ==
PROVIDERS: PCP Family Medicine; Visit Provider Orthopaedic Surgery
PROC: (CPT 27279; principal; 2024-11-08 12:20)
DX: M46.1 Sacroiliitis, not elsewhere classified (principal); K21.9 Gastro-esophageal reflux disease without esophagitis; E78.5 Hyperlipidemia, unspecified; J44.9 Chronic obstructive pulmonary disease, unspecified; I25.2 Old myocardial infarction; Z79.899 Other long term (current) drug therapy; F17.210 Nicotine dependence, cigarettes, uncomplicated; Z88.5 Allergy status to narcotic agent; Z88.8 Allergy status to other drugs, medicaments and biological substances; Z88.0 Allergy status to penicillin
CPT/HCPCS: 27279; 36415; 72202; 76000; 80048; 85025; C1713; J1100; J2250; J2405; J2704; J3010; J3490; J7030; J9999

== ENCOUNTER → 2024-11-25 15:56 | Outpatient (BNVA) | payer MEDICARE, MEDICAID, SELFPAY | PROVIDERS: PCP Family Medicine; Visit Provider Orthopaedic Surgery | DX: Z98.890 Other specified postprocedural states (principal); Z48.89 Encounter for other specified surgical aftercare | CPT/HCPCS: 72190; 99024 ==

== ENCOUNTER → 2025-01-04 14:05 | Outpatient (BNVA) | payer MEDICARE, MEDICAID, SELFPAY | PROVIDERS: PCP Family Medicine; Visit Provider Orthopaedic Surgery | DX: Z98.890 Other specified postprocedural states (principal); Z98.1 Arthrodesis status | CPT/HCPCS: 72100; 99024 ==

== ENCOUNTER → 2025-02-10 08:07 | Outpatient (BNVA) | payer OTHER, MEDICAID, SELFPAY | PROVIDERS: PCP Family Medicine; Visit Provider Orthopaedic Surgery | DX: M54.9 Dorsalgia, unspecified (principal); G89.29 Other chronic pain; Z98.1 Arthrodesis status; M54.50 Low back pain, unspecified | CPT/HCPCS: 72100; 99024 ==

== ENCOUNTER 2025-02-24 07:51 | Outpatient (CLI) | payer OTHER, MEDICAID, SELFPAY ==
--- NOTE | 2025-02-24 08:00 | MR_ITS ---
WS: [id number] MRI LUMBAR SPINE WITH AND WITHOUT CONTRAST HISTORY: Low back and LEFT hip pain for 1 year. Multiple prior lumbar spine surgeries. COMPARISON: 12/03/2023 TECHNIQUE: Sagittal and axial multisequence imaging is submitted. Sagittal and axial T1 fat sat sequences post-MultiHance 15 cc IV. Straightening and RIGHT curvature of the lumbar spine. No remaining hardware in the lumbar spine. LEFT lateral sacral screws were present on recent radiograph. Advanced degenerative changes in the discs and lumbar vertebral bodies at all levels. There is a small amount of marrow edema in the adjacent endplates of L1 and L2. Marrow edema throughout a large portion of the L5 vertebral body and along the superior endplate of S1. Disc spaces are all narrowed and desiccated. Conus terminates normally at L1-2 disc level. T12-L1: Diffuse annular disc bulging with marked ligamentum flavum and facet arthritis. Mild central, subarticular recess and foraminal stenosis. L1-L2: New large broad-based central, RIGHT subarticular recess and RIGHT foraminal disc protrusion. There is extensive annular disc bulging with osteophytic ridging, facet and ligamentum flavum disease. Prior laminectomy. Severe central, bilateral subarticular recess and RIGHT foraminal stenosis. Mode rate to severe LEFT foraminal stenosis. There is significant contact on the L1 and L2 nerve roots, greatest on the RIGHT. L2-L3: Mild annular disc bulging with asymmetric clumping of the nerve roots in the LEFT thecal sac. Posterior laminectomy defect. Moderate to severe bilateral foraminal stenosis. L3-L4: Diffuse annular disc bulging with osteophytic ridging, posterior laminectomy defect. Asymmetric clumping of the nerve roots in the LEFT thecal sac. Moderate to severe bilateral foraminal stenosis. L4-L5: Mild annular disc bulging with osteophytic ridging and posterior laminectomy defects. Marked facet arthritis. Severe LEFT and moderate to severe RIGHT foraminal stenosis. L5-S1: Diffuse annular disc bulging with osteophytic ridging. Central disc protrusion extends into the subarticular recesses contacting the S1 nerve roots. Severe facet arthritis. Severe bilateral foraminal stenosis with complete effacement of fat. Similar to the prior study. Mild enhancement of the L5 and S1 vertebral bodies which may be reactive from the edema. There is also mild enhancement involving the adjacent endplates of L1 and L2. There is no enhancement or fluid within the disc. No epidural abscess identified. There is a small fluid collection with enhancement in the RIGHT sacrum which is associated a residual tract from prior screw removal. This area measures 1.8 x 0.5 cm and doesn't enhance. There may be some granulation tissue along this tract. This was also present on the prior CT of 08/02/2024 with a few subtle small foci of air. Several of the tract associated with hardware removal in the lumbar spine do enhance. This may be related to granulation tissue. MR/MR lumbar spine wo/w con [id number] IMPRESSION: 1. Extensive prior posterior decompression surgery throughout the lumbar spine . No remaining hardware is present in the lumbar spine. 2. Degenerative RIGHT curvature lumbar spine. 3. New large broad-based central, RIGHT subarticular recess and RIGHT foramina l disc protrusion at L1-2. Severe central, bilateral subarticular recess and RI GHT foraminal stenosis. Moderate to severe LEFT foraminal stenosis. Significant contact on the L1 and L2 nerve roots. 4. Moderate to severe bilateral foraminal stenosis at L2-3 and L3-4. 5. Severe LEFT and moderate to severe RIGHT foraminal stenosis at L4-5. 6. Severe bilateral foraminal stenosis at L5-S1 with complete effacement of fa t in the foramen. Similar to the prior study. There is also contact on the S1 n erve roots by the central disc protrusion. 7. Arachnoiditis. 8. No evidence for discitis. There is enhancement in the marrow edema at L1, L 2, L5 and S1 which may be reactive. No epidural abscess.
[2025-02-24] MEDS: gadobenate dimeglumine 20 mL vial IV (08:40)
== END 2025-02-24 07:52 | disposition home or self-care (01) ==
LOC: RAD 07:52
PROVIDERS: PCP Family Medicine; Visit Provider Orthopaedic Surgery
DX: G89.29 Other chronic pain (principal); M54.9 Dorsalgia, unspecified; M54.50 Low back pain, unspecified; Z98.1 Arthrodesis status
CPT/HCPCS: 72158

== ENCOUNTER → 2025-03-10 13:17 | Outpatient (BNVA) | payer OTHER, MEDICAID, SELFPAY | PROVIDERS: PCP Family Medicine; Visit Provider Orthopaedic Surgery | DX: M51.26 Other intervertebral disc displacement, lumbar region (principal); M48.061 Spinal stenosis, lumbar region without neurogenic claudication; G89.29 Other chronic pain; Z09 Encounter for follow-up examination after completed treatment for conditions other than malignant neoplasm | CPT/HCPCS: 99213 ==

== ENCOUNTER → 2025-04-12 12:49 | Outpatient (BNVA) | payer MEDICARE, MEDICAID, SELFPAY | PROVIDERS: PCP Family Medicine; Visit Provider Orthopaedic Surgery | DX: M54.9 Dorsalgia, unspecified (principal); Z98.1 Arthrodesis status; G89.29 Other chronic pain | CPT/HCPCS: 72170; 99213 ==

== ENCOUNTER → 2025-05-05 09:12 | Outpatient (BNVA) | payer MEDICARE, MEDICAID, SELFPAY | PROVIDERS: PCP Family Medicine; Referring Provider Orthopaedic Surgery; Visit Provider Nurse Practitioner Family | DX: M54.50 Low back pain, unspecified (principal); G89.29 Other chronic pain | CPT/HCPCS: 99204; 99214 ==

== ENCOUNTER 2025-05-20 11:41 | Inpatient (IN) | payer MEDICARE, MEDICAID, SELFPAY ==
--- OUTSIDE RECORDS SUMMARY | 2024-03-27 03:00 | XMS_ITS ---
Author Organization [facility] Address [address] [place] [address] Care Team Providers Care Sports Physical Therapist Name Role Phone Carlos Alcaraz APRN Primary Care Provider Unav ailable Marvin Diaz Unavailable [phone] Migration, Provider Unavailable Unavailable REASON FOR VISIT EMR-Robert Encounters Encounter Location Date Provider Diagnosis Migrated_Facility 0 0 03/27/2024 Provider Migration Plan Of Treatment No Information Progress Notes * Geoffrey FERGUSONDOB: (69 yo M)Acc No.[id number]:03/27/2024 Patient: Inocencia Geoffrey RICKETTS :1955 A ge:68 Y S ex:Male Address:[address] [place] [phone] Subjective: * Chief Complaints: * E MR-Robert * * Date:
--- OUTSIDE RECORDS SUMMARY | 2024-03-28 03:00 | XMS_ITS ---
Author Organization [facility] Address [address] [place] [address] Care Team Providers Care Air Tube Releaser Name Role Phone Lissa Carlos HECTOR Primary Care Provider Unav ailable Marvin Diaz Unavailable Migration, Provider Unavailable Unavailable Allergies Allergen (clinical drug ingredient) Drug/Non Drug Allergy documented on EMR Reaction Allergy Type Onset Date Status carbamazepine Carbamazepine , Drug Allergy Active phenytoin Phenytoin , Drug Allergy Active prochlorperazine Prochlorperazine , Drug Allergy Active ketorolac Ketorolac , Drug Allergy Active REASON FOR VISIT EMR-Robert Encounters Encounter Location Date Provider Diagnosis Migrated_Facility 0 0 03/28/2024 Provider Migration Plan Of Treatment No Information Progress Notes * FERGUSONGeoffrey GARCIADOB: 7 (69 yo M)Acc No.[id number]:03/28/2024 Patient: Geoffrey CAMILO :1955 A ge:68 Y S ex:Male Address:[address] [place] [phone] Subjective: * Chief Complaints: * E MR-Robert * Allergies: P rochlorperazine: , - AllergyPhenytoin: , - AllergyKetorolac: , - AllergyCarbamazepine: , - Allergy * * Date:
[2025-05-20] VITALS (20 sets, daily range): BP systolic 101–137; BP diastolic 62–111; PULSE 77–101; RESP 12–22; TEMP 36.7–37.4; O2SAT 92–99; BMI 18.1
--- NOTE | 2025-05-20 | XR_ITS ---
Left femur and thigh, AP and lateral views, 05/20/2025 Clinical Data: hip fx Comparison: Pelvis and left hip, 05/20/2025 Findings: There are comminuted intertrochanteric fracture left hip is noted. The left femoral head remains in the acetabulum. The femoral shaft is unremarkable. The knee shows no abnormalities. There is an old fracture of the proximal left tibia. There are 2 orthopedic screws fusing the left SI joint. Impression: Left hip intertrochanteric fracture. MTDD
--- NOTE | 2025-05-20 11:45 | ECG_ITS ---
[email or web address] Test Date: 2025-05-20 Pat Name: Geoffrey Mcleod Department: Room: Gender: Male Diagnostic Sales Specialist: : [id number] Requested By: Deric Lowery Order Number: [id number] Reading MD: CIARA CARTAGENA Measurements Intervals [place] Rate: 91 P: 76 CA: 158 QRS: 81 QRSD: 81 T: 64 QT: 369 QTc: 455 Interpretive Statements SINUS RHYTHM NONSPECIFIC ST & T-WAVE ABNORMALITY Compared to ECG 07/30/2023 06:42:09 T-wave abnormality now present Ventricular premature complex(es) no longer present Electronically Signed On 05-24-2025 12:11:38 BELT NOTCHER by CIARA CARTAGENA [email or web address]
--- OUTSIDE RECORDS SUMMARY | 2025-05-20 11:46 | XMS_ITS | Clinical Summary ---
Author Organization [facility] Address [address] [facility] Attn: Epic Prelude ADT [place] [address] Care Team Providers Care Sport Shoe Spike Assembler Name Role Phone Hannah Ross MD Primary Care Provider +1- [phone] Allergies Active Allergy Reactions Criticality Noted Date Comments Carbamazepine Hives High 08/08/2008 Ciprofloxacin Hypertension Medium 07/04/2021 Ketorolac Tromethamine Hives High 08/08/2008 Morphine Angioedema High 07/04/2021 Naproxen Nausea and Vomiting Low 10/19/2010 Penicillins Hives High 08/08/2008 Phenobarb-Belladonna Alkaloids Anxiety Low 08/08/2008 Phenytoin Sodium Extended Rash Low 08/09/2009 Prednisone Unknown 11/18/2013 Prochlorperazine Muscle Pain Low 08/08/2008 Propoxyphene N-Acetaminophen Headache Low 08/18/2009 Tramadol Unknown 11/23/2011 States has a reaction with medications that he takes Medications DOXYCYCLINE MONOHYDRATE ORAL Take by mouth. Active sucralfate (CARAFATE) 1 gram tablet Take 1 Gram by mouth 4 times daily before meals and at bedtime. Active pantoprazole (PROTONIX) 20 mg Tablet, Delayed Release (E.C.) Take 20 mg by mouth daily. Active GABAPENTIN ORAL Take by mouth. Active topiramate (TOPAMAX) 100 mg tablet Take 100 mg by mouth daily. Active tamsulosin (FLOMAX) 0.4 mg capsule Take 0.4 mg by mouth daily. Active cholecalciferol 1,250 mcg (50,000 unit) Capsule Take by mouth every Friday and . Active topiramate (TOPAMAX) 100 mg tabletIndication s:Seizure disorder (CMS/HCC) Take 2 Tablets (200 mg) by mouth 2 times daily. 120 Tablet 11 12/19/2016 Active levETIRAcetam (KEPPRA) 1,000 mg tabletIndication s:Seizures (CMS/HCC) Take 1 Tablet (1,000 mg) by mouth 2 times daily Two tabs (2,000 mg) twice daily. 120 Tablet 1 08/16/2016 Active cephALEXin (KEFLEX) 500 mg capsule Take 1 Capsule (500 mg) by mouth 4 times daily. 28 Capsule 0 05/18/2017 Active gabapentin (NEURONTIN) 800 mg tabletIndication s:Seizure disorder (CMS/HCC) Take 1 Tablet (800 mg) by mouth 3 times daily. 90 Tablet 11 12/19/2016 Active ibuprofen (MOTRIN) 600 mg tablet Take 600 mg by mouth every 6 hours as needed for Pain, Mild. 09/24/2014 Active baclofen (LIORESAL) 20 mg tablet Take 20 mg by mouth 3 times daily as needed for Pain. 09/24/2014 Active Active Problems Problem Noted Date Diagnosed Date Seizures, generalized convulsive 12/14/2011 Overview (09/28/2020): Patient has been out of his topamax and neurontin for several weeks. He began seizuring 2.5 days ago and has had 12-14 grand mal seizures, some of which were witnessed by the person who brought him to ER. Chronic shoulder pain 11/21/2010 Right knee pain 10/27/2009 COPD (chronic obstructive pulmonary disease) Personal history of peptic ulcer disease 010 GERD (gastroesophageal reflux disease) 0 Depression 08/09/2009 Narcotic dependence 07/26/2009 Seizure disorder 07/05/2009 Overview (09/28/2020): Diagnosed by Dr Mcdaniel in 1998. Nicotine dependence 08/08/2008 Chronic back pain 08/08/2008 Lumbosacral spondylosis without myelopathy 08/08 lumbar degenerative disc disease 07/12/2008 Lumbar Facet Arthropathy. R. L4/5 07/12/2008 Overview (09/28/2020): See bone scan Resolved Problems Problem Noted Date Diagnosed Date Resolved Date Metatarsal fracture 12/13/2009 11/22/19 11 Immunizations Immunization Administration Dates Next Due (ADACEL/BOOSTRIX)(10 YR UP) TDAP VACCINE, 0.5ML, IM 05/18/2017 Influenza Vaccine Split 3+ Yrs IM 03/16/2010 Influenza Vaccine Split 3+ Yrs PF IM 03/21/2011 Family History * Patient is adopted Medical History Relation Name Comments Unknown Brother Cancer Daughter throat Unknown Father Unknown Maternal Grandfather Unknown Maternal Grandmother Unknown Mother Unknown Paternal Grandfather Unknown Paternal Grandmother Unknown Sister 1 Unknown Sister 2 Relation Name Status Comments Brother Daughter Alive Father Maternal Grandfather Maternal Grandmother Mother Paternal Grandfather Paternal Grandmother Sister 1 Sister 2 Social History Tobacco Use Types Packs/Day Years Used Date Smoking Tobacco: Every Day Cigarettes Smokeless Tobacco: Never Comments:Quit smoking: start ed 1977 Alcohol Use Standard Drinks/Week Comments No 0 (1 standard drink = 0.6 oz pur e alcohol) Sex and Gender Information Value Date Recorded Sex Assigned at Not on file Legal Sex Male 2:36 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 Gender Identity Not on file Sexual Orientation Not on file Last Filed Vital Signs Vital Sign Reading Time Taken Comments Blood Pressure 121/76 07/04/2021 9:51 PM INSURANCE PROFESSIONAL Pulse 88 07/04/2021 9:51 PM INSURANCE PROFESSIONAL Temperature 36.6 C (97.8 F) 07/04/2021 8:42 PM INSURANCE PROFESSIONAL Respiratory Rate 18 07/04/2021 9:51 PM INSURANCE PROFESSIONAL Oxygen Saturation 100% 07/04/2021 9:51 PM INSURANCE PROFESSIONAL Inhaled Oxygen Concentration - - Weight 73.6 kg (162 lb 4.8 oz) 07/04/2021 8:42 P M INSURANCE PROFESSIONAL Height 185.4 cm (6' 1 ) 07/04/2021 8:42 PM INSURANCE PROFESSIONAL Body Mass Index 21.41 07/04/2021 8:42 PM INSURANCE PROFESSIONAL Plan of Treatment Health Maintenance Due Date Last Done Comments FIT-DNA Q 3 years 2001 FIT/FOBT Q 1 year 2001 Flex Sig/CT Colonography Q 5 years 2001 RSV VACCINE (60+ or ) (1 - Risk 50-74 years 1-dose series) 2006 ZOSTER VACCINE (1 of 2) 2006 PNEUMOCOCCAL VACCINE 50+ YEA RS (2 of 2 - PCV) 03/13/2020 03/13/2019 COLORECTAL SCREENING 10/28/2021 10/29/2011 Colorectal Cancer Screening 10/28/2021 INFLUENZA VACCINE (#1) 2024 03/21/2011, 2009 DTAP/TDAP/TD VACCINES (2 - Td or Tdap) 05/18/2027 Insurance [place]ID [place] [facility] [address] [address] Care Teams Sport Shoe Spike Assembler Relationship Specialty Start Date End Date Hannah Ross MD [address] [address] PCP - General Family Practice 07/04/21
--- OUTSIDE RECORDS SUMMARY | 2025-05-20 11:46 | XMS_ITS | Encounter Summary ---
Author Organization [facility] Address [address] [place] [address] Care Team Providers Care Finish Inspector Name Role Phone Yesy Jones Primary Care Provider [phone] -[phone] Encounter Details Date Type Department Care Team (Late st Contact Info) Description 01/30/2009 Ancillary Orders [facility] [address] [place] [address] Cynthia Decker PA-C [address] [place] [address] Foreign Body Social History Tobacco Use Types Packs/Day Years Used Date Smoking Tobacco: Every Day Cigarettes 1 25 Alcohol Use Standard Drinks/Week Comments No 0 (1 standard drink = 0.6 oz pur e alcohol) Sex and Gender Information Value Date Recorded Sex Assigned at Not on file Legal Sex Male 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 Postoperative right orbit with internal fixation with plate and screw fixation as above. 2. No additional abnormality. jose antonio - uploaded from [employer] - Narrative 01/30/2009 10:12 AM CDT Two films of the orbits are submitted. Postoperative changes in the right orbit are noted. Plate and screw fixation is present. No foreign body is identified in the orbits. The patient is edentulous. No acute fracture. Procedure Note Velma Ferraro MD - 01/30/2009 Two films of the orbits are submitted. Postoperative changes in the right orbit are noted. Plate and screwfixation is present. No foreign body is identified in the orbits. The patient is edentulous. No acutefracture. IMPRESSION Impression: 1. Postoperative right orbit with internal fixation with plate and screwfixation as above. 2. No additional abnormality. tjb - uploaded from [employer] - Cynthia Decker PA-C DIAGNOSTIC IMAGING ORDERAB LES Final Result documented in this encounter Visit Diagnoses Diagnosis Foreign body Injury, other and unspecified, unspecified site Foreign body Injury, other and unspecified, unspecified site documented in this encounter Care Teams Finish Inspector Relationship Specialty Start Date End Date Yesy Jones DO PCP - General Family Practice 09/24/14 documented as of this encounter
--- OUTSIDE RECORDS SUMMARY | 2025-05-20 11:46 | XMS_ITS | Encounter Summary ---
Author Organization [facility] Address [address] [place] [address] Care Team Providers Care Manager Lsw Name Role Phone Yesy Jones DO Primary Care Provider [phone] -[phone] Encounter Details Date Type Department Care Team (Late st Contact Info) Description 11/18/2003 Emergency [facility] Emergency Department [address] 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
--- OUTSIDE RECORDS SUMMARY | 2025-05-20 11:46 | XMS_ITS | Encounter Summary ---
Author Organization [facility] Address [address] [place] [address] Care Team Providers Care Quality Technician Name Role Phone Yesy Jones DO Primary Care Provider [phone] -[phone] Encounter Details Date Type Department Care Team (Late st Contact Info) Description 05/13/2008 Outpatient Historical [facility]- [address] [place] [id number] John Hood MD [address] [phone] Social History Tobacco Use Types Packs/Day Years Used Date Smoking Tobacco: Never Assessed Sex and Gender Information Value Date Recorded Sex Assigned at Not on file Legal Sex Male 3:46 AM ZOO VETERINARIAN Gender Identity Not on file Sexual Orientation Not on file documented as of this encounter Plan of Treatment Not on file documented as of this encounter Visit Diagnoses Not on filedocumented in this encounter Care Teams Quality Technician Relationship Specialty Start Date End Date Yesy Jones DO PCP - General Family Practice 09/24/14 documented as of this encounter
--- OUTSIDE RECORDS SUMMARY | 2025-05-20 11:46 | XMS_ITS | Encounter Summary ---
Author Organization [facility] Address [address] [place] [address] Care Team Providers Care Wireline Field Operator Name Role Phone Yesy Jones DO Primary Care Provider +1 -[phone] Encounter Details Date Type Department Care Team (Late st Contact Info) Description 03/30/2004 Emergency [facility] Emergency Department [address] [place] [address] Derek Martinez MD NO ADDRESS ON FILE LOW VISION, ONE EYE (Primary Dx) Social History Tobacco Use Types Packs/Day Years Used Date Smoking Tobacco: Never Assessed Sex and Gender Information Value Date Recorded Sex Assigned at Not on file Legal Sex Male 3:46 AM BULB BRANDER Gender Identity Not on file Sexual Orientation Not on file documented as of this encounter Plan of Treatment Not on file documented as of this encounter Visit Diagnoses Diagnosis Low vision, one eye, not otherwise specified- Primary documented in this encounter Care Teams Wireline Field Operator Relationship Specialty Start Date End Date Yesy Jones DO PCP - General Family Practice 09/24/14 documented as of this encounter
--- OUTSIDE RECORDS SUMMARY | 2025-05-20 11:46 | XMS_ITS | Encounter Summary ---
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
--- OUTSIDE RECORDS SUMMARY | 2025-05-20 11:46 | XMS_ITS | Encounter Summary ---
Author Organization [facility] Address [address] [place] [address] Care Team Providers Care Rental Representative Name Role Phone Yesy Jones DO Primary Care Provider [phone] [phone] Encounter Details Date Type Department Care Team (Late st Contact Info) Description 05/29/2004 Outpatient Historical [facility] Christophe Hi MD NO ADDRESS ON FILE Social History Tobacco Use Types Packs/Day Years Used Date Smoking Tobacco: Never Assessed Sex and Gender Information Value Date Recorded Sex Assigned at Not on file Legal Sex Male 3:46 AM DIRECTOR RADIO NEWS Gender Identity Not on file Sexual Orientation Not on file documented as of this encounter Plan of Treatment Not on file documented as of this encounter Visit Diagnoses Not on filedocumented in this encounter Care Teams Rental Representative Relationship Specialty Start Date End Date Yesy Jones DO PCP - General Family Practice 09/24/14 documented as of this encounter
--- OUTSIDE RECORDS SUMMARY | 2025-05-20 11:46 | XMS_ITS | Encounter Summary ---
Author Organization [facility] Address [address] [place] [address] Care Team Providers Care Compressor Station Operator Name Role Phone Yesy Jones DO Primary Care Provider +1 -[phone] Encounter Details Date Type Department Care Team (Late st Contact Info) Description 03/30/2004 Emergency [facility] Emergency Department [address] [place] [address] Juan Kessler MD [address] [facility] [address] [place] [address] JOINT PAIN-ANKLE (Primary Dx) Social History Tobacco Use Types Packs/Day Years Used Date Smoking Tobacco: Never Assessed Sex and Gender Information Value Date Recorded Sex Assigned at Not on file Legal Sex Male 3:46 AM QUARTZ MINER Gender Identity Not on file Sexual Orientation Not on file documented as of this encounter Plan of Treatment Not on file documented as of this encounter Visit Diagnoses Diagnosis Pain in joint, ankle and foot- Primary documented in this encounter Care Teams Compressor Station Operator Relationship Specialty Start Date End Date Yesy Jones DO PCP - General Family Practice 09/24/14 documented as of this encounter
--- OUTSIDE RECORDS SUMMARY | 2025-05-20 11:46 | XMS_ITS | Encounter Summary ---
Author Organization [facility] Address [address] [place] [address] Care Team Providers Care Steel Fabricating Supervisor Name Role Phone Yesy Jones DO Primary Care Provider +1 [phone] Encounter Details Date Type Department Care Team (Late st Contact Info) Description 03/30/2004 Outpatient Historical [facility] [address] 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
--- OUTSIDE RECORDS SUMMARY | 2025-05-20 11:46 | XMS_ITS | Encounter Summary ---
Author Organization [facility] Address [address] [place] [address] Care Team Providers Care Diver'S Tender Name Role Phone Yesy Jones DO Primary Care Provider [phone] [phone] Encounter Details Date Type Department Care Team (Late st Contact Info) Description 03/30/2004 Outpatient Historical [facility] [address] 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
--- OUTSIDE RECORDS SUMMARY | 2025-05-20 11:46 | XMS_ITS | Encounter Summary ---
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 Gender Identity Not on file Sexual Orientation Not on file documented as of this encounter Plan of Treatment Not on file documented as of this encounter Procedures Procedure Name Priority Date/Time Associated Diagnosis Comments CBC WITH DIFFERENTIAL Routine 12/27/2004 12:02 PM CDT ETHANOL LEVEL Routine 12/27/2004 12:02 PM CDT BASIC METABOLIC PANEL Routine 12/27/2004 12:02 PM CDT URINALYSIS MICROSCOPY ONLY Routine 12/27/2004 12:01 PM CDT DRUG SCREEN, URINE Routine 12/27/2004 12 :01 PM CDT URINALYSIS W/REFLEX MICROSCOPIC Routine 12/27/2004 12:01 PM CDT documented in this encounter Results * (ABNORMAL) CBC WITH DIFFERENTIAL (12/27/2004 12:02 PM CDT) WBC 8.7 4.5 - 11.0 K/ul INTERFACE SYSTEM RBC 4.57(L) 4.60 - 6.20 Mil/ul INTERFACE SYSTEM HEMOGLOBIN 15.1 14.0 - 18.0 g/dL INTERFACE SYSTEM HEMATOCRIT 44.8 41.0 - 53.0 % INTERFACE SYSTEM MCV 98.0 84.0 - 103.0 Fl INTERFACE SYSTEM MCH 33.0 27.0 - 34.0 pg INTERFACE SYSTEM MCHC 33.7 30.0 - 35.0 g/dL INTERFACE SYSTEM RDW 13.1 11.0 - 14.5 % INTERFACE SYSTEM PLATELETS 228 140 - 440 K/ul INTERFACE SYSTEM MPV 9.5 8.9 - 12.8 Fl INTERFACE SYSTEM NEUTROPHILS 75.7(H) 42.2 - 75.2 % INTERFACE SYSTEM LYMPHOCYTES 16.5(L) 24.0 - 44.0 % INTERFACE SYSTEM MONOCYTES 6.0 2.0 - 10.0 % INTERFACE SYSTEM EOSINOPHILS 1.6 0.0 - 7.0 % INTERFACE SYSTEM BASOPHILS 0.2 0.0 - 1.0 % INTERFACE SYSTEM NEUTROPHIL ABSOLUTE 6.5 2.0 - 8.0 K/uL INTERFACE SYSTEM LYMPHOCYTE ABSOLUTE 1.4 1.2 - 4.0 K/ul INTERFACE SYSTEM MONOCYTE ABSOLUTE 0.5 0.1 - 0.6 K/ul INTERFACE SYSTEM EOSINOPHIL ABSOLUTE 0.1 0.0 - 0.7 K/ul INTERFACE SYSTEM BASOPHILS ABSOLUTE 0.0 0.0 - 0.2 K/ul INTERFACE SYSTEM 12/27/2004 12:0 2 PM CDT Physician Sj Ed HEMATOLOGY ORDERABLES Final Resu lt INTERFACE SYSTEM Refer to clinic/hospital department * BASIC METABOLIC PANEL (12/27/2004 12:02 PM CDT) GLUCOSE 92 70 - 110 mg/dL INTERFACE SYSTEM BUN 11 9 - 20 mg/dL INTERFACE SYSTEM CREATININE 0.9 0.7 - 1.5 mg/dL INTERFACE SYSTEM SODIUM 142 136 - 145 mEq/L INTERFACE SYSTEM POTASSIUM 4.3 3.5 - 5.0 mEq/L INTERFACE SYSTEM CHLORIDE 105 95 - 110 mEq/L INTERFACE SYSTEM CO2 28 22 - 32 mmol/l INTERFACE SYSTEM ANION GAP 13 9 - 20 mEq/L INTERFACE SYSTEM OSMOLALITY, CALCULATED 291 275 - 295 mOsm/Kg INTERFACE SYSTEM CALCIUM 9.7 8.4 - 10.5 mg/dL INTERFACE SYSTEM 12/27/2004 12:0 2 PM CDT Physician Sj Ed CHEMISTRY ORDERABLES Final Resul t Performing Organization Address [facility] Phone Number INTERFACE SYSTEM Refer to clinic/hospital department * ETHANOL LEVEL (12/27/2004 12:02 PM CDT) ETHANOL <10 <=10 mg/dL INTERFACE SYSTEM 12/27/2004 12:0 2 PM CDT Physician Sj Ed CHEMISTRY ORDERABLES Final Resul t Performing Organization Address [facility] INTERFACE SYSTEM Refer to clinic/hospital department * (ABNORMAL) URINALYSIS (12/27/2004 12:01 PM CDT) COLOR UA Pale Yellow Straw INTERFAC E SYSTEM CLARITY UA Clear Clear INTERFACE SYSTEM LEUKOCYTE ESTERASE UA NEGATIVE NEGATIVE INTERFACE SYSTEM NITRITE UA NEGATIVE NEGATIVE INTERFACE SYSTEM PH UA 6.0 5.0 - 9.0 INTERFACE SYSTEM PROTEIN UA NEGATIVE NEGATIVE INTERFACE SYSTEM Comment: As of 04 positive protein results obtained on routine urinalysis will not be confirmed by sulfosalicylic acid (SSA) precipitation. Current methodology for protein detection is highly sensitive for detection of albumin; therefore, confirmation is not necessary. GLUCOSE UA NEGATIVE NEGATIVE INTERFACE SYSTEM KETONES UA NEGATIVE NEGATIVE INTERFACE SYSTEM UROBILINOGEN UA 0.2 INTE RFACE SYSTEM BILIRUBIN UA NEGATIVE NEGATIVE INTERFA CE SYSTEM BLOOD UA Large(A) NEGATIVE INTERFACE SYSTEM SPECIFIC GRAVITY UA 1.006 1.005 - 1.030 INTERFACE SYSTEM MICRO EXAM Yes(A) No INTERFACE SYSTEM 12/27/2004 12:[address] [facility] Keysha Craig DO URINE ORDERABLES Final Result Performing Organization Address [facility] Phone Number INTERFACE SYSTEM Refer to clinic/hospital department * (ABNORMAL) URINALYSIS MICROSCOPY ONLY (12/27/2004 12:01 PM CDT) WBC URINE None Seen 0 - 2 INTERFACE SYSTEM RBC UA 3-5(A) 0 - 2 INTERFACE SYSTEM HYALINE CAST None Seen 0 - 2 INTERFA CE SYSTEM BACTERIA UA None Seen None Seen INTERFAC E SYSTEM 12/27/2004 12:0 1 PM CDT us Keysha E Rafa DO URINE ORDERABLES Final Result INTERFACE SYSTEM Refer to clinic/hospital department * (ABNORMAL) DRUG SCREEN, URINE (12/27/2004 12:01 PM CDT) OPIATE QUAL, URINE Drug Negative Drug Negative INTERFACE SYSTEM AMPHETAMINE QUAL, URINE Drug Negative Drug Negative INTERFACE SYSTEM BARBITURATE QUAL, URINE Drug Negative Drug Negative INTERFACE SYSTEM COCAINE QUAL URINE Drug Negative Drug Negative INTERFACE SYSTEM PCP QUAL, URINE Drug Negative Drug Negative INTERFACE SYSTEM CANNABINOIDS QUAL, URINE Drug Negative Drug Negative INTERFACE SYSTEM BENZODIAZEPINE QUAL, URINE Drug Positive(A) Drug Negative INTERFACE SYSTEM 12/27/2004 12:0 1 PM CDT us Keysha E Rafa DO URINE ORDERABLES Final Result INTERFACE SYSTEM Refer to clinic/hospital department documented in this encounter Visit Diagnoses Diagnosis Injury of face and neck- Primary documented in this encounter Care Teams Urology Teacher Relationship Specialty Start Date End Date Yesy Jones DO PCP - General Family Practice 09/24/14 documented as of this encounter
--- OUTSIDE RECORDS SUMMARY | 2025-05-20 11:46 | XMS_ITS | Encounter Summary ---
Author Organization [facility] Address [address] [place] [address] Care Team Providers Care Tableau Architect Name Role Phone Yesy Jones DO Primary Care Provider [phone] [phone] Encounter Details Date Type Department Care Team (Late st Contact Info) Description 04/08/2008 Outpatient Historical [facility] [address] [place] [phone] John Hood MD [address] [phone] Social History Tobacco Use Types Packs/Day Years Used Date Smoking Tobacco: Never Assessed Sex and Gender Information Value Date Recorded Sex Assigned at Not on file 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
--- OUTSIDE RECORDS SUMMARY | 2025-05-20 11:46 | XMS_ITS | Encounter Summary ---
Author Organization [facility] Address [address] [place] [address] Care Team Providers Care Mock Up Maker Name Role Phone Yesy Jones DO Primary Care Provider [phone] [phone] Reason for Visit * Reason Comments Medication Refill Encounter Details Date Type Department Care Team (Late st Contact Info) Description 05/30/2014 Refill [facility] [address] [place] [address] Amor Mcadams MD [address] [place] [phone] Social History Tobacco Use Types Packs/Day Years Used Date Smoking Tobacco: Every Day Cigarettes 0.5 32 Smokeless Tobacco: Never Comments:started 1977 Alcohol Use Standard Drinks/Week Comments No 0 (1 standard drink = 0.6 oz pur e alcohol) Sex and Gender Information Value Date Recorded Sex Assigned at Not on file 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 Sex 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 Gender Identity Not on file Sexual Orientation Not on file Occupation Industry Job Start Date Job End Date Not on file Not on file Not on file Not on file Not on file Not on file Not on file Not on file documented as of this encounter Miscellaneous Notes * Telephone Encounter - Kishore King RN - 09/08/2017 9:21 AM CDT Patient to contact provider office first * Telephone Encounter - Kishore King RN - 03/27/2015 10:14 AM CDT Resolved documented in this encounter Plan of Treatment Not on file documented as of this encounter Visit Diagnoses Not on filedocumented in this encounter Care Teams Mock Up Maker Relationship Specialty Start Date End Date Yesy Jones DO PCP - General Family Practice 09/24/14 documented as of this encounter
--- OUTSIDE RECORDS SUMMARY | 2025-05-20 11:46 | XMS_ITS | Encounter Summary ---
Author Organization [facility] Address [address] [place] [address] Care Team Providers Care Senior Manufacturing Engineer Name Role Phone Yesy Jones DO Primary Care Provider [phone] [phone] Encounter Details Date Type Department Care Team (Late st Contact Info) Description 11/17/2003 Emergency [facility] Emergency Department [address] 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
--- OUTSIDE RECORDS SUMMARY | 2025-05-20 11:46 | XMS_ITS | Encounter Summary ---
Author Organization [facility] Address [address] [place] [address] Care Team Providers Care Engineering Project Manager Name Role Phone Yesy Jnoes DO Primary Care Provider [phone] [phone] Encounter Details Date Type Department Care Team (Late st Contact Info) Description 04/27/2008 Outpatient Historical [facility] [address] [place] [phone] John Hood MD [address] [phone] Social History Tobacco Use Types Packs/Day Years Used Date Smoking Tobacco: Never Assessed Sex and Gender Information Value Date Recorded Sex Assigned at Not on file Legal Sex Male 3:46 AM RECREATIONAL COUNSELOR Gender Identity Not on file Sexual Orientation Not on file documented as of this encounter Plan of Treatment Not on file documented as of this encounter Procedures Procedure Name Priority Date/Time Associated Diagnosis Comments NM BONE SCAN WHOLE BODY Routine 05/13/2008 10:43 AM RECREATIONAL COUNSELOR documented in this encounter Results * NM BONE SCAN WHOLE BODY (05/13/2008 10:43 AM RECREATIONAL COUNSELOR) Anatomical Region Laterality Modality Other 05/13/2008 10:4 3 AM RECREATIONAL COUNSELOR Narrative 05/13/2008 5:25 PM RECREATIONAL COUNSELOR Bone Imaging, Whole Body and SPECT Studies: Radiopharmaceutical: Tc-99m HDP ([id number]) Dose: 18.4 mCi Reason for Consultation: Low back pain. Evaluation for bony abnormalities. Total body bone images were obtained in the anterior and posterior projections. Tomographic images were obtained of the lower thoracic and lumbosacral spine region. Evaluation of the total body images demonstrates that the spine is relatively straight. Tracer distribution is minimally irregular in the cervical and lower lumbar spine regions. No discrete focal abnormalities are noted. The ribs are all generally within normal limits. Tracer activity appears symmetric and physiologic throughout the pelvis. The long bones of both upper and lower extremities, both scapulae, clavicles, sternum and calvarium all appear unremarkable. There is increased tracer activity throughout the left ankle. Evaluation of the tomographic images of the lower thoracic and lumbosacral spine region demonstrate a mild increase in tracer activity in the right and left facet joints of approximately L3. There is a moderate increase in tracer activity in the right facet joint of L4. Impression: Fairly minimal degenerative changes are noted in the spine. The patient has significant facet joint arthritis at least at one level in the lumbar spine. The findings in the left ankle are compatible with a known prior left ankle fracture. - Dictated By: Isrrael Doyle M.D. Electronically Signed By: Isrrael Doyle M.D. Date Signed: 05/13/08 LJ Procedure Note Isrrael Doyle MD - 05/13/2008 Bone Imaging, Whole Body and SPECT Studies: Radiopharmaceutical: Tc-99m HDP([id number]) Dose: 18.4 mCi Reason for Consultation: Low back pain. Evaluation for bonyabnormalities. Total body bone images were obtained in the anterior and posteriorprojections. Tomographic images were obtained of the lower thoracic and lumbosacral spine region. Evaluation of the total body images demonstrates that the spine isrelatively straight. Tracer distribution is minimally irregular in the cervical and lower lumbar spineregions. No discrete focal abnormalities are noted. The ribs are all generally within normal limits.Tracer activity appears symmetric and physiologic throughout the pelvis. The long bones of bothupper and lower extremities, both scapulae, clavicles, sternum and calvarium all appear unremarkable.There is increased tracer activity throughout the left ankle. Evaluation of the tomographic images of the lower thoracic and lumbosacralspine region demonstrate a mild increase in tracer activity in the right and left facet joints ofapproximately L3. There is a moderate increase in tracer activity in the right facet joint of L4. Impression: Fairly minimal degenerative changes are noted in the spine. The patienthas significant facet joint arthritis at least at one level in the lumbar spine. The findings in theleft ankle are compatible with a known prior left ankle fracture. - Dictated By: Isrrael Doyle M.D. Electronically Signed By: Isrrael Doyle M.D. Date Signed: 05/13/08 LJW John Hood MD NM ORDERABLES Final Result documented in this encounter Visit Diagnoses Not on filedocumented in this encounter Care Teams Engineering Project Manager Relationship Specialty Start Date End Date Yesy Jones DO PCP - General Family Practice 09/24/14 documented as of this encounter
--- OUTSIDE RECORDS SUMMARY | 2025-05-20 11:46 | XMS_ITS | Clinical Summary ---
Author Organization [facility] Address [address] [place] [address] Care Team Providers Care Outside Barrel Lathe Operator Name Role Phone Yesy Jones DO Primary Care Provider [phone] Allergies Active Allergy Reactions Criticality Noted Date Comments Carbamazepine Hives High 08/08/2008 Ketorolac Tromethamine Hives High 08/08/2008 Naproxen Nausea and Vomiting Low 10/19/2010 Penicillins Hives High 08/08/2008 Phenobarb-Belladonna Alkaloids Anxiety Low 08/08/2008 Phenytoin Sodium Extended Rash Low 08/09/2009 Prednisone Unknown 11/18/2013 Prochlorperazine Muscle Pain Low 08/08/2008 Propoxyphene N-Acetaminophen Headache Low 08/18/2009 Tramadol Unknown 11/23/2011 States has a reaction with medications that he takes Medications ranitidine (ZANTAC) 300 mg Oral tablet Take 1 Tab by mouth 2 times daily. bid 60 Tab 6 07/24/2011 Active HYDROcodone-nancy taminophen (NORCO) 10-325 mg Tablet Take 1 Tab by mouth every 4 hours as needed. Active baclofen (LIORESAL) 20 mg tablet Take 20 mg by mouth 3 times daily as needed for Pain. Active ibuprofen (MOTRIN) 600 mg tablet Take 600 mg by mouth every 6 hours as needed for Pain, Mild. Active levETIRAcetam (KEPPRA) 1,000 mg tabletIndicatio ns:Seizures (CMS/HCC) Take 1 Tablet (1,000 mg) by mouth 2 times daily Two tabs (2,000 mg) twice daily. 120 Tablet 1 08/16/2016 Active gabapentin (NEURONTIN) 800 mg tabletIndicatio ns:Seizure disorder (CMS/HCC) Take 1 Tablet (800 mg) by mouth 3 times daily. 90 Tablet 11 12/19/2016 Active topiramate (TOPAMAX) 100 mg tabletIndicatio ns:Seizure disorder (CMS/HCC) Take 2 Tablets (200 mg) by mouth 2 times daily. 120 Tablet 11 12/19/2016 Active cephALEXin (KEFLEX) 500 mg capsule Take 1 Capsule (500 mg) by mouth 4 times daily. 28 Capsule 05/18/2017 Active Active Problems Problem Noted Date Diagnosed Date Seizures, generalized convulsive 12/14/2011 Overview (12/14/2011): Patient has been out of his topamax and neurontin for several weeks. He began seizuring 2.5 days ago and has had 12-14 grand mal seizures, some of which were witnessed by the person who brought him to ER. Chronic shoulder pain 11/21/2010 Right knee pain 10/27/2009 COPD (chronic obstructive pulmonary disease) GERD (gastroesophageal reflux disease) 0 Personal history of peptic ulcer disease 010 Depression 08/09/2009 Narcotic dependence 07/26/2009 Seizure disorder 07/05/2009 Overview (07/05/2009): Diagnosed by Dr Mcdaniel in 1998. Chronic back pain 08/08/2008 Lumbosacral spondylosis without myelopathy 08/08 Nicotine dependence 08/08/2008 lumbar degenerative disc disease 07/12/2008 Lumbar Facet Arthropathy. R. 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 Gender Identity Not on file Sexual Orientation Not on file Occupation Industry Job Start Date Job End Date Not on file Not on file Not on file Not on file Not on file Not on file Not on file Not on file Last Filed Vital Signs Vital Sign Reading Time Taken Comments Blood Pressure 96/62 05/18/2017 4:22 PM INCINERATOR PLANT GENERAL SUPERVISOR Pulse 72 07/25/2016 9:39 AM INCINERATOR PLANT GENERAL SUPERVISOR Temperature 36.8 C (98.2 F) 05/18/2017 4:22 PM INCINERATOR PLANT GENERAL SUPERVISOR Respiratory Rate 12 05/18/2017 4:22 PM INCINERATOR PLANT GENERAL SUPERVISOR Oxygen Saturation 96% 05/18/2017 4:22 PM INCINERATOR PLANT GENERAL SUPERVISOR Inhaled Oxygen Concentration - - Weight 68.5 kg (151 lb) 05/18/2017 4:22 PM INCINERATOR PLANT GENERAL SUPERVISOR Height 185.4 cm (6' 1 ) 05/18/2017 4:22 PM INCINERATOR PLANT GENERAL SUPERVISOR Body Mass Index 19.92 05/18/2017 4:22 PM INCINERATOR PLANT GENERAL SUPERVISOR Plan of Treatment Health Maintenance Due Date Last Done Comments PNEUMOCOCCAL VACCINE 50+ YEA RS (1 of 2 - PCV) 09/02/1975 FIT-DNA Q 3 years 2001 FIT/FOBT Q 1 year 2001 Flex Sig/CT Colonography Q 5 years 2001 RSV VACCINE (60+ or ) (1 - Risk 50-74 years 1-dose series) 2006 ZOSTER VACCINE (1 of 2) 2006 COLORECTAL SCREENING 10/28/2021 10/29/2011 Colorectal Cancer Screening 10/28/2021 INFLUENZA VACCINE (#1) 2024 03/21/2011, 2009 DTAP/TDAP/TD VACCINES (2 - Td or Tdap) 05/18/2027 Insurance [place]ICAID [place] Advance Directives For more information, please contact: [phone] * Full Code (Latest Code Status on File) Date Activated Date Inactivated Comments 12/14/2011 9:05 PM 12/15/2011 4:45 PM Care Teams Outside Barrel Lathe Operator Relationship Specialty Start Date End Date Yesy Jones DO PCP - General Family Practice 09/24/14
--- OUTSIDE RECORDS SUMMARY | 2025-05-20 11:46 | XMS_ITS | Encounter Summary ---
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
--- OUTSIDE RECORDS SUMMARY | 2025-05-20 11:46 | XMS_ITS | Encounter Summary ---
Author Organization [facility] Address [address] [place] [address] Care Team Providers Care Erp Engineer Name Role Phone Yesy Jones DO Primary Care Provider [phone] Encounter Details Date Type Department Care Team (Late st Contact Info) Description 04/08/2008 Outpatient Historical [facility] [address] [facility] [address] [place] [address] John Hood MD [address] [facility] [address] [place] [phone] Social History Tobacco Use Types Packs/Day Years Used Date Smoking Tobacco: Never Assessed Sex and Gender Information Value Date Recorded Sex Assigned at Not on file 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
--- OUTSIDE RECORDS SUMMARY | 2025-05-20 11:46 | XMS_ITS | Encounter Summary ---
Author Organization [facility] Address [address] [place] [address] Care Team Providers Care Inspector Hairspring Name Role Phone Yesy Jones DO Primary Care Provider [phone] [phone] Encounter Details Date Type Department Care Team (Latest Contact Info) Description 03/29/2008 Outpatient Historical [facility] [address] [facility] [address] [place] [phone] John Hood MD [address] [facility] [address] [place] [phone] Pain in Soft Tissues of Limb; Degeneration of Lumbar or Lumbosacral Intervertebral Disc; Spinal Stenosis of Lumbar Region; Other Convulsions (CMS/HCC) Social History Tobacco Use Types Packs/Day Years Used Date Smoking Tobacco: Never Assessed Sex and Gender Information Value Date Recorded Sex Assigned at Not on file 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
--- OUTSIDE RECORDS SUMMARY | 2025-05-20 11:46 | XMS_ITS | Encounter Summary ---
Author Organization [facility] Address [address] [place] [address] Care Team Providers Care Blend Plant Operator Name Role Phone Yesy Jones DO Primary Care Provider [phone] Encounter Details Date Type Department Care Team (Latest Contact Info) Description 05/15/2004 Outpatient Historical [facility] [address] [place] [id number] Wyatt Watkins MD 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
--- OUTSIDE RECORDS SUMMARY | 2025-05-20 11:46 | XMS_ITS | Encounter Summary ---
Author Organization [facility] Address [address] [place] [address] Care Team Providers Care School Standards Coach Name Role Phone Yesy Jones Primary Care Provider [phone] Encounter Details Date Type Department Care Team (Late st Contact Info) Description 11/20/2014 Nurse Triage Report [id number] ABSTRACTION Bell Snyder, RN Social History Tobacco Use Types Packs/Day Years Used Date Smoking Tobacco: Every Day Cigarettes 0.5 32 Smokeless Tobacco: Never Comments:started 1977 Alcohol Use Standard Drinks/Week Comments No 0 (1 standard drink = 0.6 oz pur e alcohol) Sex and Gender Information Value Date Recorded Sex Assigned at Not on file 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 Associated Symptoms: headache in temples, whites of jaundice, nausea, visual changes. 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 Sent to ED. <<<<<<<< TRIAGE/OUTCOME >>>>>>>> Guideline Title: Headache Recommended Disposition: See ED Immediately Original Inclination: Call Provider/See in 24 Intended Action: Seek care in ER Physician Contacted: No Sudden loss or change in vision (double or blurred vision, increased light sensitivity, partial loss of visual field) AND not previously evaluated ? YES documented in this encounter Plan of Treatment Not on file documented as of this encounter Visit Diagnoses Not on filedocumented in this encounter Care Teams School Standards Coach Relationship Specialty Start Date End Date Yesy Jones DO PCP - General Family Practice 09/24/14 documented as of this encounter
--- OUTSIDE RECORDS SUMMARY | 2025-05-20 11:46 | XMS_ITS | Data Portability ---
Author Organization [place] [facility] [place], ADMIN Address [address] [place] [id number] Assessment Encounter Date Assessment Date Assessment LastModified by Organization Details LastModified Time 06/27/2014 06/27/2014 pt will need to continue to do physical therapy exercises on his right shoulder for ROM and strengthening , will ginve him a script for Tylenol IV. Not available 06/27/2014 09:28:58 Plan of Treatment Reminders Order Date Submit Date Provider Last Modified By Organization Details Last Modified Time Details Appointments None recorded. Lab CBC w/ auto diff 2017 018 [facility] (Lab)_do Not Use, [address], [place], [address], 8 18:12:02 BMP, serum or plasma 2017 018 [facility] (Lab)_do Not Use, [address], [place], [address], 8 18:37:23 Referral None recorded. Procedures None recorded. Surgeries laparoscopi c inguinal hernia repair (SURG) [address] (Pre-Admit), [address], [place], [address], 8 13:41:23 Imaging electrocard iogram [address] (Radiology), [address], [place], [address], 8 14:18:21 XR, chest 2017 018 [facility] (Radiology), [address], [place], [address], 8 12:16:18 Medication Orders Tylenol-Cod eine #4 300 mg-60 mg tablet [email or web address] [facility], [address], [place], [address], 5 12:13:04 Patient TargetsNo targets recorded. Patient Instructions Encounter Date Encounter Id Patient Instructions Last Modified By Organization Details Last Modified Time 12/22/2017 [id number] Keep all wounds clean and dry until tomorrow. At that point you may shower. Leave the Steri-Strips in place until they fall off on their own. Do not lift anything over 15 pounds for at least 4 weeks from the date of your surgery. Contact my office if you have any problems or questions. Not available 12/22/2017 15:54:17 I discussed the importance of no heavy lifting or straining to minimize chances of recurrent herniation. Wound care instructions also given. Not available 12/22/2017 15:54:33 01/20/2018 [id number] Contact my offic e tomorrow afternoon and let us know how the pain relief is going. Not available 01/20/2018 16:50:47 Reason for Referral None Reported. Results Created Date Observation Date Name Description Value Unit Range Abnormal Flag Note LastModifiedBy Organization Detail LastModifiedTime 12/02/19 18 12/01/2017 CBC w/ auto diff WBC 7.2 K/uL 4.0-11 .0 Not Available [facility] (Lab)_do Not Use [address], [place], [address], 12/01/2017 18:12:02 12/02/19 18 12/01/2017 CBC w/ auto diff RBC 4.35 M/uL 4.44-6 .00 low Not Available [facility] (Lab)_do Not Use [address], [place], [address], 12/01/2017 18:12:02 12/02/19 18 12/01/2017 CBC w/ auto diff HGB 14.0 g/dL 13.3-1 7.7 Not Available [facility] (Lab)_do Not Use [address], [place], [address], 12/01/2017 18:12:02 12/02/19 18 12/01/2017 CBC w/ auto diff HCT 41.8 % 40.0-5 4.0 Not Available [facility] (Lab)_do Not Use [address], [place], [address], 12/01/2017 18:12:02 12/02/19 18 12/01/2017 CBC w/ auto diff MCV 96.3 fL 80.0-9 7.0 Not Available [facility] (Lab)_do Not Use [address], [place], [address], 12/01/2017 18:12:02 12/02/19 18 12/01/2017 CBC w/ auto diff MCH 32.3 pg 27.0-3 3.0 Not Available [facility] (Lab)_do Not Use [address], [place], [address], 12/01/2017 18:12:02 12/02/19 18 12/01/2017 CBC w/ auto diff MCHC 33.6 g/dL 32.0-3 6.0 Not Available [facility] (Lab)_do Not Use [address], [place], [address], 12/01/2017 18:12:02 12/02/19 18 12/01/2017 CBC w/ auto diff RDW 14.6 % 11.5-1 4.5 high Not Available [facility] (Lab)_do Not Use [address], [place], [address], 12/01/2017 18:12:02 12/02/19 18 12/01/2017 CBC w/ auto diff MPV 8.4 fL 7.4-10 .4 Not Available [facility] (Lab)_do Not Use [address], [place], [address], 12/01/2017 18:12:02 12/02/19 18 12/01/2017 CBC w/ auto diff platelet count 265 K/uL 150-45 0 Not Available [facility] (Lab)_do Not Use [address], [place], [address], 12/01/2017 18:12:02 12/02/19 18 12/01/2017 CBC w/ auto diff neutrophils 53.8 % 37.0-7 0.0 Not Available [facility] (Lab)_do Not Use [address], [place], [address], 12/01/2017 18:12:02 12/02/19 18 12/01/2017 CBC w/ auto diff lymphocytes 33.8 % 21.0-5 1.0 Not Available [facility] (Lab)_do Not Use [address], [place], [address], 12/01/2017 18:12:02 12/02/19 18 12/01/2017 CBC w/ auto diff monocytes 9.0 % 2.0-9. 0 Not Available [facility] (Lab)_do Not Use [address], [place], [address], 12/01/2017 18:12:02 12/02/19 18 12/01/2017 CBC w/ auto diff eosinophils 2.4 % 0.0-3. 0 Not Available [facility] (Lab)_do Not Use [address], [place], [address], 12/01/2017 18:12:02 12/02/19 18 12/01/2017 CBC w/ auto diff basophils 1.0 % 0.0-1. 0 Not Available [facility] (Lab)_do Not Use [address], [place], [address], 12/01/2017 18:12:02 12/02/19 18 12/01/2017 CBC w/ auto diff absolute neutrophils 3.9 K/uL 2.0-8. 0 Not Available [facility] (Lab)_do Not Use [address], [place], [address], 12/01/2017 18:12:02 12/02/19 18 12/01/2017 CBC w/ auto diff absolute lymphocytes 2.4 K/uL 1.0-5. 5 Not Available [facility] (Lab)_do Not Use [address], [place], [address], 12/01/2017 18:12:02 12/02/19 18 12/01/2017 CBC w/ auto diff absolute monocytes 0.6 K/uL 0.3-0. 8 Not Available [facility] (Lab)_do Not Use [address], [place], [address], 12/01/2017 18:12:02 12/02/19 18 12/01/2017 CBC w/ auto diff absolute eosinophils 0.2 K/uL 0.0-0. 2 Not Available [facility] (Lab)_do Not Use [address], [place], [address], 12/01/2017 18:12:02 12/02/19 18 12/01/2017 CBC w/ auto diff absolute basophils 0.1 K/uL 0.0-1. 0 Not Available [facility] (Lab)_do Not Use [address], [place], [address], 12/01/2017 18:12:02 12/02/19 18 12/01/2017 BMP, serum or plasm a glucose 76 mg/dL 70-110 Not Available [facility] (Lab)_do Not Use [address], [place], [address], 12/01/2017 18:37:23 12/02/19 18 12/01/2017 BMP, serum or plasm a BUN 13 mg/dL 7-18 Not Available [facility] (Lab)_do Not Use [address], [place], [place], [address], 12/01/2017 18:37:23 12/02/19 18 12/01/2017 BMP, serum or plasm a creatinine 0.9 mg/dL 0.5-1. 4 Not Available [facility] (Lab)_do Not Use [address], [place], [place], [address], 12/01/2017 18:37:23 12/02/19 18 12/01/2017 BMP, serum or plasm a calcium 8.9 mg/dL 8.5-10 .1 Not Available [facility] (Lab)_do Not Use [address], [place], [place], [address], 12/01/2017 18:37:23 12/02/19 18 12/01/2017 BMP, serum or plasm a sodium 141 mmol/ L 135-14 8 Not Available [facility] (Lab)_do Not Use [address], [place], [place], [address], 12/01/2017 18:37:23 12/02/19 18 12/01/2017 BMP, serum or plasm a potassium 3.4 mEq/L 3.5-5. 3 low Not Available [facility] (Lab)_do Not Use [address], [place], [place], [address], 12/01/2017 18:37:23 12/02/19 18 12/01/2017 BMP, serum or plasm a chloride 107 mmol/ L 95-110 Not Available [facility] (Lab)_do Not Use [address], [place], [place], [address], 12/01/2017 18:37:23 12/02/19 18 12/01/2017 BMP, serum or plasm a CO2 24 mmol/ L 21-34 Not Available [facility] (Lab)_do Not Use [address], [place], [place], [address], 12/01/2017 18:37:23 12/02/19 18 12/01/2017 BMP, serum or plasm a BUN/creatine ratio 14.44 Na 6.00-2 0.00 Not Available [facility] (Lab)_do Not Use [address], [place], [place], [address], 12/01/2017 18:37:23 12/02/19 18 12/01/2017 BMP, serum or plasm a anion gap 10.0 mmol/ L 3.0-11 .0 Not Available [facility] (Lab)_do Not Use [address], [place], [place], [address], 12/01/2017 18:37:23 12/02/19 18 12/01/2017 BMP, serum or plasm a osmolality calcuated 280 mOsm/ kg 280-30 1 Not Available [facility] (Lab)_do Not Use [address], [place], [address], 12/01/2017 18:37:23 12/02/19 18 12/01/2017 GFR, estim ated (eGFR ), serum GFR > mL/mi n >60.00 Not Available [facility] (Lab)_do Not Use [address], [place], [place], [address], 12/01/2017 18:37:24 12/13/19 18 12/12/2017 gluco se, manjue rstic k, blood bedside glucose 90 mg/dL 70.00- 110.00 Not Available [facility] (Lab)_do Not Use [address], [place], [address], 12/12/2017 10:39:19 12/13/19 18 12/12/2017 gluco se, finge rstic k, blood bedside glucose 90.00 mg/dL 70.00- 110.00 Not Available [facility] (Lab)_do Not Use [address], [place], [address], 12/12/2017 10:39:42 09/24/19 15 09/22/[address] perf SPECT mult stdy ABNORM AL CXR, SMOKER , COPD ABN CXR COPD SMOKER Room:[facility] Date: 2014 11:43: 31 ADENOS INE CARDIO LITE STUDY: 2014 REASON FOR STUDY: Tobacc o use. COPD. The adenos ine portio n of the study is report ed separa tely. Restin g dose of techne tium is 10.7 mCi. Stress dose is 30.2 mCi. During acquis ition of rotati ng planar images , patien t motion is noted. Tomogr aphic imagin g obtain ed post-s tress demons trated decrea sed isotop e uptake of the latera l segmen t of the left ventri renetta. Repeat imagin g of the ventri renetta at rest demons trated improv ement of Isotop e uptake of the latera l segmen t of the left ventri renetta. Gated tomogr aphic imagin g shows no signif icant wall motion abnorm alitie s. Left ventri cular ejecti on fracti on is 63%. TID ratio is 1.10. FINAL IMPRES MADDY: 1. SUBTLE LATERA L REVERS IBLE CHANGE POSSIB LY RELATE D TO PATIEN T MOTION . 2. NORMAL LEFT VENTRI CULAR SIZE AND SYSTOL IC FUNCTI ON. EJECTI ON FRACTI ON OF 53%. 3. MUSCLE ATTENU ATION ARTIFA CT. CLINIC AL CORREL ATION IS INDICA HALLIE. MARIZA DELACRUZ Dictat ed By MARIZA DELACRUZ Review ed & Signed ABN CXR COPD SMOKER Lorna escobedo Provid er(s): Orderi ng Provid er: CALI ESTEBAN Result Copies To: Attend ing Doctor : REGINA CHRISTIANSEN Referr deepa Doctor : Rafael escobedo Doctor : Conrado arenas Doctor : CALI ESTEBAN Other Health care Provid er: [facility] (Radiology) [address], [place], [address], 05/10/2015 04:09:54 12/03/19 18 12/01/2017 XR, chest , 2 view K40.90 PREOP Proced ure Acknow ledge Date: 2017 04:21 PM EXAM: TWO VIEW CHEST HISTOR Y: Preope rative COMPAR JULIEN:0 014 FINDIN GS: Lungs appear hypere xpande d. Right product management internship al jugula r port cathet er tip is seen at the SVC. No pneumo thorax is identi fied. No pleura l effusi on is presen t. Cardia c size is within normal limits . Medias tinal silhou ette appear s stable . Right should er arthro plasti es presen t. There is scatte red tiny nodula r densit y seen at the bilate ral lungs. IMPRES MADDY: Hypere xpande d lungs are presen t which can be seen with chroni c obstru ctive pulmon crista diseas e. Right product management internship al jugula r port cathet er. Right should er arthro plasty . Scatte red tiny nodula r densit ies are seen at the bilate ral lungs. Recomm end correl ation with CT chest help exclud e eviden ce of neopla stic proces s. Unexpe cted findin g: Scatte red tiny nodula r densit ies at the bilate ral lungs with recomm endati on for CT chest. DICTAT ED DATE: 1111 DICTAT ED BY: Malathi Agudelo M.D. TRANSC RIBED DATE: 1111 TRANSC RIBED BY: RANI SIGNED BY: Malathi Agudelo M.D. DT: 2017 11:11 AM Dictat ed By: MALATHI AGUDELO MD DF: 2017 11:11 AM Signed By: MALATHI AGUDELO MD Provid er(s): Oleksandr pittman Provid er: Result Copies To: Attend ing Doctor : BERT FOUNTAIN Referr ing Doctor : Rafael escobedo Doctor : Conrado arenas Doctor : Other Health care Provid er: [facility] (Radiology) [address], [place], [address], 12/02/2017 19:41:17 Result Notes Documentation Provider Name and Address Organization Details Recorded Time Xr, Chest, 2 View : K40.90 PREOP Procedure Acknowledge Date: 12/01/2017 04:21 PM EXAM: TWO VIEW CHEST HISTORY: Preoperative COMPARISON:09/06/2013 FINDINGS: Lungs appear hyperexpanded. Right internal jugular port catheter tip is seen at the SVC. No pneumothorax is identified. No pleural effusion is present. Cardiac size is within normal limits. Mediastinal silhouette appears stable. Right shoulder arthroplasties present. There is scattered tiny nodular density seen at the bilateral lungs. IMPRESSION: Hyperexpanded lungs are present which can be seen with chronic obstructive pulmonary disease. Right internal jugular port catheter. Right shoulder arthroplasty. Scattered tiny nodular densities are seen at the bilateral lungs. Recommend correlation with CT chest help exclude evidence of neoplastic process. Unexpected finding: Scattered tiny nodular densities at the bilateral lungs with recommendation for CT chest. DICTATED DATE: 12/02/17 1111 DICTATED BY: Irina Agudelo M.D. TRANSCRIBED DATE: 12/02/17 1111 TRANSCRIBED BY: RANI SIGNED BY: Irina Agudelo M.D. Dictated By: IRINA AGUDELO MD DF: 12/02/2017 11:11 AM Signed By: IRINA AGUDELO MD Supporting Provider(s): Ordering Provider: Result Copies To: Attending Doctor: BERT ASHER Referring Doctor: Consulting Doctor: Admitting Doctor: Other Healthcare Provider: BERT ASHER MD [address] [facility], [place], [address], [place] [facility] [place] 12/02/2017 19:41:17 Problems Name Problem SNOMED Code Status Onset Date Resolution Date Notes Provider Name and Address Organization Details Recorded Time Inflammation of joint of shoulder region 762300661 Active BERNARD RAWLS MD [address], [place], [address], [place] [facility] [place] 5 08:51:48 Pain of shoulder region 01183308 Active Fatoumata Aviles CMA null, [place] [facility] [place] 4 17:02:26 Contusion of shoulder region 61460994 Active POP RAWLS MD [address], [place], [address], [place] [facility] [place] 4 14:02:22 History of polyp of colon 264245284 Active 2017 BERT ASHER MD [address], [place], [address], [place] [facility] [place] 8 15:39:31 Left inguinal hernia 435365074 Active 2017 BERT ASHER MD [address], [place], [address], [place] [facility] [place] 8 16:01:05 Inguinal pain 847205705 Active 2017 Maureen Esquivel LPN null, [place] [facility] [place] 8 14:26:59 Problem Notes None recorded. Procedures Surgical History Date Name Laterality Status Provider Name and Address Organization Details Recorded Time 12/13/19 18 LAPAROSCOPIC INGUINAL HERNIA REPAIR (SURG) completed Maureen Esquivel LPN [place] [facility] [place] 12/12/2017 12:41:57 12/07/19 14 Orthopedic Surgery completed Veronika Montalvo LPN [place] [facility] [place] 12/14/2013 09:31:07 Orthopedic Surgery completed Veronika Montalvo LPN [place] [facility] [place] 12/14/2013 09:31:07 Orthopedic Surgery completed Veronika Montalvo LPN [place] [facility] [place] 12/14/2013 09:31:07 Orthopedic Surgery completed Veronika Montalvo LPN [place] [facility] [place] 12/14/2013 09:31:07 Imaging Results None recorded. Procedure Notes None recorded. Medical Equipment None Reported. Allergies Allergen ID Allergen Name Allergen Category Reaction Reaction Severity Criticality Documentation Date Start Date Code Code System Note Provider Name and Address Organization Details Recorded Time 271 Product containin g penicilli n (product) medicatio n Not available Not available Not available 12/14/2013 [address] null, [address] 4 15:08:31 272 Compazine medicatio n Not available Not available Not available 12/14/201352847 [address] null, [address] 4 15:08:31 273 Dilantin medicatio n Not available Not available Not available 12/14/201383058 [address] null, [address] 4 15:08:31 274 Toradol medicatio n Not available Not available Not available 12/14/2013 [address] null, [address] 4 15:08:31 275 fenoterol Not available Not available Not available Not available 12/14/[address] null, [address] 4 15:08:31 Medications Name Sig Start Date Stop Date Status Note LastModified by Organization Details LastModified Time Tylenol-Co deine #4 300 mg-60 mg tablet Take 1-2 tablet(s ) EVERY 6 HOURS by oral route prn pain 015 active Not Available Not Available Not Avai lable Percocet 10 mg-325 mg tablet Take 1 tablet every 6 hours by oral route. 014 active Not Available Not Available Not Avai lable Colton 10 mg-325 mg tablet Take 1 tablet every 4-6 hours by oral route. 014 active Not Available Not Available Not Avai lable Vitals Date Recorded Oxygen saturation Body weight Body temperature Heart rate Body mass index (BMI) Body height Systolic And Diastolic Provider Name and Address Organization Details Last Updated DateTime 5 98 % 08762.7 4105 g 98.1 [degF] 77 /min 21.8 kg/m2 185.42 cm 104/57 mm[Hg] JODIE Villeda [address] 5 09:08:47 Date Recorded Body height Body mass index (BMI) Body weight Heart rate Systolic And Diastolic Provider Name and Address Organization Details Last Updated DateTime 12/01/2017 185.42 cm 21.8 kg/m2 27826.74 g 86 /min 116/75 mm[Hg] Fatoumata Aviles CMA [address] 12/01/2017 15:24:32 Date Recorded Body height Body mass index (BMI) Body weight Heart rate Systolic And Diastolic Provider Name and Address Organization Details Last Updated DateTime 12/22/2017 185.42 cm 21.8 kg/m2 42415.74 g 86 /min 120/70 mm[Hg] Maureen Esquivel LPN [address] 12/22/2017 14:20:51 Date Recorded Body height Body mass index (BMI) Body weight Heart rate Systolic And Diastolic Provider Name and Address Organization Details Last Updated DateTime 01/20/2018 185.42 cm 21.8 kg/m2 43256.74 g 80 /min 122/70 mm[Hg] Maureen Esquivel LPN [address] 01/20/2018 14:26:42 Date Recorded Body height Body mass index (BMI) Body weight Provider Name and Address Organization Details Last Updated DateTime 05/05/2018 185.42 cm 21.8 kg/m2 34403.74 g Maureen Esquivel LPN [address] 05/05/2018 14:28:39 Social History Question Answer Notes LastModified by Organizat ion Details LastModified Time Tobacco Smoking Status Current Every Day Smoker 1/2 pack daily Veronika Montalvo LPN [address] 12/14/2013 09:31:07 What Is Your Level Of Caffeine Consumption? Occasional Information not available 06/27/2014 Have You Directly Handled Bats, Rodents, Or Primates From Ebola Endemic Areas? No [email or web address] Information not available 03/30/2014 Have You Had Contact With Blood, Bodily Fluids, Or Human Remains Of A Patient Known To Have Or Suspected To Have Ebola Virus Disease? No [email or web address] Information not available 03/30/2014 Do You Reside In Or Have You Traveled To An Area Where Ebola Virus Transmission Is Active? No [email or web address] Information not available 03/30/2014 Education 12 Information no t available 06/27/2014 Fever (greater Than 38 C Or 100.4 F) No [email or web address] Information not available 03/30/2014 Severe Headache No [email or web address] Informat ion not available 03/30/2014 Muscle Pain No [email or web address] Information not available 03/30/2014 Marital Status Single Informatio n not available 06/27/2014 What Was The Date Of Your Most Recent Tobacco Screening? 12/01/2017 Information not available 12/25/2018 How Much Tobacco Do You Smoke? 1 PPW Information not available 06/27/2014 How Many Years Have You Smoked Tobacco? 30 Information not available 12/14/2013 Sex: Unknown Functional Status Question Answer Note LastModified by Organization D etails LastModified Time What is your level of alcohol consumption? None Information not available 06/27/2014 Mental Status None recorded. Family History Nothing Reported Notes:unknown due to adoptio n Medical History Condition Response ARTHRITIS Y SEIZURES Y HAVE YOU BEEN HOSPITALIZED OR SEEN IN [facility] IN THE PAST YEAR ? Y Past Encounters Encounter ID Performer Location Encounter Start Date Encounter Closed Date Diagnosis/Indication Diagnosis SNOMED-CT Code Diagnosis ICD10 Code Diagnosis IMO Codes Diagnosis Note [id number] BERNARD RAWLS MD [facility] [address] [place] [address] 12/14/2013 14:19:19 12/14/2013 15:58:41 [id number] BERNARD RAWLS MD [facility] [address] [place] [address] 12/21/2013 10:00:25 12/21/2013 11:05:33 [id number] BERNARD RAWLS MD [facility] [address] [place] [address] 01/19/2014 08:50:52 01/19/2014 09:52:29 [id number] BERNARD RAWLS MD [facility] [address] [place] [address] 02/02/2014 09:17:36 02/02/2014 10:03:39 Pain of shoulder region 52778978 [id number] POP RAWLS MD [facility] [address] [place] [address] 02/07/2014 15:10:54 02/07/2014 17:12:28 Pain of shoulder region 24891641 Contusion of shoulder region 76580050 [id number] BERNARD RAWLS MD [facility] [address] [place] [address] 03/02/2014 09:03:14 03/02/2014 09:59:34 Pain of shoulder region 64883508 [id number] BERNARD RAWLS MD [facility] [address] [place] [place], [place] [address] 03/30/2014 08:57:23 03/30/2014 09:39:34 Pain of shoulder region 17804420 [id number] BERNARD RAWLS MD [facility] [address] [place], [place] [address] 04/13/2014 16:35:13 04/13/2014 18:06:59 Pain of shoulder region 13237805 [id number] BERNARD RAWLS MD [facility] [address] [place] [address] 05/09/2014 10:28:56 05/09/2014 12:58:01 Inflammation of joint of shoulder region 935264711 [id number] BERNARD RAWLS MD [facility] [address] [place], [place] [address] 06/27/2014 08:59:03 06/27/2014 09:33:26 Inflammation of joint of shoulder region 384604152 [id number] BERT ASHER MD [facility] [address] [place] [address] 12/01/2017 14:41:40 12/01/2017 16:06:05 History of polyp of colon 574811257 Z86.010 The standard follow-up interval for a tubular adenoma with no dysplasia is 3-5 years. I would recommend repeat colonoscop y therefore in March of 2019. Left inguinal hernia 236 174462 K40.90 The patient has a great deal of symptoms related to these left inguinal hernia. I offered to repair this laparoscop ically and he wishes to do so next week. Inguinal hernia 19790099 0 K40.90 [id number] BERT ASHER MD [facility] [address] [place], [place] [address] 12/22/2017 14:13:51 12/22/2017 16:33:21 Left inguinal hernia 262375936 K40.90 The patient seems to be doing well. He has some burning dysesthesi as in the left inguinal region which usually dissipate spontaneou sly. I have encouraged him to use ibuprofen for that symptom. He will contact me in 2 weeks if he still has significan t discomfort and we might re-evaluat ed in the office or refer him to the Pain [facility] for a nerve block. [id number] BERT ASHER MD [facility] [address] [place], [place] [address] 01/20/2018 13:42:52 01/20/2018 16:54:57 Left inguinal hernia 880595211 K40.90 This seems to be some irritation of his genitofemo ral nerve. Relief was provided with 1% lidocaine infiltrati on. He will call our office tomorrow to let us know how long this lasted or if the pain returned. If the pain does return, planned alcohol ablation next week. [id number] BERT ASHER MD [facility] [facility] [address] [place], [place] [address] 05/05/2018 13:55:25 05/05/2018 16:15:55 Inguinal pain [id number] R10.2 The injection seemed to have a good initial response. The patient will contact my office if he still has pain or recurrence of his left inguinal discomfort . If that is the case, we will refer the patient to pain management clinic for further injection. Health Concerns Section Related Observation LastModified by Organization Detai ls LastModified Time None Recorded Concern Status LastModified by Organization Details LastModified Time None Recorded Advance Directives Directive None Recorded Payers Insurance Date Sequence Insurance Name Policy Number Policy Tilley Covered Member ID Tilley Member ID Guarantor Name 05/02/2018 1 [place] Geoffrey Paulman [id number] Geoffrey Mcleod Notes Date Note Type Note Provider Name and Address Organization Details Recorded Time 06/27/2014 text/html pt had rt shoulder hemiprothesis on 12/06/13. he has pain on ROM. BERNARD RAWLS, [place], [address], [facility] [place] 06/27/2014 10:01:48 12/01/2017 text/html The patient is seen with regards to possibly needing colonoscopy for a history of colon polyps. He states he had colonoscopy 2 years ago here at the hospital that revealed polyps. Actually the patient had colonoscopy at [facility] by Dr. Das in 2016. This revealed a small tubular adenoma with no dysplasia. The patient also complains of rather severe pain in the left inguinal area even at rest and especially on heavy lifting that began several months ago while splitting lumbar. He has a bulge there. He has already had a right inguinal hernia repair in the past. [place], [address], [facility]14 [place] 12/01/2017 16:04:11 12/22/2017 text/html The patient is seen following their laparoscopic inguinal hernia repair. No significant complaints. BERT ASHER MD [facility] [place] [facility], [address], [facility] [place] 12/22/2017 15:54:50 01/20/2018 text/html The patient is a 62-year-old gentleman who underwent a laparoscopic left inguinal mesh hernia repair 2 months ago. He had some mild left inguinal dye any a on his follow-up visit. Two weeks ago he states that he developed a knot in his lower inguinal area as well as pain radiating from his inguinal area down to the lateral portion of his scrotum. The not dissipated but the pain persists. 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 He had a laparoscopic left inguinal mesh hernia repair and has had ileoinguinal pain since then. A trigger point was isolated and injected with lidocaine previously with good results. After several months delay he presents for alcohol ablation of the nerve. [place], [address], [facility]14 [place] 05/05/2018 16:06:43
--- OUTSIDE RECORDS SUMMARY | 2025-05-20 11:46 | XMS_ITS | Encounter Summary ---
Author Organization [facility] Address [address] [place] [address] Care Team Providers Care External Relations Director Name Role Phone Yesy Jones DO Primary Care Provider [phone] Encounter Details Date Type Department Care Team (Latest Contact Info) Description 10/30/2004 Outpatient Historical [facility] [address] [place] [address] Wyatt Watkins MD 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
--- OUTSIDE RECORDS SUMMARY | 2025-05-20 11:46 | XMS_ITS | Encounter Summary ---
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, site unspecified (CMS/HCC) Social History Tobacco Use Types Packs/Day Years Used Date Smoking Tobacco: Every Day Cigarettes 2 32 Smokeless Tobacco: Never Comments:started 1977 Alcohol Use Standard Drinks/Week Comments No 0 (1 standard drink = 0.6 oz pur e alcohol) Sex and Gender Information Value Date Recorded Sex Assigned at Not on file 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
--- OUTSIDE RECORDS SUMMARY | 2025-05-20 11:46 | XMS_ITS | Encounter Summary ---
Author Organization [facility] Address [address] [place] [address] Care Team Providers Care News Copy Editor Name Role Phone Yesy Jones DO Primary Care Provider [phone] Encounter Details Date Type Department Care Team (Late st Contact Info) Description 04/27/2008 Outpatient Historical [facility] [address] [facility] [address] [place] [address] John Hood MD [address] [facility] [address] [place] [address] Social History Tobacco Use Types Packs/Day Years Used Date Smoking Tobacco: Never Assessed Sex and Gender Information Value Date Recorded Sex Assigned at Not on file 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
--- OUTSIDE RECORDS SUMMARY | 2025-05-20 11:46 | XMS_ITS | Encounter Summary ---
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
--- OUTSIDE RECORDS SUMMARY | 2025-05-20 11:46 | XMS_ITS | Encounter Summary ---
Author Organization [facility] Address [address] [place] [address] Care Team Providers Care Rn L And D Name Role Phone Yesy Jones DO Primary Care Provider [phone] Encounter Details Date Type Department Care Team (Late st Contact Info) Description 01/30/[address] [facility] Pain Management- [address] 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
--- OUTSIDE RECORDS SUMMARY | 2025-05-20 11:46 | XMS_ITS | Encounter Summary ---
Author Organization [facility] Address [address] [place] [address] Care Team Providers Care Land Economist Name Role Phone Yesy Jones DO Primary Care Provider [phone] Reason for Visit * Reason Comments Medication Refill Encounter Details Date Type Department Care Team (Late st Contact Info) Description 05/07/2014 Refill [facility] [place] [address] [place] [address] Amor Mcadams MD [address] [place] [address] Social History Tobacco Use Types Packs/Day Years Used Date Smoking Tobacco: Every Day Cigarettes 0.5 32 Smokeless Tobacco: Never Comments:started 1977 Alcohol Use Standard Drinks/Week Comments No 0 (1 standard drink = 0.6 oz pur e alcohol) Sex and Gender Information Value Date Recorded Sex Assigned at Not on file 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
--- OUTSIDE RECORDS SUMMARY | 2025-05-20 11:46 | XMS_ITS | Patient Health Record ---
Author Organization [facility] Address [address] [facility] [place] [address] Care Team Providers Care Continuous Mining Operator Name Role Phone Lissa CRANDALLNRodneylizeth Primary Care Provider Unav ailable Marvin Diaz Unavailable [phone] Allergies Allergen (clinical drug ingredient) Drug/Non Drug [...] Albuterol Sulfate HFA 108 (90 Base) MCG/ACT Aerosol Solution 1 puff as needed Inhalation every 4 hrs Active Temazepam 30 MG Capsule 1 capsule at bedtime as needed Orally Once a day Active gabapentin 600 MG Oral Tablet gabapentin 600 MG Oral Tablet 11/11/2018 Unknown Tamsulosin HCl 0.4 MG Capsule 1 capsule Orally Once a day Active Sucralfate 1000 MG Oral Tablet Sucralfate 1000 MG Oral Tablet 11/11/2018 Unknown Sucralfate 1 GM Tablet 1 tablet on an empty stomach Orally Twice a day Active topiramate 200 MG Oral Tablet topiramate 200 MG Oral Tablet 11/11/2018 Unknown Pantoprazole Sodium 40 MG Tablet Delayed Release 1 tablet Orally Once a day Active pantoprazole 40 MG Enteric Coated Tablet pantoprazole 40 MG Enteric Coated Tablet 11/11/2018 Unknown Normal Saline Flush 0.9 % Solution as directed Injection Active tizanidine 6 MG Oral Capsule tizanidine 6 MG Oral Capsule 11/11/2018 Unknown Narcan 4 MG/0.1ML Liquid as directed Nasally Active doxycycline hyclate 100 MG Oral Capsule doxycycline hyclate 100 MG Oral Capsule 11/11/2018 Unknown Heparin Lock Flush 100 UNIT/ML Solution as directed Intravenous Active Doxepin Hydrochloride 50 MG Oral Capsule Doxepin Hydrochloride 50 MG Oral Capsule 11/11/2018 Unknown Doxepin HCl 10 MG Capsule 1 capsule at bedtime Orally Once a day Active Buprenorphine HCl 8 MG Tablet Sublingual 1 tablet under the tongue and allow to dissolve Sublingual Two times a Week Active Atorvastatin Calcium 20 MG Tablet 1 tablet Orally Once a day Active Immunizations Vaccine Route Administration Date Status Comme nts Influenza (whole), CPT 71795 Inactive Unknown 03/16/2018 Administered Social History Social History Additional Details Category Social Info Options Details zzMigrated Social History Migrated Social History Smoking Status:Heavy tobacco smoker (finding) Problems Problem Type SNOMED Code ICD Code Onset Dates Problem Status W/U Status Risk Notes Problem Abnormal findings diagnostic imaging of liver and biliary tract ([id number]) Abnormal findings on diagnostic imaging of liver and biliary tract (R93.2) Active confirmed Plan Of Treatment No Information Insurance Providers Payer Name Payer Address Payer Phone Subscriber Number Group Number Insured Name Patient Relationship to Insured Coverage Start Date Coverage End Date [facility] Medicare Advantage PPO [address] [address] [place] [address] [id number] Geoffrey Mcleod Self - patient is the insured [place] Medicaid [address] [place] [address] [id number] Geoffrey Mcleod Self - patient is the insured
--- NOTE | 2025-05-20 11:54 | XR_ITS ---
WS: [id number] Left hip, 3 views, AP pelvis, 05/20/2025 Clinical Data: trauma Comparison: AP pelvis, 04/12/2025 Findings: There is an intertrochanteric fracture of the left hip. The left femoral head remains within the acetabulum. The right hip is intact. There are 2 orthopedic screws fusing the left SI joint. There is an old injury to the lateral left ilium. There are multilevel lower lumbar laminectomies with osteoarthritis and degenerative discs. XR/XR hip LT 2-3V wo/w pel* [id number] Impression: Left hip intertrochanteric fracture.
[2025-05-20 12:04] LABS: Hematocrit 30.9 % (37-53); Hemoglobin 10.10 g/dL (11.27-16.99); Mean Corpuscular HGB Conc 32.7 g/dL (30-55); Mean Corpuscular Hemoglobin 31.0 pg (27-33); Mean Corpuscular Volume 94.8 fl (82-101); Nucleated Red Blood Cells % 0 %; Platelet Count 168 10^3/cmm (157-399); Red Blood Count 3.26 10^6/uL (3.85-5.65); White Blood Count 8.30 10^3/uL (3.29-11.43)
[2025-05-20 12:27] LABS: Alanine Aminotransferase 8 U/L (0-41); Albumin Level 3.8 g/dL (3.5-5.2); Alkaline Phosphatase 82 U/L (40-130); Anion Gap 16.4 (5-19); Aspartate Amino Transferase 15 U/L (0-40); Blood Urea Nitrogen 13 mg/dL (8-23); Calcium 9.0 mg/dL (8.5-10.5); Carbon Dioxide 24 mmol/L (22-29); Chloride 103 mmol/L (98-107); Globulin 3.0 g/dL (1.3-4.6); Glucose 106 mg/dL (65-115); Osmolality Calculated 289 mOsm/kg (285-295); Potassium 4.4 mmol/L (3.5-5.1); Sodium 139 mmol/L (136-145); Total Protein 6.8 g/dL (6.6-8.7)
--- NOTE | 2025-05-20 12:37 | ECG_ITS ---
[facility]: 2025-05[facility]20 Pat Name: Geoffrey Mcleod Department: Room: Gender: Male Anaesthesiologist: : [id number] Requested By: Deric Lowery Order Number: [id number] Reading MD: CIARA CARTAGENA Measurements Intervals [place] Rate: 90 P: 86 CO: 163 QRS: 88 QRSD: 88 T: -78 QT: 322 QTc: 395 Interpretive Statements SINUS RHYTHM SEPTAL MYOCARDIAL INFARCTION , PROBABLY OLD [40+ ms Q WAVE IN V1/V2] MODERATE T-WAVE ABNORMALITY, CONSIDER INFERIOR ISCHEMIA [-0.1+ mV T-WAVE IN II/aVF] Compared to ECG 05/20/2025 12:09:21 Myocardial infarct finding now present Possible ischemia now present T-wave abnormality still present Electronically Signed On 05-24-2025 12:09:47 INSOLE COVERER by CIARA CARTAGENA [id number]
--- NOTE | 2025-05-20 12:37 | XR_ITS ---
WS: [id number] Portable AP supine chest, 05/20/2025 Clinical Data: PRE OP CLEARANCE Comparison: Portable chest, 09/03/2024 Findings: No nodules, masses or effusions are seen. The heart is normal. The pulmonary vascularity is not increased. No pneumonia or pneumothorax is seen. The diaphragms are flattened. The aortic arch and descending thoracic aorta show tortuosity. There is an infusion catheter on the right unchanged. There is a reverse right shoulder arthroplasty. There is an old left lateral ninth rib fracture. XR/XR chest 1V portable [id number] Impression: Hyperinflation and atherosclerosis.
--- NOTE | 2025-05-20 12:39 | XR_ITS ---
WS: [id number] Left femur and thigh, AP and lateral views, 05/20/2025 Clinical Data: hip fx Comparison: Pelvis and left hip, 05/20/2025 Findings: There are comminuted intertrochanteric fracture left hip is noted. The left femoral head remains in the acetabulum. The femoral shaft is unremarkable. The knee shows no abnormalities. There is an old fracture of the proximal left tibia. There are 2 orthopedic screws fusing the left SI joint.
--- NOTE | 2025-05-20 13:02 | W.ED.FALL ---
HPI - Fall General: Chief Complaint: Fall Stated Complaint: FALL Time Seen by Provider: 05/20/25 11:44 History of Present Illness: 69-year-old male lives at home and a ground-level mechanical fall around 430 this morning and is getting out of bed. He is unable to stand. He was brought in by in by ambulance he taken a Percocet prior to arrival he is awake and alert he denies any other injuries from the fall Associated symptoms-after fall: Denies abdominal pain, chest pain or neck pain Related Data Home Medications ?Medication ?Instructions ?Recorded ?Confirmed gabapentin 600 mg tablet 600 mg PO TID 09/03/24 05/20/25 pantoprazole 40 mg tablet,delayed 40 mg PO BID 09/03/24 05/20/25 release (Protonix) atorvastatin 20 mg tablet 20 mg PO QPM 05/20/25 05/20/25 tamsulosin 0.4 mg capsule 0.4 mg PO BEDTIME 05/20/25 05/20/25 trazodone 50 mg tablet 50 mg PO BEDTIME 05/20/25 05/20/25 Previous Rx's ?Medication ?Instructions ?Recorded Accommodative orthotics #1 ea 04/15/22 gauntlet AFO to the left #1 ea 05/20/22 oxycodone-acetaminophen 10 mg-325 1 tab PO Q4H PRN pain 30 days #180 05/11/25 mg tablet tabs tramadol 50 mg tablet 50 mg PO Q6H PRN Moderate Pain 3 05/21/25 days #12 tabs Allergies Allergy/AdvReac Type Severity Reaction Status Date / Time carbamazepine (From Tegretol) Allergy Severe ALGY-Rash Verified 05/20/25 14:38 phenobarbital Allergy Severe ADR-Irritab Verified 05/20/25 14:38 le phenytoin (From Dilantin) Allergy Severe ALGY-Rash Verified 05/20/25 14:38 prochlorperazine (From Allergy Severe ADR-Migrain Verified 05/20/25 14:38 Compazine) e ketorolac (From Toradol) Allergy Intermediate ADR-Cramping Verified 05/20/25 14:38 of the Muscles morphine Allergy ALGY-Swell Verified 05/20/25 14:38 Lip/Tongue/Throat Penicillins Allergy ALGY-Hives Verified 05/20/25 14:38 ciprofloxacin AdvReac increase Verified 05/20/25 14:38 blood pressure with headache Review of Systems Const: Denies: fever(s) or chills Card: Denies: chest pain Resp: Denies: dyspnea GI: Denies: abdominal pain : Denies: dysuria, urinary frequency or urinary urgency Musc: Reports: joint pain; Denies: neck pain or back pain Skin/Breast: Denies: rash PFSH ED PFSH: Medical History Smoker unmotivated to quit Elevated prostate specific antigen (PSA) Long-term use of high-risk medication Chronic back pain greater than 3 months duration Enrolled in chronic care management Chronic prostatitis History of broken leg BPH loc w urin obs/LUTS Surgical History History of cholecystectomy History of bilateral inguinal hernia repair H/O shoulder surgery History of ankle surgery History of elbow surgery History of hernia surgery Family History Father , AT AGE 73 Murder Mother , AT AGE 42 Cancer COLON Social History Smoking and tobacco/nicotine status: current every day tobacco/nicotine user cigarettes Packs smoked per day: 0.25 Years cigarettes smoked: 35 Second hand smoke exposure: No Alcohol intake: never Substance/Drug Use: never Adopted: Yes Lives independently: Yes Household members: none Marital status: Number of children: 2 service: No Current occupational status: retired Current gender identity: Male Special alejandro needs: No Agree to transfusion: Yes Physical Exam Const: COMMON NORMALS: no acute distress GENERAL APPEARANCE: cooperative and comfortable ORIENTATION/CONSCIOUSNESS: Yes awake HENMT: COMMON NORMALS: normocephalic, atraumatic and hearing grossly normal bilaterally HEAD & SCALP: normocephalic and atraumatic Resp: COMMON NORMALS: normal respiratory effort, No retractions, No use of accessory muscles and clear to auscultation bilaterally AUSCULTATION: clear to auscultation bilaterally Cardio: COMMON NORMALS: regular rate, regular rhythm and No murmurs present (Cardio) RATE: regular rate RHYTHM: regular rhythm GI: COMMON NORMALS: Soft to palpation and No hepatosplenomegaly present AUSCULTATION: Yes normoactive bowel sounds PALPATION: Yes Soft to palpation, No Tenderness to palpation present (GI), No Guarding due to palpation present (GI) and Yes No hepatosplenomegaly present Extremity: OTHER: External rotation of the left leg. Dorsalis pedis posterior tibialis pulse normal pain with palpation at the hip none at the knee or ankle no obvious deformity of femur lower leg or ankle Skin: COMMON NORMALS: no rashes or lesions noted GENERAL SKIN EXAM: no rashes or lesions noted Course Vital Signs: Vital signs: Vital Signs Temperature 98.0 F 05/23/25 07:23 Pulse Rate 86 05/23/25 07:23 Respiratory Rate 18 05/23/25 07:23 Blood Pressure 109/73 05/23/25 07:23 Pulse Oximetry 94 05/23/25 07:23 Oxygen Delivery Me thod Room Air 05/23/25 07:23 MDM - Fall Medical Decision Making Medical decision making Social determinants: Patient lives at home alone I reviewed the patient's medical record. I reviewed the patient's current home meds. Alternate historians: None Differential diagnosis: Left hip fracture, pelvis fracture Lab Review: Labs reviewed as found in the chartPatient anemic with a hemoglobin of 9.3 white count normal 8.6. Glucose 118 remainder of chemistries otherwise no significant abnormality. Imaging: Left intertrochanteric hip fracture, full imaging the femur does not show any other fracture. Chest x-ray shows hyperinflation no cardiomegaly no effusions no infiltrates Assessment of risk Level of risk: High Hospitalization considerations: Hospitalization for ORIF of left intertrochanteric hip fracture Reexamination: Pain controlled Assessment and plan: Admit for left intertrochanteric hip fracture with moderate displacement discussed with hospitalist as well as with orthopedist. Orders written for admission reviewed findings with the patient. Lab Data 05/23/25 05:24 05/23/25 05:24 Radiology Impressions Chest X-Ray 05/20/25 12:37 Impression: Hyperinflation and atherosclerosis. Femur X-Ray 05/20/25 12:39 Impression: Left hip intertrochanteric fracture. Hip/Pelvis X-Ray 05/20/25 15:52 Impression: Internal fixation of intertrochanteric left hip fracture. Laboratory Results WBC 8.30 10^3/uL (3.29-11.43) 05/20/25 11:58 RBC 3.26 10^6/uL (3.85-5.65) L 05/20/25 11:58 Hgb 10.10 g/dL (11.27-16.99) L 05/20/25 11:58 Hct 30.9 % (37-53) L 05/20/25 11:58 MCV 94.8 fl (82-101) 05/20/25 11:58 MCH 31.0 pg (27-33) 05/20/25 11:58 MCHC 32.7 g/dL (30-55) 05/20/25 11:58 RDW 13.8 % (12.1-15.1) 05/20/25 11:58 Plt Count 168 10^3/cmm (157-399) 05/20/25 11:58 MPV 8.9 fL (7.4-10.4) 05/20/25 11:58 Neut % (Auto) 84.8 % 05/20/25 11:58 Lymph % (Auto) 7.6 % 05/20/25 11:58 [place] % (Auto) 6.5 % 05/20/25 11:58 Eos % (Auto) 0.2 % 05/20/25 11:58 Baso % (Auto) 0.4 % 05/20/25 11:58 Neut # (Auto) 7.04 10^3/uL (1.8-7.7) 05/20/25 11:58 Lymph # (Auto) 0.6 10^3/uL (0.8-4.8) L 05/20/25 11:58 [place] # (Auto) 0.5 10^3/uL (0.2-0.9) 05/20/25 11:58 Eos # (Auto) 0.0 10^3/uL (0.0-0.8) 05/20/25 11:58 Baso # (Auto) 0.0 10^3/uL (0.0-0.1) 05/20/25 11:58 Nucleated RBC % (auto) 0 % 05/20/25 11:58 Nucleated RBCs # 0.0 /100WBC 05/20/25 11:58 Sodium 139 mmol/L (136-145) 05/20/25 11:58 Potassium 4.4 mmol/L (3.5-5.1) 05/20/25 11:58 Chloride 103 mmol/L (98-107) 05/20/25 11:58 Carbon Dioxide 24 mmol/L (22-29) 05/20/25 11:58 Anion Gap 16.4 (5-19) 05/20/25 11:58 BUN 13 mg/dL (8-23) 05/20/25 11:58 Creatinine 0.8 mg/dL (0.7-1.2) 05/20/25 11:58 GFR Calculation 96.1 mL/min (90-130) 05/20/25 11:58 Glucose 106 mg/dL (65-115) 05/20/25 11:58 Calculated Osmolality 289 mOsm/kg (285-295) 05/20/25 11:58 Calcium 9.0 mg/dL (8.5-10.5) 05/20/25 11:58 Total Bilirubin 0.3 mg/dL (0.15-1.2) 05/20/25 11:58 AST 15 U/L (0-40) 05/20/25 11:58 ALT 8 U/L (0-41) 05/20/25 11:58 Alkaline Phosphatase 82 U/L (40-130) 05/20/25 11:58 Total Protein 6.8 g/dL (6.6-8.7) 05/20/25 11:58 Albumin 3.8 g/dL (3.5-5.2) 05/20/25 11:58 Globulin 3.0 g/dL (1.3-4.6) 05/20/25 11:58 All radiology interpretation(s) finalized by discharge Discharge Plan Discharge Patient Disposition: Admitted As Inpatient Admit Provider: Inocencio Mace Clinical Impression: Closed intertrochanteric fracture of left femur Qualifiers: Encounter type: initial encounter Fracture alignment: displaced Qualified Code(s): S72.142A - Displaced intertrochanteric fracture of left femur, initial encounter for closed fracture Condition: Stable Discharge Activity: Use walker/crutches as instructed Coding Level of Care Code ED Floor Inspector for [facility]
--- NOTE | 2025-05-20 13:10 | P.HP_ITS ---
<Statement entered by Josesito Hess MD - 05/20/25 21:19> Patient case discussed with ED provider and reviewed and discussed with SHAHLA including E&M. Providers/Chief Complaint 2 Admitting Physician: Dr. Hess Primary Care Provider: Roberto Cross DO Chief Complaint: FALL History of Present Illness Geoffrey Mcleod is a 69 year old male w/ pmhx BPH, COPD, current smoker, and chronic back pain. He presents to the ED via EMS from home today with c/o left hip pain post fall. Patient states he was coming out of the bathroom at his house-he lives independently with his dog, and tripped over carpet trim and fell on on left hip. Patient reports an 8/10 on pain scale, and describes it as throbbing and constant with muscle spasms. He attempted to alleviate his pain with a Percocet that he had at home from prior back surgeries, this was unsuccessful. Patient to be admitted under inpatient status with hospitalist services and orthopedic consultation services for further medical management and care. While in ED a CBC, CMP was obtained, reviewed and results as follows: RBC 3.26, Hgb 10.10, HCT 30.9, Plt 168. CMP unremarkable. While in ED patient received following medications: Fentanyl 25 mcg IVP x 1. Review of Systems 2 General: Reports: 10 or more systems reviewed and unremarkable except in HPI and below Medications/Allergies Home Medications ?Medication ?Instructions ?Recorded ?Confirmed ?Last Taken ?Type Accommodative orthotics #1 ea 04/15/22 05/20/250 12/22 Rx gauntlet AFO to the left #1 ea 05/20/22 05/20/25/0 12/22 Rx gabapentin 600 mg tablet 600 mg PO TID 09/03/2405/2005/20/25 History pantoprazole 40 mg tablet,delayed 40 mg PO BID 5 05/20/25 05/20/25 History release (Protonix) oxycodone-acetaminophen 10 mg-325 1 tab PO Q4H PRN betzy n 30 days #180 05/11/25 05/20/25 05/20/25 Rx mg tablet tabs atorvastatin 20 mg tablet 20 mg PO QPM 05/20/25 Unknown History tamsulosin 0.4 mg capsule 0.4 mg PO BEDTIME 05/20/25 1 07/21/24 05/19/25 History trazodone 50 mg tablet 50 mg PO BEDTIME 05/20/2505/19/25 History Allergies Allergy/AdvReac Type Severity Reaction Status Date / Time carbamazepine (From Tegretol) Allergy Severe ALGY-Rash Verified 05/20/25 14:38 phenobarbital Allergy Severe ADR-Irritab Verified 05/20/25 14:38 le phenytoin (From Dilantin) Allergy Severe ALGY-Rash Verified 05/20/25 14:38 prochlorperazine (From Allergy Severe ADR-Migrain Verified 05/20/25 14:38 Compazine) e ketorolac (From Toradol) Allergy Intermediate ADR-Cramping Verified 05/20/25 14:38 of the Muscles morphine Allergy ALGY-Swell Verified 05/20/25 14:38 Lip/Tongue/Throat Penicillins Allergy ALGY-Hives Verified 05/20/25 14:38 ciprofloxacin AdvReac increase Verified 05/20/25 14:38 blood pressure with headache PFSH Acute 2 PFSH: Medical History Smoker unmotivated to quit Elevated prostate specific antigen (PSA) Long-term use of high-risk medication Chronic back pain greater than 3 months duration Enrolled in chronic care management Chronic prostatitis History of broken leg BPH loc w urin obs/LUTS Surgical History History of cholecystectomy History of bilateral inguinal hernia repair H/O shoulder surgery History of ankle surgery History of elbow surgery History of hernia surgery Family History Father , AT AGE 73 Murder Mother , AT AGE 42 Cancer COLON Social History Smoking and tobacco/nicotine status: current every day tobacco/nicotine user cigarettes Packs smoked per day: 0.25 Years cigarettes smoked: 35 Second hand smoke exposure: No Alcohol intake: never Substance/Drug Use: never Adopted: Yes Lives independently: Yes Household members: none Marital status: Number of children: 2 service: No Current occupational status: retired Current gender identity: Male Special alejandro needs: No Agree to transfusion: Yes Vitals/I&O/Wt Last Vital Signs Temp 98.5 F 05/20/25 11:45 Pulse 99 05/20/25 11:45 Resp 16 05/20/25 11:45 BP 128/84 05/20/25 11:45 Pulse Ox 96 05/20/25 11:45 O2 Del Method Room Air 05/20/25 11:45 05/19/25 05/20/25 05/20/25 22:59 06:59 14:59 Intake Total 0 / 0 Balance 0 / 0 Weight last 48 hrs Weight 62.596 kg Physical Exam 2 Narrative: General: A&Ox4, resting in bed on RA, reports 01/09. HEENT: Normo-cephalic, atraumatic, grossly unremarkable exam Cardio: NSR, normal S1-S2 without any murmurs, rubs, or gallops and JVD normal Respiratory: Wheezes to left lower lobe breathing on auscultation GI: Abd soft, non-tender, non-distended, normo-active bowel sounds present Neuro: No sensory deficits, Normal speech Behavior: Appropriate and cooperative Extremities: Distal pulses are palpable left lower extremity is warm and well- perfused. Mild swelling noted about the left hip. Tenderness to palpation of the left hip and left lower extremity is shortened and externally rotated. Urinary Catheter Management: Young: Cath Placed During This Visit: yes Urinary Catheter Date of Insertion: 05/20/25 Urinary Catheter Time of Insertion: 12:48 Data 05/20/25 11:58 05/20/25 11:58 Other Labs: 05/20: L femur XR: Reviewed and results as follows: Left hip intertrochanteric fracture. 05/20: CXR: Reviewed and results as follows: Hyperinflation and atherosclerosis. A&P Assessment and plan 1. Closed displaced intertrochanteric fracture of left femur, initial encounter: - 05/20: L femur XR: Reviewed and results as follows: Left hip intertrochanteric fracture. - Patient fell at home, tripped on carpet - Orthopedics consulted, recommendations and expertise appreciated. Surgery scheduled for surgery- Left Hip Trochanteric Femur Nail this afternoon. - Post- op v/s protocol, monitor - Fall precautions - Neurovascular checks q4hr - IS q1hr - PT, OT ordered. WBAT - IVF of LR at 100ml/hr - IV abx of Cefrazolin q8hr x3 - Ice pack as needed for pain - Pain analgesics ordered, PRN - CBC, CMP, ordered, dly. 2. Chronic obstructive pulmonary disease, unspecified COPD type: - 05/20: CXR: Reviewed and results as follows: Hyperinflation and atherosclerosis. - 3. BPH loc w urin obs/LUTS: - Continue home medication tamsulosin 0.4mg PO dly 4. Hyperlipidemia: - Lipid panel ordered, pending. - Continue atorvastitn 20mg PO dly 5. Chronic back pain greater than 3 months duration: - S/P spinal fusion - Continue gabapentin 600 mg PO TID PDMP PDMP Reviewed: Not Reviewed Attestations 2 Medical Necessity Statement*: Patient will require inpatient status requiring over 2 midnights stay for medical management of comorbidities and Left Hip Trochanteric Femur Nail surgery Coding Level of Care Code Acute Code for [facility] Diagnoses Closed displaced intertrochanteric fracture of left femur, initial encounter S72.142A Encounter type: initial encounter Fracture alignment: displaced Chronic obstructive pulmonary disease, unspecified COPD type J44.9 COPD type: unspecified COPD BPH loc w urin obs/LUTS N40.1 Hyperlipidemia E78.5 Chronic back pain greater than 3 months duration M54.9; G89.29
--- NOTE | 2025-05-20 13:10 | PM.CONSULT ---
Providers/Reason For Consult Consulting Physician/Specialty*: Inocencio Mace DO/orthopedic surgery Reason for Consult*: Left hip intertrochanteric femur fracture Requesting Physician: Dr. Hess Attending Physician: Dr. Hess Primary Care Provider: Roberto Cross DO History of Present Illness History of Present Illness Geoffrey Mcleod is a 69 year old male sustained a ground-level fall onto his left hip has a left hip intertrochanteric femur fracture. Patient was unable to weight-bear after denies any loss of consciousness. Patient is a resident at a local long-term had a fall this morning at 4:30 AM. Has been n.p.o. since midnight. He denies any other injuries denies any hitting of his head or loss of consciousness and denies any pain elsewhere. Patient left lower extremity shortened and externally rotated. Patient denies being on any anticoagulants, denies any issues with his hip prior to the injury. Review of Systems General: Reports: 10 or more systems reviewed and unremarkable except in HPI and below Medications/Allergies Home Medications ?Medication ?Instructions ?Recorded ?Confirmed ?Last Taken ?Type Accommodative orthotics #1 ea 04/15/22 05/20/25 11/06/22 Rx gauntlet AFO to the left #1 ea 05/20/22 05/20/25 11/06/22 Rx gabapentin 600 mg tablet 600 mg PO TID 09/03/24 05/20/25 05/20/25 History pantoprazole 40 mg tablet,delayed 40 mg PO BID 09/03/24 05/20/25 05/20/25 History release (Protonix) oxycodone-acetaminophen 10 mg-325 1 tab PO Q4H PRN pain 30 days #180 05/11/25 05/20/25 05/20/25 Rx mg tablet tabs atorvastatin 20 mg tablet 20 mg PO QPM 05/20/25 05/20/25 Unknown History tamsulosin 0.4 mg capsule 0.4 mg PO BEDTIME 05/20/25 05/20/25 05/19/25 History trazodone 50 mg tablet 50 mg PO BEDTIME 05/20/25 05/20/25 05/19/25 History Allergies Allergy/AdvReac Type Severity Reaction Status Date / Time carbamazepine (From Tegretol) Allergy Severe ALGY-Rash Verified 05/20/25 14:38 phenobarbital Allergy Severe ADR-Irritab Verified 05/20/25 14:38 le phenytoin (From Dilantin) Allergy Severe ALGY-Rash Verified 05/20/25 14:38 prochlorperazine (From Allergy Severe ADR-Migrain Verified 05/20/25 14:38 Compazine) e ketorolac (From Toradol) Allergy Intermediate ADR-Cramping Verified 05/20/25 14:38 of the Muscles morphine Allergy ALGY-Swell Verified 05/20/25 14:38 Lip/Tongue/Throat Penicillins Allergy ALGY-Hives Verified 05/20/25 14:38 ciprofloxacin AdvReac increase Verified 05/20/25 14:38 blood pressure with headache PFSH Acute PFSH: Medical History (Updated 05/20/25 @ 13:10 by Deric Torres DO) Smoker unmotivated to quit Elevated prostate specific antigen (PSA) Long-term use of high-risk medication Chronic back pain greater than 3 months duration Enrolled in chronic care management Chronic prostatitis History of broken leg BPH loc w urin obs/LUTS Surgical History History of cholecystectomy History of bilateral inguinal hernia repair H/O shoulder surgery History of ankle surgery History of elbow surgery History of hernia surgery Family History Father , AT AGE 73 Murder Mother , AT AGE 42 Cancer COLON Social History Smoking and tobacco/nicotine status: current every day tobacco/nicotine user cigarettes Packs smoked per day: 0.25 Years cigarettes smoked: 35 Second hand smoke exposure: No Alcohol intake: never Substance/Drug Use: never Adopted: Yes Lives independently: Yes Household members: none Marital status: Number of children: 2 service: No Current occupational status: retired Current gender identity: Male Special alejandro needs: No Agree to transfusion: Yes Vitals/I&O/Wt Last Vital Signs Temp 98.5 F 05/20/25 11:45 Pulse 99 05/20/25 11:45 Resp 16 05/20/25 11:45 BP 128/84 05/20/25 11:45 Pulse Ox 96 05/20/25 11:45 O2 Del Method Room Air 05/20/25 11:45 05/19/25 05/20/25 05/20/25 22:59 06:59 14:59 Intake Total 0 / 0 Balance 0 / 0 Weight last 48 hrs Weight 138 lb Physical Exam Narrative: Patient is able to to follow commands and perform a standard examination.?? Examination left lower extremity: Examination of the left lower extremity demonstrates patient has tenderness palpation of the left?hip?as well as the left lower extremity is shortened and externally rotated pt has positive logroll on examination unable to perform Stinchfield's secondary to pain and discomfort.? Patient is able to wiggle toes plantarflex and dorsiflex ankle sensations intact to light touch distally.? Distal pulses are palpable left lower extremity is warm and well-perfused.? Mild swelling noted about the left?hip.?? Secondary survey examination unremarkable For any acute pathology to the bilateral upper extremities or contralateral lower extremity.? pt? has no tenderness to palpation to the bilateral upper extremities joints and no noticeable deformities.? ?gross motor and sensory is intact to the bilateral upper extremities.? Contralateral lower extremity has tenderness to the?hip?knee or ankle with no appreciable deformities and is able to plantarflex and dorsiflex ankle sensations intact to light touch distally as well as wiggle toes.? Distal pulses palpable.? Negative pelvic compression test, no tenderness palpation of the spine. Urinary Catheter Management: Young: Cath Placed During This Visit: yes Urinary Catheter Date of Insertion: 05/20/25 Urinary Catheter Time of Insertion: 12:48 Data 05/20/25 11:58 05/20/25 11:58 Xray Ortho: Radiologist's impression: Patient: Geoffrey Mcleod Unit #: [id number] : 1955 Age/Sex: 69 / M ADM Date: 05/20/25 Loc: ER Room/Bed: Attending: Ordering Provider/Ordering MD: Deric Torres DO Date of Service: 05/20/25 Procedure(s): XR hip LT 2-3V wo/w pel* [id number] Accession Number(s): [id number] Report Number: [id number] WS: [id number] Left hip, 3 views, AP pelvis, 05/20/2025 Clinical Data: trauma Comparison: AP pelvis, 04/12/2025 Findings: There is an intertrochanteric fracture of the left hip. The left femoral head remains within the acetabulum. The right hip is intact. There are 2 orthopedic screws fusing the left SI joint. There is an old injury to the lateral left ilium. There are multilevel lower lumbar laminectomies with osteoarthritis and degenerative discs. XR/XR hip LT 2-3V wo/w pel* [id number] Impression: Left hip intertrochanteric fracture. A&P Assessment and plan 1. Closed intertrochanteric fracture of left femur: Plan: Orthopedics consulted Hospitalist admitted patient is primary Imaging reviewed?displaced left intertrochanteric femur fracture Labs reviewed Pain control Nonweightbearing left lower extremity Patient's been n.p.o. since midnight Patient denies any anticoagulants Plan for surgery today for left hip trochanteric femur nail MDM: Patient 69-year-old male who sustained a fall and has a displaced left hip intertrochanteric femur fracture.? Patient ambulates at baseline. At this point time hospitalist is admitted patient.? Patient has a left displaced intertrochanteric femur fracture.? patient denies being on any anticoagulants. Denies any other injury with the fall. We discussed the ins and outs and the risk the benefits complication alternatives with surgical nonsurgical treatment options.? Risk of surgery include but not limited to make it better make it worse, injury to nerves vessels or tendons, blood clot, postop anemia requiring transfusions, persistent pain decreased mobility, hip failure of hardware.? Understanding risk of surgery patient? understands and agrees with current?plan.? All questions have been answered at this time.? Through shared decision-making patient elects to proceed with surgical intervention for a Left hip?trochanteric femur nail.? Benefits of treatment we talked at this time would be for early mobilization as well as pain control.? Understanding this elects proceed with surgical intervention since patient's been n.p.o. and is optimized per the primary team and cleared from anesthetic standpoint plan to proceed to the OR today. PDMP PDMP Reviewed: Not Reviewed Coding Level of Care Code Acute Code for g [facility] Diagnoses Closed intertrochanteric fracture of left femur S72.142A
--- NOTE | 2025-05-20 13:26 | PC.PHAR ---
Pt states he still takes Atorvastatin 20mg qpm but last fill was 06/17/24 30ds.
[2025-05-20] MEDS: fentaNYL 50 mcg/mL INJ 2mL 25 MCG IVP (14:06)
--- NOTE | 2025-05-20 14:24 | ANES.PREANE2 ---
Pre-Anesthetic Assessment Height/Weight: Height 6 ft 1 in Weight 138 lb Temp Pulse Resp BP Pulse Ox O2 Del Method 98.5 F 89 16 116/77 97 Room Air 05/20/25 11:45 05/20/25 14:07 05/20/25 11:45 05/20/25 14:07 05/20/25 14:07 05/20/25 14:07 Preop Diagnosis: Hip fracture Operation Date: 05/21/25 08:00 Proposed Procedures p Left Short Trochanteric Femoral Nail(Left) - Inocencio Rodri, DO Was Beta Emani taken within 24 hours: N/A Was Clonidine taken within 24 hours: N/A Social No alcohol and No tobacco Exam alert, oriented x 3, clear to auscultation bilaterally and regular rate & rhythm Airway Submandibular: within normal limits Cervical ROM: within normal limits Mallampati: Class II Comments: Comments: Edentulous, white plaque on tongue Anesthetic Plan ASA status: 3 Anesthesia: General Other: No prior issues with anesthesia NPO since yesterday Patient has had multiple back surgeries with us in the past Patient experienced a fall at home but denies hitting his head History of GERD on Protonix Current smoker, COPD Labs reviewed from 05/20/2025 and acceptable for procedure. Hemoglobin 10.10, electrolytes stable EKG sinus rhythm with moderate T wave abnormality., Patient denies any chest pain or SOB Plan for general anesthesia Medications/Allergies Home Medications ?Medication ?Instructions ?Recorded ?Confirmed ?Last Taken ?Type Accommodative orthotics #1 ea 04/15/22 05/20/25 11/06/22 Rx gauntlet AFO to the left #1 ea 05/20/22 05/20/25 11/06/22 Rx gabapentin 600 mg tablet 600 mg PO TID 09/03/24 05/20/25 05/20/25 History pantoprazole 40 mg tablet,delayed 40 mg PO BID 09/03/24 05/20/25 05/20/25 History release (Protonix) oxycodone-acetaminophen 10 mg-325 1 tab PO Q4H PRN pain 30 days #180 05/11/25 05/20/25 05/20/25 Rx mg tablet tabs atorvastatin 20 mg tablet 20 mg PO QPM 05/20/25 05/20/25 Unknown History tamsulosin 0.4 mg capsule 0.4 mg PO BEDTIME 05/20/25 05/20/25 05/19/25 History trazodone 50 mg tablet 50 mg PO BEDTIME 05/20/25 05/20/25 05/19/25 History Allergies Allergy/AdvReac Type Severity Reaction Status Date / Time carbamazepine (From Tegretol) Allergy Severe ALGY-Rash Verified 05/20/25 11:49 phenobarbital Allergy Severe ADR-Irritab Verified 05/20/25 11:49 le phenytoin (From Dilantin) Allergy Severe ALGY-Rash Verified 05/20/25 11:49 prochlorperazine (From Allergy Severe ADR-Migrain Verified 05/20/25 11:49 Compazine) e ketorolac (From Toradol) Allergy Intermediate ADR-Cramping Verified 05/20/25 11:49 of the Muscles morphine Allergy ALGY-Swell Verified 05/20/25 11:49 Lip/Tongue/Throat Penicillins Allergy ALGY-Hives Verified 05/20/25 11:49 ciprofloxacin AdvReac increase Verified 05/20/25 11:49 blood pressure with headache [facility] Anesthesia Medical History (Updated 05/20/25 @ 13:10 by Deric Torres DO) Smoker unmotivated to quit Elevated prostate specific antigen (PSA) Long-term use of high-risk medication Chronic back pain greater than 3 months duration Enrolled in chronic care management Chronic prostatitis History of broken leg BPH loc w urin obs/LUTS Surgical History History of cholecystectomy History of bilateral inguinal hernia repair H/O shoulder surgery History of ankle surgery History of elbow surgery History of hernia surgery Family History Father , AT AGE 73 Murder Mother , AT AGE 42 Cancer COLON Social History Smoking and tobacco/nicotine status: current every day tobacco/nicotine user cigarettes Packs smoked per day: 0.25 Years cigarettes smoked: 35 Second hand smoke exposure: No Alcohol intake: never Substance/Drug Use: never Adopted: Yes Lives independently: Yes Household members: none Marital status: Number of children: 2 service: No Current occupational status: retired Current gender identity: Male Special alejandro needs: No Agree to transfusion: Yes Data Anesthesia 05/20/25 11:58 05/20/25 11:58 Short CBC 05/20/25 Range/Units 11:58 WBC 8.30 (3.29-11.43) 10^3/uL Hgb 10.10 L (11.27-16.99) g/dL Hct 30.9 L (37-53) % MCV 94.8 (82-101) fl Plt Count 168 (157-399) 10^3/cmm Neut % (Auto) 84.8 % Neut # (Auto) 7.04 (1.8-7.7) 10^3/uL BMP 05/20/25 11:58 Sodium 139 Potassium 4.4 Chloride 103 Carbon Dioxide 24 BUN 13 Creatinine 0.8 Glucose 106 Calcium 9.0 Liver Function 05/20/25 Range/Units 11:58 Total Bilirubin 0.3 (0.15-1.2) mg/dL AST 15 (0-40) U/L ALT 8 (0-41) U/L Alkaline Phosphatase 82 (40-130) U/L Albumin 3.8 (3.5-5.2) g/dL Cardiac Studies: Sestamibi Stress Test (Cardiology) 08/05/22
[2025-05-20] MEDS: acetaminophen 1,000 MG/100 ML PIGGYBACK 400 MG IV (14:47)
--- NOTE | 2025-05-20 14:49 | W.PM.OPSUD ---
Surgery/Procedure H&P Update DATE OF PROCEDURE: May 20, 2025 DATE H&P PERFORMED: 05/20/25 H&P UPDATE INFORMATION: I have reviewed H&P completed within last 30 days, I have examined patient prior to procedure and No changes to prior documentation PREOP DIAGNOSIS: Hip fracture PRIMARY INDICATION FOR PROCEDURE: Left hip displaced intertrochanteric femur fracture PLANNED PROCEDURE: Operation Date: 05/20/25 15:00 Proposed Procedures p Left Short Trochanteric Femoral Nail(Left) - Inocencio Mace DO
[2025-05-20] MEDS: tranexamic acid 1,000 MG/100 ML PREMIX 600 MG IV ×2 (15:00→23:54)
--- NOTE | 2025-05-20 15:47 | W.PM.BPON ---
Date of Procedure: 05/20/2025 Surgeon: Inocencio Mace DO Corporate Receptionist(s): None Procedure(s) performed: Left hip trochanteric femur nail Findings of the procedure(s): Patient underwent procedure as planned without issues or complications Estimated blood loss: 40 mL Specimen(s) removed: None Post-operative diagnosis: Left hip displaced intertrochanteric femur fracture
--- NOTE | 2025-05-20 15:48 | PM.OP ---
Operative Report Date of procedure: May 20, 2025 Surgeon: Inocencio Mace DO Procedure: Preoperative diagnosis: Left hip displaced intertrochanteric femur fracture Procedure: Post-op diagnosis: Left?displaced intertrochanteric femur fracture Procedure done: ?Left?intertrochanteric femur fracture ORIF with cephalomedullary?nail Implants: [place] gamma?nail?short 11 mm x 180 mm x 125 degree Lag screw 10.5 mm x 105?mm Distal?locking screw 5 mm x?37.5?mm Surgeon: Inocencio Mace DO Estimated blood?loss: 40 mL IV fluids: See anesthesia record Urine output: See anesthesia record Complications: See operative report Findings: See operative report narrative Condition: stable Disposition: Floor Brief History: Patient sustained a fall and was found to have a?Leftintertrochanteric hip fx.?Pt has?been unable to bear weight,?Left?hip/lower extremity shortened and externally rotated.? At this point time Pt?was admitted by the hospitalist team and orthopedics was consulted.??Refer to consult note for detailed HPI.??We talked about treatment options as far as nonoperative and operative intervention. Recommend?Left?hip?trochanteric femur?nail.??At this point time patient would?like to pursue surgical intervention for benefits of pain control and earlier mobilization.?? Patient understands the ins and outs of procedure, the risk benefits complication alternatives of surgical nonsurgical treatment options.? Understanding risk of surgery?pt?agrees to proceed with surgical intervention all questions answered.? Consent obtained in the preoperative holding area. Procedure: Patient seen evaluated in the preoperative holding area.? Consent was obtained.? Correct extremity was then marked.? Once cleared by anesthesia and the hospitalist team patient was taken back to the operative suite.? Patient underwent anesthesia per the anesthesia department.? Once appropriately anesthetized patient was placed on a fracture Brilliant table.? Patient was appropriately secured to the bed.? All bony prominences were well-padded.? At this point time patient received appropriate preoperative antibiotics.? Final timeout was performed.? Prior to beginning surgery a standard closed reduction maneuver was placed on the Brilliant table and?large C-arm was brought in.? After performing a closed reduction maneuver there was able to achieve satisfactory reduction of?Left?intertrochanteric femur fracture.? Fracture site did not extend into the subtrochanteric region as result plan was for a short?nail.?? This point time the right?lower extremity was then prepped and draped in standard orthopedic fashion. A standard?longitudinal incision was made just proximal to the greater?trochanter roughly 4 cm in?length sharp scalpel vision was made through skin and subcutaneous tissue.? I then utilized a blunt Bernal to split? fascia and mobilized directly down to the greater?trochanter.? I then inserted my starting guidewire which was placed appropriate starting position the tip of the greater?trochanter.? This was advanced in AP and?lateral films to be in center center position and advanced to the?level?lesser?trochanter.? This was confirmed to be in center center position on AP and?lateral imaging.? Once this was done I then introduced my opening reamer which was then subsequently guide pin removed.? I selected a 11 mm x 180 mm x 125 degree. At this point time the?nail?was then?loaded onto the [place] gamma?trochanteric?nail?guide.? This was placed within the canal and confirmed with XR and the setscrew was then gently placed not?locked.? The?nail?was then impacted to appropriate depth .? At this point time I then inserted my?lag screw guide and subsequently made a small incision through skin and subcutaneous tissue splitting the IT band?longitudinally and the guide was placed directly onto bone.? Next I then subsequently placed the guidewire in center center position in the head with an appropriate tip to apex distance this was confirmed with multiple orthogonal images.? Once I was satisfied with my planned?lag screw placement I then measured which was?105?mm.? I then set my cannulated drill and subsequently reamed this into the head at appropriate depth.? I then had my rep open the 10.5 mm x?105?mm?lag screw which was then opened on the back table and subsequently screwed into place over my cannulated drill guide.? This was placed with excellent tip to apex distance.? Next I then utilized the compressing device and subsequently compressed my fracture after I?let off traction.? This had excellent fracture compression and opposition and closing down to my fracture?line.? Next I then?locked the?nail?by?locking my setscrew.? This point time the guidewire as well as the sleeve was then removed.? Next I plan for statically?locking the?nail?distally.? This triple sleeve was then placed a small stab incision was made blunt dissection directly down to bone and the guide sleeve was placed and?locked directly onto the bone.? I then inserted the drill bit and subsequently drilled bicortically measured appropriate?length screw and then placed a 37.5?mm distal interlocking screw and had excellent fixation was appropriate?length.? This point time is completed my construct I remove the outer jig and took final images of AP and?lateral of the?Left?intertrochanteric femur fracture which showed stable reduction and stable fixation.? Incision was then thoroughly irrigated.? Hemostasis was maintained with electrocautery.? I then once again thoroughly irrigated the incisions and then subsequently closed in?layered fashion of 0 Vicryl 2-0 Vicryl and anais.? Silverlon dressings applied.? Patient was then awakened from anesthesia transported onto the hospital bed and taken to PACU in stable condition.? Patient tolerated procedure without complications. Disposition: Patient taken to PACU in stable condition.? Postoperatively,? Patient to receive appropriate discharge instructions as well as pain medication DVT prophylaxis postoperatively.? Patient will be allowed weightbearing as tolerated?Left lower extremity.? Will receive appropriate postoperative antibiotics, PT/OT.? Patient to follow-up in the orthopedic office in 2 weeks.? Patients family understands and agrees with current plan.? All questions answered.
--- NOTE | 2025-05-20 15:52 | XR_ITS ---
WS: [id number] Left hip, C-arm fluoroscopy views, 05/20/2025 Clinical Data: s/p L troch nail Comparison: Left hip, 05/20/2025 Findings: Dr. Mace repaired the left hip intertrochanteric fracture with an oblique femoral nail and a proximal left femoral intramedullary vincent. XR/XR hip LT 2-3V wo/w pel* [id number] Impression: Internal fixation of intertrochanteric left hip fracture.
[2025-05-20] MEDS: fentaNYL 50 mcg/mL INJ 2mL IVP ×2 (16:26→16:32)
--- NOTE | 2025-05-20 17:20 | ANE.PACU2 ---
Inpatient post-anesthesia follow up: Airway intact: Yes Vital signs: Temperature 99.3 F Pulse Rate 91 Respiratory Rate 16 Blood Pressure 137/77 Pulse Oximetry 94 Oxygen Delivery Me thod Room Air Oxygen Flow Rate Fraction of Inspir ed Oxygen Hydration adequate: Yes Nausea and vomiting: No Pain level: 1 Mental status: Baseline
[2025-05-20 17:39] LABS: Hematocrit 28.1 % (37-53); Hemoglobin 9.30 g/dL (11.27-16.99); Mean Corpuscular HGB Conc 33.1 g/dL (30-55); Mean Corpuscular Hemoglobin 31.1 pg (27-33); Mean Corpuscular Volume 94.0 fl (82-101); Nucleated Red Blood Cells % 0 %; Platelet Count 155 10^3/cmm (157-399); Red Blood Count 2.99 10^6/uL (3.85-5.65); White Blood Count 8.63 10^3/uL (3.29-11.43)
[2025-05-20 17:58] LABS: Alanine Aminotransferase 8 U/L (0-41); Albumin Level 3.6 g/dL (3.5-5.2); Alkaline Phosphatase 74 U/L (40-130); Anion Gap 14.3 (5-19); Aspartate Amino Transferase 16 U/L (0-40); Blood Urea Nitrogen 12 mg/dL (8-23); Calcium 8.3 mg/dL (8.5-10.5); Carbon Dioxide 24 mmol/L (22-29); Chloride 104 mmol/L (98-107); Globulin 2.8 g/dL (1.3-4.6); Glucose 118 mg/dL (65-115); Magnesium 2.0 mg/dL (1.7-2.3); Osmolality Calculated 287 mOsm/kg (285-295); Potassium 4.3 mmol/L (3.5-5.1); Sodium 138 mmol/L (136-145); Total Protein 6.4 g/dL (6.6-8.7)
[2025-05-20] MEDS: calcium carb-vit d 600mg/400unit 1 Tablet 1 EACH PO (18:45)
[2025-05-20] MEDS: chlorhexidine gluconate 0.12% Btl 473 mL 30 ML MUCOUS MEM ×2 (18:45→23:55)
[2025-05-20] MEDS: mupirocin oint 22 gm 1 APPLIC NASAL (18:45)
[2025-05-20] MEDS: oxyCODONE 5 mg IR Tab/Cap PO ×2 (19:27→22:09)
[2025-05-20 20:58] LABS: Cholesterol 128 mg/dL (0-200); HDL Cholesterol 67 mg/dL (60-100); Triglycerides 36 mg/dL (0-150)
[2025-05-21] VITALS (12 sets, daily range): BP systolic 114–163; BP diastolic 65–89; PULSE 78–105; RESP 17–18; TEMP 36.6–37.4; O2SAT 94–95
[2025-05-21] MEDS: oxyCODONE 5 mg IR Tab/Cap PO ×6 (03:47→19:40)
[2025-05-21] MEDS: multivitamin therapeutic Tablet 1 TAB PO (03:50)
[2025-05-21] MEDS: calcium carb-vit d 600mg/400unit 1 Tablet 1 EACH PO ×2 (03:51→18:04)
[2025-05-21 05:33] LABS: Anion Gap 13.1 (5-19); Blood Urea Nitrogen 12 mg/dL (8-23); Calcium 8.4 mg/dL (8.5-10.5); Carbon Dioxide 24 mmol/L (22-29); Chloride 104 mmol/L (98-107); Glucose 117 mg/dL (65-115); Osmolality Calculated 285 mOsm/kg (285-295); Potassium 4.1 mmol/L (3.5-5.1); Sodium 137 mmol/L (136-145)
[2025-05-21] MEDS: chlorhexidine gluconate 0.12% Btl 473 mL 30 ML MUCOUS MEM ×2 (06:15→11:15)
[2025-05-21] MEDS: mupirocin oint 22 gm 1 APPLIC NASAL (06:17)
--- NOTE | 2025-05-21 07:44 | P.PN_ITS ---
Subjective 2 Medications: Medication Review Details: Patient is a very pleasant 69-year-old male seen and examined at bedside on hospital rounds today. Patient sitting up in bed stating left hip pain, that he had not been given his pain medications. He would like this morning. Spoke with patient and nursing staff, adjusted patient's pain medication. Awaiting physical therapy evaluation recommendations. Patient states that he is not going to a care home facility that he is going home. Educated patient that we needed to evaluate pain in his capabilities prior to being able to discharge him home. He is agreeable. Patient denies other concerns or complaints at this time. Reviewed VS: B/p 114/68, Pulse 92, Resp 18, Temp 97.8 F, O2 sat 95% on room air. Reviw of labs: WBC 8.63, RBC 2.99, hemoglobin 9.30, platelet 155, BUN 12, creatinine 0.6 Vitals/I&O/Wt Last Vital Signs Temp 99.4 F 05/21/25 04:00 Pulse 85 05/21/25 04:00 Resp 18 05/21/25 06:21 BP 123/65 05/21/25 04:00 Pulse Ox 94 05/21/25 04:00 O2 Del Method Room Air 05/21/25 04:00 05/20/25 05/21/25 05/21/25 22:59 06:59 14:59 Intake Total 565 / 565 960 / 1525 Output Total 30 / 480 1450 / 1930 Balance 535 / 85 -490 / -405 Weight last 48 hrs Weight 67.8 kg Weight 62.596 kg Weight 62.596 kg Physical Exam 2 Narrative: General: A&Ox4, sitting up in bed, left hip pain otherwise in no distress. HEENT: Normo-cephalic, atraumatic, grossly unremarkable exam Cardio: NSR, normal S1-S2 without any murmurs, rubs, or gallops and JVD normal Respiratory: Clear bilaterally to auscultation, diminished at the bases. GI: Abd soft, non-tender, non-distended, normo-active bowel sounds present Neuro: No sensory deficits, Normal speech Behavior: Appropriate and cooperative Extremities: Distal pulses are palpable left lower extremity is warm and well- perfused. Mild swelling noted about the left hip. Left hip surgical incision covered, dressing with no noticeable drainage. Urinary Catheter Management: Young: Cath Placed During This Visit: yes Reason for Continuing Indwelling Catheter: Perioperative Use in Selected Surgeries Urinary Catheter Date of Insertion: 05/20/25 Urinary Catheter Time of Insertion: 12:48 Data 05/20/25 17:25 05/21/25 04:59 A&P Assessment and plan 1. Closed displaced intertrochanteric fracture of left femur, initial encounter: - 05/20: L femur XR: Reviewed and results as follows: Left hip intertrochanteric fracture. - Weightbearing left leg as tolerated - S/p Left Hip Trochanteric Femur Nail with 05/21 - Orthopedic management per Dr. Mace - Fall precautions - IS q1hr - PT, OT ordered. WBAT, pending recommendations - Ice pack as needed for pain - Multimodal pain control - Greatly appreciate case management discharge planning, evaluation for home health versus SNF 2. Chronic obstructive pulmonary disease, unspecified COPD type: - 05/20: CXR: Reviewed and results as follows: Hyperinflation and atherosclerosis. - Continue as needed nebs, supportive interventions 3. BPH loc w urin obs/LUTS: - Continue home medication tamsulosin 0.4mg PO dly 4. Hyperlipidemia: - Continue atorvastitn 20mg PO dly 5. Chronic back pain greater than 3 months duration: - S/P spinal fusion - Continue gabapentin 600 mg PO TID - Multimodal pain control PDMP PDMP Reviewed: Not Reviewed Attestations 2 Medical Necessity Statement*: Patient will require inpatient status requiring over 2 midnights stay for medical management of comorbidities and orthopedic interventions status post left Hip Trochanteric Femur Nail with PT/OT, pain management. Coding Level of Care Code 20612 Diagnoses Closed displaced intertrochanteric fracture of left femur, initial encounter S72.142A Encounter type: initial encounter Fracture alignment: displaced Chronic obstructive pulmonary disease, unspecified COPD type J44.9 COPD type: unspecified COPD BPH loc w urin obs/LUTS N40.1 Hyperlipidemia E78.5 Chronic back pain greater than 3 months duration M54.9; G89.29
--- NOTE | 2025-05-21 07:48 | PC.NURSE ---
pt said he usually takes Percocett 10 mg every 4 hours at home for his back pain. Pt explaining he needs his pain med. Pain 78 Left hip with back pain. Pt easily gets agitated, doesn not like waiting for his pain med. Explained to pt that I need to get it out of computes /check in computer. Pt said OK.
--- NOTE | 2025-05-21 11:11 | PC.CHAP ---
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 [] Patient/Family/Request visit [] Outpatient visit [] Follow-up visit [] Physician referral [] Code/Alert [x] Routine visit [] Staff referral [] Actively dying [] Patient sleeping [] Family support [] [] Out of room [] Palliative care [] [x] Receiving care in room [] Pre-surgical visit [] Trauma [] Long length of stay [] ICU visit [] Other: Relational/Emotional Strength [] Patient feels connected with others/family/visitors/staff [] Distress [] Loneliness/isolation [] Abandonment Spirituality of Patient [] Person of Meg[place] [] Attends Adventism of their [place] [] Believes in Prayer [] Reads Bible or Mandaeism materials [] There are Spiritual 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 addressed 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 [] Prayer [] Active listening [] Non-anxious presence [] Spiritual/emotional support [] Crisis/trauma care [] Spiritual counseling [] Bereavement support [] Provided bereavement packet [] Provided Bible/devotional materials [] Provided toy/stuffed animal, coloring book to patient or family member [] Provided Communion [] Anointing/[place] [] Salvation [] Completed spiritual assessment [] Other: Impact on Illness or Injury [] Angry [] Fearful [] Anxious [] Often cries [] Exhaustion [] Unable to work [] Unable to attend roman catholic [] Unable to walk/stand [] Unable to read [] Unable to drive [] Unable to eat/drink [] Unable to sleep [] Unable to be with family [] Patient intubated [] Other: Summary Time spent with patient
[2025-05-21] MEDS: ATORVASTATIN 20 MG TABLET PO (18:04)
--- NOTE | 2025-05-21 23:09 | P.PN_ITS ---
Subjective 2 Subjective: Patient seen and examined this evening, patient having postoperative pain tolerable with medications, patient more mobile in bed today. Will work with therapy. Vitals/I&O/Wt Last Vital Signs Temp 98 F 05/21/25 20:00 Pulse 105 H 05/21/25 20:00 Resp 18 05/21/25 20:00 BP 159/85 05/21/25 20:00 Pulse Ox 95 05/21/25 20:00 O2 Del Method Room Air 05/21/25 15:54 05/21/25 05/21/25 05/22/25 14:59 22:59 06:59 Intake Total 1770 / 1770 410 / 2180 Output Total 600 / 600 Balance 1770 / 1770 -190 / 1580 Weight last 48 hrs Weight 149 lb 7.574 oz Weight 138 lb Weight 138 lb Physical Exam 2 Narrative: Left hip examination: Dressing on in place, clean dry and intact. No evidence of saturation. Patient has normal postoperative swelling and tenderness to palpation to the hip. Compartments are soft compressible,'s calf soft and nontender. Sensations intact to light touch distally. Distal pulses are palpable. Patient is able to wiggle toes as well as plantarflex and dorsiflex ankle., Patient is able to tolerate logroll examination. Urinary Catheter Management: Young: Cath Placed During This Visit: yes, but has since been removed by the nurse Reason for Continuing Indwelling Catheter: Decision to DC Catheter Urinary Catheter Date of Insertion: 05/20/25 Urinary Catheter Time of Insertion: 12:48 Date Urinary Catheter Removed: 05/21/25 Time Urinary Catheter Discontinued: 08:40 Data 05/20/25 17:25 05/21/25 04:59 Xray Ortho: Radiologist's impression: Patient: Geoffrey Mcleod Unit #: [id number] : 1955 Age/Sex: 69 / M ADM Date: 05/20/25 Loc: OR Room/Bed: Attending: Inocencio Mace DO Ordering Provider/Ordering MD: Inocencio Mace Date of Service: 05/20/25 Procedure(s): XR hip LT 2-3V wo/w pel* [id number] Accession Number(s): [id number] Report Number: [id number] WS: [id number] Left hip, C-arm fluoroscopy views, 05/20/2025 Clinical Data: s/p L troch nail Comparison: Left hip, 05/20/2025 Findings: Dr. Mace repaired the left hip intertrochanteric fracture with an oblique femoral nail and a proximal left femoral intramedullary vincent. XR/XR hip LT 2-3V wo/w pel* [id number] Impression: Internal fixation of intertrochanteric left hip fracture. A&P Assessment and plan 1. Closed intertrochanteric fracture of left femur: Plan: Postop day 1 left hip trochanteric femur nail Weight-bear as tolerated left lower extremity PT/OT DVT prophylaxis per primary Pain control Antinausea medication Complete postoperative antibiotics x-rays reviewed Case management for discharge planning Internal medicine on board as primary Change dressing as needed Orthopedics will continue to follow A.m. labs reviewed PDMP PDMP Reviewed: Not Reviewed Attestations 2 Medical Necessity Statement*: Ongoing care status post left hip trochanteric femur nail fixation Coding Level of Care Code Acute Code for Chg Fwd Diagnoses Closed intertrochanteric fracture of left femur S72.142A
[2025-05-22] VITALS (11 sets, daily range): BP systolic 128–147; BP diastolic 67–84; PULSE 90–117; RESP 15–18; TEMP 36.6–37.5; O2SAT 91–96
[2025-05-22] MEDS: oxyCODONE 5 mg IR Tab/Cap PO ×6 (00:05→20:59)
[2025-05-22] MEDS: chlorhexidine gluconate 0.12% Btl 473 mL 30 ML MUCOUS MEM (00:30)
[2025-05-22] MEDS: calcium carb-vit d 600mg/400unit 1 Tablet 1 EACH PO ×2 (04:36→17:00)
[2025-05-22] MEDS: multivitamin therapeutic Tablet 1 TAB PO (04:36)
[2025-05-22] MEDS: mupirocin oint 22 gm 1 APPLIC NASAL (04:37)
[2025-05-22 04:41] LABS: Hematocrit 26.2 % (37-53); Hemoglobin 8.50 g/dL (11.27-16.99); Mean Corpuscular HGB Conc 32.4 g/dL (30-55); Mean Corpuscular Hemoglobin 30.7 pg (27-33); Mean Corpuscular Volume 94.6 fl (82-101); Nucleated Red Blood Cells % 0 %; Platelet Count 174 10^3/cmm (157-399); Red Blood Count 2.77 10^6/uL (3.85-5.65); White Blood Count 5.73 10^3/uL (3.29-11.43)
[2025-05-22 05:12] LABS: Alanine Aminotransferase 6 U/L (0-41); Albumin Level 3.2 g/dL (3.5-5.2); Alkaline Phosphatase 69 U/L (40-130); Anion Gap 11.7 (5-19); Aspartate Amino Transferase 14 U/L (0-40); Blood Urea Nitrogen 8 mg/dL (8-23); Calcium 8.7 mg/dL (8.5-10.5); Carbon Dioxide 26 mmol/L (22-29); Chloride 104 mmol/L (98-107); Globulin 2.6 g/dL (1.3-4.6); Glucose 93 mg/dL (65-115); Magnesium 1.7 mg/dL (1.7-2.3); Osmolality Calculated 284 mOsm/kg (285-295); Potassium 3.7 mmol/L (3.5-5.1); Sodium 138 mmol/L (136-145); Total Protein 5.8 g/dL (6.6-8.7)
--- NOTE | 2025-05-22 07:33 | P.DS_ITS ---
Discharge Providers Date of Admission: 05/20/25 17:05 Date of Discharge: May 22, 2025 Attending Provider at Admission: Inocencio Mace DO Attending Provider at Discharge: Zahra Mckeon NP Primary Care Provider: Roberto Cross DO Diagnoses at Discharge Discharge Diagnosis 1. Closed displaced intertrochanteric fracture of left femur, initial encounter: Reason for Visit Reason for Visit: FALL Brief History: Admission: Geoffrey Mcleod is a 69 year old male w/ pmhx BPH, COPD, current smoker, and chronic back pain. He presents to the ED via EMS from home today with c/o left hip pain post fall. Patient states he was coming out of the bathroom at his house-he lives independently with his dog, and tripped over carpet trim and fell on on left hip. Patient reports an 8/10 on pain scale, and describes it as throbbing and constant with muscle spasms. He attempted to alleviate his pain with a Percocet that he had at home from prior back surgeries, this was unsuccessful. Patient to be admitted under inpatient status with hospitalist services and orthopedic consultation services for further medical management and care. While in ED a CBC, CMP was obtained, reviewed and results as follows: RBC 3.26, Hgb 10.10, HCT 30.9, Plt 168. CMP unremarkable. While in ED patient received following medications: Fentanyl 25 mcg IVP x 1. Hospital Course Hospital Course 1. Closed displaced intertrochanteric fracture of left femur, initial encounter: - 05/20: L femur XR: Reviewed and results as follows: Left hip intertrochanteric fracture. - Weightbearing left leg as tolerated - S/p Left Hip Trochanteric Femur Nail with 05/21 - Orthopedic management per Dr. Mace - Fall precautions - IS q1hr - PT, OT ordered. WBAT, pending recommendations - Ice pack as needed for pain - Multimodal pain control - Greatly appreciate case management discharge planning, evaluation for home health versus SNF 2. Chronic obstructive pulmonary disease, unspecified COPD type: - 05/20: CXR: Reviewed and results as follows: Hyperinflation and atherosclerosis. - Continue as needed nebs, supportive interventions 3. BPH loc w urin obs/LUTS: - Continue home medication tamsulosin 0.4mg PO dly 4. Hyperlipidemia: - Continue atorvastitn 20mg PO dly 5. Chronic back pain greater than 3 months duration: - S/P spinal fusion - Continue gabapentin 600 mg PO TID - Multimodal pain control Discharge: Physical Exam Narrative: General: A&Ox4, sitting up in bed, left hip pain otherwise in no distress. HEENT: Normo-cephalic, atraumatic, grossly unremarkable exam Cardio: NSR, normal S1-S2 without any murmurs, rubs, or gallops and JVD normal Respiratory: Clear bilaterally to auscultation, diminished at the bases. GI: Abd soft, non-tender, non-distended, normo-active bowel sounds present Neuro: No sensory deficits, Normal speech Behavior: Appropriate and cooperative Extremities: Distal pulses are palpable left lower extremity is warm and well- perfused. Mild swelling noted about the left hip. Left hip surgical incision covered, dressing with no noticeable drainage. Urinary Catheter Management: Young: Cath Placed During This Visit: yes, but has since been removed by the nurse Reason for Continuing Indwelling Catheter: Decision to DC Catheter Urinary Catheter Date of Insertion: 05/20/25 Urinary Catheter Time of Insertion: 12:48 Date Urinary Catheter Removed: 05/21/25 Time Urinary Catheter Discontinued: 08:40 Discharge Data Studies Completed and Pending Completed Studies During Hospitalization Category Date Time Status XR chest 1V portable [id number] Stat Exams 05/20/25 12:37 Completed XR femur LT min 2V* [id number] Stat Exams 05/20/25 12:39 Completed XR hip LT 2-3V wo/w pel* [id number] Routine Exams 05/20/25 15:52 Completed XR hip LT 2-3V wo/w pel* [id number] Stat Exams 05/20/25 11:54 Completed Pending at discharge Category Date Time Status XR hip LT 2-3V wo/w pel* [id number] Routine Exams 05/20/25 15:48 Taken Basic Metabolic Panel AM LABS Lab 05/23/25 04:00 Ordered Complete Blood Count w/Auto AM LABS Lab 05/23/25 04:00 Ordered Complete Blood Count w/Auto AM LABS Lab 05/24/25 04:00 Ordered Comprehensive Metabolic Panel AM LABS Lab 05/23/25 04:00 Ordered Comprehensive Metabolic Panel AM LABS Lab 05/24/25 04:00 Ordered Radiology Impressions Chest X-Ray 05/20/25 12:37 Impression: Hyperinflation and atherosclerosis. Femur X-Ray 05/20/25 12:39 Impression: Left hip intertrochanteric fracture. Hip/Pelvis X-Ray 05/20/25 15:52 Impression: Internal fixation of intertrochanteric left hip fracture. Laboratory Results WBC 5.73 10^3/uL (3.29-11.43) 05/22/25 03:35 RBC 2.77 10^6/uL (3.85-5.65) L 05/22/25 03:35 Hgb 8.50 g/dL (11.27-16.99) L 05/22/25 03:35 Hct 26.2 % (37-53) L 05/22/25 03:35 MCV 94.6 fl (82-101) 05/22/25 03:35 MCH 30.7 pg (27-33) 05/22/25 03:35 MCHC 32.4 g/dL (30-55) 05/22/25 03:35 RDW 14.4 % (12.1-15.1) 05/22/25 03:35 Plt Count 174 10^3/cmm (157-399) 05/22/25 03:35 MPV 10.3 fL (7.4-10.4) 05/22/25 03:35 Neut % (Auto) 73.3 % 05/22/25 03:35 Lymph % (Auto) 15.9 % 05/22/25 03:35 [place] % (Auto) 9.2 % 05/22/25 03:35 Eos % (Auto) 1.0 % 05/22/25 03:35 Baso % (Auto) 0.3 % 05/22/25 03:35 Neut # (Auto) 4.19 10^3/uL (1.8-7.7) 05/22/25 03:35 Lymph # (Auto) 0.9 10^3/uL (0.8-4.8) 05/22/25 03:35 [place] # (Auto) 0.5 10^3/uL (0.2-0.9) 05/22/25 03:35 Eos # (Auto) 0.1 10^3/uL (0.0-0.8) 05/22/25 03:35 Baso # (Auto) 0.0 10^3/uL (0.0-0.1) 05/22/25 03:35 Nucleated RBC % (auto) 0 % 05/22/25 03:35 Nucleated RBCs # 0.0 /100WBC 05/22/25 03:35 Sodium 138 mmol/L (136-145) 05/22/25 03:35 Potassium 3.7 mmol/L (3.5-5.1) 05/22/25 03:35 Chloride 104 mmol/L (98-107) 05/22/25 03:35 Carbon Dioxide 26 mmol/L (22-29) 05/22/25 03:35 Anion Gap 11.7 (5-19) 05/22/25 03:35 BUN 8 mg/dL (8-23) 05/22/25 03:35 Creatinine 0.6 mg/dL (0.7-1.2) L 05/22/25 03:35 GFR Calculation 134.0 mL/min (90-130) H 05/22/25 03:35 Glucose 93 mg/dL (65-115) 05/22/25 03:35 Calculated Osmolality 284 mOsm/kg (285-295) L 05/22/25 03:35 Calcium 8.7 mg/dL (8.5-10.5) 05/22/25 03:35 Magnesium 1.7 mg/dL (1.7-2.3) 05/22/25 03:35 Total Bilirubin 0.3 mg/dL (0.15-1.2) 05/22/25 03:35 AST 14 U/L (0-40) 05/22/25 03:35 ALT 6 U/L (0-41) 05/22/25 03:35 Alkaline Phosphatase 69 U/L (40-130) 05/22/25 03:35 Total Protein 5.8 g/dL (6.6-8.7) L 05/22/25 03:35 Albumin 3.2 g/dL (3.5-5.2) L 05/22/25 03:35 Globulin 2.6 g/dL (1.3-4.6) 05/22/25 03:35 Triglycerides 36 mg/dL (0-150) 05/20/25 17:25 Cholesterol 128 mg/dL (0-200) 05/20/25 17:25 LDL Cholesterol, Calc 54 mg/dL (50-129) 12/19/25 17:25 HDL Cholesterol 67 mg/dL (60-100) 05/20/25 17:25 LDL/HDL Ratio 0.81 RATIO (0.00-3.22) 05/20/25 17:25 Cholesterol/HDL Ratio 1.91 mg/dL (1.0-5.00) 05/20/25 17:25 Blood Type O Positive 05/20/25 17:25 Rho(D) Type Rh positive 05/20/25 17:25 Antibody Screen Negative 05/20/25 17:25 Vitals Last Vital Signs Temp 99.3 F 05/22/25 07:05 Pulse 91 05/22/25 07:05 Resp 16 05/22/25 07:05 BP 137/77 05/22/25 07:05 Pulse Ox 94 05/22/25 07:05 O2 Del Method Room Air 05/22/25 07:05 Discharge Plan Discharge Patient Disposition: Home Health Service Condition: Stable Prescriptions: New tramadol 50 mg Tablet 50 mg PO Q6H PRN (Reason: Moderate Pain) 3 Days Qty: 12 0RF polysaccharide iron complex [Ferrex 150] 150 mg iron Capsule 150 mg PO BIDWM 30 Days Qty: 30 0RF Continued oxycodone-acetaminophen 10-325 mg tablet 1 tab PO Q4H PRN (Reason: pain) 30 Days Qty: 180 0RF gabapentin 600 mg tablet 600 mg PO TID pantoprazole [Protonix] 40 mg tablet,delayed release (DR/EC) 40 mg PO BID trazodone 50 mg tablet 50 mg PO BEDTIME tamsulosin 0.4 mg capsule 0.4 mg PO BEDTIME atorvastatin 20 mg tablet 20 mg PO QPM No Action (DME) gauntlet AFO to the left See Rx Instructions .Route .MEDSUPPLY Qty: 1 0RF Rx Instructions: As directed by [facility] (DME) Accommodative orthotics See Rx Instructions .Route .MEDSUPPLY Qty: 1 0RF Rx Instructions: As directed by [facility] Other Ambulatory Orders: DME: Jose (Order) Location: None Selected Ordered By: Zahra Mckeon Referrals: Roberto Cross DO [Primary Care Provider, Family Practice] - 1-3 days Inocencio Mace DO [Physician, Orthopedics] - 2 weeks Patient Instructions: Opioid Safety, Patient Portal & [facility] Instructions, ORIF of Hip Fracture (DC) Activity Restrictions/Additional Instructions: Weightbearing as tolerated to left lower extremity, use front wheeled walker. Change dressing as needed. DVT prophylaxis ASA. Discharge Attestations Time Spent in Discharge Care*: greater than 30 min Status at Discharge: Cognitive status at discharge: cognitively intact , Behavioral status at discharge: cooperative , Quality Metrics Clinical Quality Measures [ No reported AMI, CVA or VTE this stay] Coding Level of Care Code 72684 Diagnoses Closed displaced intertrochanteric fracture of left femur, initial encounter S72.142A Encounter type: initial encounter Fracture alignment: displaced
--- NOTE | 2025-05-22 09:07 | P.PN_ITS ---
Subjective 2 Subjective: Patient is a very pleasant 69-year-old male seen and examined at bedside on hospital rounds today. Patient sitting up in bed stating that he has left hip pain and feels weak does not feel like he can go home with home health today but states that he is not going to fdc facility that he will discharge home after therapy on Friday or Friday. Patient denies chest pain or shortness of breath, worsening symptoms. Review of vital signs patient's blood pressure 137/77, pulse 91, respiration 16, temp 99.3, O2 sat 94% on room air. In review of labs WBC WNL 5.73, RBC 2.77, hemoglobin 8.50 noted he is on iron supplementation, we will continue to closely monitor, hematocrit 26.2, creatinine 0.6. Vitals/I&O/Wt Last Vital Signs Temp 99.3 F 05/22/25 07:05 Pulse 91 05/22/25 07:05 Resp 16 05/22/25 08:31 BP 137/77 05/22/25 07:05 Pulse Ox 94 05/22/25 08:31 O2 Del Method Room Air 05/22/25 07:05 05/21/25 05/22/25 05/22/25 22:59 06:59 14:59 Intake Total 410 / 2180 850 / 3030 240 / 240 Output Total 600 / 600 500 / 1100 575 / 575 Balance -190 / 1580 350 / 1930 -335 / -335 Weight last 48 hrs Weight 65.516 kg Weight 67.8 kg Weight 62.596 kg Weight 62.596 kg Physical Exam 2 Narrative: General: A&Ox4, sitting up in bed, left hip pain otherwise in no distress. HEENT: Normo-cephalic, atraumatic, grossly unremarkable exam Cardio: NSR, normal S1-S2 without any murmurs, rubs, or gallops and JVD normal Respiratory: Clear bilaterally to auscultation, diminished at the bases. GI: Abd soft, non-tender, non-distended, normo-active bowel sounds present Neuro: No sensory deficits, Normal speech Behavior: Appropriate and cooperative Extremities: Distal pulses are palpable left lower extremity is warm and well- perfused. Mild swelling noted about the left hip. Left hip surgical incision covered, dressing with no noticeable drainage. Urinary Catheter Management: Young: Cath Placed During This Visit: yes, but has since been removed by the nurse Reason for Continuing Indwelling Catheter: Decision to DC Catheter Urinary Catheter Date of Insertion: 05/20/25 Urinary Catheter Time of Insertion: 12:48 Date Urinary Catheter Removed: 05/21/25 Time Urinary Catheter Discontinued: 08:40 Data 05/22/25 03:35 05/22/25 03:35 A&P Assessment and plan 1. Closed displaced intertrochanteric fracture of left femur, initial encounter: - 05/20: L femur XR: Reviewed and results as follows: Left hip intertrochanteric fracture. - Weightbearing left leg as tolerated - S/p Left Hip Trochanteric Femur Nail with 05/21 - Orthopedic management per Dr. Mace - Fall precautions - IS q1hr - PT, OT appreciated. WBAT, recommendations for SNF but patient decline, wants 2 days inpatient and home with home health - Ice pack as needed for pain - Multimodal pain control - Greatly appreciate case management discharge planning, evaluation for home health does not want SNF 2. Chronic obstructive pulmonary disease, unspecified COPD type: - 05/20: CXR: Reviewed and results as follows: Hyperinflation and atherosclerosis. - Continue as needed nebs, supportive interventions 3. BPH loc w urin obs/LUTS: - Continue home medication tamsulosin 0.4mg PO dly 4. Hyperlipidemia: - Continue atorvastitn 20mg PO dly 5. Chronic back pain greater than 3 months duration: - S/P spinal fusion - Continue gabapentin 600 mg PO TID - Multimodal pain control Plan: VTE PPX: SQ lovenox GI PPX: PPI Code Status: Full code PDMP PDMP Reviewed: Last Reviewed 05/21/25 16:47 EST by Zahra Mckeon, ASSOCIATE SALES REPRESENTATIVE Attestations 2 Medical Necessity Statement*: Patient will require continued ongoing inpatient status for medical management of comorbidities and orthopedic interventions status post left Hip Trochanteric Femur Nail with PT/OT, pain management. Coding Level of Care Code 51608 Diagnoses Closed displaced intertrochanteric fracture of left femur, initial encounter S72.142A Encounter type: initial encounter Fracture alignment: displaced Chronic obstructive pulmonary disease, unspecified COPD type J44.9 COPD type: unspecified COPD BPH loc w urin obs/LUTS N40.1 Hyperlipidemia E78.5 Chronic back pain greater than 3 months duration M54.9; G89.29
--- NOTE | 2025-05-22 10:34 | P.PN_ITS ---
Subjective 2 Subjective: Patient seen and examined recovering well, planning on SNF at discharge, will work with therapy Vitals/I&O/Wt Last Vital Signs Temp 99.3 F 05/22/25 07:05 Pulse 91 05/22/25 07:05 Resp 16 05/22/25 08:31 BP 137/77 05/22/25 07:05 Pulse Ox 94 05/22/25 08:31 O2 Del Method Room Air 05/22/25 07:05 05/21/25 05/22/25 05/22/25 22:59 06:59 14:59 Intake Total 410 / 2180 850 / 3030 1140 / 1140 Output Total 600 / 600 500 / 1100 575 / 575 Balance -190 / 1580 350 / 1930 565 / 565 Weight last 48 hrs Weight 144 lb 7 oz Weight 149 lb 7.574 oz Weight 138 lb Weight 138 lb Physical Exam 2 Narrative: Left hip examination: Dressing on in place, clean dry and intact. No evidence of saturation. Patient has normal postoperative swelling and tenderness to palpation to the hip. Compartments are soft compressible,'s calf soft and nontender. Sensations intact to light touch distally. Distal pulses are palpable. Patient is able to wiggle toes as well as plantarflex and dorsiflex ankle., Patient is able to tolerate logroll examination. Urinary Catheter Management: Young: Cath Placed During This Visit: yes, but has since been removed by the nurse Reason for Continuing Indwelling Catheter: Decision to DC Catheter Urinary Catheter Date of Insertion: 05/20/25 Urinary Catheter Time of Insertion: 12:48 Date Urinary Catheter Removed: 05/21/25 Time Urinary Catheter Discontinued: 08:40 Data 05/22/25 03:35 05/22/25 03:35 A&P Assessment and plan 1. Closed intertrochanteric fracture of left femur: Plan: Postop day 2 left hip trochanteric femur nail Weight-bear as tolerated left lower extremity PT/OT DVT prophylaxis per primary Pain control Antinausea medication Complete postoperative antibiotics x-rays reviewed Case management for discharge planning Internal medicine on board as primary Change dressing as needed A.m. labs reviewed\ Patient stable for discharge orthopedic standpoint. Orthopedic surgery team will sign off patient at this time follow peripherally if there is any questions pertaining patient's care feel free to contact orthopedics on-call. Patient follow-up in orthopedic office in 2 weeks upon discharge. PDMP PDMP Reviewed: Not Reviewed Attestations 2 Medical Necessity Statement*: Ongoing care status post left hip trochanteric femur nail fixation Coding Level of Care Code Acute Code for Chg Fwd Diagnoses Closed intertrochanteric fracture of left femur S72.142A Time Spent (min) 10
[2025-05-22] MEDS: ATORVASTATIN 20 MG TABLET PO (17:00)
[2025-05-23] VITALS (12 sets, daily range): BP systolic 109–131; BP diastolic 70–78; PULSE 86–124; RESP 14–20; TEMP 36.6–36.8; O2SAT 94–97
[2025-05-23] MEDS: oxyCODONE 5 mg IR Tab/Cap PO ×6 (01:45→22:27)
[2025-05-23] MEDS: calcium carb-vit d 600mg/400unit 1 Tablet 1 EACH PO ×2 (05:18→16:52)
[2025-05-23] MEDS: multivitamin therapeutic Tablet 1 TAB PO (05:18)
[2025-05-23] MEDS: chlorhexidine gluconate 0.12% Btl 473 mL 30 ML MUCOUS MEM ×4 (05:19→20:16)
[2025-05-23 06:12] LABS: Hematocrit 31.7 % (37-53); Hemoglobin 10.20 g/dL (11.27-16.99); Mean Corpuscular HGB Conc 32.2 g/dL (30-55); Mean Corpuscular Hemoglobin 31.0 pg (27-33); Mean Corpuscular Volume 96.4 fl (82-101); Nucleated Red Blood Cells % 0 %; Platelet Count 195 10^3/cmm (157-399); Red Blood Count 3.29 10^6/uL (3.85-5.65); White Blood Count 6.33 10^3/uL (3.29-11.43)
[2025-05-23 06:39] LABS: Alanine Aminotransferase 15 U/L (0-41); Albumin Level 3.2 g/dL (3.5-5.2); Alkaline Phosphatase 65 U/L (40-130); Anion Gap 14.6 (5-19); Aspartate Amino Transferase 21 U/L (0-40); Blood Urea Nitrogen 8 mg/dL (8-23); Calcium 9.0 mg/dL (8.5-10.5); Carbon Dioxide 24 mmol/L (22-29); Chloride 102 mmol/L (98-107); Globulin 3.3 g/dL (1.3-4.6); Glucose 90 mg/dL (65-115); Osmolality Calculated 282 mOsm/kg (285-295); Potassium 3.6 mmol/L (3.5-5.1); Sodium 137 mmol/L (136-145); Total Protein 6.5 g/dL (6.6-8.7)
--- NOTE | 2025-05-23 08:12 | P.PN_ITS ---
Subjective 2 Subjective: Patient resting in bed on room air, no family noted at bedside during my evaluation. Patient denies pain at this time. Patient states he feels too weak to go home, worries about dog jumping on him and getting hurt due to unsteadiness postsurgery. Plan of care discussion included possible discharge today to SNF, pending acceptance. Case management reviewing all options. Labs and vital signs reviewed. All questions and concerns addressed at bedside. Medications: Reviewed: Yes Vitals/I&O/Wt Last Vital Signs Temp 98.0 F 05/23/25 07:23 Pulse 86 05/23/25 07:23 Resp 18 05/23/25 07:23 BP 109/73 05/23/25 07:23 Pulse Ox 94 05/23/25 07:23 O2 Del Method Room Air 05/23/25 07:23 05/22/25 05/23/25 05/23/25 22:59 06:59 14:59 Intake Total 480 / 1980 Output Total 575 / 1550 Balance -95 / 430 Weight last 48 hrs Weight 63.8 kg Weight 65.516 kg Physical Exam 2 Narrative: General: A&Ox4, sitting up in bed, no apparent distress. Cardio: NSR, normal S1-S2 without any murmurs, rubs, or gallops and JVD normal Respiratory: Clear to bilateral upper and lower lobes to auscultation GI: Abd soft, non-tender, non-distended, normo-active bowel sounds present Neuro: No sensory deficits, Normal speech Behavior: Appropriate and cooperative Extremities: Distal pulses are palpable left lower extremity is warm and well- perfused. Mild swelling noted about the left hip. Left hip surgical incision covered, dressing with no noticeable drainage. Urinary Catheter Management: Young: Cath Placed During This Visit: yes, but has since been removed by the nurse Reason for Continuing Indwelling Catheter: Decision to DC Catheter Urinary Catheter Date of Insertion: 05/20/25 Urinary Catheter Time of Insertion: 12:48 Date Urinary Catheter Removed: 05/21/25 Time Urinary Catheter Discontinued: 08:40 Data 05/23/25 05:24 05/23/25 05:24 A&P Assessment and plan 1. Closed displaced intertrochanteric fracture of left femur, initial encounter: - 05/20: L femur XR: Reviewed and results as follows: Left hip intertrochanteric fracture. - Weightbearing left leg as tolerated - S/p Left Hip Trochanteric Femur Nail with 05/21 - Orthopedic management per Dr. Mace - Fall precautions - IS q1hr - 05/22:PT, OT appreciated. WBAT, recommendations for SNF but patient decline, wants 2 days inpatient and home with home health. 05/23: Patient decided he wants SNF, feels too weak to go home on his own. Case management aware, reviewing options. Possible discharge today. - Ice pack as needed for pain - Multimodal pain control - Greatly appreciate case management discharge planning, evaluation for SNF. 2. Chronic obstructive pulmonary disease, unspecified COPD type: - 05/20: CXR: Reviewed and results as follows: Hyperinflation and atherosclerosis. - Continue as needed nebs, supportive interventions 3. BPH loc w urin obs/LUTS: - Continue home medication tamsulosin 0.4mg PO dly 4. Hyperlipidemia: - Continue atorvastitn 20mg PO dly 5. Chronic back pain greater than 3 months duration: - S/P spinal fusion - Continue gabapentin 600 mg PO TID - Multimodal pain control Plan: VTE PPX: SQ lovenox GI PPX: PPI Code Status: Full code PDMP PDMP Reviewed: Not Reviewed Attestations 2 Medical Necessity Statement*: Patient will require continued ongoing inpatient status for medical management of comorbidities and orthopedic interventions status post left Hip Trochanteric Femur Nail with PT/OT, pain management. Coding Level of Care Code Acute Code for Chg Fwd Diagnoses Closed displaced intertrochanteric fracture of left femur, initial encounter S72.142A Encounter type: initial encounter Fracture alignment: displaced Chronic obstructive pulmonary disease, unspecified COPD type J44.9 COPD type: unspecified COPD BPH loc w urin obs/LUTS N40.1 Hyperlipidemia E78.5 Chronic back pain greater than 3 months duration M54.9; G89.29
--- NOTE | 2025-05-23 09:05 | PC.NURSE ---
Fresh ice offered to pt this morning by this nurse, however, pt refused.
--- NOTE | 2025-05-23 10:03 | PC.CHAP ---
Pastoral Care Encounter/Spiritual Assessment Type of Contact [] Declined manager market development visit [] Patient/Family/Request visit [] Outpatient visit [] Follow-up visit [] Physician referral [] Code/Alert [x] Routine visit [] Staff referral [] Actively dying [] Patient sleeping [] Family support [] [] Out of room [] Palliative care [] [] Receiving care in room [] Pre-surgical visit [] Trauma [] Long length of stay [] ICU visit [] Other: Relational/Emotional Strength [x] Patient feels connected with others/family/visitors/staff [] Distress [] Loneliness/isolation [] Abandonment Spirituality of Patient [x] Person of [place] [] Attends Jew of their [place] [x] Believes in Prayer [] Reads Bible or Oriental Orthodox materials [] There are Spiritual 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 addressed Space Operations Interventions [x] Prayer [x] Active listening [x] Non-anxious presence [x] Spiritual/emotional support [] Crisis/trauma care [] Spiritual counseling [] Bereavement support [] Provided bereavement packet [] Provided Bible/devotional materials [] Provided toy/stuffed animal, coloring book to patient or family member [] Provided Communion [] Anointing/[place] [] Salvation [x] Completed spiritual assessment [] Other: Impact on Illness or Injury [] Angry [] Fearful [] Anxious [] Often cries [] Exhaustion [] Unable to work [] Unable to attend scientologist [] Unable to walk/stand [] Unable to read [] Unable to drive [] Unable to eat/drink [] Unable to sleep [] Unable to be with family [] Patient intubated [] Other: Summary Time spent with patient 5 min
--- NOTE | 2025-05-23 13:10 | PC.SOCIAL ---
IMM Updated Updated pt on IMM. No questions voiced. Provided pt a copy. Initialed, dated, & time a copy & placed in chart.
[2025-05-23] MEDS: ATORVASTATIN 20 MG TABLET PO (16:53)
[2025-05-23] MEDS: mupirocin oint 22 gm 1 APPLIC NASAL (16:53)
[2025-05-24] VITALS (8 sets, daily range): BP systolic 109–126; BP diastolic 69–83; PULSE 54–117; RESP 16–18; TEMP 36.5–36.7; O2SAT 91–95; BMI 18.6
[2025-05-24] MEDS: oxyCODONE 5 mg IR Tab/Cap PO ×4 (02:34→16:27)
[2025-05-24] MEDS: chlorhexidine gluconate 0.12% Btl 473 mL 30 ML MUCOUS MEM ×2 (04:28→11:26)
[2025-05-24] MEDS: mupirocin oint 22 gm 1 APPLIC NASAL (04:28)
[2025-05-24] MEDS: calcium carb-vit d 600mg/400unit 1 Tablet 1 EACH PO ×2 (04:28→16:27)
[2025-05-24] MEDS: multivitamin therapeutic Tablet 1 TAB PO (04:28)
[2025-05-24 05:48] LABS: Alanine Aminotransferase 31 U/L (0-41); Albumin Level 3.3 g/dL (3.5-5.2); Alkaline Phosphatase 62 U/L (40-130); Aspartate Amino Transferase 39 U/L (0-40); Blood Urea Nitrogen 9 mg/dL (8-23); Calcium 8.7 mg/dL (8.5-10.5); Carbon Dioxide 26 mmol/L (22-29); Chloride 102 mmol/L (98-107); Globulin 2.4 g/dL (1.3-4.6); Glucose 104 mg/dL (65-115); Osmolality Calculated 285 mOsm/kg (285-295); Sodium 138 mmol/L (136-145); Total Protein 5.7 g/dL (6.6-8.7)
[2025-05-24 05:50] LABS: Anion Gap 13.7 (5-19); Potassium 3.7 mmol/L (3.5-5.1)
[2025-05-24 09:21] LABS: Hematocrit 35.2 % (37-53); Hemoglobin 11.40 g/dL (11.27-16.99); Mean Corpuscular HGB Conc 32.4 g/dL (30-55); Mean Corpuscular Hemoglobin 31.1 pg (27-33); Mean Corpuscular Volume 95.9 fl (82-101); Nucleated Red Blood Cells % 0 %; Platelet Count 282 10^3/cmm (157-399); Red Blood Count 3.67 10^6/uL (3.85-5.65); White Blood Count 6.58 10^3/uL (3.29-11.43)
--- NOTE | 2025-05-24 16:12 | PC.OT ---
OT TREATMENT HELD DUE TO SCHEDULED PATIENT D/C
[2025-05-24] MEDS: ATORVASTATIN 20 MG TABLET PO (16:27)
--- NOTE | 2025-05-24 18:36 | P.DS_ITS ---
Discharge Providers Date of Admission: 05/20/25 17:05 Date of Discharge: May 24, 2025 Attending Provider at Admission: Inocencio Mace DO Attending Provider at Discharge: Margarita Sharif MD Primary Care Provider: Roberto Cross DO Diagnoses at Discharge Discharge Diagnosis 1. Closed displaced intertrochanteric fracture of left femur, initial encounter: 2. Chronic obstructive pulmonary disease, unspecified COPD type: 3. BPH loc w urin obs/LUTS: 4. Hyperlipidemia: 5. Chronic back pain greater than 3 months duration: Reason for Visit Reason for Visit: FALL Brief History: as per the admitting physician and the retrospective notes review: Geoffrey Mcleod is a 69 year old male w/ pmhx BPH, COPD, current smoker, and chronic back pain. He presents to the ED via EMS from home today with c/o left hip pain post fall. Patient states he was coming out of the bathroom at his house-he lives independently with his dog, and tripped over carpet trim and fell on on left hip. Patient reports an 8/10 on pain scale, and describes it as throbbing and constant with muscle spasms. He attempted to alleviate his pain with a Percocet that he had at home from prior back surgeries, this was unsuccessful. Patient to be admitted under inpatient status with hospitalist services and orthopedic consultation services for further medical management and care. While in ED a CBC, CMP was obtained, reviewed and results as follows: RBC 3.26, Hgb 10.10, HCT 30.9, Plt 168. CMP unremarkable. While in ED patient received following medications: Fentanyl 25 mcg IVP x 1. Hospital Course Hospital Course the patient admitted as a case of Closed displaced intertrochanteric fracture of left femur and underwent Left Hip Trochanteric Femur Nail with 05/21. the patient preferred to go home rather than SNF. therefore manager case were onboard and arranged home health for him. During his stay he was seen by the OT/PT. Home medications were reconciled. adequate analgesia was provided. ortho has been onboard and further recommendations were followed including the post discharge follow up. Medications were reconciled after confirmation and according to patient comorbidities and appropriate follow-ups and referrals were provided at the time of discharge. Patient condition has been discussed at length with the patient/family, I have independently reviewed the chart labs imaging/diagnostics/EKG. the goals of care and code status with the patient/family/NOK/legal order entry representative, and documented accordingly. The management has been done according to the current clinical condition with respect to patient goals of care and based on recommendations/guidelines. The patient/family has been informed about the current condition and further plan of care. Agreed with the plan of care and understood without any language barrier. Every effort was made to ensure accuracy of registered nurse. Any obvious errors or omissions should be clarified with the author of the document. Physical Exam Narrative: General: Alert and oriented, lying comfortably without any distress HEENT: Normocephalic, atraumatic, grossly unremarkable exam Cardio: normal rate rhythm, normal S1-S2 without any murmurs, rubs, or gallops and JVD normal Respiratory: normal vascular breathing on auscultation without any wheezes, stridor, rhonchi GI: Abdomen soft, nontender, nondistended, normoactive bowel sounds present all 4 quadrants, Neuro: intact cranial nerves motor and sensory and cerebellar/coordination function without any focal neurological deficit Behavior: Appropriate and cooperative Extremities: Adequate palpable pulses, status post left femur hip surgery, unremarkable surgery site without any hematoma or signs of infection. Urinary Catheter Management: Young: Cath Placed During This Visit: yes, but has since been removed by the nurse Reason for Continuing Indwelling Catheter: Decision to DC Catheter Urinary Catheter Date of Insertion: 05/20/25 Urinary Catheter Time of Insertion: 12:48 Date Urinary Catheter Removed: 05/21/25 Time Urinary Catheter Discontinued: 08:40 Discharge Data Studies Completed and Pending Completed Studies During Hospitalization Category Date Time Status XR chest 1V portable [id number] Stat Exams 05/20/25 12:37 Completed XR femur LT min 2V* [id number] Routine Exams 05/20/25 15:48 Completed XR hip LT 2-3V wo/w pel* [id number] Routine Exams 05/20/25 15:52 Completed XR hip LT 2-3V wo/w pel* [id number] Stat Exams 05/20/25 11:54 Completed Radiology Impressions Chest X-Ray 05/20/25 12:37 Impression: Hyperinflation and atherosclerosis. Hip/Pelvis X-Ray 05/20/25 15:52 Impression: Internal fixation of intertrochanteric left hip fracture. Laboratory Results WBC 6.58 10^3/uL (3.29-11.43) 05/24/25 09:00 Corrected WBC Cancelled 05/24/25 04:55 RBC 3.67 10^6/uL (3.85-5.65) L 05/24/25 09:00 Hgb 11.40 g/dL (11.27-16.99) 05/24/25 09:00 Hct 35.2 % (37-53) L 05/24/25 09:00 MCV 95.9 fl (82-101) 05/24/25 09:00 MCH 31.1 pg (27-33) 05/24/25 09:00 MCHC 32.4 g/dL (30-55) 05/24/25 09:00 RDW 13.9 % (12.1-15.1) 05/24/25 09:00 Plt Count 282 10^3/cmm (157-399) D 05/24/25 09:00 MPV 9.2 fL (7.4-10.4) 05/24/25 09:00 Gran % Cancelled 05/24/25 04:55 Neut % (Auto) 70.2 % 05/24/25 09:00 Lymph % (Auto) 16.1 % 05/24/25 09:00 [place] % (Auto) 9.3 % 05/24/25 09:00 Eos % (Auto) 3.2 % 05/24/25 09:00 Baso % (Auto) 0.6 % 05/24/25 09:00 Neut # (Auto) 4.62 10^3/uL (1.8-7.7) 05/24/25 09:00 Lymph # (Auto) 1.1 10^3/uL (0.8-4.8) 05/24/25 09:00 [place] # (Auto) 0.6 10^3/uL (0.2-0.9) 05/24/25 09:00 Eos # (Auto) 0.2 10^3/uL (0.0-0.8) 05/24/25 09:00 Baso # (Auto) 0.0 10^3/uL (0.0-0.1) 05/24/25 09:00 Absolute Gran (auto) Cancelled 05/24/25 04:55 Nucleated RBC % (auto) 0 % 05/24/25 09:00 Nucleated RBCs # 0.0 /100WBC 05/24/25 09:00 Sodium 138 mmol/L (136-145) 05/24/25 04:55 Potassium 3.7 mmol/L (3.5-5.1) 05/24/25 04:55 Chloride 102 mmol/L (98-107) 05/24/25 04:55 Carbon Dioxide 26 mmol/L (22-29) 05/24/25 04:55 Anion Gap 13.7 (5-19) 05/24/25 04:55 BUN 9 mg/dL (8-23) 05/24/25 04:55 Creatinine 0.6 mg/dL (0.7-1.2) L 05/24/25 04:55 GFR Calculation 134.0 mL/min (90-130) H 05/24/25 04:55 Glucose 104 mg/dL (65-115) 05/24/25 04:55 Calculated Osmolality 285 mOsm/kg (285-295) 05/24/25 04:55 Calcium 8.7 mg/dL (8.5-10.5) 05/24/25 04:55 Magnesium 1.7 mg/dL (1.7-2.3) 05/22/25 03:35 Total Bilirubin 0.5 mg/dL (0.15-1.2) 05/24/25 04:55 AST 39 U/L (0-40) 05/24/25 04:55 ALT 31 U/L (0-41) 05/24/25 04:55 Alkaline Phosphatase 62 U/L (40-130) 05/24/25 04:55 Total Protein 5.7 g/dL (6.6-8.7) L 05/24/25 04:55 Albumin 3.3 g/dL (3.5-5.2) L 05/24/25 04:55 Globulin 2.4 g/dL (1.3-4.6) 05/24/25 04:55 Triglycerides 36 mg/dL (0-150) 05/20/25 17:25 Cholesterol 128 mg/dL (0-200) 05/20/25 17:25 LDL Cholesterol, Calc 54 mg/dL (50-129) 05/20/25 17:25 HDL Cholesterol 67 mg/dL (60-100) 05/20/25 17:25 LDL/HDL Ratio 0.81 RATIO (0.00-3.22) 05/20/25 17:25 Cholesterol/HDL Ratio 1.91 mg/dL (1.0-5.00) 05/20/25 17:25 Blood Type O Positive 05/20/25 17:25 Rho(D) Type Rh positive 05/20/25 17:25 Antibody Screen Negative 05/20/25 17:25 Vitals Last Vital Signs Temp 97.7 F 05/24/25 16:27 Pulse 54 L 05/24/25 16:27 Resp 18 05/24/25 16:27 BP 126/83 05/24/25 16:27 Pulse Ox 95 05/24/25 16:27 O2 Del Method Room Air 05/24/25 16:27 Discharge Plan Discharge Patient Disposition: Home Health Service Condition: Stable Prescriptions: New polysaccharide iron complex [Ferrex 150] 150 mg iron Capsule 150 mg PO BIDWM 30 Days Qty: 30 0RF enoxaparin [Lovenox] 30 mg/0.3 mL syringe 30 mg SUBCUT DAILY 35 Days Qty: 10.5 0RF calcium carbonate-vitamin D3 [Calcium 600 + D(3)] 600 mg-10 mcg (400 unit) tablet 1 tab PO DAILY 30 Days Qty: 30 0RF ondansetron 4 mg tablet,disintegrating 4 mg PO Q8H 3 Days Qty: 9 0RF tramadol 25 mg tablet 25 mg PO QID PRN (Reason: pain) Qty: 10 0RF Continued (DME) gauntlet AFO to the left See Rx Instructions .Route .MEDSUPPLY Qty: 1 0RF Rx Instructions: As directed by [facility] (DME) Accommodative orthotics See Rx Instructions .Route .MEDSUPPLY Qty: 1 0RF Rx Instructions: As directed by [facility] oxycodone-acetaminophen 10-325 mg tablet 1 tab PO Q4H PRN (Reason: pain) 30 Days Qty: 180 0RF gabapentin 600 mg tablet 600 mg PO TID pantoprazole [Protonix] 40 mg tablet,delayed release (DR/EC) 40 mg PO BID trazodone 50 mg tablet 50 mg PO BEDTIME tamsulosin 0.4 mg capsule 0.4 mg PO BEDTIME Changed atorvastatin 20 mg tablet 20 mg PO QPM 60 Days Qty: 60 0RF [employer] Client [employer] OK for DC: Orthopedics Discharge Order = DC NOW: Discharge Order (Routine); Ordered 05/24/25 Ordered By: Margarita Sharif Other Ambulatory Orders: DME: Walker (Order) Location: None Selected Ordered By: Zahra Mckeon Referrals: Inocencio Mace DO [Physician, Orthopedics] - 2 weeks Referral Note: We have notified your physician's clinic of the need for a follow-up appointment to be scheduled. If you have not heard from them within the next 2 business days, please call them directly. Roberto Cross DO [Primary Care Provider, Family Practice] - 1-3 days Referral Note: We have notified your physician's clinic of the need for a follow-up appointment to be scheduled. If you have not heard from them within the next 2 business days, please call them directly. Discharge Diet: Advance as tolerated Discharge Activity: Use walker/crutches as instructed Patient Instructions: Iron Supplements (By mouth) (Duofer, Fe-20, Bifera, Kody- Iron), Tramadol (By mouth), Ondansetron (By mouth) (Zofran, Zofran ODT, Zuplenz), Enoxaparin (By injection) (Lovenox), Calcium/Vitamin D Supplement (By mouth), ORIF of Hip Fracture (DC), Opioid Safety, Patient Portal & [facility] Instructions Activity Restrictions/Additional Instructions: Weightbearing as tolerated to left lower extremity, use front wheeled walker. Change dressing as needed. DVT prophylaxis ASA. Postop Troch Nail Orthopedic discharge instructions: Weightbearing as tolerated to the operative extremity Ice as needed for pain and swelling Encourage knee and hip range of motion as tolerated PT/OT Take pain medication as prescribed Take antinausea medication as needed Supplement with Citracal vitamin D for bone health and healing Take Lovenox (blood thinner) as prescribed for blood clot prevention Take Colace as needed for constipation Leave Silverlon dressings on and in place for 7 days. After this they may be removed you may shower/rinse incisions with warm soapy water, pat dry redress with a dry dressing. Okay to sponge bath/shower with Silverlon dressings as they should be waterproof however if they do get saturated or wet please take these off dry the incision and redressed with a new dry sterile bandage.? Follow-up in the orthopedic office with Dr. Rodri in 2 weeks for repeat x-rays and incision check/staple removal Contact the office for any questions or concerns (i.e. increasing redness and drainage around the incision, fevers, or chills, or severe worsening in pain/change in symptoms) Discharge Attestations Time Spent in Discharge Care*: greater than 30 min Specific Discharge Activities: educating patient, educating and/or supporting family/caregiver, discussing with pcp/other providers, discussing with manager case/social workers/dc planners, documenting/other paperwork and evaluating patient/reviewing data Status at Discharge: Cognitive status at discharge: cognitively intact , Behavioral status at discharge: cooperative , Functional status at discharge: other assisted ambulation , Overall status at discharge: patient is progressing back to baseline Quality Metrics Clinical Quality Measures [ No reported AMI, CVA or VTE this stay] Coding Level of Care Code Acute Code for Chg Fwd Diagnoses Closed displaced intertrochanteric fracture of left femur, initial encounter S72.142A Encounter type: initial encounter Fracture alignment: displaced Chronic obstructive pulmonary disease, unspecified COPD type J44.9 COPD type: unspecified COPD BPH loc w urin obs/LUTS N40.1 Hyperlipidemia E78.5 Chronic back pain greater than 3 months duration M54.9; G89.29
== END 2025-05-24 07:10 | disposition home or self-care (01) | DRG 482 ==
LOC: ER 13:40 → OR 14:25 → MEDSURG 17:05
PROVIDERS: Registered Nurse; Admitting Provider Student in an Organized Health Care Education/Training Program; Emergency Provider Family Medicine; PCP Family Medicine; Visit Provider Student in an Organized Health Care Education/Training Program
PROC: 0QS736Z Reposition Left Upper Femur with Intramedullary Internal Fixation Device, Percutaneous Approach (ICD-10-PCS; CPT 27245; principal; 2025-05-20 15:00)
DX: S72.142A Displaced intertrochanteric fracture of left femur, initial encounter for closed fracture (principal); W01.0XXA Fall on same level from slipping, tripping and stumbling without subsequent striking against object, initial encounter; J44.9 Chronic obstructive pulmonary disease, unspecified; N40.1 Benign prostatic hyperplasia with lower urinary tract symptoms; E78.5 Hyperlipidemia, unspecified; G89.29 Other chronic pain; M54.9 Dorsalgia, unspecified; F17.210 Nicotine dependence, cigarettes, uncomplicated; N41.1 Chronic prostatitis
CPT/HCPCS: 36415; 51702; 71045; 73502; 73552; 76000; 80048; 80053; 80061; 83735; 85025; 86850; 86900; 93005; 96372; 96374; 97110; 97116; 97161; 97165; 97530; 99285; C1713; J0131; J1100; J1650; J2371; J2405; J2704; J3010; J3490; J7030; J9999